=== PATIENT | female | born 1990 | race Caucasian/White ===

== ENCOUNTER 2023-09-29 13:25 | Outpatient (OUT) | payer OTHER, SELFPAY ==
--- NOTE | 2023-09-29 13:27 | US_ITS ---
[address] [address] Patient Name: ESTUARDO SLADE MRN: [id number] date: 1990 Sex: F Assigned Patient Location: US Current Patient Location: US Accession/Order Number: [id number] Exam Date: 09/29/2023 13:27 Report Date: 09/29/2023 17:44 At the request of: SABRINA ALY Procedure: US OB transvaginal EXAMINATION: US OB transvaginal HISTORY: MISSED MENSES COMPARISON: No relevant comparison available. FINDINGS: Almendarez intrauterine gestation Gestational sac: 3.6 cm, 8 weeks 6 days CRL: 2.14 cm, 8 weeks 5 days Yolk sac: 3.3 mm Heart rate: 167 bpm The uterus is normal, anteverted, anteflexed The right ovary is normal measuring 2.5 x 2.4 x 1.9 cm The left ovary measures 3.6 x 2.1 x 2.8 cm, corpus luteal cyst Cervix: 4.2 cm, closed Clinical age: 8 weeks 5 days Clinical ADELE: 05/05/2024 Ultrasound age: 8 weeks 5 days Ultrasound ADELE: 05/05/2024 US/US OB transvaginal IMPRESSION: Viable almendarez intrauterine gestation measuring 8 weeks 5 days Electronically authenticated by: JACOB AYALA Date: 09/29/2023 17:44
== END 2023-09-29 13:26 | disposition home or self-care (01) ==
PROVIDERS: Visit Provider Obstetrics & Gynecology
DX: Z34.91 Encounter for supervision of normal pregnancy, unspecified, first trimester (principal); Z3A.08 8 weeks gestation of pregnancy
CPT/HCPCS: 76817

== ENCOUNTER 2023-11-01 11:30 | Outpatient (OUT) | payer OTHER, SELFPAY ==
[2023-11-01 12:35] LABS: Basophils Percent Auto 0.2 % (0.2-2.0); Eosinophils Absolute Auto 0.1 10^3/uL (0.0-0.7); Eosinophils Percent Auto 0.8 % (0.9-7.0); Hematocrit 41.3 % (36.0-48.0); Hemoglobin 14.1 g/dL (12.0-16.0); Immature Granulocytes Abs Auto 0.06 10^3/uL (0.00-0.03); Immature Granulocytes Pct Auto 0.5 % (0.0-0.5); Lymphocytes Absolute Auto 2.1 10^3/uL (1.2-3.8); Lymphocytes Percent Auto 17.1 % (20.5-60.0); Mean Corpuscular HGB Conc 34.1 g/dL (29.9-35.2); Mean Corpuscular Hemoglobin 30.9 pg (26.7-34.0); Mean Corpuscular Volume 90.4 fL (81.0-99.0); Mean Platelet Volume 11.5 fL (9.5-13.5); Monocytes Absolute Auto 0.5 10^3/uL (0.3-0.8); Monocytes Percent Auto 4.1 % (1.7-12.0); Neutrophils Absolute Auto 9.3 10^3/uL (1.4-6.5); Neutrophils Percent Auto 77.3 % (43.0-75.0); Platelet Count 172 10^3/uL (150-450); Red Blood Count 4.57 10^6/uL (4.20-5.40); Red Cell Distribution Width 12.6 % (11.0-15.0); White Blood Count 12.1 10^3/uL (4.0-11.0)
[2023-11-01 12:43] LABS: BOX Test Sent Out Y
[2023-11-01 12:59] LABS: Thyroid Stimulating Hormone 1.332 uIU/mL (0.358-3.740)
[2023-11-01 13:28] LABS: Estimated Average Glucose 105 mg/dL; Glycohemoglobin A1C 5.3 % (4.5-6.2)
[2023-11-02 06:09] LABS: HBsAg Screen Negative (Negative); HCV Ab Non Reactive (Non Reactive); HIV Ab/p24 Ag Screen Non Reactive (Non Reactive)
[2023-11-02 07:08] LABS: Rubella Antibodies, IgG 2.16 index (Immune >0.99)
[2023-11-02 12:09] LABS: Rapid Plasma Reagin, Quant Non Reactive titer (NonRea<1:1)
== END 2023-11-01 11:31 | disposition home or self-care (01) ==
PROVIDERS: Visit Provider Obstetrics & Gynecology
DX: N92.6 Irregular menstruation, unspecified (principal); Z36.0 Encounter for antenatal screening for chromosomal anomalies
CPT/HCPCS: 36415; 83036; 84443; 85025; 86592; 86762; 86803; 86850; 86900; 86901; 87086; 87340; 87389

== ENCOUNTER 2023-11-29 20:17 | Outpatient (REF) | payer OTHER, SELFPAY ==
--- OUTSIDE RECORDS SUMMARY | 2023-11-29 20:21 | XMS_ITS | CCD ---
Author Name Unknown Address [address] [place] [address] Organization [facility] Care Team Providers Care Web Project Manager Name Role Phone FELISHA TATE Unavailable Unavailable FELISHA TATE Unavailable Unavailable JACOB AYALA V Unavailable Unavailable FELISHA TATE Unavailable Unavailable RANJAN TATEA Unavailable Unavailable LEA, FELISHA Unavailable Unavailable MISC, DOCTOR Unavailable Unavailable RANJAN TATEA Unavailable Unavailable RANJAN TATEA Unavailable Unavailable RANJAN TATEA Unavailable Unavailable RANJAN TATEA Unavailable Unavailable RANJAN TATEA Unavailable Unavailable RANJAN TATEA Unavailable Unavailable RANJAN TATEA Unavailable Unavailable LEA, FELISHA Unavailable Unavailable LEA, FELISHA Unavailable Unavailable RANJAN TATEA Unavailable Unavailable RANJAN TATEA Unavailable Unavailable FELISHA TATE Unavailable Unavailable JACOB AYALA V Unavailable Unavailable RANJAN TATEA Unavailable Unavailable RANJAN TATEA Unavailable Unavailable RANJAN TATEA Unavailable Unavailable RANJAN TATEA Unavailable Unavailable LEA, FELISHA Unavailable Unavailable LEA, FELISHA Unavailable Unavailable REQUEST, NONE LISTED Unavailable Unavailable RANJAN TATEA Unavailable Unavailable RANJAN TATEA Unavailable Unavailable RANJAN TATEA Unavailable Unavailable RANJAN TATEA Unavailable Unavailable RANJAN TATEA Unavailable Unavailable LEA, FELISHA Unavailable Unavailable RANJAN TATEA Unavailable Unavailable RANJAN TATEA Unavailable Unavailable LEA, FELISHA Unavailable Unavailable DONY BUTT Unavailable Unavailable DONY BUTT Unavailable Unavailable DONY BUTT Unavailable Unavailable FELISHA TATE Unavailable Unavailable FELISHA TATE Unavailable Unavailable SABRINA ALY Attending Unavailable Problems Active Problems Problem Classification Problem Date Documented Da te Episodic/Chronic Menstrual disorders (4 sources) Irregular menstruation, unspecified; Translations: [IRREGULAR MENSTRUATION UNSPECIFIED] Onset: 09-12-2017 Chronic Normal and/or delivery (13 sources) Encounter for supervision of normal , unspecified, third trimester; Translations: [Encounter for routine follow-up] Onset: 09-23-2017 Episodic OB-related trauma to perineum and vulva (1 source) First degree perineal laceration during delivery; Translations: [FIRST DEG PERINEAL LAC DUR DELIV] Onset: 04-11-2018 Episodic Other complications of ; puerperium affecting management of mother (1 source) Obesity complicating childbirth; Translations: [OBESITY COMPLICATING CHILDBIRTH] Onset: 04-11-2018 Chronic Other complications of (2 sources) Obesity complicating , third trimester; Translations: [OBESITY COMP THIRD TRI] Onset: 04-06-2018 Chronic Other complications of (9 sources) Other specified related conditions, unspecified trimester; Translations: [Decreased movements, third trimester, not applicable or unspecified] Onset: 02-03-2018 Episodic Other nutritional; endocrine; and metabolic disorders (1 source) Obesity, unspecified; Translations: [OBESITY UNSPECIFIED] Onset: 04-11-2018 Chronic Polyhydramnios and other problems of amniotic cavity (1 source) Full-term premature rupture of membranes, onset of labor within 24 hours of rupture; Translations: [FT PROM ONSET LABR W/I 24 HR RUPT] Onset: 04-11-2018 Episodic Screening or history of mental health and substance abuse (1 source) Personal history of nicotine dependence; Translations: [PERSONAL HISTORY OF NICOTINE DEPEND] Onset: 04-11-2018 Episodic Umbilical cord complication (1 source) Labor and delivery complicated by cord around neck, without compression, not applicable or unspecified; Translations: [L AND D COMP CORD NECK NO COMPRS NA/UNS] Onset: 04-11-2018 Episodic Unclassified (1 source) Body mass index (BMI) 36.0-36.9, adult; Translations: [BODY MASS INDEX BMI 36.0-36.9 ADULT] Onset: 04-11-2018 Chronic Unclassified (5 sources) 29 weeks gestation of ; Translations: [36 weeks gestation of ] Onset: 02-14-2018 Past or Other Problems Problem Classification Problem Date Documented Da te Episodic/Chronic Nonspecific chest pain (4 sources) Chest pain, unspecified; Translations: [CHEST PAIN UNSPECIFIED] Onset: 01-03-2018 Episodic Results Test Name Value Interpretation Reference Range Facility CHLAMYDIA/GONOCOCCUS ALEX W/C ONF. (SWAB/Uon 04-26-2018 Chlamydia Trach ALEX Negative Normal Negative [facility] Comment on above: Performed By: #### A [facility] ####[facility] [address] [place], [place] [address]. Gonorrhoeae ALEX Negative Normal Negative [facility] Comment on above: Performed By: #### A ABIDA ####[facility] Om[address]sm[address] [place] [id number] CBC AUTO DIFFon 04-08-2018 Basophils Auto #/vol (Bld) 0.1 103/ul Normal 0.0-0.1 [facility] Comment on above: Performed By: #### A ABIDA ####[facility] [address] [place] [address] [place] Basophils/100 WBC Auto (Bld) 0.3 % Normal 0.2-2.0 [facility] Comment on above: Performed By: #### A ABIDA ####[facility] [address] [place] [address] [place] Eosinophils 0.2 103/ul Normal 0.0-0.7 [facility] Comment on above: Performed By: #### A ABIDA ####[facility] [address] [place] [address] [place] Eosinophils/100 leukocytes 1.2 % Normal 0.9-7.0 [facility] Comment on above: Performed By: #### A ABIDA ####[facility] Qjvffxty[address] [place] [address] [place] Erythrocyte distribution width Auto Ratio (RBC) 14.3 % Normal 11.0-15.0 [facility] Comment on above: Performed By: #### A ABIDA ####[facility] In[address] [place] [address] [place] Erythrocytes (RBC) 3.91 106/ul Critically low 4.20-5.40 [facility] Comment on above: Performed By: #### A ABIDA ####[facility] R[address] [place] [address] [place] Hematocrit (HCT) 34.7 % Critically low 36.0-48.0 [facility] Comment on above: Performed By: #### A ABIDA ####[facility] Au[address] [place] [address] [place] Hemoglobin mass conc (Bld) 11.8 g/dL Critically low 12.0-16.0 [facility] Comment on above: Performed By: #### A ABIDA ####[facility] Ntvtybtipt0082 [address] [place] IG # 0.18 10e3/ul Critically high 0.00-0.03 [facility] Comment on above: Performed By: #### A ABIDA ####[facility] Btpgvjaihz9076 [address] [place] IG % 1.0 % Critically high 0.0-0.5 [facility] Comment on above: Performed By: #### A ABIDA ####[facility] [address] [place] [address] [place] Lymphocytes 2.1 103/ul Normal 1.2-3.8 [facility] Comment on above: Performed By: #### A ABIDA ####[facility] Yufdquier[address] [place] [address] [place] Lymphocytes/100 leukocytes 11.9 % Critically low 20.5-60.0 [facility] Comment on above: Performed By: #### A ABIDA ####[facility] [address] [place] [address] [place] MANUAL DIFF REQ NO Normal [facility] Comment on above: Performed By: #### A ABIDA ####[facility] [address] [place] [address] [place] MCH 30.2 pg Normal 26.7-34.0 [facility] Comment on above: Performed By: #### A ABIDA ####[facility] [address] [place] [address] [place] MCHC mass conc (RBC) 34.0 g/dL Normal 29.9-35.2 [facility] Comment on above: Performed By: #### A ABIDA ####[facility] [address] [place] [address] [place] MCV 88.7 fL Normal 81.0-99.0 [facility] Comment on above: Performed By: #### A ABIDA ####[facility] Rhtkb[address]u6[address] [place], [place] [address]Rhvaey [place] Monocytes 1.1 103/ul Critically high 0.3-0.8 [facility] Comment on above: Performed By: #### A ABIDA ####[facility] Rcxjmjelfp5204 [place], [place] [address]Dnwhaq [place] Monocytes/100 leukocytes 6.2 % Normal 1.7-12.0 [facility] Comment on above: Performed By: #### A ABIDA ####[facility] Ibdtmfhvth1514 [place], [place] [address]Evijkc [place] Neutrophils 14.1 103/ul Critically high 1.4-6.5 [facility] Comment on above: Performed By: #### A ABIDA ####[facility] Yvtjpjcqsr8457 [place], [place] [address]Afjkve [place] Neutrophils/100 WBC Auto (Bld) 79.4 % Critically high 43.0-75.0 [facility] Comment on above: Performed By: #### A ABIDA ####[facility] N[address]fduo7[address] [place], [place] [address]Qgsvlx [place] Platelet mean volume (PMV) 12.2 fL Normal 9.5-13.5 [facility] Comment on above: Performed By: #### A ABIDA ####[facility] Vikyxbakwl6433 [place], [place] [address]Mwxdvs [place] Platelets 118 103/ul Critically low 150-450 [facility] Comment on above: Performed By: #### A ABIDA ####[facility] Kfqchhewik3837 [place], [place] [address]Mtgtje [place] WBC (Leukocytes) 17.7 103/ul Critically high 4.0-11.0 [facility] Comment on above: Performed By: #### A ABIDA ####[facility] Smyktbjhhs7644 [place], [place] [address]Pvmvkc [place] SCREENon 04-08-2018 SCREEN Negative Normal [facility] Comment on above: Performed By: #### A ABIDA ####[facility] Rmcrihrxfa4407 [place], [place] [address]Ztltcw [place] RHOGAMon 04-08-2018 RHOGAM Status Information Issued Quantity 1 Product ID Rh Immune Globulin Lot Number [id number] Issue Date/Time [id number] Normal [facility] Comment on above: Performed By: #### A ABIDA ####[facility] Sy[address]kl[address] [place], [place] [id number] [place] CBC AUTO DIFFon 04-07-2018 Basophils Auto #/vol (Bld) 0.1 103/ul Normal 0.0-0.1 [facility] Comment on above: Performed By: #### A ABIDA ####[facility] [address] [place] [address] [place] Basophils/100 WBC Auto (Bld) 0.3 % Normal 0.2-2.0 [facility] Comment on above: Performed By: #### A ABIDA ####[facility] Z[address] [place] [address] [place] Eosinophils 0.2 103/ul Normal 0.0-0.7 [facility] Comment on above: Performed By: #### A ABIDA ####[facility] Imntrvdh[address] [place] [address] [place] Eosinophils/100 leukocytes 1.0 % Normal 0.9-7.0 [facility] Comment on above: Performed By: #### A ABIDA ####[facility] [address]we[address] [place] [address] [place] Erythrocyte distribution width Auto Ratio (RBC) 14.0 % Normal 11.0-15.0 [facility] Comment on above: Performed By: #### A ABIDA ####[facility] [address]yesju[address] [place] [address] [place] Erythrocytes (RBC) 4.39 106/ul Normal 4.20-5.40 [facility] Comment on above: Performed By: #### A ABIDA ####[facility] Wjc[address]fa[address] [place] [address] [place] Hematocrit (HCT) 38.7 % Normal 36.0-48.0 [facility] Comment on above: Performed By: #### A ABIDA ####[facility] Xyqxpwknar5045 [address] [place] Hemoglobin mass conc (Bld) 13.4 g/dL Normal 12.0-16.0 [facility] Comment on above: Performed By: #### A ABIDA ####[facility] Hajipxqnjf1637 [address] [place] IG # 0.30 10e3/ul Critically high 0.00-0.03 [facility] Comment on above: Performed By: #### A ABIDA ####[facility] [address] [place] [address] [place] IG % 1.4 % Critically high 0.0-0.5 [facility] Comment on above: Performed By: #### A ABIDA ####[facility] [address]zbj[address] [place] [address] [place] Lymphocytes 2.6 103/ul Normal 1.2-3.8 [facility] Comment on above: Performed By: #### A ABIDA ####[facility] [address] [place] [address] [place] Lymphocytes/100 leukocytes 12.6 % Critically low 20.5-60.0 [facility] Comment on above: Performed By: #### A ABIDA ####[facility] M[address] [place] [address] [place] MANUAL DIFF REQ NO Normal [facility] Comment on above: Performed By: #### A ABIDA ####[facility] Ia[address]ksyymr[address] [place] [address] [place] MCH 30.5 pg Normal 26.7-34.0 [facility] Comment on above: Performed By: #### A ABIDA ####[facility] [address]ymgthoir[address] [place] [address] [place] MCHC mass conc (RBC) 34.6 g/dL Normal 29.9-35.2 [facility] Comment on above: Performed By: #### A ABIDA ####[facility] S[address]owtbr7039 [place], [place] [address]Afsnox [place] MCV 88.2 fL Normal 81.0-99.0 [facility] Comment on above: Performed By: #### A ABIDA ####[facility] Dvxbhiigdt1811 [place], [place] [address]Pynibm [place] Monocytes 1.2 103/ul Critically high 0.3-0.8 [facility] Comment on above: Performed By: #### A ABIDA ####[facility] Acymtqtyjh6151 [place], [place] [address]Zzagvj [place] Monocytes/100 leukocytes 5.5 % Normal 1.7-12.0 [facility] Comment on above: Performed By: #### A ABIDA ####[facility] Senhaprxvb2461 [place], [place] [address]Qvflxw [place] Neutrophils 16.5 103/ul Critically high 1.4-6.5 [facility] Comment on above: Performed By: #### A ABIDA ####[facility] Uzvsxkpuot4137 [place], [place] [address]Vedtpf [place] Neutrophils/100 WBC Auto (Bld) 79.2 % Critically high 43.0-75.0 [facility] Comment on above: Performed By: #### A ABIDA ####[facility] Coquooaiuw2521 [place], [place] [address]Kucqoy [place] Platelet mean volume (PMV) 12.2 fL Normal 9.5-13.5 [facility] Comment on above: Performed By: #### A ABIDA ####[facility] Jcsdyjuvwu0455 [place], [place] [address]Pqgrea [place] Platelets 139 103/ul Critically low 150-450 [facility] Comment on above: Performed By: #### A ABIDA ####[facility] Sdrgkaqhsl0971 [place], [place] [address]Lzwtzc [place] WBC (Leukocytes) 20.8 103/ul Critically high 4.0-11.0 [facility] Comment on above: Performed By: #### A ABIDA ####[facility] Qujxqvzqhk[address]30 [address] DRUG SCREEN RAPID (URINE)on 04-07-2018 AMP Negative Normal NEGATIVE [facility] Comment on above: Performed By: #### A ABIDA ####[facility] Vxkrlwzuyr4500 [address] BAR Negative Normal NEGATIVE [facility] Comment on above: Performed By: #### A BAIDA ####[facility] Syzlxekdea4515 [address] BUP Negative Normal NEGATIVE [facility] Comment on above: Performed By: #### A ABIDA ####[facility] Ouoqwhbyod5497 [address] BZO Negative Normal NEGATIVE [facility] Comment on above: Performed By: #### A ABIDA ####[facility] [address] [place] [address] ELENA Negative Normal NEGATIVE [facility] Comment on above: Performed By: #### A ABIDA ####[facility] [address] [place] [address] CUT-OFFS SEE BELOW Normal [facility] Comment on above: Result Comment: AMP (Amphetamine): 500ng/mL, BAR (Barbituates): 200 ng/mL, BZO (Benzodiazepines): 150 ng/mL, BUP (Buprenorphine): 10 ng/mL, ELENA (Cocaine): 150 ng/mL, mAMP (Methamphetamine): 500 ng/mL, MTD (Methadone): 200 ng/mL, OPI (Opiates): 100 ng/mL or 2000 ng/mL, OXY (Oxycodone): 100 ng/mL, PCP (Phencyclidine): 25 ng/mL, PPX (Propoxyphene): 300 ng/mL, THC (Cannabinoids): 50 ng/mL, TCA (Trycyclic Antidepressants): 300 ng/mL Performed By: #### A ABIDA ####[facility] [address] [place] [address] DRUG CUT HEADER DRUG CLASS TEST SYST EM CUT-OFF CONCENTRATIONS ARE FOLLOWS: Normal [facility] Comment on above: Performed By: #### A ABIDA ####[facility] Axigspgldl3652 [address] [place] mAMP Negative Normal NEGATIVE [facility] Comment on above: Performed By: #### A ABIDA ####[facility] Egmhuvluxc5664 [address] [place] MTD Negative Normal NEGATIVE [facility] Comment on above: Performed By: #### A ABIDA ####[facility] Ymaewbirck[address] [place] OPI Negative Normal NEGATIVE [facility] Comment on above: Performed By: #### A ABIDA ####[facility] Iztnqzlnji7598 [address] [place] OXY Negative Normal NEGATIVE [facility] Comment on above: Performed By: #### A ABIDA ####[facility] [address]qax[address]fr[address] [place] [address] [place] PCP Negative Normal NEGATIVE [facility] Comment on above: Performed By: #### A ABIDA ####[facility] [address] [place] [address] [place] PPX Negative Normal NEGATIVE [facility] Comment on above: Performed By: #### A ABIDA ####[facility] X[address]csjfosw[address] [place] [address] [place] TCA Negative Normal NEGATIVE [facility] Comment on above: Performed By: #### A ABIDA ####[facility] [address] [place] [address] [place] THC Negative Normal NEGATIVE [facility] Comment on above: Performed By: #### A ABIDA ####[facility] [address]ch[address] [place] [address] [place] UA (CLEAN/CATCH) AWNING FINISHER/MICRO I F IND.on 04-07-2018 Bilirubin (total) Negative Normal NEGATIVE [facility] Comment on above: Performed By: #### A ABIDA ####[facility] [address]sfr[address]zo[address] [place] [address] [place] BLOOD Negative Normal NEGATIVE [facility] Comment on above: Performed By: #### A ABIDA ####[facility] Vzavtqamec2102 [place], [place] [address]Lyuttq [place] Glucose mass conc Negative Normal NEGATIVE [facility] Comment on above: Performed By: #### A ABIDA ####[facility] Ycpcdxmwbb6941 [place], [place] [address]Ufjirc [place] pH of blood 6.0 [pH] Normal 5-9 [facility] Comment on above: Performed By: #### A ABIDA ####[facility] Zlmhbjdaxn8225 [place] [id number] Protein Negative Normal [facility] Comment on above: Performed By: #### A ABIDA ####[facility] Pyugvwpsry[address] [place] [address] [place] SPEC GRAVITY 1.020 Normal 1.005-<=1.025 [facility] Comment on above: Performed By: #### A ABIDA ####[facility] R[address]vvfdyuw[address] [place] [address] [place] UR MICRO IND NOT INDICATED Normal [facility] Comment on above: Performed By: #### A ABIDA ####[facility] Csaecebjgd[address] [place], [place] [id number] [place] Urine, clarity CLEAR Normal [facility] Comment on above: Performed By: #### A ABIDA ####[facility] Lksebnbmdh[address] [place], [place] [id number] [place] Urine, color LT. YELLOW Normal YELLOW [facility] Comment on above: Performed By: #### A ABIDA ####[facility] Vfjwykladi0949 [place] [id number] Urine, ketones presence Negative Normal NEGATIVE [facility] Comment on above: Performed By: #### A ABIDA ####[facility] Avqsizdajw6974 [place], [place] [address]Siifux [place] Urine, nitrite presence Negative Normal NEGATIVE [facility] Comment on above: Performed By: #### A ABIDA ####[facility] Pdvtyhhrzq8952 [address] [place] Urine, urobilinogen 0.2 {Jer'U}/dL Normal [facility] Comment on above: Performed By: #### A ABIDA ####[facility] Zvjbqzibam[address] [place], [place] [id number] [place] WBC (Leukocytes) Negative Normal NEGATIVE [facility] Comment on above: Performed By: #### A ABIDA ####[facility] L[address]ksiummc[address] [place] [address] [place] GROUP B STREPTon 03-21-2018 GBS Performed by [facility] , final report to follow Normal NEG FOR GBS The [facility] Comment on above: Performed By: #### A ABIDA ####[facility] [address]if[address] [place] [address] [place] RHOGAMon 02-04-2018 RHOGAM Status Information Issued Quantity 1 Product ID Rh Immune Globulin Lot Number [id number] Issue Date/Time [id number] Normal [facility] Comment on above: Performed By: #### A ABIDA ####[facility] Wvrugrkkxj[address] [place], [place] [id number] [place] CBC AUTO DIFFon 02-03-2018 Basophils Auto #/vol (Bld) 0.0 103/ul Normal 0.0-0.1 [facility] Comment on above: Performed By: #### P REGQNT ####[facility] [address]zxkq[address] [place] [address] [place] Basophils/100 WBC Auto (Bld) 0.3 % Normal 0.2-2.0 [facility] Comment on above: Performed By: #### P REGQNT ####[facility] [address] [place], [place] [address]Gerken [place] Eosinophils 0.2 103/ul Normal 0.0-0.7 [facility] Comment on above: Performed By: #### P REGQNT ####[facility] [facility] [address] [place], [place] [address]Gerken [place] Eosinophils/100 leukocytes 1.1 % Normal 0.9-7.0 [facility] Comment on above: Performed By: #### P REGQNT ####[facility] Rtalggzeql3621 [address] [place] Erythrocyte distribution width Auto Ratio (RBC) 13.2 % Normal 11.0-15.0 [facility] Comment on above: Performed By: #### P REGQNT ####[facility] Mrjnciuqti4481 [address] [place] Erythrocytes (RBC) 3.91 106/ul Critically low 4.20-5.40 [facility] Comment on above: Performed By: #### P REGQNT ####[facility] Xqmznacp[address] [place] [address] [place] Hematocrit (HCT) 35.5 % Critically low 36.0-48.0 [facility] Comment on above: Performed By: #### P REGQNT ####[facility] Z[address]oajaird[address] [place] [address] [place] Hemoglobin mass conc (Bld) 12.0 g/dL Normal 12.0-16.0 [facility] Comment on above: Performed By: #### P REGQNT ####[facility] Nyizfebdyx[address] [place] [address] [place] IG # 0.27 10e3/ul Critically high 0.00-0.03 [facility] Comment on above: Performed By: #### P REGQNT ####[facility] Rtnipztru[address] [place] [address] [place] IG % 1.8 % Critically high 0.0-0.5 [facility] Comment on above: Performed By: #### P REGQNT ####[facility] Jvewsxmbao3930 [address] [place] Lymphocytes 1.8 103/ul Normal 1.2-3.8 [facility] Comment on above: Performed By: #### P REGQNT ####[facility] Ymyqzwdrhj[address] [place] [address] [place] Lymphocytes/100 leukocytes 11.9 % Critically low 20.5-60.0 [facility] Comment on above: Performed By: #### P REGQNT ####[facility] Lfovfpigtx8683 [place] [phone] MANUAL DIFF REQ NO Normal [facility] Comment on above: Performed By: #### P REGQNT ####[facility] Npawmypccs8204 [place] [phone] [place] MCH 30.7 pg Normal 26.7-34.0 [facility] Comment on above: Performed By: #### P REGQNT ####[facility] Khzpetjdwg1023 [place] [phone] [place] MCHC mass conc (RBC) 33.8 g/dL Normal 29.9-35.2 [facility] Comment on above: Performed By: #### P REGQNT ####[facility] Pdetgoagxr[address] [place], [place] [phone] [place] MCV 90.8 fL Normal 81.0-99.0 [facility] Comment on above: Performed By: #### P REGQNT ####[facility] Krlsmlgsou[address] [place], [place] [phone] [place] Monocytes 0.6 103/ul Normal 0.3-0.8 [facility] Comment on above: Performed By: #### P REGQNT ####[facility] Eoytskdrao[address] [place], [place] [phone] [place] Monocytes/100 leukocytes 3.9 % Normal 1.7-12.0 [facility] Comment on above: Performed By: #### P REGQNT ####[facility] Puakmubtbb[address] [place], [place] [phone] [place] Neutrophils 12.1 103/ul Critically high 1.4-6.5 [facility] Comment on above: Performed By: #### P REGQNT ####[facility] Auqkzxcunm[address] [place], [place] [phone] [place] Neutrophils/100 WBC Auto (Bld) 81.0 % Critically high 43.0-75.0 [facility] Comment on above: Performed By: #### P REGQNT ####[facility] Vcampqpgtv1828 [place], [place] [address]Pugile Karen Platelet mean volume (PMV) 11.6 fL Normal 9.5-13.5 [facility] Comment on above: Performed By: #### P REGQNT ####[facility] Zuebgxetam0360 [place], [place] [address]Vsokkx Karen Platelets 133 103/ul Critically low 150-450 [facility] Comment on above: Performed By: #### P REGQNT ####[facility] Ryqdmsvtqb3565 [place], [place] [address]Zkptqi Karen WBC (Leukocytes) 14.9 103/ul Critically high 4.0-11.0 [facility] Comment on above: Performed By: #### P REGQNT ####[facility] Jeyzyoytwv6013 [place], [place] [address]Kybsvp Karen GLUCOSE - 1HRon 02-03-2018 Glucose mass conc 120 mg/dL Critically high 74-106 Th [facility] Comment on above: Performed By: #### P REGQNT ####[facility] Hrpnjdzcxo3576 [place], [place] [address]Inqoak Karen TYPE AND SCREENon 02-03-2018 TYPE AND SCREEN Negative Normal [facility] Comment on above: Performed By: #### P REGQNT ####[facility] Yppbnotgzh7862 [place], [place] [address]Wjbsvs [place] US PREG ANATOMY SINGLEon US PREG ANATOMY SINGLE [address] [place] [address] Patient: ESTUARDO JEREZ Exam Date: 11/25/2017DOB: 1990 Gender:F : FELISHA TATE . Admission #: [id number] : Order #: [id number] HERE TO VIEW EXAM RADIOLOGY REPORT PROCEDURE: ULTRASOUND > 14 WEEKS COMPARISON: None. INDICATIONS: Encounter for care of first , antepartum, second trimester Z34.02, 20 weeks 1 day. TECHNIQUE: Transabdominal sonographic examination for obstetrical and evaluation. Transvaginal sonographic examination for obstetrical and evaluation.FINDINGS: FLUID / PLACENTA: Amniotic fluid volume: Subjectively normal for gestational age. Placental location: Anterior. No previa. Cervix Length: 4.3 cm, closed Heart Rate: 138 H.B./min Number: One ANATOMY: Normal structures: Cerebellum. Choroid plexus. Cisterna magna. Lateral cerebral ventricles. Orbits. Midline falx. Hard palate. 4-chamber heart. RVOT. LVOT. Stomach. Kidneys. Bladder. Umbilical cord insertion into abdomen. 3 vessel cord. Cervical spine. Thoracic spine. Lumbar spine. Sacral spine. Right upper extremity. Left upper extremity. Right lower extremity. Left lower extremity. Suboptimally seen: None. Abnormalities/Other: None. BIOMETRY: BPD: 4.58 cm 19 weeks, 6 days 37.40 % FL/AC: 20.53 HC: 17.33 cm 19 weeks, 6 days 29.70 % FL/BPD: 68.84 AC: 15.37 cm 20 weeks, 4 days 58.50 % HC/AC: 1.13 FL: 3.16 cm 19 weeks, 6 days 30.10 % EFW: 336.47 g 47% by AUA, GESTATIONAL AGE: Age by EDC: 20 weeks, 1 day ADELE by EDC: 2018-04-13 Age by Current US: 20 weeks, 0 days ADELE by Current US: 2018-04-14 *Reference: [employer] Practice Guideline for the performance of Obstetric Ultrasound Examinations, August 28, 2007. CONCLUSION: 1. Normal anatomy scan Dictated by: Jacob Ayala M.D. on 11/25/2017 at 20:17 Approved by: Jacob Ayala M.D. on 11/25/2017 at 20:18 Normal [facility] PAP ACOG PANEL 4: 21 to 29on 10-11-2017 LCPAP SEE SCANNED REPORT Normal [facility] Comment on above: Performed By: #### P REGQNT ####[facility] Uqwecqcrha7661 [address] [place] HEMOGLOBIN ELECTOPHORESISon 09-27-2017 HBSREV Reviewed by Adithya Morton MD ([id number]) Normal [facility] Comment on above: Result Comment: Test Performed By: [facility] [employer] [address] [place] [address] In School Suspension Aide: Dalila Roman MD, PhD Performed By: #### P REGQNT ####[facility] Hamdnykcee2812 [place] [address] Hemoglobin mass conc (Bld) None detected. Normal 0.0-1.8 [facility] Comment on above: Performed By: #### P REGQNT ####[facility] Dboagjbojz4113 [address] [place] Hemoglobin mass conc (Bld) No abnormal hemoglobin identified. Normal [facility] Comment on above: Performed By: #### P REGQNT ####[facility] Jqjlxsdufd3436 [address] [place] Hemoglobin mass conc (Bld) 97.4 % Normal [facility] Comment on above: Performed By: #### P REGQNT ####[facility] [address]fprhryy[address] [place] [address] [place] Hemoglobin mass conc (Bld) 2.6 % Normal 1.5-3.5 [facility] Comment on above: Performed By: #### P REGQNT ####[facility] Gnwoucllrp[address] [place] [address] [place] Interpertation Hemoglobins were analyzed by capillary electrophoresis. Normal [facility] Comment on above: Result Comment: Norm al pattern Performed By: #### P REGQNT ####[facility] Vpvlvauqrh[address] [place] [address] [place] VARICELLA IGGon 09-26-2017 Varicella Zoster IgG 1134.0 Index Value Normal [facility] Comment on above: Result Comment: Inde x Values are Interpreted as Follows:Negative specimens <135.0Equivocal specimens 135.0 to 164.9Positive specimens >164.9The magnitude of the measured result is not indicative of theamount of antibody present. Test Performed By: [facility] [employer] [address] [place] [address] In School Suspension Aide: Dalila Roman MD, PhD Performed By: #### P REGQNT ####[facility] [address] [place], [place] [address]en VZVGQL Positive Abnormal NEGAT [facility] Comment on above: Result Comment: Pres ence of detectable VZV IgG antibodies. A positive resultgenerally indicatesexposure to the pathogen or administration of specificimmunoglobulins, but is no indication of active infection or stage of disease. Performed By: #### P REGQNT ####[facility] Lnhttms[address] [place] [address]xgluhReymundo [place] RPR/SERUMon 09-24-2017 Reagin antibody presence Non Reactive Normal NR [facility] Comment on above: Result Comment: Test Performed By: [place] [address] In [employer] Suspension Aide: Dalila Roman MD, PhD Performed By: #### P REGQNT ####[facility] [address]wy[address] [place] [address]Mqxaqf Karen CBC AUTO DIFFon 09-23-2017 Basophils Auto #/vol (Bld) 0.0 103/ul Normal 0.0-0.1 [facility] Comment on above: Performed By: #### C BC ####[facility] Bktfynncwl[address] [place], [place] [phone] Basophils/100 WBC Auto (Bld) 0.3 % Normal 0.2-2.0 [facility] Comment on above: Performed By: #### C BC ####[facility] Jhdrqhcirs[address] [place], [place] [phone] [place] Eosinophils 0.2 103/ul Normal 0.0-0.7 [facility] Comment on above: Performed By: #### C BC ####[facility] Bwdglkldsv[address] [place], [place] [phone] Eosinophils/100 leukocytes 1.1 % Normal 0.9-7.0 [facility] Comment on above: Performed By: #### C BC ####[facility] Rpdchkqaiy[address] [place], [place] [address] Erythrocyte distribution width Auto Ratio (RBC) 12.5 % Normal 11.0-15.0 [facility] Comment on above: Performed By: #### C BC ####[facility] Kmvnsstuob1217 [address] [place] Erythrocytes (RBC) 4.61 106/ul Normal 4.20-5.40 [facility] Comment on above: Performed By: #### C BC ####[facility] [address]fz[address] [place], [place] [address] Hematocrit (HCT) 41.5 % Normal 36.0-48.0 The [facility] Comment on above: Performed By: #### C BC ####[facility] Mjwkktxpqr[address] [place], [place] [address] Hemoglobin mass conc (Bld) 14.5 g/dL Normal 12.0-16.0 [facility] Comment on above: Performed By: #### C BC ####[facility] Auidhmyrux[address] [place] [address] [place] IG # 0.07 10e3/ul Critically high 0.00-0.03 [facility] Comment on above: Performed By: #### C BC ####[facility] Aciqcxgnyb[address] [place] [address] [place] IG % 0.5 % Normal 0.0-0.5 [facility] Comment on above: Performed By: #### C BC ####[facility] Ude[address]jvffbr[address] [place] [address] [place] Lymphocytes 2.2 103/ul Normal 1.2-3.8 [facility] Comment on above: Performed By: #### C BC ####[facility] Lixysdmeza[address] [place] [address] [place] Lymphocytes/100 leukocytes 15.4 % Critically low 20.5-60.0 [facility] Comment on above: Performed By: #### C BC ####[facility] Gbxnksdvno[address] [place] [address] [place] MANUAL DIFF REQ NO Normal The [facility] Comment on above: Performed By: #### C BC ####[facility] M[address]ivaqeml[address] [place] [address] [place] MCH 31.5 pg Normal 26.7-34.0 [facility] Comment on above: Performed By: #### C BC ####[facility] Pimkwcrgis6682 [place], [place] [address]Dssqbm Karen MCHC mass conc (RBC) 34.9 g/dL Normal 29.9-35.2 [facility] Comment on above: Performed By: #### C BC ####[facility] Omkejzgbmn1697 [place], [place] [address]Xpsxdb [place] MCV 90.0 fL Normal 81.0-99.0 [facility] Comment on above: Performed By: #### C BC ####[facility] Xemjistzqb1461 [place], [place] [address]Uqrkys [place] Monocytes 0.5 103/ul Normal 0.3-0.8 [facility] Comment on above: Performed By: #### C BC ####[facility] Hbevxeqhnf3958 [place], [place] [address]Ndswmw [place] Monocytes/100 leukocytes 3.6 % Normal 1.7-12.0 [facility] Comment on above: Performed By: #### C BC ####[facility] Xphlraavej7949 [place], [place] [address]Khwjlc [place] Neutrophils 11.2 103/ul Critically high 1.4-6.5 The [facility] Comment on above: Performed By: #### C BC ####[facility] Xrjmkjarhy1139 [place], [place] [address]Tdhghp [place] Neutrophils/100 WBC Auto (Bld) 79.1 % Critically high 43.0-75.0 [facility] Comment on above: Performed By: #### C BC ####[facility] Rsthtjpcps1569 [place], [place] [address]Aegnlz [place] Platelet mean volume (PMV) 11.6 fL Normal 9.5-13.5 The [facility] Comment on above: Performed By: #### C BC ####[facility] Ptgtthjfyv8885 [place], [place] [address]Cfnfnq [place] Platelets 170 103/ul Normal 150-450 [facility] Comment on above: Performed By: #### C BC ####[facility] Peebeeybzj2757 [place], [place] [address]KelsksReymundo [place] WBC (Leukocytes) 14.2 103/ul Critically high 4.0-11.0 Th e [facility] Comment on above: Performed By: #### C BC ####[facility] Giemahjvua8369 [place], [place] [address]GvxjpvReymundo [place] HEP B SURFACE AGon 7 HEP B Surface Ag Negative Normal NEGATIVE The [facility] Comment on above: Performed By: #### P REGQNT ####[facility] Stlrjvzdge1343 [place], [place] [address]YkjxdvReymundo [place] HEP C ANTIBODYon 09-23-2017 Anti HCV Negative Normal NEGATIVE The [facility] Comment on above: Performed By: #### P REGQNT ####[facility] Albhsavhhq1928 [place], [place] [address]JoirckReymundo [place] HIV 1 AND 2 ABon 09-23-2017 HIV 1 AND 2 AB Negative Normal NEGATIVE The [facility] Comment on above: Performed By: #### H IV12 ####[facility] V[address]fdgrzdro[address] [place], [place] [address] PREG QUANT HCGon 09-23-2017 HCG Qn SEE BELOW Normal [facility] Comment on above: Result Comment: 5-50 0-1 WEEK 40-300 1-2 WEEKS 100-1,000 2-3 WEEKS 500-6,000 3-4 WEEKS 5,000-200,000 1-2 MONTHS 10,000-100,000 2-3 MONTHS 3,000-50,000 2ND TRIMESTER 1,000-50,000 3RD TRIMESTER Performed By: #### P REGQNT ####[facility] Cjnuntegfd0735 [place], [place] [address]Gadhhq [place] HCG QUANT 98593.00 mIU/mL Normal The [facility] Comment on above: Performed By: #### P REGQNT ####[facility] Xpmjbitdxr4456 [place], [place] [address]Spcvpy Karen RUBELLA AB IGGon 09-23-2017 RUB HEADER SEE BELOW Normal [facility] Comment on above: Result Comment: or=1 5.0 IU/mL POSITIVE WHO considers levels >or= 10.0 IU/mL to be positive immune status Performed By: #### R UBG ####[facility] Eatikbjuug7002 [address] [place] RUB IGG 33.1 IU/mL Normal [facility] Comment on above: Performed By: #### R UBG ####[facility] Asvrvhqlcb2533 [place] [phone] [place] TYPE AND SCREENon 09-23-2017 TYPE AND SCREEN Negative Normal The [facility] Comment on above: Performed By: #### T NS ####[facility] S[address] [place] [address] [place] CULTURE URINEon 09-13-2017 CULTURE URINE Culture Observations : Final; See scanned report to follow in HPF Normal [facility] Comment on above: Performed By: #### C XUR ####[facility] Qliuaebloc[address] [place] [address] [place] UA RANDOM W/MICROSCOPICon Bilirubin (total) Negative Normal NEGATIVE The [facility] Comment on above: Performed By: #### U AMIC ####[facility] Erwejcipvf[address] [place] [address] [place] BLOOD Negative Normal NEGATIVE The [facility] Comment on above: Performed By: #### U AMIC ####[facility] Rcabeuochr3041 [address] [place] CAST NONE SEEN Normal NONE SEEN The [facility] Comment on above: Performed By: #### U AMIC ####[facility] Acngtlzyyk9183 [address] [place] Erythrocytes (RBC) NONE SEEN Normal 0-2 [facility] Comment on above: Performed By: #### U AMIC ####[facility] Nmepdsebdw1093 [address] [place] Glucose mass conc Negative Normal NEGATIVE The [facility] Comment on above: Performed By: #### U AMIC ####[facility] Xsyiozayyl1820 [address] [place] MUCOUS NONE SEEN Normal NONE SEEN The [facility] Comment on above: Performed By: #### U AMIC ####[facility] Czaflzgtnq3399 [place], [place] [address]Dlawdv [place] pH of blood 6.5 [pH] Normal 5-9 The [facility] Comment on above: Performed By: #### U AMIC ####[facility] Bbmpekkgfy2129 [place], [place] [address]Oscdtb [place] Protein Negative Normal The [facility] Comment on above: Performed By: #### U AMIC ####[facility] Eojgsahujx2824 [place] [phone] [place] SPEC GRAVITY 1.015 Normal 1.005-<=1.025 The [facility] Comment on above: Performed By: #### U AMIC ####[facility] Sscxwxlmmt6833 [address] [place] Urine, bacteria in sediment TRACE Normal NONE SEEN The [facility] Comment on above: Performed By: #### U AMIC ####[facility] Eiefrxwxwf7659 [address] [place] Urine, clarity CLEAR Normal The [facility] Comment on above: Performed By: #### U AMIC ####[facility] Qzohboijoa9512 [place] [phone] [place] Urine, color LT. YELLOW Normal YELLOW The [facility] Comment on above: Performed By: #### U AMIC ####[facility] Odijyibous1532 [place] [address]Gerken [place] Urine, crystals in sediment NONE SEEN Normal NONE SEEN The [facility] Comment on above: Performed By: #### U AMIC ####[facility] Ocruizqbbj3243 [place], [place] [address]Ohswos [place] Urine, epithelial cells in sediment RARE Normal The [facility] Comment on above: Performed By: #### U AMIC ####[facility] Gwhgykpmrz6653 [place], [place] [address]Jwplpc [place] Urine, ketones presence Negative Normal NEGATIVE The [facility] Comment on above: Performed By: #### U AMIC ####[facility] Exfpcprpnr4332 [place] [address] Urine, nitrite presence Negative Normal NEGATIVE The [facility] Comment on above: Performed By: #### U AMIC ####[facility] Rmiseoskvi9172 [place] [address] Urine, urobilinogen 0.2 {Jer'U}/dL Normal The [facility] Comment on above: Performed By: #### U AMIC ####[facility] Ispuizhmbz0684 [address] [place] WBC (Leukocytes) NONE SEEN Normal NONE SEEN The [facility] Comment on above: Performed By: #### U AMIC ####[facility] Fpellimqev0548 [address] [place] WBC (Leukocytes) Negative Normal NEGATIVE The [facility] Comment on above: Performed By: #### U AMIC ####[facility] Tukfplzcqf8798 [address] [place] ABO AND RH TYPEon 09-12-2017 ABO AND RH TYPE Negative Normal The [facility] Comment on above: Performed By: #### A BORH ####[facility] Mlzczojhng8179 [place] [phone] [place] PREG QUANT HCGon 09-12-2017 HCG Qn SEE BELOW Normal The [facility] Comment on above: Result Comment: 5-50 0-1 WEEK 40-300 1-2 WEEKS 100-1,000 2-3 WEEKS 500-6,000 3-4 WEEKS 5,000-200,000 1-2 MONTHS 10,000-100,000 2-3 MONTHS 3,000-50,000 2ND TRIMESTER 1,000-50,000 3RD TRIMESTER Performed By: #### P REGQNT ####[facility] Fogciqkmxo7963 [address] [place] HCG QUANT 81136.00 mIU/mL Normal The [facility] Comment on above: Performed By: #### P REGQNT ####[facility] Apcldvrlcv9491 [place], [place] [address]Ldzjxy Karen US PREG <14 WKSon 08-29-2017 US PREG <14 WKS [address] [place] [address] Patient: ESTUARDO JEREZ Exam Date: 08/29/2017DOB: 1990 Gender:F : FELISHA Joel LEA . Admission #: [id number] : Order #: [id number] HERE TO VIEW EXAM RADIOLOGY REPORT PROCEDURE: ULTRASOUND < 14 WEEKS COMPARISON: US PREG <14 WKS, 12/19/2014. INDICATIONS: Missed menses N92.6; 7 weeks TECHNIQUE: Transvaginal sonographic examination for obstetrical and evaluation.FINDINGS: GESTATIONAL SAC: Present and normal appearing. POLE: Present and normal appearing.CARDIAC ACTIVITY: Present. UTERUS: Normal.OVARIES: Right: Corpus Lutein cyst. Left: Normal.CUL-DE-SAC: Normal. OTHER: None. AGE BY LMP: 7 weeks, 4 daysEDD BY LMP: April 13, 2018AGE BY US: 7 weeks, 2 daysEDD BY US: April 15, 2018 CONCLUSION: 1. Viable intrauterine gestation of 7 weeks, 2 days Dictated by: Jacob Ayala M.D. on 08/29/2017 at 16:02 Approved by: Jacob Ayala M.D. on 08/29/2017 at 16:03 Normal [facility] Encounters Encounter Date Encounter Type Care Provider Facility Start: 11-01-2023 End: 11-01-2023 ambulatory SABRINA ALY Not Available Start: 04-11-2018 End: 04-11-2018 Ambulatory FELISHA TATE Facility:[facility] Start: 04-06-2018 End: 04-09-2018 Evaluation and management of inpatient DONY DAVISHOMARRadha Facility:[facility] Start: 03-21-2018 End: 03-21-2018 Ambulatory FELISHA TATE Facility:[facility] Start: 03-07-2018 End: 03-07-2018 Ambulatory FELISHA TATE Facility:[facility] Start: 02-03-2018 End: 02-04-2018 Ambulatory FELISHA TATE Facility:[facility] Start: 01-03-2018 End: 01-04-2018 Ambulatory FELISHA TATE Facility:[facility] Start: 11-25-2017 End: 11-26-2017 Ambulatory FELISHA TATE Facility:[facility] Start: 10-11-2017 End: 10-11-2017 Ambulatory FELISHA TATE Facility:[facility] Start: 09-23-2017 End: 09-24-2017 Ambulatory FELISHA TATE Facility:[facility] Start: 09-13-2017 End: 09-13-2017 Ambulatory FELISHA TATE Facility:[facility] Start: 09-12-2017 End: 09-13-2017 Ambulatory FELISHA TATE Facility:[facility] Start: 08-29-2017 End: 08-30-2017 Ambulatory FELISHA TATE Facility:[facility] Procedures Date Procedure Procedure Detail Performing Clinician Start: 04-07-2018 Delivery of Products of Conception, External Approach FELISHA TATE Start: 04-07-2018 Repair Perineum Skin , External Approach FELISHA TATE Payers Date Payer Category Payer Unknown [id number] 1990 Unknown [id number] 1958 Unknown [id number] Summary Purpose Family History No Family History Records FoundNo Family History Records Found Advance Directives No Advanced Directives Records FoundNo Advanced Directives Records Found Additional Source Comments INFORMATION SOURCE (unrecogn ized section and content) DATE CREATED AUTHOR 05/17/2018 [facility] DATE CREATED AUTHOR AUTHOR'S ORGANIZ ATION 11/03/2023 [facility] EPIC FOR RECORDS PERTAINING TO PATIENTS WHO ARE OR HAVE BEEN ENROLLED IN A CHEMICAL DEPENDENCY/SUBSTANCEABUSE PROGRAM, SOME INFORMATION MAY BE OMITTED. This clinical summary was aggregated from multiple sources. Caution should be exercised in using it in the provision of clinical care. This summary normalizes information from multiple sources, and as a consequence, information in this document may materially change the coding, format and clinical context of patient data. In addition, data may be omitted in some cases. CLINICAL DECISIONS SHOULD BE BASED ON THE PRIMARY CLINICAL RECORDS. [employer] provides no warranty or guarantee of the accuracy or completeness of information in this document.
[2023-12-05 15:10] LABS: Age Gdln ACOG Testing Note (.); HPV Aptima Negative (Negative); IGP, Aptima HPV, rfx 16/18,45 Note (.)
== END 2023-11-29 20:18 | disposition home or self-care (01) ==
LOC: LAB 20:17
PROVIDERS: Visit Provider Physician Assistant
DX: Z01.419 Encounter for gynecological examination (general) (routine) without abnormal findings (principal); N89.8 Other specified noninflammatory disorders of vagina
CPT/HCPCS: 87624; G0145

== ENCOUNTER 2023-12-27 13:28 | Outpatient (OUT) | payer OTHER, SELFPAY ==
--- NOTE | 2023-12-27 13:30 | US_ITS ---
[address] [address] Patient Name: ESTUARDO SLADE MRN: [id number] date: 1990 Sex: F Assigned Patient Location: [facility] Current Patient Location: [facility] Accession/Order Number: [id number] Exam Date: 12/27/2023 13:30 Report Date: 12/27/2023 15:23 At the request of: SABRINA ALY Procedure: US OB cervical length EXAMINATION: US OB anatomy, US OB cervical length HISTORY: ANATOMY COMPARISON: No relevant comparison available. TECHNIQUE: Transabdominal sonographic examination was performed for obstetrical and evaluation. FINDINGS: Number: 1 Heart Rate: 139.0 bpm H.B. /min Amniotic Fluid Volume: Subjectively normal position: Variable Placental Location: POSTERIOR , grade 1. Placental edge 3.2 cm from the internal os Cervix Length: 4.7 cm , closed Normal anatomy: Lateral ventricles, cerebellum, posterior fossa, nose, lips, orbits, four-chamber heart, RVOT, LVOT, diaphragm, stomach, kidneys, abdominal cord insertion, bladder, umbilical arteries, three-vessel cord, spine, extremities BIOMETRY: BPD: 5.1 cm 21 weeks 4 days , 53% HC: 19.4 cm 21 weeks 4 days, 46% AC: 16.5 cm 21 weeks 4 days, 47% FL: 3.7 cm 21 weeks 5 days , 53% EFW:440.3 grams; 1 lb. 0 oz., 57% FL/AC: 22.4 FL/BPD: 72.1 HC/AC: 1.2 GESTATIONAL AGE: Age by EDC: 21 weeks 3 days Age by current US: 21 weeks 4 days ADEEL by current US: 05/04/2024 ADELE by EDC: 05/05/2024 US/US OB cervical length IMPRESSION: Normal anatomy scan Closed cervix measuring 4.7 cm in length *Reference: [employer] Practice Guideline for the performance of Obstetric Ultrasound Examinations, August 28, 2007. Electronically authenticated by: JACOB AYALA Date: 12/27/2023 15:23
--- NOTE | 2023-12-27 13:30 | US_ITS ---
[address] [address] Patient Name: ESTUARDO SLADE MRN: [id number] date: 1990 Sex: F Assigned Patient Location: [facility] Current Patient Location: [facility] Accession/Order Number: [id number] Exam Date: 12/27/2023 13:30 Report Date: 12/27/2023 15:23 At the request of: SABRINA ALY Procedure: US OB anatomy EXAMINATION: US OB anatomy, US OB cervical length HISTORY: ANATOMY COMPARISON: No relevant comparison available. TECHNIQUE: Transabdominal sonographic examination was performed for obstetrical and evaluation. FINDINGS: Number: 1 Heart Rate: 139.0 bpm H.B. /min Amniotic Fluid Volume: Subjectively normal position: Variable Placental Location: POSTERIOR , grade 1. Placental edge 3.2 cm from the internal os Cervix Length: 4.7 cm , closed Normal anatomy: Lateral ventricles, cerebellum, posterior fossa, nose, lips, orbits, four-chamber heart, RVOT, LVOT, diaphragm, stomach, kidneys, abdominal cord insertion, bladder, umbilical arteries, three-vessel cord, spine, extremities BIOMETRY: BPD: 5.1 cm 21 weeks 4 days , 53% HC: 19.4 cm 21 weeks 4 days, 46% AC: 16.5 cm 21 weeks 4 days, 47% FL: 3.7 cm 21 weeks 5 days , 53% EFW:440.3 grams; 1 lb. 0 oz., 57% FL/AC: 22.4 FL/BPD: 72.1 HC/AC: 1.2 GESTATIONAL AGE: Age by EDC: 21 weeks 3 days Age by current US: 21 weeks 4 days ADELE by current US: 05/04/2024 ADELE by EDC: 05/05/2024 US/US OB anatomy IMPRESSION: Normal anatomy scan Closed cervix measuring 4.7 cm in length *Reference: [employer] Practice Guideline for the performance of Obstetric Ultrasound Examinations, August 28, 2007. Electronically authenticated by: JACOB AYALA Date: 12/27/2023 15:23
--- OUTSIDE RECORDS SUMMARY | 2023-12-27 13:30 | XMS_ITS | CCD ---
Author Name Unknown Address [address] [place] [address] Organization [facility] Care Team Providers Care Digital Campaign Specialist Name Role Phone FELISHA TATE Unavailable Unavailable FELISHA TATE Unavailable Unavailable JACOB AYALA V Unavailable Unavailable FELISHA TATE Unavailable Unavailable RANJAN TATEA Unavailable Unavailable LEA, FELISHA Unavailable Unavailable MISC, DOCTOR Unavailable Unavailable RANJAN TATEA Unavailable Unavailable RANJAN TATEA Unavailable Unavailable RANJAN TATEA Unavailable Unavailable RANJAN TATEA Unavailable Unavailable RANJNA TATEA Unavailable Unavailable RANJAN TATEA Unavailable Unavailable [...] TATEA Unavailable Unavailable FELISHA TATE Unavailable Unavailable DONY BUTT Unavailable Unavailable DONY BUTT Unavailable Unavailable DONY BUTT Unavailable Unavailable FELISHA TATE Unavailable Unavailable FELISHA TATE Unavailable Unavailable FLEX GARDNER Attending Unavailable SABRINA ALY Attending Unavailable Problems Active [...] 04-26-2018 Chlamydia Trach ALEX Negative Normal Negative [facility] Comment on above: Performed By: #### A [facility] ####[facility] [address] [place], [place] [address]ken [place] N. Gonorrhoeae ALEX Negative Normal Negative [facility] Comment on above: Performed By: #### A ABIDA ####[facility] Zqdkotxwzs8232 [place] [id number] CBC AUTO DIFFon 04-08-2018 Basophils Auto #/vol (Bld) 0.1 103/ul Normal 0.0-0.1 [facility] Comment on above: Performed By: #### A ABIDA ####[facility] Omdaehfbss[address] [place], [place] [id number] [place] Basophils/100 WBC Auto (Bld) 0.3 % Normal 0.2-2.0 [facility] Comment on above: Performed By: #### A ABIDA ####[facility] [address] [place], [place] [address] Eosinophils 0.2 103/ul Normal 0.0-0.7 [facility] Comment on above: Performed By: #### A ABIDA ####[facility] Plcvuanf[address] [place], [place] [address] Eosinophils/100 leukocytes 1.2 % Normal 0.9-7.0 [facility] Comment on above: Performed By: #### A ABIDA ####[facility] Qjunrxxuat[address] [place], [place] [id number] Erythrocyte distribution width Auto Ratio (RBC) 14.3 % Normal 11.0-15.0 [facility] Comment on above: Performed By: #### A ABIDA ####[facility] Pzbrunxulm[address] [place], [place] [id number] Erythrocytes (RBC) 3.91 106/ul Critically low 4.20-5.40 [facility] Comment on above: Performed By: #### A ABIDA ####[facility] Mtwycmxrez[address] [place], [place] [id number] Hematocrit (HCT) 34.7 % Critically low 36.0-48.0 [facility] Comment on above: Performed By: #### A ABIDA ####[facility] [address] [place] [address]Wfophs [place] Hemoglobin mass conc (Bld) 11.8 g/dL Critically low 12.0-16.0 [facility] Comment on above: Performed By: #### A ABIDA ####[facility] Eyizvtgcig6809 [place] [id number] IG # 0.18 10e3/ul Critically high 0.00-0.03 [facility] Comment on above: Performed By: #### A ABIDA ####[facility] Qwmklyqjfs5946 [address] [place] IG % 1.0 % Critically high 0.0-0.5 [facility] Comment on above: Performed By: #### A ABIDA ####[facility] Sujuwjyadj[address] [place] [address] [place] Lymphocytes 2.1 103/ul Normal 1.2-3.8 [facility] Comment on above: Performed By: #### A ABIDA ####[facility] Pllajqcuuc[address] [place] [address] [place] Lymphocytes/100 leukocytes 11.9 % Critically low 20.5-60.0 [facility] Comment on above: Performed By: #### A ABIDA ####[facility] Rrvyetfynt[address] [place] [address] [place] MANUAL DIFF REQ NO Normal [facility] Comment on above: Performed By: #### A ABIDA ####[facility] Xmocqjsslo[address] [place] [address] [place] MCH 30.2 pg Normal 26.7-34.0 [facility] Comment on above: Performed By: #### A ABIDA ####[facility] Tuqomxcokx[address] [place], [place] [id number] MCHC mass conc (RBC) 34.0 g/dL Normal 29.9-35.2 [facility] Comment on above: Performed By: #### A ABIDA ####[facility] Rqyeduryek[address] [place] [address] [place] MCV 88.7 fL Normal 81.0-99.0 [facility] Comment on above: Performed By: #### A ABIDA ####[facility] Mgdfaqvpex9821 [place], [place] [address]Tltupe [place] Monocytes 1.1 103/ul Critically high 0.3-0.8 [facility] Comment on above: Performed By: #### A ABIDA ####[facility] Aqsvhthgzu7710 [place], [place] [address]Wwdzok [place] Monocytes/100 leukocytes 6.2 % Normal 1.7-12.0 [facility] Comment on above: Performed By: #### A ABIDA ####[facility] Zhlpznqopz3395 [place], [place] [address]Xacmoq [place] Neutrophils 14.1 103/ul Critically high 1.4-6.5 [facility] Comment on above: Performed By: #### A ABIDA ####[facility] Xbhzdvklsd0528 [place] [phone] Neutrophils/100 WBC Auto (Bld) 79.4 % Critically high 43.0-75.0 [facility] Comment on above: Performed By: #### A ABIDA ####[facility] Cvuvjfkddx9901 [place] [id number] [place] Platelet mean volume (PMV) 12.2 fL Normal 9.5-13.5 [facility] Comment on above: Performed By: #### A ABIDA ####[facility] Rdsqzvcwue9248 [place] [phone] Platelets 118 103/ul Critically low 150-450 [facility] Comment on above: Performed By: #### A ABIDA ####[facility] Jfqxoextql8849 [place], [place] [address]Mxaytg [place] WBC (Leukocytes) 17.7 103/ul Critically high 4.0-11.0 [facility] Comment on above: Performed By: #### A ABIDA ####[facility] Pcjdxrakjf5055 [place], [place] [address]Ybbjxo [place] SCREENon 04-08-2018 SCREEN Negative Normal [facility] Comment on above: Performed By: #### A ABIDA ####[facility] Qxxuxsdjfj[address] [place], [place] [id number] RHOGAMon 04-08-2018 RHOGAM Status Information Issued Quantity 1 Product ID Rh Immune Globulin Lot Number [id number] Issue Date/Time [id number] Normal [facility] Comment on above: Performed By: #### A ABIDA ####[facility] Aefeffvobc[address] [place], [place] [id number] CBC AUTO DIFFon 04-07-2018 Basophils Auto #/vol (Bld) 0.1 103/ul Normal 0.0-0.1 [facility] Comment on above: Performed By: #### A ABIDA ####[facility] Bpegalfcgd[address] [place] [address] [place] Basophils/100 WBC Auto (Bld) 0.3 % Normal 0.2-2.0 [facility] Comment on above: Performed By: #### A ABIDA ####[facility] Qzeryliyoa[address] [place] [address] [place] Eosinophils 0.2 103/ul Normal 0.0-0.7 [facility] Comment on above: Performed By: #### A ABIDA ####[facility] Hzzfzwoxyp[address] [place] [address] [place] Eosinophils/100 leukocytes 1.0 % Normal 0.9-7.0 [facility] Comment on above: Performed By: #### A ABIDA ####[facility] Srbqwmomxj[address] [place] [address] [place] Erythrocyte distribution width Auto Ratio (RBC) 14.0 % Normal 11.0-15.0 [facility] Comment on above: Performed By: #### A ABIDA ####[facility] Dhvmrxupdr[address] [place] [address] [place] Erythrocytes (RBC) 4.39 106/ul Normal 4.20-5.40 [facility] Comment on above: Performed By: #### A ABIDA ####[facility] Tztygqxjff[address] [place] [address] [place] Hematocrit (HCT) 38.7 % Normal 36.0-48.0 [facility] Comment on above: Performed By: #### A ABIDA ####[facility] Bgyaxknipp4531 [place] [address] Hemoglobin mass conc (Bld) 13.4 g/dL Normal 12.0-16.0 [facility] Comment on above: Performed By: #### A ABIDA ####[facility] Ekmkamyzyg5182 [address] [place] IG # 0.30 10e3/ul Critically high 0.00-0.03 [facility] Comment on above: Performed By: #### A ABIDA ####[facility] Hcswbldpaf[address] [place] [address] [place] IG % 1.4 % Critically high 0.0-0.5 [facility] Comment on above: Performed By: #### A ABIDA ####[facility] Htiwibeuez[address] [place] [address] [place] Lymphocytes 2.6 103/ul Normal 1.2-3.8 [facility] Comment on above: Performed By: #### A ABIDA ####[facility] Getfhxdbqx[address] [place] [address] [place] Lymphocytes/100 leukocytes 12.6 % Critically low 20.5-60.0 [facility] Comment on above: Performed By: #### A ABIDA ####[facility] Jrpthsudjp38[address] [place] [address] [place] MANUAL DIFF REQ NO Normal [facility] Comment on above: Performed By: #### A ABIDA ####[facility] Hplgbvqkrx8136 [address] [place] MCH 30.5 pg Normal 26.7-34.0 [facility] Comment on above: Performed By: #### A ABIDA ####[facility] Krqjrqpwzz2582 [address] [place] MCHC mass conc (RBC) 34.6 g/dL Normal 29.9-35.2 [facility] Comment on above: Performed By: #### A ABIDA ####[facility] Shljdeagnr1003 [place], [place] [address]Frgbvb [place] MCV 88.2 fL Normal 81.0-99.0 [facility] Comment on above: Performed By: #### A ABIDA ####[facility] Kgrxzdgxzi5928 [place], [place] [address]Ynjzcz [place] Monocytes 1.2 103/ul Critically high 0.3-0.8 [facility] Comment on above: Performed By: #### A ABIDA ####[facility] Jwzyproprn9810 [place], [place] [address]Klntah [place] Monocytes/100 leukocytes 5.5 % Normal 1.7-12.0 [facility] Comment on above: Performed By: #### A ABIDA ####[facility] Cpjcucexys3721 [place], [place] [address]Vavsee [place] Neutrophils 16.5 103/ul Critically high 1.4-6.5 [facility] Comment on above: Performed By: #### A ABIDA ####[facility] Kewjaltwlc9349 [place], [place] [address]Uimeuf [place] Neutrophils/100 WBC Auto (Bld) 79.2 % Critically high 43.0-75.0 [facility] Comment on above: Performed By: #### A ABIDA ####[facility] Qihayarhhs8959 [place], [place] [address]Tydjrv [place] Platelet mean volume (PMV) 12.2 fL Normal 9.5-13.5 [facility] Comment on above: Performed By: #### A ABIDA ####[facility] Gdbhenpijd0610 [place], [place] [address]Cebjkq [place] Platelets 139 103/ul Critically low 150-450 [facility] Comment on above: Performed By: #### A ABIDA ####[facility] Jdcfylaela9619 [place], [place] [address]Guonhb [place] WBC (Leukocytes) 20.8 103/ul Critically high 4.0-11.0 [facility] Comment on above: Performed By: #### A ABIDA ####[facility] Ffcrjbsmch0[address] DRUG SCREEN RAPID (URINE)on 04-07-2018 AMP Negative Normal NEGATIVE [facility] Comment on above: Performed By: #### A ABIDA ####[facility] Jzferiuncq3256 [address] BAR Negative Normal NEGATIVE [facility] Comment on above: Performed By: #### A ABIDA ####[facility] [address] [place] [address] BUP Negative Normal NEGATIVE [facility] Comment on above: Performed By: #### A ABIDA ####[facility] Tbauiqaqao[address] [place] [address] BZO Negative Normal NEGATIVE [facility] Comment on above: Performed By: #### A ABIDA ####[facility] Xtbmidcpvr[address] [place] [address] ELENA Negative Normal NEGATIVE [facility] Comment on above: Performed By: #### A ABIDA ####[facility] Itvkocrnin[address] [place] [address] CUT-OFFS SEE BELOW Normal [facility] Comment on above: Result Comment: [...] 300 ng/mL Performed By: #### A ABIDA ####[facility] Gemexjqtzr[address] [place] [address] DRUG CUT HEADER DRUG CLASS TEST SYST EM CUT-OFF CONCENTRATIONS ARE FOLLOWS: Normal [facility] Comment on above: Performed By: #### A ABIDA ####[facility] Vgvrhnhvvp9483 [address] [place] mAMP Negative Normal NEGATIVE [facility] Comment on above: Performed By: #### A ABIDA ####[facility] Tcxvvtfova5183 [address] [place] MTD Negative Normal NEGATIVE [facility] Comment on above: Performed By: #### A ABIDA ####[facility] Iwjnvbvkpu8868 [address] [place] OPI Negative Normal NEGATIVE [facility] Comment on above: Performed By: #### A ABIDA ####[facility] Qurgkhlglj[address] [place] [address] [place] OXY Negative Normal NEGATIVE [facility] Comment on above: Performed By: #### A ABIDA ####[facility] Zyywgnxzld[address] [place] [address] [place] PCP Negative Normal NEGATIVE [facility] Comment on above: Performed By: #### A ABIDA ####[facility] Jwqynfwwkg[address] [place] [address] [place] PPX Negative Normal NEGATIVE [facility] Comment on above: Performed By: #### A ABIDA ####[facility] Kuhrcvibys9700 [address] [place] TCA Negative Normal NEGATIVE [facility] Comment on above: Performed By: #### A ABIDA ####[facility] Fwzpxqetrl[address] [place] [address] [place] THC Negative Normal NEGATIVE [facility] Comment on above: Performed By: #### A ABIDA ####[facility] Yviswqllvh[address] [place] [address] [place] UA (CLEAN/CATCH) PROFESSOR OF ENVIRONMENTAL ENGINEERING/MICRO I F IND.on 04-07-2018 Bilirubin (total) Negative Normal NEGATIVE [facility] Comment on above: Performed By: #### A ABIDA ####[facility] Alsqaobhlb[address] [place] [address] [place] BLOOD Negative Normal NEGATIVE [facility] Comment on above: Performed By: #### A ABIDA ####[facility] Xjhywqzchd5750 [address] [place] Glucose mass conc Negative Normal NEGATIVE [facility] Comment on above: Performed By: #### A ABIDA ####[facility] Wmhccpkkjv0038 [place] [id number] pH of blood 6.0 [pH] Normal 5-9 [facility] Comment on above: Performed By: #### A ABIDA ####[facility] Mqeewleheq5096 [address] [place] Protein Negative Normal [facility] Comment on above: Performed By: #### A ABIDA ####[facility] Jdlfpkorgs[address] [place] [address] [place] SPEC GRAVITY 1.020 Normal 1.005-<=1.025 [facility] Comment on above: Performed By: #### A ABIDA ####[facility] Yiryirpzri[address] [place] [address] [place] UR MICRO IND NOT INDICATED Normal [facility] Comment on above: Performed By: #### A ABIDA ####[facility] Wpootqxrji20[address] [place] [address] [place] Urine, clarity CLEAR Normal [facility] Comment on above: Performed By: #### A ABIDA ####[facility] Irrdpfdmiw[address] [place] [address] [place] Urine, color LT. YELLOW Normal YELLOW [facility] Comment on above: Performed By: #### A ABIDA ####[facility] Juapbngiyi7422 [address] [place] Urine, ketones presence Negative Normal NEGATIVE [facility] Comment on above: Performed By: #### A ABIDA ####[facility] Ghitmptejm8531 [address] [place] Urine, nitrite presence Negative Normal NEGATIVE [facility] Comment on above: Performed By: #### A ABIDA ####[facility] Ssutkmcawm2041 [place] [phone] Urine, urobilinogen 0.2 {Jer'U}/dL Normal [facility] Comment on above: Performed By: #### A ABIDA ####[facility] Uamyfsmnjg7634 [place] [id number] WBC (Leukocytes) Negative Normal NEGATIVE [facility] Comment on above: Performed By: #### A ABIDA ####[facility] Cpglxlfsmh[address] [place] [address] [place] GROUP B STREPTon 03-21-2018 GBS Performed by [facility] , final report to follow Normal NEG FOR GBS [facility] Comment on above: Performed By: #### A ABIDA ####[facility] Czdlvjkwyd[address] [place] [address] [place] RHOGAMon 02-04-2018 RHOGAM Status Information Issued Quantity 1 Product ID Rh Immune Globulin Lot Number [id number] Issue Date/Time [id number] Normal [facility] Comment on above: Performed By: #### A ABIDA ####[facility] Qasmecwyic[address] [place], [place] [id number] CBC AUTO DIFFon 02-03-2018 Basophils Auto #/vol (Bld) 0.0 103/ul Normal 0.0-0.1 [facility] Comment on above: Performed By: #### P REGQNT ####[facility] Eihkwnvewv[address] [place] [address] [place] Basophils/100 WBC Auto (Bld) 0.3 % Normal 0.2-2.0 [facility] Comment on above: Performed By: #### P REGQNT ####[facility] Ankzzveyrr[address] [place] [address] [place] Eosinophils 0.2 103/ul Normal 0.0-0.7 [facility] Comment on above: Performed By: #### P REGQNT ####[facility] Pawgcdbhmj[address] [place], [place] [address]Ger[place] Eosinophils/100 leukocytes 1.1 % Normal 0.9-7.0 [facility] Comment on above: Performed By: #### P REGQNT ####[facility] Vrsfewxnfs1757 [address] [place] Erythrocyte distribution width Auto Ratio (RBC) 13.2 % Normal 11.0-15.0 [facility] Comment on above: Performed By: #### P REGQNT ####[facility] Hentrgeiax[address] [place] [address] [place] Erythrocytes (RBC) 3.91 106/ul Critically low 4.20-5.40 [facility] Comment on above: Performed By: #### P REGQNT ####[facility] Rwasvaogfl[address] [place] [address] [place] Hematocrit (HCT) 35.5 % Critically low 36.0-48.0 [facility] Comment on above: Performed By: #### P REGQNT ####[facility] Yjswupwfan13[address] [place] [address] [place] Hemoglobin mass conc (Bld) 12.0 g/dL Normal 12.0-16.0 [facility] Comment on above: Performed By: #### P REGQNT ####[facility] Yyckyakctn[address] [place] [address] [place] IG # 0.27 10e3/ul Critically high 0.00-0.03 [facility] Comment on above: Performed By: #### P REGQNT ####[facility] Kwdrrkduqz[address] [place] [address] [place] IG % 1.8 % Critically high 0.0-0.5 [facility] Comment on above: Performed By: #### P REGQNT ####[facility] V[address]vfxzyw[address] [place] [address] [place] Lymphocytes 1.8 103/ul Normal 1.2-3.8 [facility] Comment on above: Performed By: #### P REGQNT ####[facility] Xdjrzcargz43[address] [place] [address] [place] Lymphocytes/100 leukocytes 11.9 % Critically low 20.5-60.0 [facility] Comment on above: Performed By: #### P REGQNT ####[facility] Jqhujxstfo4274 [place] [id number] MANUAL DIFF REQ NO Normal [facility] Comment on above: Performed By: #### P REGQNT ####[facility] Akicrzretl2528 [place] [phone] MCH 30.7 pg Normal 26.7-34.0 [facility] Comment on above: Performed By: #### P REGQNT ####[facility] Ainoicczdl4358 [place] [phone] MCHC mass conc (RBC) 33.8 g/dL Normal 29.9-35.2 [facility] Comment on above: Performed By: #### P REGQNT ####[facility] Zniyxiygby[address] [place] [address] [place] MCV 90.8 fL Normal 81.0-99.0 [facility] Comment on above: Performed By: #### P REGQNT ####[facility] Mvhtqjwspz0010 [place] [id number] Monocytes 0.6 103/ul Normal 0.3-0.8 [facility] Comment on above: Performed By: #### P REGQNT ####[facility] Hjkoipmlda4668 [place] [phone] Monocytes/100 leukocytes 3.9 % Normal 1.7-12.0 [facility] Comment on above: Performed By: #### P REGQNT ####[facility] Inuhmgwhhx0331 [place] [phone] Neutrophils 12.1 103/ul Critically high 1.4-6.5 [facility] Comment on above: Performed By: #### P REGQNT ####[facility] Ubesmxfeig5581 [place] [phone] Neutrophils/100 WBC Auto (Bld) 81.0 % Critically high 43.0-75.0 [facility] Comment on above: Performed By: #### P REGQNT ####[facility] Ixxgthvyak9624 [place], [place] [address]CyuebeReymundo [place] Platelet mean volume (PMV) 11.6 fL Normal 9.5-13.5 [facility] Comment on above: Performed By: #### P REGQNT ####[facility] Lutiopinmx8011 [place], [place] [address]Ocmnqb Karen Platelets 133 103/ul Critically low 150-450 [facility] Comment on above: Performed By: #### P REGQNT ####[facility] Mxawaijihm1795 [place], [place] [address]Pdhqgn Karen WBC (Leukocytes) 14.9 103/ul Critically high 4.0-11.0 [facility] Comment on above: Performed By: #### P REGQNT ####[facility] Ajqzroqytn7340 [place] [phone] GLUCOSE - 1HRon 02-03-2018 Glucose mass conc 120 mg/dL Critically high 74-106 [facility] Comment on above: Performed By: #### P REGQNT ####[facility] Siipzitwmp0386 [place], [place] [address]Uphlfg Karen TYPE AND SCREENon 02-03-2018 TYPE AND SCREEN Negative Normal [facility] Comment on above: Performed By: #### P REGQNT ####[facility] Eymgyscuri8826 [place], [place] [address]Pzdhqo Karen US PREG ANATOMY SINGLEon US PREG ANATOMY SINGLE [address] [place] [address] Patient: ESTUARDO JEREZ Exam Date: 11/25/2017DOB: 1990 Gender:F : FELISHA TATE . Admission #: [id number] : Order #: [id number] HERE TO VIEW EXAM RADIOLOGY REPORT PROCEDURE: [...] Ayala M.D. on 11/25/2017 at 20:18 Normal [facility] PAP ACOG PANEL 4: 21 to 29on 10-11-2017 LCPAP SEE SCANNED REPORT Normal [facility] Comment on above: Performed By: #### P REGQNT ####[facility] Cvevqdumgj1776 [address] [place] [facility] 09-27-2017 HBSREV Reviewed by Adithya Morton MD ([id number]) Normal [facility] Comment on above: Result Comment: Test Performed By: [facility] [employer] [address] [place] [address] [employer] Advisor: Dalila Roman MD, PhD Performed By: #### P REGQNT ####[facility] Qwecpgcxkx5550 [address] [place] Hemoglobin mass conc (Bld) None detected. Normal 0.0-1.8 [facility] Comment on above: Performed By: #### P REGQNT ####[facility] Eufejmsyun8057 [address] [place] Hemoglobin mass conc (Bld) No abnormal hemoglobin identified. Normal [facility] Comment on above: Performed By: #### P REGQNT ####[facility] [address] [place] [address] [place] Hemoglobin mass conc (Bld) 97.4 % Normal [facility] Comment on above: Performed By: #### P REGQNT ####[facility] Ek[address]fqw[address] [place] [address] [place] Hemoglobin mass conc (Bld) 2.6 % Normal 1.5-3.5 [facility] Comment on above: Performed By: #### P REGQNT ####[facility] [address] [place] [address] Interpertation Hemoglobins were analyzed by capillary electrophoresis. Normal [facility] Comment on above: Result Comment: Norm al pattern Performed By: #### P REGQNT ####[facility] [address] [place] [address] [place] VARICELLA IGGon 09-26-2017 Varicella Zoster IgG 1134.0 Index Value Normal [facility] Comment on above: Result Comment: Inde x Values are Interpreted as Follows:Negative specimens <135.0Equivocal specimens 135.0 to 164.9Positive specimens >164.9The magnitude of the measured result is not indicative of theamount of antibody present. Test Performed By: [facility] [address] [address] [employer] Advisor: Dalila Roman MD, PhD Performed By: #### P REGQNT ####[facility] [address] [place], [place] [address]en VZVGQL Positive Abnormal NEGAT [facility] Comment on above: Result Comment: Pres ence of detectable VZV IgG antibodies. A positive resultgenerally indicatesexposure to the pathogen or administration of specificimmunoglobulins, but is no indication of active infection or stage of disease. Performed By: #### P REGQNT ####[facility] [address] [id number] RPR/SERUMon 09-24-2017 Reagin antibody presence Non Reactive Normal NR [facility] Comment on above: Result Comment: Test Performed By: [address] [address] [employer] Advisor: Dalila Roman MD, PhD Performed By: #### P REGQNT ####[facility] [address] [place], [place] [id number] [place] CBC AUTO DIFFon 09-23-2017 Basophils Auto #/vol (Bld) 0.0 103/ul Normal 0.0-0.1 [facility] Comment on above: Performed By: #### C BC ####[facility] Aibm[address]pms[address] [place], [place] [address]Gerken [place] Basophils/100 WBC Auto (Bld) 0.3 % Normal 0.2-2.0 [facility] Comment on above: Performed By: #### C BC ####[facility] [address] [place], [place] [id number] [place] Eosinophils 0.2 103/ul Normal 0.0-0.7 [facility] Comment on above: Performed By: #### C BC ####[facility] [address] [id number] Eosinophils/100 leukocytes 1.1 % Normal 0.9-7.0 [facility] Comment on above: Performed By: #### C BC ####[facility] Ulrigie[address] [place], [place] [address]Gerken [place] Erythrocyte distribution width Auto Ratio (RBC) 12.5 % Normal 11.0-15.0 [facility] Comment on above: Performed By: #### C BC ####[facility] [address] [id number] Erythrocytes (RBC) 4.61 106/ul Normal 4.20-5.40 [facility] Comment on above: Performed By: #### C BC ####[facility] [address]wr[address] [id number] Hematocrit (HCT) 41.5 % Normal 36.0-48.0 [facility] Comment on above: Performed By: #### C BC ####[facility] Btciz[address]kvp3464 [address] [place] Hemoglobin mass conc (Bld) 14.5 g/dL Normal 12.0-16.0 [facility] Comment on above: Performed By: #### C BC ####[facility] [address] [place] [address] [place] IG # 0.07 10e3/ul Critically high 0.00-0.03 [facility] Comment on above: Performed By: #### C BC ####[facility] [address] [place] [address] [place] IG % 0.5 % Normal 0.0-0.5 [facility] Comment on above: Performed By: #### C BC ####[facility] [address] [place], [place] [address]Ger[address] [place] Lymphocytes 2.2 103/ul Normal 1.2-3.8 [facility] Comment on above: Performed By: #### C BC ####[facility] [address] [place], [place] [address] [place] Lymphocytes/100 leukocytes 15.4 % Critically low 20.5-60.0 [facility] Comment on above: Performed By: #### C BC ####[facility] C[address] [place] MANUAL DIFF REQ NO Normal [facility] Comment on above: Performed By: #### C BC ####[facility] [address] [id number] MCH 31.5 pg Normal 26.7-34.0 [facility] Comment on above: Performed By: #### C BC ####[facility] [address] [place], [place] [address]Wuxwbg Karen MCHC mass conc (RBC) 34.9 g/dL Normal 29.9-35.2 [facility] Comment on above: Performed By: #### C BC ####[facility] [address]foxt67[address] [place], [place] [address]Okalzd [place] MCV 90.0 fL Normal 81.0-99.0 [facility] Comment on above: Performed By: #### C BC ####[facility] Dxfnphkxwg95[address] [place], [place] [address]Jnrwgv [place] Monocytes 0.5 103/ul Normal 0.3-0.8 [facility] Comment on above: Performed By: #### C BC ####[facility] [address] [id number] Monocytes/100 leukocytes 3.6 % Normal 1.7-12.0 [facility] Comment on above: Performed By: #### C BC ####[facility] Frm[address]klwruk35[address] [place], [place] [address]Jpugoy [place] Neutrophils 11.2 103/ul Critically high 1.4-6.5 [facility] Comment on above: Performed By: #### C BC ####[facility] Inllsvkrgp1473 [place], [place] [address]Ukfevz [place] Neutrophils/100 WBC Auto (Bld) 79.1 % Critically high 43.0-75.0 [facility] Comment on above: Performed By: #### C BC ####[facility] Qkrblzlilq4172 [place], [place] [address]Blvvhl [place] Platelet mean volume (PMV) 11.6 fL Normal 9.5-13.5 [facility] Comment on above: Performed By: #### C BC ####[facility] B[address]ys[address]fc1223 [place], [place] [address]Epujic [place] Platelets 170 103/ul Normal 150-450 [facility] Comment on above: Performed By: #### C BC ####[facility] Oxt[address]ut6515 [place], [place] [address]RloetnReym[place] WBC (Leukocytes) 14.2 103/ul Critically high 4.0-11.0 [facility] Comment on above: Performed By: #### C BC ####[facility] Ophokokqml6360 [place], [place] [address]WcpgnzReymundo [place] HEP B SURFACE AGon 7 HEP B Surface Ag Negative Normal NEGATIVE [facility] Comment on above: Performed By: #### P REGQNT ####[facility] Dxpphlysaa3609 [place], [place] [address]SiiaouReym[place] HEP C ANTIBODYon 09-23-2017 Anti HCV Negative Normal NEGATIVE [facility] Comment on above: Performed By: #### P REGQNT ####[facility] Vclmullscn3524 [place], [place] [address]DsmopeReymundo [place] HIV 1 AND 2 ABon 09-23-2017 HIV 1 AND 2 AB Negative Normal NEGATIVE [facility] Comment on above: Performed By: #### H IV12 ####[facility] Oqydjluxii6994 [place], [place] [address]Lmheev Karen PREG QUANT HCGon 09-23-2017 HCG Qn SEE BELOW Normal [facility] Comment on above: Result Comment: 5-50 0-1 WEEK 40-300 1-2 WEEKS 100-1,000 2-3 WEEKS 500-6,000 3-4 WEEKS 5,000-200,000 1-2 MONTHS 10,000-100,000 2-3 MONTHS 3,000-50,000 2ND TRIMESTER 1,000-50,000 3RD TRIMESTER Performed By: #### P REGQNT ####[facility] Cdr[address]zdjbu3143 [place], [place] [address]Rrceqt [place] HCG QUANT 33114.00 mIU/mL Normal [facility] Comment on above: Performed By: #### P REGQNT ####[facility] Zgiaecfunl1695 [place], [place] [address]Zetrqu Karen RUBELLA AB IGGon 09-23-2017 RUB HEADER SEE BELOW Normal [facility] Comment on above: Result Comment: or=1 5.0 IU/mL POSITIVE WHO considers levels >or= 10.0 IU/mL to be positive immune status Performed By: #### R UBG ####[facility] Nixigtzcdm[address] [place] RUB IGG 33.1 IU/mL Normal [facility] Comment on above: Performed By: #### R UBG ####[facility] [address] [id number] TYPE AND SCREENon 09-23-2017 TYPE AND SCREEN Negative Normal [facility] Comment on above: Performed By: #### T NS ####[facility] [address] [place] [address] [place] CULTURE URINEon 09-13-2017 CULTURE URINE Culture Observations : Final; See scanned report to follow in HPF Normal [facility] Comment on above: Performed By: #### C XUR ####[facility] [address] [place] [address] [place] UA RANDOM W/MICROSCOPICon Bilirubin (total) Negative Normal NEGATIVE [facility] Comment on above: Performed By: #### U AMIC ####[facility] [address] [place] [address] [place] BLOOD Negative Normal NEGATIVE [facility] Comment on above: Performed By: #### U AMIC ####[facility] Tgymqzzzqn[address] [place] CAST NONE SEEN Normal NONE SEEN [facility] Comment on above: Performed By: #### U AMIC ####[facility] Moeeftdzuk[address] [place] Erythrocytes (RBC) NONE SEEN Normal 0-2 [facility] Comment on above: Performed By: #### U AMIC ####[facility] Yinpzsimxx2824 [address] [place] Glucose mass conc Negative Normal NEGATIVE [facility] Comment on above: Performed By: #### U AMIC ####[facility] Tnzdvmzbfy30[address] [place] MUCOUS NONE SEEN Normal NONE SEEN [facility] Comment on above: Performed By: #### U AMIC ####[facility] [address] [id number] pH of blood 6.5 [pH] Normal 5-9 [facility] Comment on above: Performed By: #### U AMIC ####[facility] [address] [id number] Protein Negative Normal [facility] Comment on above: Performed By: #### U AMIC ####[facility] Jtsqignmbo[address] [id number] SPEC GRAVITY 1.015 Normal 1.005-<=1.025 [facility] Comment on above: Performed By: #### U AMIC ####[facility] Xilrwdtoli[address]51 [address] [place] Urine, bacteria in sediment TRACE Normal NONE SEEN [facility] Comment on above: Performed By: #### U AMIC ####[facility] Pszvfxsuir[address]90 [address] [place] Urine, clarity CLEAR Normal [facility] Comment on above: Performed By: #### U AMIC ####[facility] [address] [id number] Urine, color LT. YELLOW Normal YELLOW [facility] Comment on above: Performed By: #### U AMIC ####[facility] L[address]vh[address]rs[address] [id number] Urine, crystals in sediment NONE SEEN Normal NONE SEEN [facility] Comment on above: Performed By: #### U AMIC ####[facility] Ldwyvsquuy6602 [place], [place] [address]Jeseam [place] Urine, epithelial cells in sediment RARE Normal [facility] Comment on above: Performed By: #### U AMIC ####[facility] Pxqqfgufrw5254 [place], [place] [address]Uusmfi [place] Urine, ketones presence Negative Normal NEGATIVE [facility] Comment on above: Performed By: #### U AMIC ####[facility] Gihrwdyajx8671 [place], [place] [address]Lsjeht Karen Urine, nitrite presence Negative Normal NEGATIVE [facility] Comment on above: Performed By: #### U AMIC ####[facility] Nqahnnyiez0526 [place], [place] [address]Odsron Karen Urine, urobilinogen 0.2 {Jer'U}/dL Normal [facility] Comment on above: Performed By: #### U AMIC ####[facility] Qnuucfiawd0861 [place], [place] [address]Ehdfmo [place] WBC (Leukocytes) NONE SEEN Normal NONE SEEN [facility] Comment on above: Performed By: #### U AMIC ####[facility] Zlridaesgb0818 [place], [place] [address]Mzsfcv [place] WBC (Leukocytes) Negative Normal NEGATIVE [facility] Comment on above: Performed By: #### U AMIC ####[facility] [address] [id number] ABO AND RH TYPEon 09-12-2017 ABO AND RH TYPE Negative Normal [facility] Comment on above: Performed By: #### A BORH ####[facility] [address] [place], [place] [address] PREG QUANT HCGon 09-12-2017 HCG Qn SEE BELOW Normal [facility] Comment on above: Result Comment: 5-50 0-1 WEEK 40-300 1-2 WEEKS 100-1,000 2-3 WEEKS 500-6,000 3-4 WEEKS 5,000-200,000 1-2 MONTHS 10,000-100,000 2-3 MONTHS 3,000-50,000 2ND TRIMESTER 1,000-50,000 3RD TRIMESTER Performed By: #### P REGQNT ####[facility] Rzgtuhcigs[address] [place] HCG QUANT 91685.00 mIU/mL Normal [facility] Comment on above: Performed By: #### P REGQNT ####[facility] [address]qnjdpw3354 [place], [place] [address]FbblxbReymundo [place] US PREG <14 WKSon 08-29-2017 US PREG <14 WKS [address] [place] [address] Patient: ESTUARDO JEREZ Exam Date: 08/29/2017DOB: 1990 Gender:F : FELISHA TATE . Admission #: [id number] : Order #: [id number] HERE TO VIEW EXAM RADIOLOGY REPORT PROCEDURE: [...] Ayala M.D. on 08/29/2017 at 16:03 Normal [facility] Encounters Encounter Date Encounter Type Care Provider Facility Start: 11-29-2023 End: 11-29-2023 ambulatory FLEX GARDNER Not Available Start: 11-01-2023 End: 11-01-2023 ambulatory SABRINA ALY Not Available Start: 04-11-2018 End: 04-11-2018 Ambulatory FELISHA TATE Facility:[facility] Start: 04-06-2018 End: 04-09-2018 Evaluation and management of inpatient DONY FILOMENA Facility:[facility] Start: 03-21-2018 End: 03-21-2018 Ambulatory FELISHA [...] TATE Payers Date Payer Category Payer Unknown [id number] 1990 Unknown [id number] 1990 Unknown [id number] 1958 Unknown [id number] Summary Purpose Family History No Family History Records FoundNo Family History Records Found Advance Directives No Advanced Directives Records FoundNo Advanced Directives Records Found Additional Source Comments INFORMATION SOURCE (unrecogn ized section and content) DATE CREATED AUTHOR 05/17/2018 [facility] DATE CREATED AUTHOR AUTHOR'S JUAN PABLO VAZQUEZ 11/30/2023 [facility] FOR RECORDS PERTAINING TO PATIENTS WHO ARE [...] BE BASED ON THE PRIMARY CLINICAL RECORDS. [employer] provides no warranty or guarantee of the accuracy or completeness of information in this document.
== END 2023-12-27 13:29 | disposition home or self-care (01) ==
LOC: NOMS 13:28
PROVIDERS: Visit Provider Obstetrics & Gynecology
DX: Z36.89 Encounter for other specified antenatal screening (principal); Z3A.21 21 weeks gestation of pregnancy
CPT/HCPCS: 76805; 76817

== ENCOUNTER 2024-01-31 11:57 | Outpatient (OUT) | payer OTHER, SELFPAY ==
--- OUTSIDE RECORDS SUMMARY | 2024-01-31 12:08 | XMS_ITS | CCD ---
Author Name Unknown Address [address] [place] [address] Organization [facility] Care Team Providers Care Stumper Feller Name Role Phone FELISHA TATE Unavailable Unavailable FELISHA TATE Unavailable Unavailable JACOB AYALA V Unavailable Unavailable FELISHA TATE Unavailable Unavailable FELISHA TATE Unavailable Unavailable FELISHA TATE Unavailable Unavailable MISC, DOCTOR Unavailable Unavailable FELISHA TATE Unavailable Unavailable FELISHA TATE Unavailable Unavailable FELISHA TATE Unavailable Unavailable FELISHA TATE Unavailable Unavailable FELISHA TATE Unavailable Unavailable FELISHA TATE Unavailable Unavailable RANJAN TATEA Unavailable Unavailable FELISHA TATE Unavailable Unavailable FELISHA TATE Unavailable Unavailable FELISHA TATE Unavailable Unavailable FELISHA TATE Unavailable Unavailable FELISHA TATE Unavailable Unavailable JACOB AYALA V Unavailable Unavailable FELISHA TATE Unavailable Unavailable FELISHA TAET Unavailable Unavailable FELISHA TATE Unavailable Unavailable FELISHA TATE Unavailable Unavailable FELISHA TATE Unavailable Unavailable FELISHA TATE Unavailable Unavailable REQUEST, NONE LISTED Unavailable Unavailable FELISHA TATE Unavailable Unavailable FELISHA TATE Unavailable Unavailable FELISHA TATE Unavailable Unavailable FELISHA TATE Unavailable Unavailable FELISHA TATE Unavailable Unavailable FELISHA TATE Unavailable Unavailable FELISHA TATE Unavailable Unavailable FELISHA TATE Unavailable Unavailable FELISHA ATTE Unavailable Unavailable DONY BUTT Unavailable Unavailable DONY BUTT Unavailable Unavailable DONY BUTT Unavailable Unavailable FELISHA TATE Unavailable Unavailable FELISHA TATE Unavailable Unavailable ASPEN GARDNER Attending Unavailable SABRINA SOLIS Attending Unavailable SABRINA SOLIS Attending Unavailable Unavailable Primary Care Provider Unavailabl e Medications Current Medications Medication Drug Class(es) Dates Sig (Normalized) Sig (Original) azithromycin 250 mg oral tablet (2 sources) Macrolide Antimicrobial Start: 12-27-2023 azithromycin (Zithromax Z-Paulo) 250 MG tablet Indications: Upper respiratory tract infection, unspecified type As directed 6 tablet 0 12/27/2023 Active ondansetron 4 mg disintegrating oral tablet (2 sources) Serotonin-3 Receptor Antagonist Start: 12-27-2023 End: 01-26-2024 take 1 tablet by mouth every six hours for nausea ondansetron ODT (Zofran-ODT) 4 MG disintegrating tablet Indications: Nausea and vomiting, unspecified vomiting type Take 1 tablet (4 mg) by mouth every 6 (six) hours if needed for nausea or vomiting 30 tablet 2 12/27/2023 01/26/2024 Active Vit-Fe Fumarate-FA ( 1+1 PO) (2 sources) take 1 dose by mouth in the morning Vit-Fe Fumarate-FA ( 1+1 PO) Take 1 each by mouth in the morning. 0 Active Completed/Discontinued Medications Medication Drug Class(es) Dates Sig (Normalized) Sig (Original) omeprazole 20 mg delayed release oral capsule (2 sources) Proton Pump Inhibitor Start: 11-01-2023 End: 12-27-2023 take 1 capsule by mouth once before mealtime omeprazole (PriLOSEC) [address] capsule Indications: Heartburn during in second trimester Take 1 capsule (20 mg) by mouth in the morning. Take before meals. Do not crush or chew. . 30 capsule 11 11/01/2023 12/27/2023 Discontinued Problems Active Problems Problem Classification Problem Date Documented Da te Episodic/Chronic Menstrual disorders (4 sources) Irregular menstruation, unspecified; Translations: [IRREGULAR MENSTRUATION UNSPECIFIED] Onset: 09-12-2017 Chronic Nausea and vomiting (2 sources) Nausea and vomiting; Translations: [Nausea with vomiting, unspecified] 12-27-2023 Episodic Normal and/or delivery (15 sources) Encounter for supervision of normal , unspecified, third trimester; Translations: [Encounter for routine follow-up] Onset: 09-23-2017 12-23-2023 Episodic OB-related trauma to perineum and vulva [...] unspecified; Translations: [OBESITY UNSPECIFIED] Onset: 04-11-2018 Chronic Other screening for suspected conditions (not mental disorders or infectious disease) (2 sources) Patient encounter status; Translations: [Encounter for screening for diabetes mellitus] 12-27-2023 Episodic Other upper respiratory infections (2 sources) Upper respiratory infection; Translations: [Acute upper respiratory infection, unspecified] 12-27-2023 Episodic Polyhydramnios and other problems of amniotic cavity [...] Test Name Value Interpretation Reference Range Facility Urinalysis macro (dipstick) panel (U)on 12-27-2023 Bilirubin, UA Negative Negative - 4(70) +++ mg/dL [facility] Blood, UA Negative Negative - 50 Jesse/mcL [facility] Clarity, UA Clear [facility] Color, UA Yellow [facility] Glucose, UA Negative Negative - 1999(110) ++++ mg/dL [facility] Interpretation and review of laboratory results Normal [facility] Ketones, UA Negative Negative - 160(16) ++++ mg/dL [facility] Leukocytes, UA Negative Negative - 500+++ Gabrielle/mcL [facility] Nitrite, UA Negative Negative - Positive [facility] pH, UA 7.0 5 - 9 [facility] Protein, UA Negative Negative - 1999(20) ++++ mg/dL [facility] Spec Grav, UA 1.020 1 - 1.03 [facility] Urobilinogen, UA 0.2 0.2 - 12 mg/dL [facility] Cytology Cervical or vaginal smear or scraping studyon 11-29-2023 [facility] CHLAMYDIA/GONOCOCCUS ALEX W/C ONF. (SWAB/Uon 04-26-2018 Chlamydia Trach ALEX Negative Normal Negative [facility] Comment on above: Performed By: #### A ABIDA ####[facility] Jkv[address] [place], [place] [id number] N. Gonorrhoeae ALEX Negative Normal Negative [facility] Comment on above: Performed By: #### A ABIDA ####[facility] [address] [place] [address]Embtsr [place] CBC AUTO DIFFon 04-08-2018 Basophils Auto #/vol (Bld) 0.1 103/ul Normal 0.0-0.1 [facility] Comment on above: Performed By: #### A ABIDA ####[facility] Fnun[address] [place], [place] [id number] Basophils/100 WBC Auto (Bld) 0.3 % Normal 0.2-2.0 [facility] Comment on above: Performed By: #### A ABIDA ####[facility] Els[address] [place], [place] [id number] Eosinophils 0.2 103/ul Normal 0.0-0.7 [facility] Comment on above: Performed By: #### A ABIDA ####[facility] Wz[address] [place], [place] [phone] Eosinophils/100 leukocytes 1.2 % Normal 0.9-7.0 [facility] Comment on above: Performed By: #### A ABIDA ####[facility] Eqlqfrncug1413 [address] [place] Erythrocyte distribution width Auto Ratio (RBC) 14.3 % Normal 11.0-15.0 [facility] Comment on above: Performed By: #### A ABIDA ####[facility] Xapeicnnjf2775 [address] [place] Erythrocytes (RBC) 3.91 106/ul Critically low 4.20-5.40 [facility] Comment on above: Performed By: #### A ABIDA ####[facility] Qfwjvtspti1294 [address] aBylee Hematocrit (HCT) 34.7 % Critically low 36.0-48.0 [facility] Comment on above: Performed By: #### A ABIDA ####[facility] Ssqwcrmye[address] [place] [address] [place] Hemoglobin mass conc (Bld) 11.8 g/dL Critically low 12.0-16.0 [facility] Comment on above: Performed By: #### A ABIDA ####[facility] [address] [place] [address] [place] IG # 0.18 10e3/ul Critically high 0.00-0.03 [facility] Comment on above: Performed By: #### A ABIDA ####[facility] Ctv[address]fs[address] [place] [address] [place] IG % 1.0 % Critically high 0.0-0.5 [facility] Comment on above: Performed By: #### A ABIDA ####[facility] Vstsrhjnqv3659 [address] [place] Lymphocytes 2.1 103/ul Normal 1.2-3.8 [facility] Comment on above: Performed By: #### A ABIDA ####[facility] Evbhrnwztt4204 [address] [place] Lymphocytes/100 leukocytes 11.9 % Critically low 20.5-60.[address] [facility] Comment on above: Performed By: #### A ABIDA ####[facility] Tjjwctowtv69[address] [place] [id number] MANUAL DIFF REQ NO Normal [facility] Comment on above: Performed By: #### A ABIDA ####[facility] Ukbtysvxzp4038 [place] [id number] MCH 30.2 pg Normal 26.7-34.[address] [facility] Comment on above: Performed By: #### A ABIDA ####[facility] Ritxnfwqlj8425 [place] [phone] MCHC mass conc (RBC) 34.0 g/dL Normal 29.9-35.[address] [facility] Comment on above: Performed By: #### A ABIDA ####[facility] Mntmulofbj[address] [place], [place] [id number] MCV 88.7 fL Normal 81.0-99.[address] [facility] Comment on above: Performed By: #### A ABIDA ####[facility] Vuuhfbwixp[address] [place], [place] [phone] Monocytes 1.1 103/ul Critically high 0.3-0.8 [facility] Comment on above: Performed By: #### A ABIDA ####[facility] Wglxnyatqs[address] [place], [place] [phone] Monocytes/100 leukocytes 6.2 % Normal 1.7-12.[address] [facility] Comment on above: Performed By: #### A ABIDA ####[facility] Rlofdtxeol[address] [place], [place] [address] Neutrophils 14.1 103/ul Critically high 1.4-6.5 [facility] Comment on above: Performed By: #### A ABIDA ####[facility] Xdustiklln[address] [place], [place] [address] Neutrophils/100 WBC Auto (Bld) 79.4 % Critically high 43.0-75.[address] [facility] Comment on above: Performed By: #### A ABIDA ####[facility] Jmjhsrjuut3074 [place] [id number] Platelet mean volume (PMV) 12.2 fL Normal 9.5-13.5 [facility] Comment on above: Performed By: #### A ABIDA ####[facility] Kqzbrtfamq4783 [place] [id number] Platelets 118 103/ul Critically low 150-450 [facility] Comment on above: Performed By: #### A ABIDA ####[facility] Rbfgifmgas5682 [place] [address] WBC (Leukocytes) 17.7 103/ul Critically high 4.0-11.[address] [facility] Comment on above: Performed By: #### A ABIDA ####[facility] Unklaeqsoi[address] [place], [place] [address] SCREENon 04-08-2018 SCREEN Negative Normal [facility] Comment on above: Performed By: #### A ABIDA ####[facility] Ywdwhulzet[address] [place], [place] [address] RHOGAMon 04-08-2018 RHOGAM Status Information Issued Quantity 1 Product ID Rh Immune Globulin Lot Number [id number] Issue Date/Time [id number] Normal [facility] Comment on above: Performed By: #### A ABIDA ####[facility] Hognnbesao[address] [place], [place] [address] CBC AUTO DIFFon 04-07-2018 Basophils Auto #/vol (Bld) 0.1 103/ul Normal 0.0-0.1 [facility] Comment on above: Performed By: #### A ABIDA ####[facility] Wywgbsmfwr6503 [address] [place] Basophils/100 WBC Auto (Bld) 0.3 % Normal 0.2-2.[address] [facility] Comment on above: Performed By: #### A ABIDA ####[facility] [address]uk[address] [place], [place] [address] Eosinophils 0.2 103/ul Normal 0.0-0.[address] [facility] Comment on above: Performed By: #### A ABIDA ####[facility] Avewskgjmc5079 [place] [id number] Eosinophils/100 leukocytes 1.0 % Normal 0.9-7.0 [facility] Comment on above: Performed By: #### A ABIDA ####[facility] Fhviibilvj[address] [place] [phone] Erythrocyte distribution width Auto Ratio (RBC) 14.0 % Normal 11.0-15.[address] [facility] Comment on above: Performed By: #### A ABIDA ####[facility] Ainavljqes5689 [address] [place] Erythrocytes (RBC) 4.39 106/ul Normal 4.20-5.40 [facility] Comment on above: Performed By: #### A ABIDA ####[facility] Mpimtfpgig[address] [place], [place] [phone] Hematocrit (HCT) 38.7 % Normal 36.0-48.0 [facility] Comment on above: Performed By: #### A ABIDA ####[facility] Fqjqyofsyl4966 [place] [id number] Hemoglobin mass conc (Bld) 13.4 g/dL Normal 12.0-16.[address] [facility] Comment on above: Performed By: #### A ABIDA ####[facility] Xsttqwtevv0733 [place] [id number] IG # 0.30 10e3/ul Critically high 0.00-0.03 [facility] Comment on above: Performed By: #### A ABIDA ####[facility] Etxsmqeqxy4888 [place] [id number] IG % 1.4 % Critically high 0.0-0.5 [facility] Comment on above: Performed By: #### A ABIDA ####[facility] Ogpukyrinn0211 [address] [place] Lymphocytes 2.6 103/ul Normal 1.2-3.[address] [facility] Comment on above: Performed By: #### A ABIDA ####[facility] Fkzraqdziu[address] [place] [phone] Lymphocytes/100 leukocytes 12.6 % Critically low 20.5-60.0 [facility] Comment on above: Performed By: #### A ABIDA ####[facility] Qvystomkms2454 [place] [phone] MANUAL DIFF REQ NO Normal [facility] Comment on above: Performed By: #### A ABIDA ####[facility] Rxrxpmzpsj4390 [place] [phone] MCH 30.5 pg Normal 26.7-34.[address] [facility] Comment on above: Performed By: #### A ABIDA ####[facility] Xdmzecgqxz4058 [address] [place] MCHC mass conc (RBC) 34.6 g/dL Normal 29.9-35.[address] [facility] Comment on above: Performed By: #### A ABIDA ####[facility] Wuezrrpkar[address] [place], [place] [address] MCV 88.2 fL Normal 81.0-99.[address] [facility] Comment on above: Performed By: #### A ABIDA ####[facility] [address] [place] [address] [place] Monocytes 1.2 103/ul Critically high 0.3-0.8 [facility] Comment on above: Performed By: #### A ABIDA ####[facility] Fipcyyblbn[address] [place] [address] [place] Monocytes/100 leukocytes 5.5 % Normal 1.7-12.[address] [facility] Comment on above: Performed By: #### A ABIDA ####[facility] Ctlotihjwr1180 [place] [id number] Neutrophils 16.5 103/ul Critically high 1.4-6.5 [facility] Comment on above: Performed By: #### A ABIDA ####[facility] Mfppvggnty[address] [place], [place] [phone] Neutrophils/100 WBC Auto (Bld) 79.2 % Critically high 43.0-75.0 [facility] Comment on above: Performed By: #### A ABIDA ####[facility] Byzklbxmdt3284 [address] [place] Platelet mean volume (PMV) 12.2 fL Normal 9.5-13.5 [facility] Comment on above: Performed By: #### A ABIDA ####[facility] Hxeohcixwb9239 [address] [place] Platelets 139 103/ul Critically low 150-450 [facility] Comment on above: Performed By: #### A ABIDA ####[facility] [address]zsjcqtr[address] [place] [address] [place] WBC (Leukocytes) 20.8 103/ul Critically high 4.0-11.0 Th [facility] Comment on above: Performed By: #### A ABIDA ####[facility] Hrvrgtbdia[address] [place] [address] [place] DRUG SCREEN RAPID (URINE)on 04-07-2018 AMP Negative Normal NEGATIVE [facility] Comment on above: Performed By: #### A ABIDA ####[facility] [address]dxzostp[address] [place] [address] [place] BAR Negative Normal NEGATIVE [facility] Comment on above: Performed By: #### A ABIDA ####[facility] Repmbayeim9163 [address] [place] BUP Negative Normal NEGATIVE [facility] Comment on above: Performed By: #### A ABIDA ####[facility] Pvtjjkxsct0779 [address] [place] BZO Negative Normal NEGATIVE [facility] Comment on above: Performed By: #### A ABIDA ####[facility] Pzhkygzogb3130 [address] [place] ELENA Negative Normal NEGATIVE [facility] Comment on above: Performed By: #### A ABIDA ####[facility] Osriuqydyv[address] [place] [address] [place] CUT-OFFS SEE BELOW Normal [facility] Comment on above: Result Comment: [...] 300 ng/mL Performed By: #### A ABIDA ####[facility] Q[address] [place] [address] DRUG CUT HEADER DRUG CLASS TEST SYSTEM CUT-OFF CONCENTRATIONS ARE FOLLOWS: Normal [facility] Comment on above: Performed By: #### A ABIDA ####[facility] [address] [place] [address] mAMP Negative Normal NEGATIVE [facility] Comment on above: Performed By: #### A ABIDA ####[facility] Jqxaaufeja[address] [place] [address] MTD Negative Normal NEGATIVE [facility] Comment on above: Performed By: #### A ABIDA ####[facility] Afkssbyov[address] [place] [address] OPI Negative Normal NEGATIVE [facility] Comment on above: Performed By: #### A ABIDA ####[facility] Ndzralswwh5256 [address] OXY Negative Normal NEGATIVE [facility] Comment on above: Performed By: #### A ABIDA ####[facility] Zivbecrnki[address] [place] [address] PCP Negative Normal NEGATIVE [facility] Comment on above: Performed By: #### A ABIDA ####[facility] Gemldtlnhs3317 [address] [place] PPX Negative Normal NEGATIVE [facility] Comment on above: Performed By: #### A ABIDA ####[facility] [address] [place] [address] [place] TCA Negative Normal NEGATIVE [facility] Comment on above: Performed By: #### A ABIDA ####[facility] N[address]lzvnven[address] [place] [address] [place] THC Negative Normal NEGATIVE [facility] Comment on above: Performed By: #### A ABIDA ####[facility] Ambxazikho[address] [place] [address] [place] UA (CLEAN/CATCH) GOLF BALL MOLDER/MICRO I F IND.on 04-07-2018 Bilirubin (total) Negative Normal NEGATIVE [facility] Comment on above: Performed By: #### A ABIDA ####[facility] Vx[address]ocvzw[address] [place] [address] [place] BLOOD Negative Normal NEGATIVE [facility] Comment on above: Performed By: #### A ABIDA ####[facility] Pslybjtdrr[address] [place] [address] [place] Glucose mass conc Negative Normal NEGATIVE [facility] Comment on above: Performed By: #### A ABIDA ####[facility] Awrivcsbxi[address] [place] [address] [place] pH of blood 6.0 [pH] Normal 5-9 [facility] Comment on above: Performed By: #### A ABIDA ####[facility] Wsjqvajogx[address] [place] [address] [place] Protein Negative Normal [facility] Comment on above: Performed By: #### A ABIDA ####[facility] Siarblyxbd[address] [place] [address] [place] SPEC GRAVITY 1.020 Normal 1.005-<=1.025 [facility] Comment on above: Performed By: #### A ABIDA ####[facility] [address]mfbii[address] [place] [address] [place] UR MICRO IND NOT INDICATED Normal [facility] Comment on above: Performed By: #### A ABIDA ####[facility] Pofpgopedw7647 [address] [place] Urine, clarity CLEAR Normal [facility] Comment on above: Performed By: #### A ABIDA ####[facility] Odtntyxtsc4845 [address] [place] Urine, color LT. YELLOW Normal YELLOW [facility] Comment on above: Performed By: #### A ABIDA ####[facility] Rovstjlhmi7947 [address] [place] Urine, ketones presence Negative Normal NEGATIVE [facility] Comment on above: Performed By: #### A ABIDA ####[facility] Zvirvpujzk2449 [address] [place] Urine, nitrite presence Negative Normal NEGATIVE [facility] Comment on above: Performed By: #### A ABIDA ####[facility] [address]wjbwvcfv[address] [place] [address] [place] Urine, urobilinogen 0.2 {Jer'U}/dL Normal [facility] Comment on above: Performed By: #### A ABIDA ####[facility] [address]igr[address]cyr[address] [place] [address] WBC (Leukocytes) Negative Normal NEGATIVE [facility] Comment on above: Performed By: #### A ABIDA ####[facility] Fq[address]jxyfcx[address] [place] [address] [place] GROUP B STREPTon 03-21-2018 GBS Performed by [facility] , final report to follow Normal NEG FOR GBS [facility] Comment on above: Performed By: #### A ABIDA ####[facility] [address] [place] [address] [place] RHOGAMon 02-04-2018 RHOGAM Status Information Issued Quantity 1 Product ID Rh Immune Globulin Lot Number [id number] Issue Date/Time [id number] Normal [facility] Comment on above: Performed By: #### A ABIDA ####[facility] [address]zfrmchqi[address] [place] [address] [place] CBC AUTO DIFFon 02-03-2018 Basophils Auto #/vol (Bld) 0.0 103/ul Normal 0.0-0.1 [facility] Comment on above: Performed By: #### P REGQNT ####[facility] Afggivykmm8320 [address] [place] Basophils/100 WBC Auto (Bld) 0.3 % Normal 0.2-2.0 [facility] Comment on above: Performed By: #### P REGQNT ####[facility] Bdncjzxadi[address] [place] [address] [place] Eosinophils 0.2 103/ul Normal 0.0-0.7 [facility] Comment on above: Performed By: #### P REGQNT ####[facility] [address]ofwkqthr[address] [place] [address] [place] Eosinophils/100 leukocytes 1.1 % Normal 0.9-7.[address] [facility] Comment on above: Performed By: #### P REGQNT ####[facility] L[address]ljtrf[address] [place] [address] [place] Erythrocyte distribution width Auto Ratio (RBC) 13.2 % Normal 11.0-15.0 [facility] Comment on above: Performed By: #### P REGQNT ####[facility] Antrpesanx[address] [place] [address] [place] Erythrocytes (RBC) 3.91 106/ul Critically low 4.20-5.40 [facility] Comment on above: Performed By: #### P REGQNT ####[facility] M[address]dpfmgks[address] [place], [place] [address] Hematocrit (HCT) 35.5 % Critically low 36.0-48.0 [facility] Comment on above: Performed By: #### P REGQNT ####[facility] Arvpmyickx[address] [place], [place] [address] Hemoglobin mass conc (Bld) 12.0 g/dL Normal 12.0-16.[address] [facility] Comment on above: Performed By: #### P REGQNT ####[facility] [address]vjfig[address] [place] [id number] IG # 0.27 10e3/ul Critically high 0.00-0.03 [facility] Comment on above: Performed By: #### P REGQNT ####[facility] Aeyqjbepif6534 [place] [id number] IG % 1.8 % Critically high 0.0-0.5 [facility] Comment on above: Performed By: #### P REGQNT ####[facility] Gfwtqiijtw9188 [address] [place] Lymphocytes 1.8 103/ul Normal 1.2-3.[address] [facility] Comment on above: Performed By: #### P REGQNT ####[facility] [facility] [address] [place] [address] [place] Lymphocytes/100 leukocytes 11.9 % Critically low 20.5-60.0 [facility] Comment on above: Performed By: #### P REGQNT ####[facility] [address] [place] [address] [place] MANUAL DIFF REQ NO Normal [facility] Comment on above: Performed By: #### P REGQNT ####[facility] X[address] [place] [address] [place] MCH 30.7 pg Normal 26.7-34.0 [facility] Comment on above: Performed By: #### P REGQNT ####[facility] Uj[address] [place] [address] [place] MCHC mass conc (RBC) 33.8 g/dL Normal 29.9-35.[address] [facility] Comment on above: Performed By: #### P REGQNT ####[facility] [address] [place] [address] [place] MCV 90.8 fL Normal 81.0-99.0 [facility] Comment on above: Performed By: #### P REGQNT ####[facility] T[address] [place], [place] [address]Gerken [place] Monocytes 0.6 103/ul Normal 0.3-0.8 [facility] Comment on above: Performed By: #### P REGQNT ####[facility] V[address]vftnfq66[address] [place] [address]ken [place] Monocytes/100 leukocytes 3.9 % Normal 1.7-12.0 [facility] Comment on above: Performed By: #### P REGQNT ####[facility] Gmirpxyati6016 [place] [id number] [place] Neutrophils 12.1 103/ul Critically high 1.4-6.5 [facility] Comment on above: Performed By: #### P REGQNT ####[facility] Qgjlkptxer0964 [address] [place] Neutrophils/100 WBC Auto (Bld) 81.0 % Critically high 43.0-75.0 [facility] Comment on above: Performed By: #### P REGQNT ####[facility] Auwrzfmrcs2379 [address] [place] Platelet mean volume (PMV) 11.6 fL Normal 9.5-13.5 [facility] Comment on above: Performed By: #### P REGQNT ####[facility] Y[address] [place] [address] [place] Platelets 133 103/ul Critically low 150-450 [facility] Comment on above: Performed By: #### P REGQNT ####[facility] Hmzyvgcimc1822 [place] [id number] [place] WBC (Leukocytes) 14.9 103/ul Critically high 4.0-11.0 Th [facility] Comment on above: Performed By: #### P REGQNT ####[facility] Ffjlpxuywn9201 [address] [place] GLUCOSE - 1HRon 02-03-2018 Glucose mass conc 120 mg/dL Critically high 74-106 Th [facility] Comment on above: Performed By: #### P REGQNT ####[facility] Acoqmgbdsg0920 [place] [id number] [place] TYPE AND SCREENon 02-03-2018 TYPE AND SCREEN Negative Normal [facility] Comment on above: Performed By: #### P REGQNT ####[facility] Hfobupckuk8886 [place], [place] [address]Nyrlck [place] US PREG ANATOMY SINGLEon US PREG ANATOMY SINGLE [address] [place] [address] Patient: ESTUARDO JEREZ Exam Date: 11/25/2017DOB: 1990 Gender:F : FELISHA Joel TATE . Admission #: [id number] : Order #: [id number] HERE TO VIEW EXAM RADIOLOGY REPORT PROCEDURE: [...] Ayala M.D. on 11/25/2017 at 20:18 Normal [facility] PAP ACOG PANEL 4: 21 to 29on 10-11-2017 LCPAP SEE SCANNED REPORT Normal [facility] Comment on above: Performed By: #### P REGQNT ####[facility] Yljtdrpccm7196 [address] [place] HEMOGLOBIN ELECTOPHORESISon 09-27-2017 HBSREV Reviewed by Adithya Morton MD ([id number]) [facility] Comment on above: Result Comment: Test Performed By: [facility] [address] [place] [address] Overlock Elastic Attacher: Dalila Roman MD, PhD Performed By: #### P REGQNT ####[facility] [address]zvb[address] [place], [place] [address]Ger[address] [place] Hemoglobin mass conc (Bld) None detected. Normal 0.0-1.8 [facility] Comment on above: Performed By: #### P REGQNT ####[facility] Ksyfwufx[address] [place], [place] [address]Ger[address] [place] Hemoglobin mass conc (Bld) No abnormal hemoglobin identified. Normal [facility] Comment on above: Performed By: #### P REGQNT ####[facility] [address]yiznwrcwr8573 [place] [id number] [place] Hemoglobin mass conc (Bld) 97.4 % Normal [facility] Comment on above: Performed By: #### P REGQNT ####[facility] [address]fzovnsxb[address] [place], [place] [address]Ger[place] Hemoglobin mass conc (Bld) 2.6 % Normal 1.5-3.5 [facility] Comment on above: Performed By: #### P REGQNT ####[facility] Egfaolcgaw2540 [place] [id number] Interpertation Hemoglobins were analyzed by capillary electrophoresis. Normal [facility] Comment on above: Result Comment: Norm al pattern Performed By: #### P REGQNT ####[facility] [address] [place], [place] [address] VARICELLA IGGon 09-26-2017 Varicella Zoster IgG 1134.0 Index Value Normal [facility] Comment on above: Result Comment: Inde x Values are Interpreted as Follows:Negative specimens <135.0Equivocal specimens 135.0 to 164.9Positive specimens >164.9The magnitude of the measured result is not indicative of theamount of antibody present. Test Performed By: [facility] Prevoty [address] [place] [address] Overlock El[employer] Attacher: Dalila Roman MD, PhD Performed By: #### P REGQNT ####[facility] [address] [place], [place] [address]en VZVGQL Positive Abnormal NEGAT [facility] Comment on above: Result Comment: Pres ence of detectable VZV IgG antibodies. A positive resultgenerally indicatesexposure to the pathogen or administration of specificimmunoglobulins, but is no indication of active infection or stage of disease. Performed By: #### P REGQNT ####[facility] N[address] [place] [address] [place] RPR/SERUMon 09-24-2017 Reagin antibody presence Non Reactive Normal NR [facility] Comment on above: Result Comment: Test Performed By: [facility] Prevoty [address] [place] [address] [employer]lock [employer] Attacher: Dalila Roman MD, PhD Performed By: #### P REGQNT ####[facility] Sdnrouiyvv[address] [place], [place] [address] CBC AUTO DIFFon 09-23-2017 Basophils Auto #/vol (Bld) 0.0 103/ul Normal 0.0-0.[address] [facility] Comment on above: Performed By: #### C BC ####[facility] Dulrzvzyul[address] [place], [place] [address]Ysuphj [place] Basophils/100 WBC Auto (Bld) 0.3 % Normal 0.2-2.0 [facility] Comment on above: Performed By: #### C BC ####[facility] Wpkfzapxsp3447 [place] [id number] Eosinophils 0.2 103/ul Normal 0.0-0.7 [facility] Comment on above: Performed By: #### C BC ####[facility] Shxtwmwwdz9680 [place] [id number] [place] Eosinophils/100 leukocytes 1.1 % Normal 0.9-7.0 [facility] Comment on above: Performed By: #### C BC ####[facility] O[address]zqmjmzk[address] [place], [place] [address]Ger[address] [place] Erythrocyte distribution width Auto Ratio (RBC) 12.5 % Normal 11.0-15.0 [facility] Comment on above: Performed By: #### C BC ####[facility] Dr[address]wzq[address] [place], [place] [address]Ger[place] Erythrocytes (RBC) 4.61 106/ul Normal 4.20-5.40 [facility] Comment on above: Performed By: #### C BC ####[facility] Okfsgnxzya[address] [place], [place] [address] Hematocrit (HCT) 41.5 % Normal 36.0-48.0 [facility] Comment on above: Performed By: #### C BC ####[facility] Fylwwoerne[address] [place], [place] [address] Hemoglobin mass conc (Bld) 14.5 g/dL Normal 12.0-16.[address] [facility] Comment on above: Performed By: #### C BC ####[facility] Kinutvgyie[address] [place], [place] [address]Gerken [place] IG # 0.07 10e3/ul Critically high 0.00-0.03 [facility] Comment on above: Performed By: #### C BC ####[facility] Dosdelujyc4738 [place] [id number] IG % 0.5 % Normal 0.0-0.5 [facility] Comment on above: Performed By: #### C BC ####[facility] Pxnsqksufj2342 [address] [place] Lymphocytes 2.2 103/ul Normal 1.2-3.[address] [facility] Comment on above: Performed By: #### C BC ####[facility] Tencfejkqc6925 [address] [place] Lymphocytes/100 leukocytes 15.4 % Critically low 20.5-60.0 [facility] Comment on above: Performed By: #### C BC ####[facility] Wrdysdjbim1922 [address] [place] MANUAL DIFF REQ NO Normal [facility] Comment on above: Performed By: #### C BC ####[facility] Sh[address]woylc[address] [place] [address] [place] MCH 31.5 pg Normal 26.7-34.[address] [facility] Comment on above: Performed By: #### C BC ####[facility] [address] [place] [address] [place] MCHC mass conc (RBC) 34.9 g/dL Normal 29.9-35.[address] [facility] Comment on above: Performed By: #### C BC ####[facility] [address]wz[address] [place] [address] [place] MCV 90.0 fL Normal 81.0-99.[address] [facility] Comment on above: Performed By: #### C BC ####[facility] Oppnmoodig[address] [place] [address] [place] Monocytes 0.5 103/ul Normal 0.3-0.[address] [facility] Comment on above: Performed By: #### C BC ####[facility] [address]eb[address]ysrau[address] [place] [address] [place] Monocytes/100 leukocytes 3.6 % Normal 1.7-12.[address] [facility] Comment on above: Performed By: #### C BC ####[facility] M[address] [place], [place] [address] [place] Neutrophils 11.2 103/ul Critically high 1.4-6.5 [facility] Comment on above: Performed By: #### C BC ####[facility] [address]vx[address] [place] [address] [place] Neutrophils/100 WBC Auto (Bld) 79.1 % Critically high 43.0-75.0 [facility] Comment on above: Performed By: #### C BC ####[facility] Soezmtntau4310 [address] [place] Platelet mean volume (PMV) 11.6 fL Normal 9.5-13.5 [facility] Comment on above: Performed By: #### C BC ####[facility] X[address] [place] [address] [place] Platelets 170 103/ul Normal 150-450 [facility] Comment on above: Performed By: #### C BC ####[facility] Uzkokydipr[address] [place] [address] [place] WBC (Leukocytes) 14.2 103/ul Critically high 4.0-11.0 [facility] Comment on above: Performed By: #### C BC ####[facility] [address]qy[address] [place] [address] [place] HEP B SURFACE AGon 7 HEP B Surface Ag Negative Normal NEGATIVE [facility] Comment on above: Performed By: #### P REGQNT ####[facility] [address]qxs[address] [place] [address] [place] HEP C ANTIBODYon 09-23-2017 Anti HCV Negative Normal NEGATIVE [facility] Comment on above: Performed By: #### P REGQNT ####[facility] [address] [place] [address] [place] HIV 1 AND 2 ABon 09-23-2017 HIV 1 AND 2 AB Negative Normal NEGATIVE [facility] Comment on above: Performed By: #### H IV12 ####[facility] [address]smqeg[address] [place] [address] [place] PREG QUANT HCGon 09-23-2017 HCG Qn SEE BELOW Normal [facility] Comment on above: Result Comment: 5-50 0-1 WEEK 40-300 1-2 WEEKS 100-1,000 2-3 WEEKS 500-6,000 3-4 WEEKS 5,000-200,000 1-2 MONTHS 10,000-100,000 2-3 MONTHS 3,000-50,000 2ND TRIMESTER 1,000-50,000 3RD TRIMESTER Performed By: #### P REGQNT ####[facility] [address] [place] [address] [place] HCG QUANT 90581.00 mIU/mL Normal [facility] Comment on above: Performed By: #### P REGQNT ####[facility] Otgufefvvm[address] [place] [address] [place] RUBELLA AB IGGon 09-23-2017 RUB HEADER SEE BELOW Normal [facility] Comment on above: Result Comment: or=1 5.0 IU/mL POSITIVE WHO considers levels >or= 10.0 IU/mL to be positive immune status Performed By: #### R UBG ####[facility] [address]ij[address] [place] [address] [place] RUB IGG 33.1 IU/mL Normal [facility] Comment on above: Performed By: #### R UBG ####[facility] [address]wczr[address] [place] [address] [place] TYPE AND SCREENon 09-23-2017 TYPE AND SCREEN Negative Normal [facility] Comment on above: Performed By: #### T NS ####[facility] [address] [place] [address] [place] CULTURE URINEon 09-13-2017 CULTURE URINE Culture Observations : Final; See scanned report to follow in HPF Normal [facility] Comment on above: Performed By: #### C XUR ####[facility] [address] [place] [address] [place] UA RANDOM W/MICROSCOPICon Bilirubin (total) Negative Normal NEGATIVE [facility] Comment on above: Performed By: #### U AMIC ####[facility] Jzrnmielrm5952 [place], [place] [address]Wyynry [place] BLOOD Negative Normal NEGATIVE [facility] Comment on above: Performed By: #### U AMIC ####[facility] Vxewunobyi4550 [place], [place] [address]Bdhonw [place] CAST NONE SEEN Normal NONE SEEN [facility] Comment on above: Performed By: #### U AMIC ####[facility] Xcetegyurv1261 [place], [place] [address]Jovgzg [place] Erythrocytes (RBC) NONE SEEN Normal 0-[address] [facility] Comment on above: Performed By: #### U AMIC ####[facility] Oilajawkbf3834 [place], [place] [address]Uywhyh [place] Glucose mass conc Negative Normal NEGATIVE [facility] Comment on above: Performed By: #### U AMIC ####[facility] Eoegmudasf4361 [place], [place] [address]Vpzgnh [place] MUCOUS NONE SEEN Normal NONE SEEN [facility] Comment on above: Performed By: #### U AMIC ####[facility] Hftdxwfduh1305 [place], [place] [address]Qwdhzi [place] pH of blood 6.5 [pH] Normal 5-[address] [facility] Comment on above: Performed By: #### U AMIC ####[facility] [address]zuymqlpec50[address] [place] [address] Protein Negative Normal [facility] Comment on above: Performed By: #### U AMIC ####[facility] Ecavsayqkr8064 [place] [address] SPEC GRAVITY 1.015 Normal 1.005-<=1.025 [facility] Comment on above: Performed By: #### U AMIC ####[facility] Se[address]arl7782 [place] [address] Urine, bacteria in sediment TRACE Normal NONE SEEN [facility] Comment on above: Performed By: #### U AMIC ####[facility] Mkyrottsrj08[address] [place] [address] Urine, clarity CLEAR Normal [facility] Comment on above: Performed By: #### U AMIC ####[facility] Ttaqckvukt9428 [place], [place] [address]Svzowp [place] Urine, color LT. YELLOW Normal YELLOW [facility] Comment on above: Performed By: #### U AMIC ####[facility] Ppdhjrkqgs9195 [place], [place] [address]Rnrbln [place] Urine, crystals in sediment NONE SEEN Normal NONE SEEN [facility] Comment on above: Performed By: #### U AMIC ####[facility] Ngeptdgphm0205 [place], [place] [address]Elfpoh [place] Urine, epithelial cells in sediment RARE Normal [facility] Comment on above: Performed By: #### U AMIC ####[facility] Dgwmgdnyxg5320 [place], [place] [address]Zzegbs [place] Urine, ketones presence Negative Normal NEGATIVE [facility] Comment on above: Performed By: #### U AMIC ####[facility] Nbpykvjbxb4711 [place], [place] [address]Jpnpoz [place] Urine, nitrite presence Negative Normal NEGATIVE [facility] Comment on above: Performed By: #### U AMIC ####[facility] Znmnhjtpek6352 [place], [place] [address]Hyzvny [place] Urine, urobilinogen 0.2 {Jer'U}/dL Normal [facility] Comment on above: Performed By: #### U AMIC ####[facility] Zzbjgwrulk7312 [place] [address] WBC (Leukocytes) NONE SEEN Normal NONE SEEN [facility] Comment on above: Performed By: #### U AMIC ####[facility] Akpxfwroff5078 [place] [address] WBC (Leukocytes) Negative Normal NEGATIVE [facility] Comment on above: Performed By: #### U AMIC ####[facility] Wdzknetbbf8698 [place] [address]Gerken [place] ABO AND RH TYPEon 09-12-2017 ABO AND RH TYPE Negative Normal [facility] Comment on above: Performed By: #### Donya TAI ####[facility] Xgvvkflgep0876 [place], [place] [address]Imihlq [place] PREG QUANT HCGon 09-12-2017 HCG Qn SEE BELOW Normal [facility] Comment on above: Result Comment: 5-50 0-1 WEEK 40-300 1-2 WEEKS 100-1,000 2-3 WEEKS 500-6,000 3-4 WEEKS 5,000-200,000 1-2 MONTHS 10,000-100,000 2-3 MONTHS 3,000-50,000 2ND TRIMESTER 1,000-50,000 3RD TRIMESTER Performed By: #### P REGQNT ####[facility] Xphxutylmf1577 [place], [place] [address]Hovpar [place] HCG QUANT 43036.00 mIU/mL Normal [facility] Comment on above: Performed By: #### P REGQNT ####[facility] Stxijogvsg2270 [place], [place] [address]Sfekdy [place] US PREG <14 WKSon 08-29-2017 US PREG <14 WKS [address] [place] [address] Patient: ESTUARDO JEREZ Exam Date: 08/29/2017DOB: 1990 Gender:F : FELISHA OwenReggie TATE . Admission #: [id number] : Order #: [id number] HERE TO VIEW EXAM RADIOLOGY REPORT PROCEDURE: [...] Jacob Ayala M.D. on 08/29/2017 at 16:03 [facility] Vital Signs Date Time Vital Sign Value Performing Clinician Ozzy spring 12-27-2023 15:05-0500 Body weight 108.86 kg Sabrina Irma DO Work Phone: [facility] 12-27-2023 15:05-0500 Diastolic blood pressure 74 mm[Hg] Sabrina Irma DO Work Phone: [facility] 12-27-2023 15:05-0500 Systolic blood pressure 128 mm[Hg] Sabrina Irma DO Work Phone: [facility] Encounters Encounter Date Encounter Type Care Provider Facility Start: 12-27-2023 End: 12-27-2023 ambulatory SABRINA IRMA Not Available Start: 12-27-2023 End: 12-27-2023 flow sheet Sabrina Irma DO Work Phone: [facility] Comment on above: Second trimester pre gnancy; Diabetes mellitus screening; Nausea and vomiting, unspecified vomiting type; Upper respiratory tract infection, unspecified type Start: 11-29-2023 End: 11-29-2023 ambulatory ASPEN GARDNER Not Available Start: 11-01-2023 End: 11-01-2023 ambulatory SABRINA BERNALO Not Available Start: 04-11-2018 End: 04-11-2018 Ambulatory FELISHA TATE Facility:[facility]1 Start: 04-06-2018 End: 04-09-2018 Evaluation and management of inpatient DONY BUTT Facility:[facility] Start: 03-21-2018 End: 03-21-2018 Ambulatory FELISHA TATE Facility:[facility] Start: 03-07-2018 End: 03-07-2018 Ambulatory FELISHA TATE Facility:[facility] Start: 02-03-2018 End: 02-04-2018 Ambulatory FELISHA TATE Facility:[facility] Start: 01-03-2018 End: 01-04-2018 Ambulatory FELISHA TATE Facility:[facility] Start: 11-25-2017 End: 11-26-2017 Ambulatory FELISHA TATE Facility:[facility] Start: 10-11-2017 End: 10-11-2017 Ambulatory FELISHA TATE Facility:[facility] Start: 09-23-2017 End: 09-24-2017 Ambulatory FELISHA TATE Facility:[facility] Start: 09-13-2017 End: 09-13-2017 Ambulatory FELISHA ATTE Facility:[facility] Start: 09-12-2017 End: 09-13-2017 Ambulatory FELISHA TATE Facility:[facility] Start: 08-29-2017 End: 08-30-2017 Ambulatory FELISHA TATE Facility:[facility] Procedures Date Procedure Procedure Detail Performing Clinician Start: 12-27-2023 Urnls dip stick/tabl et rgnt non-auto w/o micrscp Sabrina Irma DO Work Phone: Start: 11-29-2023 Cytp cerv/vag auto t hin layer prep mnl screen Sabrina Irma DO Work Phone: Start: 04-07-2018 Delivery of Products of Conception, External Approach FELISHA TATE Start: 04-07-2018 Repair Perineum Skin , External Approach FELISHA TATE Plan of Treatment Date Care Activity Detail Author Start: 01-24-2024 End: 01-24-2024 Patient encounter procedure 01/24/2024 2:20 PM EST Routine [facility] [address] [place] [address] Aspen Gardner PA [address] [place] [address] [facility] Start: 12-27-2023 End: 12-27-2024 CBC panel - Blood by Automated count CBC Lab Routine Diabetes mellitus screening Expected: 12/27/2023 (Approximate), Expires: 12/27/2024 [facility] Work Phone: Comment on above: Expected: 12/27/2023 (Approximate), Expires: 12/27/2024 Start: 12-27-2023 End: 12-27-2024 Measurement of glucose 1 hour after glucose challenge for glucose tolerance test Glucose tolerance, 1 hour Lab Routine Diabetes mellitus screening Expected: 12/27/2023 (Approximate), Expires: 12/27/2024 [facility] Comment on above: Expected: 12/27/2023 (Approximate), Expires: 12/27/2024 Payers Date Payer Category Payer Unknown [id number] 2022 Unknown [employer] [id number] 2022-Present [phone] [address] [address] [place] [address] [id number] 1990 Unknown [id number] 1990 Unknown [id number] 1990 Unknown [id number] 1958 Unknown [id number] Social History Date Type Detail Facility Tobacco smoking stat [facility] Tobacco smoking consumption unknown [facility] Start: 08-13-2023 [facility] Start: 1990 Sex Assigned At Not on file [facility] Gender identity Not on file [facility] History of Present illness Narrative 12-27-2023 [place] HillANGELINE - 12/27/2023 2:40 PM EST Note Date & Type Note Facility 12-27-2023 History of Presen t illness Narrative Reason for Appointment: Patient ID: Estuardo Slade is a 33 y.o. female who presents for No chief complaint on file. Patient presents today for Return OB appointment. Current Medications: has a current medication list which includes the following prescription(s): vit-fe fumarate-fa. Medical History: Active Ambulatory Problems Diagnosis Date Noted No Active Ambulatory Problems Resolved Ambulatory Problems Diagnosis Date Noted No Resolved Ambulatory Problems No Additional Past Medical History Family History Problem Relation Name Age of Onset Colon cancer Maternal Grandfather Social History Tobacco Use Smoking status: Not on file Smokeless tobacco: Not on file Substance Use Topics Alcohol use: Not on file Drug use: Not on file History reviewed. No pertinent surgical history. No Known Allergies Review of Systems: Review of Systems Constitutional: Negative. HENT: Negative. Eyes: Negative. Respiratory: Negative. Cardiovascular: Negative. Gastrointestinal: Positive for nausea and vomiting. Genitourinary: Negative. Musculoskeletal: Negative. Skin: Negative. Neurological: Negative. All other systems reviewed and are negative. Hematological: Negative. Endocrine: Negative. Allergic/Immunologic: Negative. Objective Physical Exam Constitutional: Appearance: Normal appearance. She is well-developed. Cardiovascular: Rate and Rhythm: Normal rate and regular rhythm. Pulmonary: Effort: Pulmonary effort is normal. Breath sounds: Normal breath sounds. Abdominal: General: Bowel sounds are normal. There is no distension. Palpations: Abdomen is soft. Tenderness: There is no abdominal tenderness. There is no guarding or rebound. Musculoskeletal: General: No swelling. Normal range of motion. Right lower leg: No edema. Left lower leg: No edema. Neurological: Mental Status: She is alert and oriented to person, place, and time. Skin: General: Skin is warm and dry. Psychiatric: Mood and Affect: Mood normal. Behavior: Behavior normal. Vitals and nursing note reviewed. Exam conducted with a train gateman present. Vitals: There is no height or weight on file to calculate BMI. BP: 128/74 Patient's last menstrual period was 07/30/2023. Assessment/Plan Encounter Diagnoses Name Primary? Second trimester Diabetes mellitus screening Pt doing well with complaints of nausea and URI- Rx for zpack and zofran faxed to pharmacy. Pt to return in 4 weeks for scheduled OB appt. Documented by Baylee Hill LPN on behalf of: Sabrina Solis DO documented in this encounter [facility] Evaluation note Note Date & Type Note Facility Evaluation note Diagnosis Second trimester state, incidental Diabetes mellitus screening Screening for diabetes mellitus Nausea and vomiting, unspecified vomiting type Upper respiratory tract infection, unspecified type documented in this encounter [facility] Summary Purpose Family History No Family History Records FoundNo Family History Records Found Advance Directives No Advanced Directives Records FoundNo Advanced Directives Records Found Additional Source Comments INFORMATION SOURCE (unrecogn ized section and content) DATE CREATED AUTHOR 05/17/2018 [facility] DATE CREATED AUTHOR 'S JUAN PABLO VAZQUEZ 12/28/2023 [facility] EPIC FOR RECORDS [...] BE BASED ON THE PRIMARY CLINICAL RECORDS. [facility] [employer] [facility]. provides no warranty or guarantee of the accuracy or completeness of information in this document.
[2024-01-31 13:34] LABS: Basophils Percent Auto 0.3 % (0.2-2.0); Eosinophils Absolute Auto 0.2 10^3/uL (0.0-0.7); Eosinophils Percent Auto 1.1 % (0.9-7.0); Hematocrit 36.6 % (36.0-48.0); Mean Corpuscular HGB Conc 32.8 g/dL (29.9-35.2); Mean Corpuscular Volume 91.5 fL (81.0-99.0); Mean Platelet Volume 11.9 fL (9.5-13.5); Monocytes Absolute Auto 0.7 10^3/uL (0.3-0.8); Monocytes Percent Auto 4.5 % (1.7-12.0); Neutrophils Percent Auto 79.1 % (43.0-75.0); Platelet Count 163 10^3/uL (150-450); Red Cell Distribution Width 13.6 % (11.0-15.0); White Blood Count 15.1 10^3/uL (4.0-11.0)
[2024-01-31 14:28] LABS: Glucose 1 Hour 159 mg/dL (<130)
== END 2024-01-31 11:58 | disposition home or self-care (01) ==
LOC: LAB 11:58
PROVIDERS: Visit Provider Obstetrics & Gynecology
DX: Z13.1 Encounter for screening for diabetes mellitus (principal)
CPT/HCPCS: 36415; 82950; 85025

== ENCOUNTER 2024-02-14 07:10 | Outpatient (OUT) | payer OTHER, SELFPAY ==
--- OUTSIDE RECORDS SUMMARY | 2024-02-14 07:12 | XMS_ITS | CCD ---
Author Organization [facility] Care Team Providers Care Etl Developer Name Role Phone FELISHA TATE Unavailable Unavailable [...] TATEA Unavailable Unavailable FELISHA TATE Unavailable Unavailable RANJAN TATEA Unavailable Unavailable RANJAN TATEA Unavailable Unavailable FELISHA TATE Unavailable Unavailable FELISHA TATE Unavailable Unavailable JACOB AYALA V Unavailable Unavailable FELISHA TATE Unavailable Unavailable FELISHA TATE Unavailable Unavailable FELISHA TATE Unavailable Unavailable FELISHA TATE Unavailable Unavailable FELISHA TATE Unavailable Unavailable FELISHA TATE Unavailable Unavailable REQUEST, NONE LISTED Unavailable Unavailable FELISHA TATE Unavailable Unavailable RANJAN TATEA Unavailable Unavailable FELISHA TATE Unavailable Unavailable FELISHA TATE Unavailable Unavailable FELISHA TATE Unavailable Unavailable FELISHA TATE Unavailable Unavailable FELISHA TATE Unavailable Unavailable FELISHA TATE Unavailable Unavailable FELISHA TATE Unavailable Unavailable DONY [...] UA Negative Negative - 4(70) +++ mg/dL [facility] Blood, UA Negative Negative - 50 Jesse/mcL [facility] Clarity, UA Clear [facility] Color, UA Yellow [facility] Glucose, UA Negative Negative - 2000(110) ++++ mg/dL [facility] Interpretation and review of laboratory results Normal [facility] Ketones, UA Negative Negative - 160(16) ++++ mg/dL [facility] Leukocytes, UA Negative Negative - 500+++ Gabrielle/mcL [facility] Nitrite, UA Negative Negative - Positive [facility] pH, UA 7.0 5 - 9 [facility] Protein, UA Negative Negative - 2000(20) ++++ mg/dL [facility] Spec Grav, UA 1.020 1 - 1.03 [facility] Urobilinogen, UA 0.2 0.2 - 12 mg/dL [facility] Cyt[facility] Cervical or vaginal smear or scraping studyon 11-29-2023 [facility] CHLAMYDIA/GONOCOCCUS ALEX W/C ONF. (SWAB/Uon 04-26-2018 Chlamydia Trach ALEX Negative Normal Negative [facility] Comment on above: Performed By: #### A ABIDA ####[facility] [address] [place] [address] [id number] [place] N. Gonorrhoeae ALEX Negative Normal Negative [facility] Comment on above: Performed By: #### A ABIDA ####[facility] V[address]uf[address] [place] [address] 81997Lssxtt [place] CBC AUTO DIFFon 04-08-2018 Basophils Auto #/vol (Bld) 0.1 103/ul Normal 0.0-0.1 [facility] Comment on above: Performed By: #### A ABIDA ####[facility] [address] [place] [address] 14774Yymvlh [place] Basophils/100 WBC Auto (Bld) 0.3 % Normal 0.2-2.0 [facility] Comment on above: Performed By: #### A ABIDA ####[facility] [address] [place] [address] 45643Epktfb [place] Eosinophils 0.2 103/ul Normal 0.0-0.7 [facility] Comment on above: Performed By: #### A ABIDA ####[facility] Sm[address] [place], [place] [address] Eosinophils/100 leukocytes 1.2 % Normal 0.9-7.0 [facility] Comment on above: Performed By: #### A ABIDA ####[facility] Bftkeawsdr0746 [place] [phone] Erythrocyte distribution width Auto Ratio (RBC) 14.3 % Normal 11.0-15.0 [facility] Comment on above: Performed By: #### A ABIDA ####[facility] Ntbmisczwp8254 [place] [phone] Erythrocytes (RBC) 3.91 106/ul Critically low 4.20-5.40 [facility] Comment on above: Performed By: #### A ABIDA ####[facility] Agngvrbrzc8643 [place] [phone] Hematocrit (HCT) 34.7 % Critically low 36.0-48.0 [facility] Comment on above: Performed By: #### A ABIDA ####[facility] Emmomebetw4773 [place] [phone] Hemoglobin mass conc (Bld) 11.8 g/dL Critically low 12.0-16.0 [facility] Comment on above: Performed By: #### A ABIDA ####[facility] Uumfjyawle0177 [place] [phone] IG # 0.18 10e3/ul Critically high 0.00-0.03 [facility] Comment on above: Performed By: #### A ABIDA ####[facility] Romzwqmydb2907 [place] [phone] IG % 1.0 % Critically high 0.0-0.5 [facility] Comment on above: Performed By: #### A ABIDA ####[facility] Lfetcozbqw2095 [place] [phone] Lymphocytes 2.1 103/ul Normal 1.2-3.8 [facility] Comment on above: Performed By: #### A ABIDA ####[facility] Gjikwgdmge9097 [address] [place] Lymphocytes/100 leukocytes 11.9 % Critically low 20.5-60.0 [facility] Comment on above: Performed By: #### A ABIDA ####[facility] Gqkaunmbfp1316 [address] [place] MANUAL DIFF REQ NO Normal [facility] Comment on above: Performed By: #### A ABIDA ####[facility] Mnuukistrg9700 [place] [phone] MCH 30.2 pg Normal 26.7-34.0 [facility] Comment on above: Performed By: #### A ABIDA ####[facility] Bhnsddryii0358 [place] [phone] MCHC mass conc (RBC) 34.0 g/dL Normal 29.9-35.2 [facility] Comment on above: Performed By: #### A ABIDA ####[facility] Mjum[address]uklu[address] [place] [address] [place] MCV 88.7 fL Normal 81.0-99.0 [facility] Comment on above: Performed By: #### A ABIDA ####[facility] Ebwvenptei[address] [place] [address] [place] Monocytes 1.1 103/ul Critically high 0.3-0.8 [facility] Comment on above: Performed By: #### A ABIDA ####[facility] Zrivhsngjb[address] [place] [address] [place] Monocytes/100 leukocytes 6.2 % Normal 1.7-12.0 [facility] Comment on above: Performed By: #### A ABIDA ####[facility] Bcbmzxcxjt[address] [place] [address] [place] Neutrophils 14.1 103/ul Critically high 1.4-6.5 [facility] Comment on above: Performed By: #### A ABIDA ####[facility] Mnhecdbmck[address] [place] [address] [place] Neutrophils/100 WBC Auto (Bld) 79.4 % Critically high 43.0-75.0 [facility] Comment on above: Performed By: #### A ABIDA ####[facility] Kyjdittbes[address] [place] [address] [place] Platelet mean volume (PMV) 12.2 fL Normal 9.5-13.5 [facility] Comment on above: Performed By: #### A ABIDA ####[facility] [address]jqvklziy[address] [place] [address] [place] Platelets 118 103/ul Critically low 150-450 [facility] Comment on above: Performed By: #### A ABIDA ####[facility] Mggtvllodj[address] [place] [address] [place] WBC (Leukocytes) 17.7 103/ul Critically high 4.0-11.0 [facility] Comment on above: Performed By: #### A ABIDA ####[facility] Ybfjfolcqd[address] [place] [address] [place] SCREENon 04-08-2018 SCREEN Negative Normal [facility] Comment on above: Performed By: #### A ABIDA ####[facility] Wcognslsen[address] [place] [address] [place] RHOGAMon 04-08-2018 RHOGAM Status Information Issued Quantity 1 Product ID Rh Immune Globulin Lot Number [id number] Issue Date/Time [id number] Normal [facility] Comment on above: Performed By: #### A ABIDA ####[facility] Zjlxseynnf[address] [place] [address] [place] CBC AUTO DIFFon 04-07-2018 Basophils Auto #/vol (Bld) 0.1 103/ul Normal 0.0-0.1 [facility] Comment on above: Performed By: #### A ABIDA ####[facility] Wawczumcmc[address] [place] [address] [place] Basophils/100 WBC Auto (Bld) 0.3 % Normal 0.2-2.0 [facility] Comment on above: Performed By: #### A ABIDA ####[facility] Cmzkobmhzl[address] [place] [address] [place] Eosinophils 0.2 103/ul Normal 0.0-0.7 [facility] Comment on above: Performed By: #### A ABIDA ####[facility] Zoifwqzqco8252 [address] [place] Eosinophils/100 leukocytes 1.0 % Normal 0.9-7.0 [facility] Comment on above: Performed By: #### A ABIDA ####[facility] Zwmdhlgnud4941 [place] [phone] Erythrocyte distribution width Auto Ratio (RBC) 14.0 % Normal 11.0-15.0 [facility] Comment on above: Performed By: #### A ABIDA ####[facility] Fyfofzvcdm6865 [address] [place] Erythrocytes (RBC) 4.39 106/ul Normal 4.20-5.40 [facility] Comment on above: Performed By: #### A ABIDA ####[facility] Uxamkvmvxz[address] [place], [place] [address] Hematocrit (HCT) 38.7 % Normal 36.0-48.0 [facility] Comment on above: Performed By: #### A ABIDA ####[facility] Djpztyvadw[address] [place], [place] [address] Hemoglobin mass conc (Bld) 13.4 g/dL Normal 12.0-16.0 [facility] Comment on above: Performed By: #### A ABIDA ####[facility] Tpkckvcakf[address] [place], [place] [address] IG # 0.30 10e3/ul Critically high 0.00-0.03 [facility] Comment on above: Performed By: #### A ABIDA ####[facility] Wjrjxbipdc7269 [place] [phone] IG % 1.4 % Critically high 0.0-0.5 [facility] Comment on above: Performed By: #### A ABIDA ####[facility] Shszwrcgnh3843 [place] [address] Lymphocytes 2.6 103/ul Normal 1.2-3.8 [facility] Comment on above: Performed By: #### A ABIDA ####[facility] Kgxsiiakag[address] [place], [place] [address] Lymphocytes/100 leukocytes 12.6 % Critically low 20.5-60.0 [facility] Comment on above: Performed By: #### A ABIDA ####[facility] Notahuxhhe2327 [place] [phone] MANUAL DIFF REQ NO Normal [facility] Comment on above: Performed By: #### A ABIDA ####[facility] Mensvciiym0055 [place] [phone] MCH 30.5 pg Normal 26.7-34.0 [facility] Comment on above: Performed By: #### A ABIDA ####[facility] Tqxqawtzcr2886 [address] [place] MCHC mass conc (RBC) 34.6 g/dL Normal 29.9-35.2 [facility] Comment on above: Performed By: #### A ABIDA ####[facility] Mltuadmqrc8339 [address] [place] MCV 88.2 fL Normal 81.0-99.0 [facility] Comment on above: Performed By: #### A ABIDA ####[facility] Vsknntlopc0243 [place] [address] Monocytes 1.2 103/ul Critically high 0.3-0.8 [facility] Comment on above: Performed By: #### A ABIDA ####[facility] Qvnrypeypo4843 [address] [place] Monocytes/100 leukocytes 5.5 % Normal 1.7-12.0 [facility] Comment on above: Performed By: #### A ABIDA ####[facility] Ulkcxlaiby9676 [place] [phone] Neutrophils 16.5 103/ul Critically high 1.4-6.5 [facility] Comment on above: Performed By: #### A ABIDA ####[facility] Glqlrlhpmu8374 [address] [place] Neutrophils/100 WBC Auto (Bld) 79.2 % Critically high 43.0-75.0 [facility] Comment on above: Performed By: #### A ABIDA ####[facility] Djislwhmfo8041 [address] [place] Platelet mean volume (PMV) 12.2 fL Normal 9.5-13.5 [facility] Comment on above: Performed By: #### A ABIDA ####[facility] Jjpevvgyee7023 [address] [place] Platelets 139 103/ul Critically low 150-450 [facility] Comment on above: Performed By: #### A ABIDA ####[facility] Mnaqrhbcib1974 [address] [place] WBC (Leukocytes) 20.8 103/ul Critically high 4.0-11.0 [facility] Comment on above: Performed By: #### A ABIDA ####[facility] Wxgizccaux[address] [place] [address] [place] DRUG SCREEN RAPID (URINE)on 04-07-2018 AMP Negative Normal NEGATIVE [facility] Comment on above: Performed By: #### A ABIDA ####[facility] Ypjemsusrg0075 [address] [place] BAR Negative Normal NEGATIVE [facility] Comment on above: Performed By: #### A ABIDA ####[facility] Ymxfjywgwt6853 [address] [place] BUP Negative Normal NEGATIVE [facility] Comment on above: Performed By: #### A ABIDA ####[facility] Nrxtpiojvx9753 [address] [place] BZO Negative Normal NEGATIVE [facility] Comment on above: Performed By: #### A ABIDA ####[facility] Vhdghiyjya3306 [address] [place] ELENA Negative Normal NEGATIVE [facility] Comment on above: Performed By: #### A ABIDA ####[facility] Rrcrkcfnza3632 [address] [place] CUT-OFFS SEE BELOW Normal [facility] Comment on above: Result Comment: AMP [...] 300 ng/mL Performed By: #### A ABIDA ####[facility] Ylglcdjcim[address] [place] [address] DRUG CUT HEADER DRUG CLASS TEST SYSTEM CUT-OFF CONCENTRATIONS ARE FOLLOWS: Normal [facility] Comment on above: Performed By: #### A ABIDA ####[facility] [address]zdfi[address] [place] [address] mAMP Negative Normal NEGATIVE [facility] Comment on above: Performed By: #### A ABIDA ####[facility] Isxycaxrkd[address] [place] [address] MTD Negative Normal NEGATIVE [facility] Comment on above: Performed By: #### A ABIDA ####[facility] Azmsjwswtd[address] [place] [address] OPI Negative Normal NEGATIVE [facility] Comment on above: Performed By: #### A ABIDA ####[facility] Xukiqhpbap[address] [place] [address] OXY Negative Normal NEGATIVE [facility] Comment on above: Performed By: #### A ABIDA ####[facility] Wozxcwfhfm[address] [place] [address] PCP Negative Normal NEGATIVE [facility] Comment on above: Performed By: #### A ABDIA ####[facility] Fxvaailmry[address] [place] [address] PPX Negative Normal NEGATIVE [facility] Comment on above: Performed By: #### A ABIDA ####[facility] Soqcalsael8225 [address] [place] TCA Negative Normal NEGATIVE [facility] Comment on above: Performed By: #### A ABIDA ####[facility] Ptneouldfi4818 [address] [place] THC Negative Normal NEGATIVE [facility] Comment on above: Performed By: #### A ABIDA ####[facility] Qatdjfejhj6543 [address] [place] UA (CLEAN/CATCH) REPAIRER HAIRSPRING/MICRO I F IND.on 04-07-2018 Bilirubin (total) Negative Normal NEGATIVE [facility] Comment on above: Performed By: #### A ABIDA ####[facility] Tvzgbflowy[address] [place] [address] [place] BLOOD Negative Normal NEGATIVE [facility] Comment on above: Performed By: #### A ABIDA ####[facility] Zxaovtzmjb[address] [place] [address] [place] Glucose mass conc Negative Normal NEGATIVE [facility] Comment on above: Performed By: #### A ABIDA ####[facility] Cxblhlllja[address] [place] [address] [place] pH of blood 6.0 [pH] Normal 5-9 [facility] Comment on above: Performed By: #### A ABIDA ####[facility] Aktlihdlmj9033[address] [place] [address] [place] Protein Negative Normal [facility] Comment on above: Performed By: #### A ABIDA ####[facility] Qmlaeglnmd9311 [address] [place] SPEC GRAVITY 1.020 Normal 1.005-<=1.025 [facility] Comment on above: Performed By: #### A ABIDA ####[facility] Isqhdfghjb[address] [place] [address] [place] UR MICRO IND NOT INDICATED Normal [facility] Comment on above: Performed By: #### A ABIDA ####[facility] Olrgdnqmic0942 [address] [place] Urine, clarity CLEAR Normal [facility] Comment on above: Performed By: #### A ABIDA ####[facility] Rzuwqkwkga0759 [address] [place] Urine, color LT. YELLOW Normal YELLOW [facility] Comment on above: Performed By: #### A ABIDA ####[facility] Uyqwkenhtj8758 [address] [place] Urine, ketones presence Negative Normal NEGATIVE [facility] Comment on above: Performed By: #### A ABIDA ####[facility] Qvjaxxfoqb3949 [address] [place] Urine, nitrite presence Negative Normal NEGATIVE [facility] Comment on above: Performed By: #### A ABIDA ####[facility] Inuaiaqodw[address] [place] [address] [place] Urine, urobilinogen 0.2 {Jre'U}/dL Normal [facility] Comment on above: Performed By: #### A ABIDA ####[facility] Fissajrjjw[address] [place] [address] WBC (Leukocytes) Negative Normal NEGATIVE [facility] Comment on above: Performed By: #### A ABIDA ####[facility] Gaaoqnsywn[address] [place] [address] [place] GROUP B STREPTon 03-21-2018 GBS Performed by [facility] , final report to follow Normal NEG FOR GBS [facility] Comment on above: Performed By: #### A ABIDA ####[facility] [address]cx[address] [place] [address] [place] RHOGAMon 02-04-2018 RHOGAM Status Information Issued Quantity 1 Product ID Rh Immune Globulin Lot Number [id number] Issue Date/Time [id number] Normal [facility] Comment on above: Performed By: #### A ABIDA ####[facility] Wadazmygkh6593 [address] CBC AUTO DIFFon 02-03-2018 Basophils Auto #/vol (Bld) 0.0 103/ul Normal 0.0-0.1 [facility] Comment on above: Performed By: #### P REGQNT ####[facility] Acqcquikpu[address] [place] [address] [place] Basophils/100 WBC Auto (Bld) 0.3 % Normal 0.2-2.0 [facility] Comment on above: Performed By: #### P REGQNT ####[facility] Vllxyoipoj[address] [place] [address] [place] Eosinophils 0.2 103/ul Normal 0.0-0.7 [facility] Comment on above: Performed By: #### P REGQNT ####[facility] Ohfwfyzpyi[address] [place] [address] [place] Eosinophils/100 leukocytes 1.1 % Normal 0.9-7.0 [facility] Comment on above: Performed By: #### P REGQNT ####[facility] Ixzwtubuvm[address] [place] [address] [place] Erythrocyte distribution width Auto Ratio (RBC) 13.2 % Normal 11.0-15.0 [facility] Comment on above: Performed By: #### P REGQNT ####[facility] Jsghstqdxp[address] [place] [address] [place] Erythrocytes (RBC) 3.91 106/ul Critically low 4.20-5.40 [facility] Comment on above: Performed By: #### P REGQNT ####[facility] Oufpzxymbr0[address] [place] [address] [place] Hematocrit (HCT) 35.5 % Critically low 36.0-48.0 [facility] Comment on above: Performed By: #### P REGQNT ####[facility] Wbywhtgcfq[address] [place] [address] [place] Hemoglobin mass conc (Bld) 12.0 g/dL Normal 12.0-16.0 [facility] Comment on above: Performed By: #### P REGQNT ####[facility] Jjrithcygj[address] [place] [address] [place] IG # 0.27 10e3/ul Critically high 0.00-0.03 [facility] Comment on above: Performed By: #### P REGQNT ####[facility] Zkzijodygb0002 [address] [place] IG % 1.8 % Critically high 0.0-0.5 [facility] Comment on above: Performed By: #### P REGQNT ####[facility] Vkbbgcfxhe9861 [address] [place] Lymphocytes 1.8 103/ul Normal 1.2-3.8 [facility] Comment on above: Performed By: #### P REGQNT ####[facility] Jdognjkxlo2[address] [place] [address] [place] Lymphocytes/100 leukocytes 11.9 % Critically low 20.5-60.0 [facility] Comment on above: Performed By: #### P REGQNT ####[facility] Nnzpvgffsx19[address] [place] [address] [place] MANUAL DIFF REQ NO Normal [facility] Comment on above: Performed By: #### P REGQNT ####[facility] Klxibxakyo[address] [place] [address] [place] MCH 30.7 pg Normal 26.7-34.0 [facility] Comment on above: Performed By: #### P REGQNT ####[facility] Lwkgjqecma[address] [place] [address] [place] MCHC mass conc (RBC) 33.8 g/dL Normal 29.9-35.2 [facility] Comment on above: Performed By: #### P REGQNT ####[facility] [address]whcbclxy[address] [place] [address] [place] MCV 90.8 fL Normal 81.0-99.0 [facility] Comment on above: Performed By: #### P REGQNT ####[facility] Cdvcdlwzwk[address] [place] [address] [place] Monocytes 0.6 103/ul Normal 0.3-0.8 [facility] Comment on above: Performed By: #### P REGQNT ####[facility] Vchvvybwhn4453 [place], [place] [address]Wzsohe [place] Monocytes/100 leukocytes 3.9 % Normal 1.7-12.0 [facility] Comment on above: Performed By: #### P REGQNT ####[facility] Mgfuaalaun2593 [place], [place] [address]Xavyeb [place] Neutrophils 12.1 103/ul Critically high 1.4-6.5 [facility] Comment on above: Performed By: #### P REGQNT ####[facility] Otosognjhq4322 [place], [place] [address]Wowvyd [place] Neutrophils/100 WBC Auto (Bld) 81.0 % Critically high 43.0-75.0 [facility] Comment on above: Performed By: #### P REGQNT ####[facility] Mxajqjuygg6374 [place] [address] Platelet mean volume (PMV) 11.6 fL Normal 9.5-13.5 [facility] Comment on above: Performed By: #### P REGQNT ####[facility] Ceayhbhcqd9088 [place] [phone] Platelets 133 103/ul Critically low 150-450 [facility] Comment on above: Performed By: #### P REGQNT ####[facility] Bmlfhvdxap2684 [place] [phone] [place] WBC (Leukocytes) 14.9 103/ul Critically high 4.0-11.0 [facility] Comment on above: Performed By: #### P REGQNT ####[facility] Yqasxmxffi2033 [place] [phone] GLUCOSE - 1HRon 02-03-2018 Glucose mass conc 120 mg/dL Critically high 74-106 [facility] Comment on above: Performed By: #### P REGQNT ####[facility] Amyszesseh3115 [place], [place] [address]Hcafdm [place] TYPE AND SCREENon 02-03-2018 TYPE AND SCREEN Negative Normal [facility] Comment on above: Performed By: #### P REGQNT ####[facility] Zatznjdkkd9478 [place], [place] [address]Ocriyb [place] US PREG ANATOMY SINGLEon US PREG ANATOMY SINGLE [address] [place] [address] Patient: ESTUARDO JEREZ Exam Date: 11/25/2017DOB: 1990 Gender:F : FELISHA OwenReggie TATE . Admission #: [id number] : Order #: [id number] HERE TO VIEW EXAM RADIOLOGY REPORT PROCEDURE: [...] Ayala M.D. on 11/25/2017 at 20:18 Normal [facility] PAP ACOG PANEL 4: 21 to 29on 10-11-2017 LCPAP SEE SCANNED REPORT Normal [facility] Comment on above: Performed By: #### P REGQNT ####[facility] [address]bponioir[address] [place] [address] [place] HEMOGLOBIN ELECTOPHORESISon 09-27-2017 HBSREV Reviewed by Adithya Morton MD ([id number]) [facility] Comment on above: Result Comment: Test Performed By: [facility] [employer] [address] [place] [address] Police Inspector: Dalila Roman MD, PhD Performed By: #### P REGQNT ####[facility] Vqtl[address]qvyop[address] [place] [address] [place] Hemoglobin mass conc (Bld) None detected. Normal 0.0-1.8 [facility] Comment on above: Performed By: #### P REGQNT ####[facility] [facility] [address] [place] [address] [place] Hemoglobin mass conc (Bld) No abnormal hemoglobin identified. Normal [facility] Comment on above: Performed By: #### P REGQNT ####[facility] S[address] [place], [place] [address]Ger[place] Hemoglobin mass conc (Bld) 97.4 % Normal [facility] Comment on above: Performed By: #### P REGQNT ####[facility] Khww[address]ub[address] [place], [place] [address]Ger[address] [place] Hemoglobin mass conc (Bld) 2.6 % Normal 1.5-3.5 [facility] Comment on above: Performed By: #### P REGQNT ####[facility] Em[address]ou[address]cliz[address] [place] [address] [place] Interpertation Hemoglobins were analyzed by capillary electrophoresis. Normal [facility] Comment on above: Result Comment: Norm al pattern Performed By: #### P REGQNT ####[facility] F[address] [place], [place] [address]cj [place] VARICELLA IGGon 09-26-2017 Varicella Zoster IgG 1134.0 Index Value Normal [facility] Comment on above: Result Comment: Inde x Values are Interpreted as Follows:Negative specimens <135.0Equivocal specimens 135.0 to 164.9Positive specimens >164.9The magnitude of the measured result is not indicative of theamount of antibody present. Test Performed By: [place] [address] Police Inspector: Dalila Roman MD, PhD Performed By: #### P REGQNT ####[facility] [address] [place] [address] [place] VZVGQL Positive Abnormal NEGAT [facility] Comment on above: Result Comment: Pres ence of detectable VZV IgG antibodies. A positive resultgenerally indicatesexposure to the pathogen or administration of specificimmunoglobulins, but is no indication of active infection or stage of disease. Performed By: #### P REGQNT ####[facility] Qzwor[address] [place], [place] [address]cj [place] RPR/SERUMon 09-24-2017 Reagin antibody presence Non Reactive Normal NR [facility] Comment on above: Result Comment: Test Performed By: [facility] Wowcracy [address] [place] [address] Police Inspector: Dalila Roman MD, PhD Performed By: #### P REGQNT ####[facility] Oamtv[address] [place], [place] [address]cj [place] CBC AUTO DIFFon 09-23-2017 Basophils Auto #/vol (Bld) 0.0 103/ul Normal 0.0-0.1 [facility] Comment on above: Performed By: #### C BC ####[facility] [address]we[address]wr[address] [place] [address] [place] Basophils/100 WBC Auto (Bld) 0.3 % Normal 0.2-2.0 [facility] Comment on above: Performed By: #### C BC ####[facility] Vgtabciyjh9626 [address] [place] Eosinophils 0.2 103/ul Normal 0.0-0.7 [facility] Comment on above: Performed By: #### C BC ####[facility] Piwsisuhok6507 [address] [place] Eosinophils/100 leukocytes 1.1 % Normal 0.9-7.0 [facility] Comment on above: Performed By: #### C BC ####[facility] Vylwmqataz8702 [address] [place] Erythrocyte distribution width Auto Ratio (RBC) 12.5 % Normal 11.0-15.0 [facility] Comment on above: Performed By: #### C BC ####[facility] [address] [place] [address] [place] Erythrocytes (RBC) 4.61 106/ul Normal 4.20-5.40 [facility] Comment on above: Performed By: #### C BC ####[facility] [address] [place], [place] [address]Ger[place] Hematocrit (HCT) 41.5 % Normal 36.0-48.0 The [facility] Comment on above: Performed By: #### C BC ####[facility] [address]bn[address] [place], [place] [address]Ger[place] Hemoglobin mass conc (Bld) 14.5 g/dL Normal 12.0-16.0 [facility] Comment on above: Performed By: #### C BC ####[facility] Xwicfbndvy6822 [place] [id number] IG # 0.07 10e3/ul Critically high 0.00-0.03 [facility] Comment on above: Performed By: #### C BC ####[facility] Phwlokbovz[address]13 [address] [place] IG % 0.5 % Normal 0.0-0.5 [facility] Comment on above: Performed By: #### C BC ####[facility] Rbzmwblgii4068 [place] [phone] Lymphocytes 2.2 103/ul Normal 1.2-3.8 [facility] Comment on above: Performed By: #### C BC ####[facility] Farlkyfret5676 [place] [id number] Lymphocytes/100 leukocytes 15.4 % Critically low 20.5-60.0 [facility] Comment on above: Performed By: #### C BC ####[facility] Fwux[address]kjiy[address] [place] MANUAL DIFF REQ NO Normal [facility] Comment on above: Performed By: #### C BC ####[facility] Mbexcvrcnn2759 [place] [phone] MCH 31.5 pg Normal 26.7-34.0 [facility] Comment on above: Performed By: #### C BC ####[facility] Gwnqgyrnfr4108 [place] [phone] MCHC mass conc (RBC) 34.9 g/dL Normal 29.9-35.2 [facility] Comment on above: Performed By: #### C BC ####[facility] [address] [place], [place] [address] MCV 90.0 fL Normal 81.0-99.0 [facility] Comment on above: Performed By: #### C BC ####[facility] [address] [place] [address] [place] Monocytes 0.5 103/ul Normal 0.3-0.8 [facility] Comment on above: Performed By: #### C BC ####[facility] Vfyemeeeqt8763 [place] [phone] Monocytes/100 leukocytes 3.6 % Normal 1.7-12.0 [facility] Comment on above: Performed By: #### C BC ####[facility] Upulgbwtwb9165 [place] [phone] Neutrophils 11.2 103/ul Critically high 1.4-6.5 The [facility] Comment on above: Performed By: #### C BC ####[facility] Htgexwvczx4243 [place] [address] Neutrophils/100 WBC Auto (Bld) 79.1 % Critically high 43.0-75.0 [facility] Comment on above: Performed By: #### C BC ####[facility] Brgqzoeixi6430 [place] [address] Platelet mean volume (PMV) 11.6 fL Normal 9.5-13.5 [facility] Comment on above: Performed By: #### C BC ####[facility] Ppedybchkm[address]8 [address] [place] Platelets 170 103/ul Normal 150-450 [facility] Comment on above: Performed By: #### C BC ####[facility] Fjbppgbpwd6828 [place] [address] WBC (Leukocytes) 14.2 103/ul Critically high 4.0-11.0 [facility] Comment on above: Performed By: #### C BC ####[facility] Dxkjflhnex9500 [place] [phone] HEP B SURFACE AGon 7 HEP B Surface Ag Negative Normal NEGATIVE [facility] Comment on above: Performed By: #### P REGQNT ####[facility] Wyrkujdjkz7977 [place] [phone] HEP C ANTIBODYon 09-23-2017 Anti HCV Negative Normal NEGATIVE [facility] Comment on above: Performed By: #### P REGQNT ####[facility] Kwipuroxow2795 [place], [place] [address]Uqtwdx Karen HIV 1 AND 2 ABon 09-23-2017 HIV 1 AND 2 AB Negative Normal NEGATIVE [facility] Comment on above: Performed By: #### H IV12 ####[facility] Jrayhjajnl8171 [place], [place] [address]CaumgkReymundo [place] PREG QUANT HCGon 09-23-2017 HCG Qn SEE BELOW Normal [facility] Comment on above: Result Comment: 5-50 0-1 WEEK 40-300 1-2 WEEKS 100-1,000 2-3 WEEKS 500-6,000 3-4 WEEKS 5,000-200,000 1-2 MONTHS 10,000-100,000 2-3 MONTHS 3,000-50,000 2ND TRIMESTER 1,000-50,000 3RD TRIMESTER Performed By: #### P REGQNT ####[facility] Hdmikeftmd[address] [place] HCG QUANT 16412.00 mIU/mL Normal [facility] Comment on above: Performed By: #### P REGQNT ####[facility] Kbyxr[address] [place] RUBELLA AB IGGon 09-23-2017 RUB HEADER SEE BELOW Normal [facility] Comment on above: Result Comment: or=1 5.0 IU/mL POSITIVE WHO considers levels >or= 10.0 IU/mL to be positive immune status Performed By: #### R UBG ####[facility] [address] [place] [address] [place] RUB IGG 33.1 IU/mL Normal [facility] Comment on above: Performed By: #### R UBG ####[facility] [address] [place] [address] [place] TYPE AND SCREENon 09-23-2017 TYPE AND SCREEN Negative Normal [facility] Comment on above: Performed By: #### T NS ####[facility] [address] [place] [address] [place] CULTURE URINEon 09-13-2017 CULTURE URINE Culture Observations : Final; See scanned report to follow in HPF Normal [facility] Comment on above: Performed By: #### C XUR ####[facility] [address] [place] [address] [place] UA RANDOM W/MICROSCOPICon Bilirubin (total) Negative Normal NEGATIVE [facility] Comment on above: Performed By: #### U AMIC ####[facility] Ph[address]xx[address]ce[address] [place] [address] [place] BLOOD Negative Normal NEGATIVE [facility] Comment on above: Performed By: #### U AMIC ####[facility] Kralhwxepi2749 [place], [place] [address]Idgttv [place] CAST NONE SEEN Normal NONE SEEN [facility] Comment on above: Performed By: #### U AMIC ####[facility] Gplauzijst8723 [place], [place] [address]Oescch [place] Erythrocytes (RBC) NONE SEEN Normal 0-2 The [facility] Comment on above: Performed By: #### U AMIC ####[facility] Nxsvfdnysr3254 [place], [place] [address]Gyforb [place] Glucose mass conc Negative Normal NEGATIVE [facility] Comment on above: Performed By: #### U AMIC ####[facility] Ykbruttywo2172 [place], [place] [address]Zyftou [place] MUCOUS NONE SEEN Normal NONE SEEN [facility] Comment on above: Performed By: #### U AMIC ####[facility] Fzrhqnuonx0785 [place] [phone] pH of blood 6.5 [pH] Normal 5-9 [facility] Comment on above: Performed By: #### U AMIC ####[facility] Gedlxapbnm[address]22 [address] [place] Protein Negative Normal [facility] Comment on above: Performed By: #### U AMIC ####[facility] Dexzumghkb6940 [place] [phone] SPEC GRAVITY 1.015 Normal 1.005-<=1.025 [facility] Comment on above: Performed By: #### U AMIC ####[facility] Cyxdgifefe2028 [place], [place] [address]Lgxyyu [place] Urine, bacteria in sediment TRACE Normal NONE SEEN [facility] Comment on above: Performed By: #### U AMIC ####[facility] Sfkcjmsfgb8754 [place], [place] [address]Guaryr [place] Urine, clarity CLEAR Normal [facility] Comment on above: Performed By: #### U AMIC ####[facility] Aoubknkddk5661 [place], [place] [address]Puwzti [place] Urine, color LT. YELLOW Normal YELLOW [facility] Comment on above: Performed By: #### U AMIC ####[facility] Hsrsjpocwq5073 [place], [place] [address]Xrnrvn [place] Urine, crystals in sediment NONE SEEN Normal NONE SEEN [facility] Comment on above: Performed By: #### U AMIC ####[facility] Spsasfagpx4335 [place], [place] [address]Yrefys [place] Urine, epithelial cells in sediment RARE Normal [facility] Comment on above: Performed By: #### U AMIC ####[facility] Aormiivjun5233 [place] [phone] Urine, ketones presence Negative Normal NEGATIVE [facility] Comment on above: Performed By: #### U AMIC ####[facility] Kxudfsnguq6626 [place], [place] [address]Pcyfwr [place] Urine, nitrite presence Negative Normal NEGATIVE [facility] Comment on above: Performed By: #### U AMIC ####[facility] Lvqjcsbjxr2523 [place], [place] [address]Shitdj [place] Urine, urobilinogen 0.2 {Jer'U}/dL Normal [facility] Comment on above: Performed By: #### U AMIC ####[facility] Tjjihgbfzl6168 [place], [place] [address]Pmomjh [place] WBC (Leukocytes) NONE SEEN Normal NONE SEEN [facility] Comment on above: Performed By: #### U AMIC ####[facility] Prifumwdjt2919 [place], [place] [address]Qwmafp [place] WBC (Leukocytes) Negative Normal NEGATIVE [facility] Comment on above: Performed By: #### U AMIC ####[facility] [address] [place], [place] [address]Ger[place] ABO AND RH TYPEon 09-12-2017 ABO AND RH TYPE Negative Normal [facility] Comment on above: Performed By: #### A ABIDA ####[facility] [address]jxtupmn[address] [place], [place] [address] PREG QUANT HCGon 09-12-2017 HCG Qn SEE BELOW Normal [facility] Comment on above: Result Comment: 5-50 0-1 WEEK 40-300 1-2 WEEKS 100-1,000 2-3 WEEKS 500-6,000 3-4 WEEKS 5,000-200,000 1-2 MONTHS 10,000-100,000 2-3 MONTHS 3,000-50,000 2ND TRIMESTER 1,000-50,000 3RD TRIMESTER Performed By: #### P REGQNT ####[facility] Lmbhglorti1763 [place], [place] [address]RhsjrlReymundo [place] HCG QUANT 39209.00 mIU/mL Normal [facility] Comment on above: Performed By: #### P REGQNT ####[facility] Zxjyahriwn2261 [place], [place] [address]AoaitvReymundo [place] US PREG <14 WKSon 08-29-2017 US PREG <14 WKS [address] [place] [address] Patient: ESTUARDO JEREZ Exam Date: 08/29/2017DOB: 1990 Gender:F : FELISHA TATE . Admission #: [id number] : Order #: [id number] HERE TO VIEW EXAM RADIOLOGY REPORT PROCEDURE: [...] Ayala M.D. on 08/29/2017 at 16:03 Normal [facility] Vital Signs Date Time Vital Sign Value Performing Clinician Ozzy spring 12-27-2023 15:05-0500 Body weight 108.86 kg Sabrina Irma DO Work Phone: [facility] 12-27-2023 15:05-0500 Diastolic blood pressure 74 mm[Hg] Sabrina Irma DO Work Phone: [facility] 12-27-2023 15:05-0500 Systolic blood pressure 128 mm[Hg] Sabrina Irma DO Work Phone: [facility] Encounters Encounter Date Encounter Type Care Provider Facility Start: 12-27-2023 End: 12-27-2023 ambulatory SABRINA IRMA Not Available Start: 12-27-2023 End: 12-27-2023 flow sheet Sabrina Irma DO Work Phone: [facility] Comment on above: Second trimester [...] encounter procedure 01/24/2024 2:20 PM EST Routine [facility] [address] [place] [address] Aspen Gardner PA [address] [place] [address] [facility] Start: 12-27-2023 End: 12-27-2024 CBC panel - Blood by Automated count CBC Lab Routine Diabetes mellitus screening Expected: 12/27/2023 (Approximate), Expires: 12/27/2024 [facility] Work Phone: Comment on above: Expected: 12/27/2023 (Approximate), Expires: 12/27/2024 Start: 12-27-2023 End: 12-27-2024 Measurement of glucose 1 hour after glucose challenge for glucose tolerance test Glucose tolerance, 1 hour Lab Routine Diabetes mellitus screening Expected: 12/27/2023 (Approximate), Expires: 12/27/2024 [facility] Comment on above: Expected: 12/27/2023 (Approximate), Expires: 12/27/2024 Payers Date Payer Category Payer Unknown [id number] 2022 Unknown [employer] [id number] 2022-Present [phone] [address] [address] [place] [address] [id number] 1990 Unknown [id number] 1990 Unknown [id number] 1990 Unknown [id number] 1958 Unknown [id number] Social History Date Type Detail Facility Tobacco smoking stat [facility] Tobacco smoking consumption unknown [facility] Start: 08-13-2023 [facility] Start: 1990 Sex Assigned At Not on file [facility] Gender identity Not on file [facility] History of Present illness Narrative 12-27-2023 [place] LPN - 12/27/2023 2:40 PM EST Note Date [...] nursing note reviewed. Exam conducted with a pen and pencil repairer present. Vitals: There is no height or [...] 05/17/2018 [facility] DATE CREATED AUTHOR AUTHOR'S ORGANIZ ATION 12/28/2023 [facility] FOR RECORDS PERTAINING TO PATIENTS WHO ARE [...] ON THE PRIMARY CLINICAL RECORDS. [facility]. provides no warranty or guarantee of the accuracy or completeness of information in this document.
[2024-02-14 07:32] LABS: Glucose Fasting 93 mg/dL (<95)
[2024-02-14 08:38] LABS: Glucose 1 Hour 153 mg/dL (<180)
[2024-02-14 10:17] LABS: Glucose 2 Hour 103 mg/dL (<155)
[2024-02-14 10:51] LABS: Glucose 3 Hour 60 mg/dL (<140)
== END 2024-02-14 07:11 | disposition home or self-care (01) ==
LOC: LAB 07:10
PROVIDERS: Visit Provider Obstetrics & Gynecology
DX: R73.09 Other abnormal glucose (principal)
CPT/HCPCS: 36415; 82951; 82952

== ENCOUNTER 2024-02-22 07:33 | Outpatient (RCR) | payer OTHER, SELFPAY ==
[2024-02-22 10:53] VITALS: BP 131/79; PULSE 84; RESP 18; TEMP 35.5; O2SAT 98
[2024-02-22] MEDS: RHO(D) IMMUNE GLOBULIN 1,500 UNIT SYRINGE 1500 UNIT IM (11:03)
--- NOTE | 2024-02-22 11:08 | PC.NURSE ---
1055 Arrival ambulatory for Rhogam injection. Labs reviewed, vital signs obtained. 1103 Rhogam IM left dorsal gluteal, tolerated well. bandaid applied, patient given ID card 1105 released ambulatory
== END 2024-02-26 23:59 | disposition home or self-care (01) ==
LOC: INF 07:33
PROVIDERS: Visit Provider Obstetrics & Gynecology
DX: O26.893 Other specified pregnancy related conditions, third trimester (principal); Z67.91 Unspecified blood type, Rh negative
CPT/HCPCS: 36415; 86850; 86900; 86901; 96372; J2790

== ENCOUNTER 2024-02-28 09:30 | Outpatient (OUT) | payer OTHER, SELFPAY ==
--- NOTE | 2024-02-28 | US_ITS ---
[address] [address] Patient Name: ESTUARDO SLADE MRN: [id number] date: 1990 Sex: F Assigned Patient Location: [facility] Current Patient Location: [facility] Accession/Order Number: [id number] Exam Date: 02/28/2024 09:33 Report Date: 02/28/2024 10:33 At the request of: SABRINA ALY Procedure: US OB growth EXAMINATION: US OB growth HISTORY: SIZE INCONSISTENT WITH DATES COMPARISON: Ultrasound OB anatomy 12/27/2023 FINDINGS: Heart Rate: 145.0 bpm Number: 1.0 Position: CEPHALIC Amniotic Fluid Volume: 15.7 cm Maximum Vertical Pocket: 5.8 cm BIOMETRY: BPD: 7.9 cm cm; 31 weeks 4 days; 75% HC: 30.3 cmcm; 33 weeks 5 days ; 93% AC: 28.9 cm cm; 33 weeks 0 days; 97% FL: 5.8 cm cm; 30 weeks 3 days; 35% EFW: 1913.9 grams; 91% FL/AC: 20.1 FL/BPD: 73.9 HC/AC: 1.1 GESTATIONAL AGE: Age by EDC: 30 weeks 3 days ADELE by EDC: 05/05/2024 Age by US: 32 weeks 1 day ADELE by US: 04/23/2024 US/US OB growth IMPRESSION: 1. Single live intrauterine with growth detailed above. Electronically authenticated by: BERTHA OBREGON Date: 02/28/2024 10:33
--- OUTSIDE RECORDS SUMMARY | 2024-02-28 09:51 | XMS_ITS | CCD ---
Author Organization [facility] Team Providers Care Art Supervisor Name Role Phone FELISHA TATE Unavailable Unavailable [...] TATE Unavailable Unavailable FELISHA TATE Unavailable Unavailable Unavailable Primary Care Provider Unavailabl e ASPEN GARDNER Attending Unavailable SABRINA SOLIS Attending Unavailable SABRINA SOLIS Attending Unavailable ASPEN GARDNER Attending Unavailable SABRINA SOLIS Attending Unavailable Medications Current Medications Medication Drug Class(es) Dates [...] UA Negative Negative - 4(70) +++ mg/dL [facility] Blood, UA Negative Negative - 50 Jesse/mcL [facility] Clarity, UA Clear [facility] Color, UA Yellow [facility] Glucose, UA Negative Negative - 2000(110) ++++ mg/dL [facility] Interpretation and review of laboratory results Normal [facility] Ketones, UA Negative Negative - 160(16) ++++ mg/dL [facility] Leukocytes, UA Negative Negative - 500+++ Gabrielle/mcL [facility] Nitrite, UA Negative Negative - Positive [facility] pH, UA 7.0 5 - 9 [facility] Protein, UA Negative Negative - 2000(20) ++++ mg/dL [facility] Spec Grav, UA 1.020 1 - 1.03 [facility] Urobilinogen, UA 0.2 0.2 - 12 mg/dL [facility] Cytology Cervical or vaginal smear or scraping studyon 11-29-2023 [facility] CHLAMYDIA/GONOCOCCUS ALEX W/C ONF. (SWAB/Uon 04-26-2018 Chlamydia Trach ALEX Negative Normal Negative [facility] Comment on above: Performed By: #### A ABIDA ####[facility] [address] [place] [address] 54917Yfgdob [place] N. Gonorrhoeae ALEX Negative Normal Negative [facility] Comment on above: Performed By: #### A ABIDA ####[facility] Rsqhusaorb[address] [place] [address] 21621Anbhqu [place] CBC AUTO DIFFon 04-08-2018 Basophils Auto #/vol (Bld) 0.1 103/ul Normal 0.0-0.1 [facility] Comment on above: Performed By: #### A ABIDA ####[facility] F[address]wphrh[address] [place] [address] 49981Xcdtgg [place] Basophils/100 WBC Auto (Bld) 0.3 % Normal 0.2-2.0 [facility] Comment on above: Performed By: #### A ABIDA ####[facility] Rqbiexphly[address] [place] [address] 38470Cceyww [place] Eosinophils 0.2 103/ul Normal 0.0-0.7 [facility] Comment on above: Performed By: #### A ABIDA ####[facility] Mhqshmfn[address] [place] [address] 78253Pshsva [place] Eosinophils/100 leukocytes 1.2 % Normal 0.9-7.0 [facility] Comment on above: Performed By: #### A ABIDA ####[facility] Cmgsbawxzn3964 [address] [place] Erythrocyte distribution width Auto Ratio (RBC) 14.3 % Normal 11.0-15.0 [facility] Comment on above: Performed By: #### A ABIDA ####[facility] Rwvrvbbfot5161 [address] [place] Erythrocytes (RBC) 3.91 106/ul Critically low 4.20-5.40 [facility] Comment on above: Performed By: #### A ABIDA ####[facility] Kijxculihv[address] [place] [address] [place] Hematocrit (HCT) 34.7 % Critically low 36.0-48.0 [facility] Comment on above: Performed By: #### A ABIDA ####[facility] Prfmyjjiwx[address] [place] [address] [place] Hemoglobin mass conc (Bld) 11.8 g/dL Critically low 12.0-16.0 [facility] Comment on above: Performed By: #### A ABIDA ####[facility] Cbzcthkvvy5[address] [place], [place] [address]ken [place] IG # 0.18 10e3/ul Critically high 0.00-0.03 [facility] Comment on above: Performed By: #### A ABIDA ####[facility] Qecwaqrrof[address] [place] [address] [place] IG % 1.0 % Critically high 0.0-0.5 [facility] Comment on above: Performed By: #### A ABIDA ####[facility] Nlzwfclthm[address] [place] [address] [place] Lymphocytes 2.1 103/ul Normal 1.2-3.8 [facility] Comment on above: Performed By: #### A ABIDA ####[facility] Lbvpemzfeb[address] [place] [address] [place] Lymphocytes/100 leukocytes 11.9 % Critically low 20.5-60.0 [facility] Comment on above: Performed By: #### A ABIDA ####[facility] Lfxtylaquw7345 [place] [id number] MANUAL DIFF REQ NO Normal [facility] Comment on above: Performed By: #### A ABIDA ####[facility] [address], [place] [address]Mauwjx [place] MCH 30.2 pg Normal 26.7-34.0 [facility] Comment on above: Performed By: #### A ABIDA ####[facility] Eegcrkjspw7592 [place] [id number] MCHC mass conc (RBC) 34.0 g/dL Normal 29.9-35.2 [facility] Comment on above: Performed By: #### A ABIDA ####[facility] Ovudnpolkq2862 [place] [id number] MCV 88.7 fL Normal 81.0-99.0 [facility] Comment on above: Performed By: #### A ABIDA ####[facility] Oluwwbopjb40[address] [place], [place] [address] Monocytes 1.1 103/ul Critically high 0.3-0.8 [facility] Comment on above: Performed By: #### A ABIDA ####[facility] Jmipxvazrq[address] [place], [place] [address] Monocytes/100 leukocytes 6.2 % Normal 1.7-12.0 [facility] Comment on above: Performed By: #### A ABIDA ####[facility] Lvxbmfaitl6283 [place] [id number] Neutrophils 14.1 103/ul Critically high 1.4-6.5 [facility] Comment on above: Performed By: #### A ABIDA ####[facility] Aokmcslsaj0568 [place] [id number] Neutrophils/100 WBC Auto (Bld) 79.4 % Critically high 43.0-75.0 [facility] Comment on above: Performed By: #### A ABIDA ####[facility] Gnyyrkkrrf8976 [address] [place] Platelet mean volume (PMV) 12.2 fL Normal 9.5-13.5 [facility] Comment on above: Performed By: #### A ABIDA ####[facility] Ldstajhhci2260 [address] [place] Platelets 118 103/ul Critically low 150-[address] [facility] Comment on above: Performed By: #### A ABIDA ####[facility] Ypqshgx[address] [place] [address] [place] WBC (Leukocytes) 17.7 103/ul Critically high 4.0-11.0 Th e [facility] Comment on above: Performed By: #### A ABIDA ####[facility] Uilcsamjzo14[address] [place] [address] [place] SCREENon 04-08-2018 SCREEN Negative Normal [facility] Comment on above: Performed By: #### A ABIDA ####[facility] Dbfzxkiktk[address] [place] [address] [place] RHOGAMon 04-08-2018 RHOGAM Status Information Issued Quantity 1 Product ID Rh Immune Globulin Lot Number [id number] Issue Date/Time [id number] Normal [facility] Comment on above: Performed By: #### A ABIDA ####[facility] Ihnyzsatzr6[address] [place] [address] [place] CBC AUTO DIFFon 04-07-2018 Basophils Auto #/vol (Bld) 0.1 103/ul Normal 0.0-0.1 [facility] Comment on above: Performed By: #### A ABIDA ####[facility] Ohetmqomrz[address] [place] [address] [place] Basophils/100 WBC Auto (Bld) 0.3 % Normal 0.2-2.0 [facility] Comment on above: Performed By: #### A ABIDA ####[facility] Pgzmtjhpbh[address] [place] [address] [place] Eosinophils 0.2 103/ul Normal 0.0-0.7 [facility] Comment on above: Performed By: #### A ABIDA ####[facility] Tiqibqyfep3154 [address] [place] Eosinophils/100 leukocytes 1.0 % Normal 0.9-7.0 [facility] Comment on above: Performed By: #### A ABIDA ####[facility] Axovaqbfyd8933 [place] [id number] Erythrocyte distribution width Auto Ratio (RBC) 14.0 % Normal 11.0-15.0 [facility] Comment on above: Performed By: #### A ABIDA ####[facility] Xvralzwdpm4[address] [place] [address] [place] Erythrocytes (RBC) 4.39 106/ul Normal 4.20-5.40 [facility] Comment on above: Performed By: #### A ABIDA ####[facility] Ozlkydjvmj[address]190 [place] [address] [place] Hematocrit (HCT) 38.7 % Normal 36.0-48.0 [facility] Comment on above: Performed By: #### A ABIDA ####[facility] Mlzslglhao[address] [place] [address] [place] Hemoglobin mass conc (Bld) 13.4 g/dL Normal 12.0-16.0 [facility] Comment on above: Performed By: #### A ABIDA ####[facility] Uavdcikhmz[address] [place] [address] [place] IG # 0.30 10e3/ul Critically high 0.00-0.03 [facility] Comment on above: Performed By: #### A ABIDA ####[facility] Nszwipjpdy33[address] [place] [address] [place] IG % 1.4 % Critically high 0.0-0.5 [facility] Comment on above: Performed By: #### A ABIDA ####[facility] Tncleinqqi[address] [place], [place] [address] Lymphocytes 2.6 103/ul Normal 1.2-3.8 [facility] Comment on above: Performed By: #### A ABIDA ####[facility] Ukajgplejp2876 [place] [id number] Lymphocytes/100 leukocytes 12.6 % Critically low 20.5-60.0 [facility] Comment on above: Performed By: #### A ABIDA ####[facility] Empjqqxuid4888 [place] [id number] MANUAL DIFF REQ NO Normal [facility] Comment on above: Performed By: #### A ABIDA ####[facility] Jvmyularfm4030 [place] [id number] MCH 30.5 pg Normal 26.7-34.0 [facility] Comment on above: Performed By: #### A ABIDA ####[facility] Dzdfsxaiqe0755 [place] [id number] MCHC mass conc (RBC) 34.6 g/dL Normal 29.9-35.2 [facility] Comment on above: Performed By: #### A ABIDA ####[facility] Lthoalyera59[address] [place], [place] [address] MCV 88.2 fL Normal 81.0-99.0 [facility] Comment on above: Performed By: #### A ABIDA ####[facility] Qjylbkoaxv[address] [place] [address] [place] Monocytes 1.2 103/ul Critically high 0.3-0.8 [facility] Comment on above: Performed By: #### A ABIDA ####[facility] Ndaueeiift6[address] [place], [place] [address] Monocytes/100 leukocytes 5.5 % Normal 1.7-12.0 [facility] Comment on above: Performed By: #### A ABIDA ####[facility] Mmezdhitnn78[address] [place], [place] [address] Neutrophils 16.5 103/ul Critically high 1.4-6.5 [facility] Comment on above: Performed By: #### A ABIDA ####[facility] Ogzpjyhprx[address] [place], [place] [address] Neutrophils/100 WBC Auto (Bld) 79.2 % Critically high 43.0-75.0 [facility] Comment on above: Performed By: #### A ABIDA ####[facility] Xoveknbolz2203 [address] [place] Platelet mean volume (PMV) 12.2 fL Normal 9.5-13.5 [facility] Comment on above: Performed By: #### A ABIDA ####[facility] Qxqokhbybk2525 [address] [place] Platelets 139 103/ul Critically low 150-450 [facility] Comment on above: Performed By: #### A ABIDA ####[facility] Uuvmgrbndh[address] [place] [address] [place] WBC (Leukocytes) 20.8 103/ul Critically high 4.0-11.0 [facility] Comment on above: Performed By: #### A ABIDA ####[facility] Jetsopcxcx98[address] [place] [address] [place] DRUG SCREEN RAPID (URINE)on 04-07-2018 AMP Negative Normal NEGATIVE [facility] Comment on above: Performed By: #### A ABIDA ####[facility] Dqzietoucm[address]84[address] [place] [address] [place] BAR Negative Normal NEGATIVE [facility] Comment on above: Performed By: #### A ABIDA ####[facility] Bbcklirifa[address] [place] [address] [place] BUP Negative Normal NEGATIVE [facility] Comment on above: Performed By: #### A ABIDA ####[facility] Yyxivljfya[address] [place] [address] [place] BZO Negative Normal NEGATIVE [facility] Comment on above: Performed By: #### A ABIDA ####[facility] Ypkolptibu[address] [place] [address] [place] ELENA Negative Normal NEGATIVE [facility] Comment on above: Performed By: #### A ABIDA ####[facility] Ulkffhtuvq[address] [place] [address] [place] CUT-OFFS SEE BELOW Normal [facility] Comment on above: Result Comment: AMP [...] 300 ng/mL Performed By: #### A ABIDA ####[facility] [address] [place] [address] DRUG CUT HEADER DRUG CLASS TEST SYSTEM CUT-OFF CONCENTRATIONS ARE FOLLOWS: Normal [facility] Comment on above: Performed By: #### A ABIDA ####[facility] Cvgmmtwmkv[address] [place] [address] mAMP Negative Normal NEGATIVE [facility] Comment on above: Performed By: #### A ABIDA ####[facility] Ikafonstni13[address] [place] [address] MTD Negative Normal NEGATIVE [facility] Comment on above: Performed By: #### A ABIDA ####[facility] Rxynodrfqt[address] [place] [address] OPI Negative Normal NEGATIVE [facility] Comment on above: Performed By: #### A ABIDA ####[facility] Dsdgqnogli[address] [place] [address] OXY Negative Normal NEGATIVE [facility] Comment on above: Performed By: #### A ABIDA ####[facility] Ndikgfzcuy[address] [place] [address] PCP Negative Normal NEGATIVE [facility] Comment on above: Performed By: #### A ABIDA ####[facility] Emroooatht[address] [place] [address] PPX Negative Normal NEGATIVE [facility] Comment on above: Performed By: #### A ABIDA ####[facility] Fjvbnaddjb8330 [address] [place] TCA Negative Normal NEGATIVE [facility] Comment on above: Performed By: #### A ABIDA ####[facility] Iphaeczpgh0750 [address] [place] THC Negative Normal NEGATIVE [facility] Comment on above: Performed By: #### A ABIDA ####[facility] Leqnimtfmm[address] [place] [address] [place] UA (CLEAN/CATCH) HUB LEAD/MICRO I F IND.on 04-07-2018 Bilirubin (total) Negative Normal NEGATIVE [facility] Comment on above: Performed By: #### A ABIDA ####[facility] Gfptalwswz[address] [place] [address] [place] BLOOD Negative Normal NEGATIVE [facility] Comment on above: Performed By: #### A ABIDA ####[facility] Aokahkrgvy1590[address] [place] [address] [place] Glucose mass conc Negative Normal NEGATIVE [facility] Comment on above: Performed By: #### A ABIDA ####[facility] Rjbbbplycc[address] [place] [address] [place] pH of blood 6.0 [pH] Normal 5-9 [facility] Comment on above: Performed By: #### A ABIDA ####[facility] Oqlwlkoatg[address] [place] [address] [place] Protein Negative Normal [facility] Comment on above: Performed By: #### A ABIDA ####[facility] Ioozhqvgkc[address] [place] [address] [place] SPEC GRAVITY 1.020 Normal 1.005-<=1.025 [facility] Comment on above: Performed By: #### A ABIDA ####[facility] Gmfgsgzypb[address] [place] [address] [place] UR MICRO IND NOT INDICATED Normal [facility] Comment on above: Performed By: #### A ABIDA ####[facility] Eaealnpsbt9411 [address] [place] Urine, clarity CLEAR Normal [facility] Comment on above: Performed By: #### A ABIDA ####[facility] Rpjrqqbgfi3633 [address] [place] Urine, color LT. YELLOW Normal YELLOW [facility] Comment on above: Performed By: #### A ABIDA ####[facility] Icbbmmvrxj1856 [address] [place] Urine, ketones presence Negative Normal NEGATIVE [facility] Comment on above: Performed By: #### A ABIDA ####[facility] Cowitfglrq1172 [address] [place] Urine, nitrite presence Negative Normal NEGATIVE [facility] Comment on above: Performed By: #### A ABIDA ####[facility] Kcwltlibwv[address] [place] [address] [place] Urine, urobilinogen 0.2 {Jer'U}/dL Normal [facility] Comment on above: Performed By: #### A ABIDA ####[facility] Exksitisyb[address] [place], [place] [address]en WBC (Leukocytes) Negative Normal NEGATIVE [facility] Comment on above: Performed By: #### A ABIDA ####[facility] Zhhthdgnfk[address] [place] [address] [place] GROUP B STREPTon 03-21-2018 GBS Performed by [facility] , final report to follow Normal NEG FOR GBS [facility] Comment on above: Performed By: #### A ABIDA ####[facility] Mlfmlkmlae[address] [place] [address] [place] RHOGAMon 02-04-2018 RHOGAM Status Information Issued Quantity 1 Product ID Rh Immune Globulin Lot Number [id number] Issue Date/Time [id number] Normal [facility] Comment on above: Performed By: #### A ABIDA ####[facility] Yhcliouioy[address] [place] [address] CBC AUTO DIFFon 02-03-2018 Basophils Auto #/vol (Bld) 0.0 103/ul Normal 0.0-0.1 [facility] Comment on above: Performed By: #### P REGQNT ####[facility] Pmkdfmoksc2847 [address] [place] Basophils/100 WBC Auto (Bld) 0.3 % Normal 0.2-2.0 [facility] Comment on above: Performed By: #### P REGQNT ####[facility] Oxdxqjtplv[address] [place] [address] [place] Eosinophils 0.2 103/ul Normal 0.0-0.7 [facility] Comment on above: Performed By: #### P REGQNT ####[facility] Oopbprimat[address] [place] [address] [place] Eosinophils/100 leukocytes 1.1 % Normal 0.9-7.0 [facility] Comment on above: Performed By: #### P REGQNT ####[facility] O[address]gxgviyl[address] [place] [address] [place] Erythrocyte distribution width Auto Ratio (RBC) 13.2 % Normal 11.0-15.0 [facility] Comment on above: Performed By: #### P REGQNT ####[facility] Qtxowdtsoq[address] [place] [address] [place] Erythrocytes (RBC) 3.91 106/ul Critically low 4.20-5.40 [facility] Comment on above: Performed By: #### P REGQNT ####[facility] Fapjqoqsng13[address] [place] [address] [place] Hematocrit (HCT) 35.5 % Critically low 36.0-48.0 [facility] Comment on above: Performed By: #### P REGQNT ####[facility] Sdykuxnpby[address] [place] [address] [place] Hemoglobin mass conc (Bld) 12.0 g/dL Normal 12.0-16.0 [facility] Comment on above: Performed By: #### P REGQNT ####[facility] Mjqxfbytsq2783 [place] [address] IG # 0.27 10e3/ul Critically high 0.00-0.03 [facility] Comment on above: Performed By: #### P REGQNT ####[facility] Nzyspunicf6812 [place] [address] IG % 1.8 % Critically high 0.0-0.5 [facility] Comment on above: Performed By: #### P REGQNT ####[facility] Lqluzfmezw9071 [address] [place] Lymphocytes 1.8 103/ul Normal 1.2-3.8 [facility] Comment on above: Performed By: #### P REGQNT ####[facility] Ezsdlowyfi[address] [place] [address] [place] Lymphocytes/100 leukocytes 11.9 % Critically low 20.5-60.0 [facility] Comment on above: Performed By: #### P REGQNT ####[facility] [address]yrfvlkirb[address] [place] [address] [place] MANUAL DIFF REQ NO Normal [facility] Comment on above: Performed By: #### P REGQNT ####[facility] Krvacipngv[address] [place] [address] [place] MCH 30.7 pg Normal 26.7-34.0 [facility] Comment on above: Performed By: #### P REGQNT ####[facility] Ymclrdwlcv9157 [place] [address] MCHC mass conc (RBC) 33.8 g/dL Normal 29.9-35.2 [facility] Comment on above: Performed By: #### P REGQNT ####[facility] Cdpkahjisq0940[address] [place] [address] [place] MCV 90.8 fL Normal 81.0-99.0 [facility] Comment on above: Performed By: #### P REGQNT ####[facility] Mghuujkisy67[address] [place] [address] [place] Monocytes 0.6 103/ul Normal 0.3-0.8 [facility] Comment on above: Performed By: #### P REGQNT ####[facility] Tu[address]ngofpj2505 [place] [address] Monocytes/100 leukocytes 3.9 % Normal 1.7-12.0 [facility] Comment on above: Performed By: #### P REGQNT ####[facility] Cdvremfcym6773 [place] [address] Neutrophils 12.1 103/ul Critically high 1.4-6.5 [facility] Comment on above: Performed By: #### P REGQNT ####[facility] Kklugjasew1135 [place] [address] Neutrophils/100 WBC Auto (Bld) 81.0 % Critically high 43.0-75.0 [facility] Comment on above: Performed By: #### P REGQNT ####[facility] Pckkouxhnz[address] [place], [place] [address] Platelet mean volume (PMV) 11.6 fL Normal 9.5-13.5 [facility] Comment on above: Performed By: #### P REGQNT ####[facility] Loxfksouwz[address] [place] [address] [place] Platelets 133 103/ul Critically low 150-450 [facility] Comment on above: Performed By: #### P REGQNT ####[facility] Ereyaalkcf0304 [place] [address] WBC (Leukocytes) 14.9 103/ul Critically high 4.0-11.0 [facility] Comment on above: Performed By: #### P REGQNT ####[facility] Quwccuryzj8756 [place] [address] GLUCOSE - 1HRon 02-03-2018 Glucose mass conc 120 mg/dL Critically high 74-106 [facility] Comment on above: Performed By: #### P REGQNT ####[facility] Sgxioavnpj[address] [place], [place] [address] [place] TYPE AND SCREENon 03-09-2018 TYPE AND SCREEN Negative Normal [facility] Comment on above: Performed By: #### P REGQNT ####[facility] [address], [place] [address]Jliewk Karen US PREG ANATOMY SINGLEon US PREG ANATOMY SINGLE [address] [place] [address] Patient: ESTUARDO JEREZ Exam Date: 11/25/2017DOB: 1990 Gender:F : FELISHA Joel LEA . Admission #: [id number] : Order #: [id number] HERE TO VIEW EXAM RADIOLOGY REPORT PROCEDURE: [...] Ayala M.D. on 11/25/2017 at 20:18 Normal [facility] PAP ACOG PANEL 4: 21 to 29on 10-11-2017 LCPAP SEE SCANNED REPORT Normal [facility] Comment on above: Performed By: #### P REGQNT ####[facility] Hztjdzysmo4030 [address] [place] HEMOGLOBIN ELECTOPHORESISon 09-27-2017 HBSREV Reviewed by Adithya Morton MD ([id number]) [facility] Comment on above: Result Comment: Test Performed By: [place] [address] [employer] Protection Superintendent: Dalila Roman MD, PhD Performed By: #### P REGQNT ####[facility] Wyzqdffhcx[address] [place] [address] [place] Hemoglobin mass conc (Bld) None detected. Normal 0.0-1.8 [facility] Comment on above: Performed By: #### P REGQNT ####[facility] Xsaalmgcez4[address] [place] [address] [place] Hemoglobin mass conc (Bld) No abnormal hemoglobin identified. Normal [facility] Comment on above: Performed By: #### P REGQNT ####[facility] Ofyyghdgdd[address] [place], [place] [address] Hemoglobin mass conc (Bld) 97.4 % Normal [facility] Comment on above: Performed By: #### P REGQNT ####[facility] Ohwcabfzmj[address] [place], [place] [address] Hemoglobin mass conc (Bld) 2.6 % Normal 1.5-3.5 [facility] Comment on above: Performed By: #### P REGQNT ####[facility] Renxxnszpa[address] [place], [place] [address] [place] Interpertation Hemoglobins were analyzed by capillary electrophoresis. Normal [facility] Comment on above: Result Comment: Norm al pattern Performed By: #### P REGQNT ####[facility] Jcmnaqnsib[address] [place], [place] [address] VARICELLA IGGon 09-26-2017 Varicella Zoster IgG 1134.0 Index Value Normal [facility] Comment on above: Result Comment: Inde x Values are Interpreted as Follows:Negative specimens <135.0Equivocal specimens 135.0 to 164.9Positive specimens >164.9The magnitude of the measured result is not indicative of theamount of antibody present. Test Performed By: [facility] [employer] [address] [place] [address] Plant Protection Superintendent: Dalila Roman MD, PhD Performed By: #### P REGQNT ####[facility] [address] [place] [address] [place] VZVGQL Positive Abnormal NEGAT [facility] Comment on above: Result Comment: Pres ence of detectable VZV IgG antibodies. A positive resultgenerally indicatesexposure to the pathogen or administration of specificimmunoglobulins, but is no indication of active infection or stage of disease. Performed By: #### P REGQNT ####[facility] [address] [place] [address] [place] RPR/SERUMon 09-24-2017 Reagin antibody presence Non Reactive Normal NR [facility] Comment on above: Result Comment: Test Performed By: [facility] [employer] [address] [place] [address] Plant Protection Superintendent: Dalila Roman MD, PhD Performed By: #### P REGQNT ####[facility] [address] [place], [place] [address] CBC AUTO DIFFon 09-23-2017 Basophils Auto #/vol (Bld) 0.0 103/ul Normal 0.0-0.1 [facility] Comment on above: Performed By: #### C BC ####[facility] [address] [place] [address] [place] Basophils/100 WBC Auto (Bld) 0.3 % Normal 0.2-2.0 [facility] Comment on above: Performed By: #### C BC ####[facility] J[address] [place] Eosinophils 0.2 103/ul Normal 0.0-0.7 [facility] Comment on above: Performed By: #### C BC ####[facility] Eaudzcqiek6483 [address] [place] Eosinophils/100 leukocytes 1.1 % Normal 0.9-7.0 [facility] Comment on above: Performed By: #### C BC ####[facility] Ictqwiyrxr6856 [address] [place] Erythrocyte distribution width Auto Ratio (RBC) 12.5 % Normal 11.0-15.0 [facility] Comment on above: Performed By: #### C BC ####[facility] [address] [place] [address] [place] Erythrocytes (RBC) 4.61 106/ul Normal 4.20-5.40 [facility] Comment on above: Performed By: #### C BC ####[facility] Tr[address] [place] [address] [place] Hematocrit (HCT) 41.5 % Normal 36.0-48.0 [facility] Comment on above: Performed By: #### C BC ####[facility] B[address]mp[address] [place] Hemoglobin mass conc (Bld) 14.5 g/dL Normal 12.0-16.0 [facility] Comment on above: Performed By: #### C BC ####[facility] L[address]us[address]ubg[address] [place] IG # 0.07 10e3/ul Critically high 0.00-0.03 [facility] Comment on above: Performed By: #### C BC ####[facility] [address] [place] [address] [place] IG % 0.5 % Normal 0.0-0.5 [facility] Comment on above: Performed By: #### C BC ####[facility] [address] [place] [id number] Lymphocytes 2.2 103/ul Normal 1.2-3.8 [facility] Comment on above: Performed By: #### C BC ####[facility] [address], [place] [address]Uknjmq [place] Lymphocytes/100 leukocytes 15.4 % Critically low 20.5-60.0 [facility] Comment on above: Performed By: #### C BC ####[facility] [address] [place] [id number] MANUAL DIFF REQ NO Normal [facility] Comment on above: Performed By: #### C BC ####[facility] [address] [place], [place] [address] MCH 31.5 pg Normal 26.7-34.0 [facility] Comment on above: Performed By: #### C BC ####[facility] [address] [place], [place] [address] MCHC mass conc (RBC) 34.9 g/dL Normal 29.9-35.2 [facility] Comment on above: Performed By: #### C BC ####[facility] Is[address] [place], [place] [address] MCV 90.0 fL Normal 81.0-99.0 [facility] Comment on above: Performed By: #### C BC ####[facility] [address] [place], [place] [address] Monocytes 0.5 103/ul Normal 0.3-0.8 [facility] Comment on above: Performed By: #### C BC ####[facility] [address]as[address] [place], [place] [address] Monocytes/100 leukocytes 3.6 % Normal 1.7-12.0 [facility] Comment on above: Performed By: #### C BC ####[facility] [address] [place], [place] [address] Neutrophils 11.2 103/ul Critically high 1.4-6.5 [facility] Comment on above: Performed By: #### C BC ####[facility] [address] [place] [address] Neutrophils/100 WBC Auto (Bld) 79.1 % Critically high 43.0-75.0 [facility] Comment on above: Performed By: #### C BC ####[facility] [address]fef[address] [place] [address] Platelet mean volume (PMV) 11.6 fL Normal 9.5-13.5 [facility] Comment on above: Performed By: #### C BC ####[facility] [address] [place] [address] [place] Platelets 170 103/ul Normal 150-450 [facility] Comment on above: Performed By: #### C BC ####[facility] [address] [place], [place] [address] WBC (Leukocytes) 14.2 103/ul Critically high 4.0-11.0 [facility] Comment on above: Performed By: #### C BC ####[facility] [address] [place], [place] [address] HEP B SURFACE AGon 7 HEP B Surface Ag Negative Normal NEGATIVE [facility] Comment on above: Performed By: #### P REGQNT ####[facility] [address] [place], [place] [address] HEP C ANTIBODYon 09-23-2017 Anti HCV Negative Normal NEGATIVE [facility] Comment on above: Performed By: #### P REGQNT ####[facility] Vnpmevzhgy[address] [place] HIV 1 AND 2 ABon 09-23-2017 HIV 1 AND 2 AB Negative Normal NEGATIVE The [facility] Comment on above: Performed By: #### H IV12 ####[facility] [address] [place] [address] PREG QUANT HCGon 09-23-2017 HCG Qn SEE BELOW Normal [facility] Comment on above: Result Comment: 5-50 0-1 WEEK 40-300 1-2 WEEKS 100-1,000 2-3 WEEKS 500-6,000 3-4 WEEKS 5,000-200,000 1-2 MONTHS 10,000-100,000 2-3 MONTHS 3,000-50,000 2ND TRIMESTER 1,000-50,000 3RD TRIMESTER Performed By: #### P REGQNT ####[facility] Gsf[address]outez[address] [place] HCG QUANT 91202.00 mIU/mL Normal [facility] Comment on above: Performed By: #### P REGQNT ####[facility] [address] [place] [address] [place] RUBELLA AB IGGon 09-23-2017 RUB HEADER SEE BELOW Normal [facility] Comment on above: Result Comment: or=1 5.0 IU/mL POSITIVE WHO considers levels >or= 10.0 IU/mL to be positive immune status Performed By: #### R UBG ####[facility] [address] [place] [address] [place] RUB IGG 33.1 IU/mL Normal [facility] Comment on above: Performed By: #### R UBG ####[facility] [address] [place] [address] [place] TYPE AND SCREENon 09-23-2017 TYPE AND SCREEN Negative Normal [facility] Comment on above: Performed By: #### T NS ####[facility] [address] [place] [address] [place] CULTURE URINEon 09-13-2017 CULTURE URINE Culture Observations : Final; See scanned report to follow in HPF Normal [facility] Comment on above: Performed By: #### C XUR ####[facility] [address] [place] [address] [place] UA RANDOM W/MICROSCOPICon Bilirubin (total) Negative Normal NEGATIVE [facility] Comment on above: Performed By: #### U AMIC ####[facility] [address] [place], [place] [address] BLOOD Negative Normal NEGATIVE [facility] Comment on above: Performed By: #### U AMIC ####[facility] [address], [place] [address]Mwmtjq [place] CAST NONE SEEN Normal NONE SEEN [facility] Comment on above: Performed By: #### U AMIC ####[facility] [address], [place] [address]Fpwugp [place] Erythrocytes (RBC) NONE SEEN Normal 0-2 [facility] Comment on above: Performed By: #### U AMIC ####[facility] [address] [place] [address] Glucose mass conc Negative Normal NEGATIVE [facility] Comment on above: Performed By: #### U AMIC ####[facility] [address], [place] [address]Rjfzco [place] MUCOUS NONE SEEN Normal NONE SEEN [facility] Comment on above: Performed By: #### U AMIC ####[facility] [address] [place] [address] pH of blood 6.5 [pH] Normal 5-9 [facility] Comment on above: Performed By: #### U AMIC ####[facility] [address] [place] [address] Protein Negative Normal [facility] Comment on above: Performed By: #### U AMIC ####[facility] Hzfpceecqy16[address] [place] [address] SPEC GRAVITY 1.015 Normal 1.005-<=1.025 [facility] Comment on above: Performed By: #### U AMIC ####[facility] [address] [place] [address] Urine, bacteria in sediment TRACE Normal NONE SEEN [facility] Comment on above: Performed By: #### U AMIC ####[facility] [address], [place] [address]Tlanoq [place] Urine, clarity CLEAR Normal [facility] Comment on above: Performed By: #### U AMIC ####[facility] [address], [place] [address]Mdjvmc [place] Urine, color LT. YELLOW Normal YELLOW [facility] Comment on above: Performed By: #### U AMIC ####[facility] [address], [place] [address]Gcizgx [place] Urine, crystals in sediment NONE SEEN Normal NONE SEEN [facility] Comment on above: Performed By: #### U AMIC ####[facility] [address], [place] [address]Nblmcq [place] Urine, epithelial cells in sediment RARE Normal [facility] Comment on above: Performed By: #### U AMIC ####[facility] [address], [place] [address]Nwylpk [place] Urine, ketones presence Negative Normal NEGATIVE [facility] Comment on above: Performed By: #### U AMIC ####[facility] [address] [place] [address] Urine, nitrite presence Negative Normal NEGATIVE [facility] Comment on above: Performed By: #### U AMIC ####[facility] [address], [place] [address]Mdwkww [place] Urine, urobilinogen 0.2 {Jer'U}/dL Normal [facility] Comment on above: Performed By: #### U AMIC ####[facility] [address] [place] [address] WBC (Leukocytes) NONE SEEN Normal NONE SEEN [facility] Comment on above: Performed By: #### U AMIC ####[facility] [address], [place] [address]Tprmnk [place] WBC (Leukocytes) Negative Normal NEGATIVE [facility] Comment on above: Performed By: #### U AMIC ####[facility] [address] [place] [address] ABO AND RH TYPEon 09-12-2017 ABO AND RH TYPE Negative Normal [facility] Comment on above: Performed By: #### Donya TAI ####[facility] [address], [place] [address]Wrspor [place] PREG QUANT HCGon 09-12-2017 HCG Qn SEE BELOW Normal [facility] Comment on above: Result Comment: 5-50 0-1 WEEK 40-300 1-2 WEEKS 100-1,000 2-3 WEEKS 500-6,000 3-4 WEEKS 5,000-200,000 1-2 MONTHS 10,000-100,000 2-3 MONTHS 3,000-50,000 2ND TRIMESTER 1,000-50,000 3RD TRIMESTER Performed By: #### P REGQNT ####[facility] [address], [place] [address]Fvjjky [place] HCG QUANT 60152.00 mIU/mL Normal [facility] Comment on above: Performed By: #### P REGQNT ####[facility] [address], [place] [address]Rqawkl Karen US PREG <14 WKSon 08-29-2017 US PREG <14 WKS [address] [place] [address] Patient: ESTUARDO JEREZ Exam Date: 08/29/2017DOB: 1990 Gender:F : FELISHA TATE . Admission #: [id number] : Order #: [id number] HERE TO VIEW EXAM RADIOLOGY REPORT PROCEDURE: [...] Ayala M.D. on 08/29/2017 at 16:03 Normal [facility] Vital Signs Date Time Vital Sign Value Performing Clinician Ozzy spring 12-27-2023 15:05-0500 Body weight 108.86 kg Sabrina Irma DO Work Phone: [facility] 12-27-2023 15:05-0500 Diastolic blood pressure 74 mm[Hg] Sabrina Irma DO Work Phone: [facility] 12-27-2023 15:05-0500 Systolic blood pressure 128 mm[Hg] Sabirna Irma DO Work Phone: [facility] Encounters Encounter Date Encounter Type Care Provider Facility Start: 02-14-2024 End: 02-14-2024 ambulatory SABRINA IRMA Not Available Start: 01-24-2024 End: 01-24-2024 ambulatory ASPEN ORNELASEY Not Available Start: 12-27-2023 End: 12-27-2023 ambulatory SABRINA IRMA Not Available Start: 12-27-2023 End: 12-27-2023 flow sheet Sabrina Irma DO Work Phone: [facility] Comment on above: Second trimester pre gnancy; Diabetes mellitus screening; Nausea and vomiting, unspecified vomiting type; Upper respiratory tract infection, unspecified type Start: 11-29-2023 End: 11-29-2023 ambulatory ASPEN JJ Not Available Start: 11-01-2023 End: 11-01-2023 ambulatory SABRINA IRMA Not Available Start: 04-11-2018 End: 04-11-2018 Ambulatory [...] t hin layer prep mnl screen Sabrina [employer] DO Work Phone: Start: 04-07-2018 Delivery of Products of Conception, External Approach FELISHA TATE Start: 04-07-2018 Repair Perineum Skin , External Approach FELISHA TATE Plan of Treatment Date Care Activity Detail Author Start: 01-24-2024 End: 01-24-2024 Patient encounter procedure 01/24/2024 2:20 PM EST Routine [facility] [address] [place] [address] Aspen Gardner PA [address] [place] [address] [facility] Start: 12-27-2023 End: 12-27-2024 [...] mellitus screening Expected: 12/27/2023 (Approximate), Expires: 12/27/2024 [facility] Comment on above: Expected: 12/27/2023 (Approximate), Expires: 12/27/2024 Payers Date Payer Category Payer Unknown [employer] [id number] 2022-Present [phone] [address] [address] [place] [address] [id number] 2022 Unknown [id number] 1990 Unknown [id number] 1990 Unknown [id number] 1990 Unknown [id number] 1990 Unknown [id number] 59 1990 Unknown [id number] 59 1958 Unknown [id number] Social History Date Type Detail Facility Tobacco smoking stat [facility] Tobacco smoking consumption unknown [facility] [...] nursing note reviewed. Exam conducted with a line fixer present. Vitals: There is no height or [...] and content) DATE CREATED AUTHOR 05/17/2018 [facility] DATE CREATED AUTHOR AUTHOR'S JUAN PABLO VAZQUEZ 02/15/2024 [facility] FOR RECORDS PERTAINING TO PATIENTS WHO ARE [...] BE BASED ON THE PRIMARY CLINICAL RECORDS. [facility] [email or web address] provides no warranty or guarantee of the accuracy or completeness of information in this document.
== END 2024-02-28 09:31 | disposition home or self-care (01) ==
LOC: NOMS 09:30
PROVIDERS: Visit Provider Obstetrics & Gynecology
DX: O26.849 Uterine size-date discrepancy, unspecified trimester (principal); Z3A.32 32 weeks gestation of pregnancy
CPT/HCPCS: 76816

== ENCOUNTER 2024-03-27 11:00 | Outpatient (OUT) | payer OTHER, SELFPAY ==
--- NOTE | 2024-03-27 11:03 | US_ITS ---
[address] [address] Patient Name: ESTUARDO SLADE MRN: [id number] date: 1990 Sex: F Assigned Patient Location: [facility] Current Patient Location: [facility] Accession/Order Number: [id number] Exam Date: 03/27/2024 11:04 Report Date: 03/27/2024 11:46 At the request of: SABRINA SOLIS Procedure: US OB growth EXAMINATION: US OB growth HISTORY: LGA COMPARISON: No relevant comparison available. FINDINGS: Heart Rate: 140.0 bpm Amniotic Fluid Volume: 13.4 cm Number: 1.0 Position: Cephalic presentation, longitudinal lie Maximum Vertical Pocket: 4.1 cm cm 3.1 cm cm 3.0 cm cm 3.2 cm cm BIOMETRY: BPD: 8.7 cm cm; 35 weeks 1 days; 68% HC: 33.0 cmcm; 37 weeks 4 days, 88% AC: 34.5 cm cm; 38 weeks 3 days, greater than 97% FL: 6.9 cm cm; 35 weeks 3 days; 66.7 % % EFW: 3142.6 grams, 6 lbs. 15 oz., greater than 97% FL/AC: 20.0 FL/BPD: 79.3 HC/AC: 1.0 GESTATIONAL AGE: Age by EDC: 34 weeks 3 days ADELE by EDC: 05/05/2024 Age by US: 36 weeks 5 days ADELE by US: 04/19/2024 Findings relayed by the technologist to Dr. Solis at the time of the exam US/US OB growth IMPRESSION: Large for gestational age, estimated weight greater than the 97th percentile Electronically authenticated by: JACOB AYALA Date: 03/27/2024 11:46
--- OUTSIDE RECORDS SUMMARY | 2024-03-27 11:06 | XMS_ITS | CCD ---
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 [employer] Name Role Phone FELISHA TATE Unavailable Unavailable FELISHA TATE Unavailable Unavailable JACOB AYALA V Unavailable Unavailable FELISHA TATE Unavailable Unavailable FELISHA TATE Unavailable Unavailable FELISHA TATE Unavailable Unavailable MISC, DOCTOR Unavailable Unavailable FELISHA TATE Unavailable Unavailable FELISHA TATE Unavailable Unavailable FELISHA TATE Unavailable Unavailable FELISHA TATE Unavailable Unavailable FELISHA ATTE Unavailable Unavailable FELISHA TATE Unavailable Unavailable RANJAN TATEA Unavailable Unavailable FELISHA TATE Unavailable Unavailable RANJAN TATEA Unavailable Unavailable RANJAN TATEA Unavailable Unavailable FELISHA TATE Unavailable Unavailable FELISHA TATE Unavailable Unavailable JACOB AYALA V Unavailable Unavailable FELISHA ATTE Unavailable Unavailable FELISHA TATE Unavailable Unavailable RANJAN [...] GARDNER Attending Unavailable SABRINA SOLIS Attending Unavailable ASPEN GARDNER Attending Unavailable SABRINA SOLIS Attending Unavailable ASPEN GARDNER Attending Unavailable SABRINA SOLIS Attending Unavailable SABRINA SOLIS Attending Unavailable Medications Current Medications Medication Drug Class(es) Dates Sig (Normalized) Sig (Original) azithromycin 250 mg oral tablet (2 sources) Macrolide Antimicrobial Start: 12-27-2023 azithromycin (Zithromax Z-Pualo) 250 MG tablet Indications: Upper respiratory tract [...] UA Negative Negative - 1999(110) ++++ mg/dL [facility] Interpretation and review of laboratory results Normal [facility] Ketones, UA Negative Negative - 160(16) ++++ mg/dL [facility] Leukocytes, UA Negative Negative - 500+++ Gabrielle/mcL [facility] Nitrite, UA Negative Negative - Positive [facility] pH, UA 7.0 5 - 9 [facility] Protein, UA Negative Negative - 1999(20) ++++ mg/dL [facility] Spec Grav, UA 1.020 1 - 1.03 [facility] Urobilinogen, UA 0.2 0.2 - 12 mg/dL [facility] Cytology Cervical or vaginal smear or scraping studyon 11-29-2023 [facility] CHLAMYDIA/GONOCOCCUS ALEX W/C ONF. (SWAB/Uon 04-26-2018 Chlamydia Trach ALEX Negative Normal Negative [facility] Comment on above: Performed By: #### A ABIDA ####[facility] Ejavkylzz[address] [place], [place] [id number] N. Gonorrhoeae ALEX Negative Normal Negative [facility] Comment on above: Performed By: #### A ABIDA ####[facility] [address] [place] [address] 23786Vwerxd [place] CBC AUTO DIFFon 04-08-2018 Basophils Auto #/vol (Bld) 0.1 103/ul Normal 0.0-0.1 [facility] Comment on above: Performed By: #### A ABIDA ####[facility] Bszlgpxexp[address] [place], [place] [address] Basophils/100 WBC Auto (Bld) 0.3 % Normal 0.2-2.0 [facility] Comment on above: Performed By: #### A ABIDA ####[facility] Ias[address]roy[address] [place], [place] [address] Eosinophils 0.2 103/ul Normal 0.0-0.7 [facility] Comment on above: Performed By: #### A BAIDA ####[facility] Rmfahagrcl[address] [place], [place] [address] Eosinophils/100 leukocytes 1.2 % Normal 0.9-7.0 [facility] Comment on above: Performed By: #### A ABIDA ####[facility] Nakfpwthzu4441 [address] [place] Erythrocyte distribution width Auto Ratio (RBC) 14.3 % Normal 11.0-15.0 [facility] Comment on above: Performed By: #### A ABIDA ####[facility] Wfrqsafosy4159 [address] [place] Erythrocytes (RBC) 3.91 106/ul Critically low 4.20-5.[address] [facility] Comment on above: Performed By: #### A ABIDA ####[facility] B[address]sc[address]em[address] [place] [address] [place] Hematocrit (HCT) 34.7 % Critically low 36.0-48.0 [facility] Comment on above: Performed By: #### A ABIDA ####[facility] Rvewtnqnpf[address] [place] [address] [place] Hemoglobin mass conc (Bld) 11.8 g/dL Critically low 12.0-16.0 [facility] Comment on above: Performed By: #### A ABIDA ####[facility] Eiryowqpan[address] [place] [address] [place] IG # 0.18 10e3/ul Critically high 0.00-0.03 [facility] Comment on above: Performed By: #### A ABIDA ####[facility] Wcghymxbui[address] [place] [address] [place] IG % 1.0 % Critically high 0.0-0.5 [facility] Comment on above: Performed By: #### A ABIDA ####[facility] Jkbktbfzzm[address] [place] [address] [place] Lymphocytes 2.1 103/ul Normal 1.2-3.8 [facility] Comment on above: Performed By: #### A ABIDA ####[facility] Oviurpkhdz[address] [place] [address] [place] Lymphocytes/100 leukocytes 11.9 % Critically low 20.5-60.0 [facility] Comment on above: Performed By: #### A ABIDA ####[facility] Vymuaotqkr7238 [place] [phone] MANUAL DIFF REQ NO Normal [facility] Comment on above: Performed By: #### A ABIDA ####[facility] Mpperzyvuk2367 [place] [phone] MCH 30.2 pg Normal 26.7-34.0 [facility] Comment on above: Performed By: #### A ABIDA ####[facility] Tfakvbtupp1779 [place] [phone] MCHC mass conc (RBC) 34.0 g/dL Normal 29.9-35.2 [facility] Comment on above: Performed By: #### A ABIDA ####[facility] Ofbhcqysho012[address] [place], [place] [address] MCV 88.7 fL Normal 81.0-99.0 [facility] Comment on above: Performed By: #### A ABIDA ####[facility] Fgxeplhyhj1648 [place] [phone] Monocytes 1.1 103/ul Critically high 0.3-0.8 [facility] Comment on above: Performed By: #### A ABIDA ####[facility] Qaocmhdcbc[address] [place], [place] [address] Monocytes/100 leukocytes 6.2 % Normal 1.7-12.0 [facility] Comment on above: Performed By: #### A ABIDA ####[facility] Igfnuhkflo[address] [place], [place] [address] Neutrophils 14.1 103/ul Critically high 1.4-6.5 The [facility] Comment on above: Performed By: #### A ABIDA ####[facility] Cgvfwolwjv5356 [place] [phone] Neutrophils/100 WBC Auto (Bld) 79.4 % Critically high 43.0-75.0 [facility] Comment on above: Performed By: #### A ABIDA ####[facility] Zbskarmduv4359 [place] [phone] Platelet mean volume (PMV) 12.2 fL Normal 9.5-13.5 [facility] Comment on above: Performed By: #### A ABIDA ####[facility] Rtnismvyeq2544 [place] [phone] Platelets 118 103/ul Critically low 150-450 [facility] Comment on above: Performed By: #### A ABIDA ####[facility] Rpjwgohfwv5163 [place] [address] WBC (Leukocytes) 17.7 103/ul Critically high 4.0-11.0 Th e [facility] Comment on above: Performed By: #### A ABIDA ####[facility] Hkboxijtck[address] [place], [place] [address] SCREENon 04-08-[address] [facility] Comment on above: Performed By: #### A ABIDA ####[facility] Kpbcaceqrn[address] [place], [place] [address] RHOGAMon 04-08-2018 RHOGAM Status Information Issued Quantity 1 Product ID Rh Immune Globulin Lot Number [id number] Issue Date/Time [id number] Normal [facility] Comment on above: Performed By: #### A ABIDA ####[facility] Lvtgvfmwgm[address] [place], [place] [address] CBC AUTO DIFFon 04-07-2018 Basophils Auto #/vol (Bld) 0.1 103/ul Normal 0.0-0.1 [facility] Comment on above: Performed By: #### A ABIDA ####[facility] Ttimvmhyfw[address] [place] [address] [place] Basophils/100 WBC Auto (Bld) 0.3 % Normal 0.2-2.0 [facility] Comment on above: Performed By: #### A ABIDA ####[facility] Sqroitnqmc[address] [place], [place] [address] Eosinophils 0.2 103/ul Normal 0.0-0.7 [facility] Comment on above: Performed By: #### A ABIDA ####[facility] Gvhhepudlj4796 [address] [place] Eosinophils/100 leukocytes 1.0 % Normal 0.9-7.0 [facility] Comment on above: Performed By: #### A ABIDA ####[facility] Itkslqnulc1556 [place] [phone] Erythrocyte distribution width Auto Ratio (RBC) 14.0 % Normal 11.0-15.0 [facility] Comment on above: Performed By: #### A ABIDA ####[facility] Byunwrtnzv[address] [place] [address] [place] Erythrocytes (RBC) 4.39 106/ul Normal 4.20-5.40 [facility] Comment on above: Performed By: #### A ABIDA ####[facility] Ikgjyoqozw[address] [place] [address] [place] Hematocrit (HCT) 38.7 % Normal 36.0-48.0 [facility] Comment on above: Performed By: #### A ABIDA ####[facility] Ajsmdfqclp[address] [place] [address] [place] Hemoglobin mass conc (Bld) 13.4 g/dL Normal 12.0-16.0 [facility] Comment on above: Performed By: #### A ABIDA ####[facility] Acuozydfdo5002 [place] [phone] IG # 0.30 10e3/ul Critically high 0.00-0.03 [facility] Comment on above: Performed By: #### A ABIDA ####[facility] Teoflcclyx3131 [address] [place] IG % 1.4 % Critically high 0.0-0.5 [facility] Comment on above: Performed By: #### A ABIDA ####[facility] Tpetjcjqjc9275 [address] [place] Lymphocytes 2.6 103/ul Normal 1.2-3.8 [facility] Comment on above: Performed By: #### A ABIDA ####[facility] Stnijtniag4563 [place] [phone] Lymphocytes/100 leukocytes 12.6 % Critically low 20.5-60.0 [facility] Comment on above: Performed By: #### A ABIDA ####[facility] Mdwynxteoe2535 [place] [phone] MANUAL DIFF REQ NO Normal [facility] Comment on above: Performed By: #### A ABIDA ####[facility] Avscikmgou0531 [address] [place] MCH 30.5 pg Normal 26.7-34.0 [facility] Comment on above: Performed By: #### A ABIDA ####[facility] Qcymuxhetf[address] [place] [address] [place] MCHC mass conc (RBC) 34.6 g/dL Normal 29.9-35.2 [facility] Comment on above: Performed By: #### A ABIDA ####[facility] C[address]qbd[address]xzhw[address] [place] [address] [place] MCV 88.2 fL Normal 81.0-99.0 [facility] Comment on above: Performed By: #### A ABIDA ####[facility] Dqakxkdjyk[address] [place] [address] [place] Monocytes 1.2 103/ul Critically high 0.3-0.8 [facility] Comment on above: Performed By: #### A ABIDA ####[facility] Hkggxxhmpo[address] [place] [address] [place] Monocytes/100 leukocytes 5.5 % Normal 1.7-12.0 [facility] Comment on above: Performed By: #### A ABIDA ####[facility] Lkghlyymjs5701 [place] [address] Neutrophils 16.5 103/ul Critically high 1.4-6.5 The [facility] Comment on above: Performed By: #### A ABIDA ####[facility] Gncjfsgvmw3770 [address] [place] Neutrophils/100 WBC Auto (Bld) 79.2 % Critically high 43.0-75.0 [facility] Comment on above: Performed By: #### A ABIDA ####[facility] Enpvlmbnvo3647 [address] [place] Platelet mean volume (PMV) 12.2 fL Normal 9.5-13.5 [facility] Comment on above: Performed By: #### A ABIDA ####[facility] Mifxcawqvr2497 [address] [place] Platelets 139 103/ul Critically low 150-450 [facility] Comment on above: Performed By: #### A ABIDA ####[facility] Ugnucsbhkz9711 [address] [place] WBC (Leukocytes) 20.8 103/ul Critically high 4.0-11.0 Th [facility] Comment on above: Performed By: #### A ABIDA ####[facility] Yfebabtzfn4721 [address] [place] DRUG SCREEN RAPID (URINE)on 04-07-2018 AMP Negative Normal NEGATIVE [facility] Comment on above: Performed By: #### A ABIDA ####[facility] Mmvnumxakk[address] [place] [address] [place] BAR Negative Normal NEGATIVE [facility] Comment on above: Performed By: #### A ABIDA ####[facility] Mmghzvycbq0917 [address] [place] BUP Negative Normal NEGATIVE [facility] Comment on above: Performed By: #### A ABIDA ####[facility] Rszcgkjqhc4398 [address] [place] BZO Negative Normal NEGATIVE [facility] Comment on above: Performed By: #### A ABIDA ####[facility] Drleqjfrxn8739 [address] [place] ELENA Negative Normal NEGATIVE [facility] Comment on above: Performed By: #### A ABIDA ####[facility] Wfhdhwgwol6253 [address] CUT-OFFS SEE BELOW Normal [facility] Comment on above: Result Comment: AMP [...] 300 ng/mL Performed By: #### A ABIDA ####[facility] At[address] [place] [address] DRUG CUT HEADER DRUG CLASS TEST SYSTEM CUT-OFF CONCENTRATIONS ARE FOLLOWS: Normal [facility] Comment on above: Performed By: #### A ABIDA ####[facility] T[address] [place] [address] mAMP Negative Normal NEGATIVE [facility] Comment on above: Performed By: #### A ABIDA ####[facility] Nlemvxvuej[address] [place] [address] MTD Negative Normal NEGATIVE [facility] Comment on above: Performed By: #### A ABIDA ####[facility] [address] [place] [address] OPI Negative Normal NEGATIVE [facility] Comment on above: Performed By: #### A ABIDA ####[facility] [address] [place] [address] OXY Negative Normal NEGATIVE [facility] Comment on above: Performed By: #### A ABIDA ####[facility] L[address] [place] [address] PCP Negative Normal NEGATIVE [facility] Comment on above: Performed By: #### A ABIDA ####[facility] Klfzscymhm5415 [address] [place] PPX Negative Normal NEGATIVE [facility] Comment on above: Performed By: #### A ABIDA ####[facility] Jaausgphvj[address] [place] [address] [place] TCA Negative Normal NEGATIVE [facility] Comment on above: Performed By: #### A ABIDA ####[facility] Wqpcteqlov7727 [address] [place] THC Negative Normal NEGATIVE [facility] Comment on above: Performed By: #### A ABIDA ####[facility] Pcyicubbeb[address] [place] [address] [place] UA (CLEAN/CATCH) LEVEL VIAL INSPECTOR AND TESTER/MICRO I F IND.on 04-07-2018 Bilirubin (total) Negative Normal NEGATIVE The [facility] Comment on above: Performed By: #### A ABIDA ####[facility] Yybiotxjqy[address] [place] [address] [place] BLOOD Negative Normal NEGATIVE [facility] Comment on above: Performed By: #### A ABIDA ####[facility] Jaxbgkemds[address] [place] [address] [place] Glucose mass conc Negative Normal NEGATIVE The [facility] Comment on above: Performed By: #### A ABIDA ####[facility] Ggxfalzlla[address] [place] [address] [place] pH of blood 6.0 [pH] Normal 5-9 [facility] Comment on above: Performed By: #### A ABIDA ####[facility] Rrcmemvbyq[address] [place] [address] [place] Protein Negative Normal [facility] Comment on above: Performed By: #### A ABIDA ####[facility] Lamsqcmksw[address] [place] [address] [place] SPEC GRAVITY 1.020 Normal 1.005-<=1.025 [facility] Comment on above: Performed By: #### A ABIDA ####[facility] Fheddszrzl[address] [place] [address] [place] UR MICRO IND NOT INDICATED Normal [facility] Comment on above: Performed By: #### A ABIDA ####[facility] Caapzibjul6124 [address] [place] Urine, clarity CLEAR Normal [facility] Comment on above: Performed By: #### A ABIDA ####[facility] Iivqzwpkjn6200 [address] [place] Urine, color LT. YELLOW Normal YELLOW [facility] Comment on above: Performed By: #### A ABIDA ####[facility] Tllxtsevwz9807 [address] [place] Urine, ketones presence Negative Normal NEGATIVE [facility] Comment on above: Performed By: #### A ABIDA ####[facility] Jyupkqziod[address] [place] [address] [place] Urine, nitrite presence Negative Normal NEGATIVE [facility] Comment on above: Performed By: #### A ABIDA ####[facility] Jdtygsruvd[address] [place] [address] [place] Urine, urobilinogen 0.2 {Jer'U}/dL Normal [facility] Comment on above: Performed By: #### A ABIDA ####[facility] Zmpyhyhecn[address] [place] [address] [place] WBC (Leukocytes) Negative Normal NEGATIVE The [facility] Comment on above: Performed By: #### A ABIDA ####[facility] [address]ekfbgcuoo[address] [place] [address] [place] GROUP B STREPTon 03-21-2018 GBS Performed by [facility] , final report to follow Normal NEG FOR GBS [facility] Comment on above: Performed By: #### A ABIDA ####[facility] Ogdqzafuxk[address] [place] [address] [place] RHOGAMon 02-04-2018 RHOGAM Status Information Issued Quantity 1 Product ID Rh Immune Globulin Lot Number [id number] Issue Date/Time [id number] Normal [facility] Comment on above: Performed By: #### A ABIDA ####[facility] [address] [place] [address] 357[address]Xlemzv [place] CBC AUTO DIFFon 02-03-2018 Basophils Auto #/vol (Bld) 0.0 103/ul Normal 0.0-0.1 [facility] Comment on above: Performed By: #### P REGQNT ####[facility] Uqrlztmuhu[address] [place] [address] [place] Basophils/100 WBC Auto (Bld) 0.3 % Normal 0.2-2.0 [facility] Comment on above: Performed By: #### P REGQNT ####[facility] Kvhtinwqpp[address] [place] [address] [place] Eosinophils 0.2 103/ul Normal 0.0-0.7 [facility] Comment on above: Performed By: #### P REGQNT ####[facility] Wdigwfawey[address] [place] [address] [place] Eosinophils/100 leukocytes 1.1 % Normal 0.9-7.0 [facility] Comment on above: Performed By: #### P REGQNT ####[facility] Ixvlaayhrh[address] [place] [address] [place] Erythrocyte distribution width Auto Ratio (RBC) 13.2 % Normal 11.0-15.0 [facility] Comment on above: Performed By: #### P REGQNT ####[facility] Zlbwywjizw83[address] [place] [address] [place] Erythrocytes (RBC) 3.91 106/ul Critically low 4.20-5.[address] [facility] Comment on above: Performed By: #### P REGQNT ####[facility] Atpikhdzcd[address] [place], [place] [address] Hematocrit (HCT) 35.5 % Critically low 36.0-48.0 [facility] Comment on above: Performed By: #### P REGQNT ####[facility] [address]vsqwfqnk[address] [place] [address] [place] Hemoglobin mass conc (Bld) 12.0 g/dL Normal 12.0-16.0 [facility] Comment on above: Performed By: #### P REGQNT ####[facility] Xmiysplooq5517 [place] [address] IG # 0.27 10e3/ul Critically high 0.00-0.03 [facility] Comment on above: Performed By: #### P REGQNT ####[facility] Jubjlvftup0156 [place] [address] IG % 1.8 % Critically high 0.0-0.5 [facility] Comment on above: Performed By: #### P REGQNT ####[facility] Jftvoiqncb6449 [address] [place] Lymphocytes 1.8 103/ul Normal 1.2-3.8 [facility] Comment on above: Performed By: #### P REGQNT ####[facility] Jqsrmwkoex[address] [place] [address] [place] Lymphocytes/100 leukocytes 11.9 % Critically low 20.5-60.0 [facility] Comment on above: Performed By: #### P REGQNT ####[facility] Qwqvlidkva4030 [address] [place] MANUAL DIFF REQ NO Normal [facility] Comment on above: Performed By: #### P REGQNT ####[facility] Tcwvhitkni[address] [place] [address] [place] MCH 30.7 pg Normal 26.7-34.0 [facility] Comment on above: Performed By: #### P REGQNT ####[facility] Bbgrqeqjue[address] [place], [place] [address] MCHC mass conc (RBC) 33.8 g/dL Normal 29.9-35.2 [facility] Comment on above: Performed By: #### P REGQNT ####[facility] Pkrgephptu[address] [place] [address] [place] MCV 90.8 fL Normal 81.0-99.0 [facility] Comment on above: Performed By: #### P REGQNT ####[facility] Jdcwkotpuc2819 [place] [address] Monocytes 0.6 103/ul Normal 0.3-0.8 [facility] Comment on above: Performed By: #### P REGQNT ####[facility] Wkcrimidvo6798 [place] [address] Monocytes/100 leukocytes 3.9 % Normal 1.7-12.0 [facility] Comment on above: Performed By: #### P REGQNT ####[facility] Qxdjbadwly5619 [place] [address] Neutrophils 12.1 103/ul Critically high 1.4-6.5 [facility] Comment on above: Performed By: #### P REGQNT ####[facility] Mtwmelkemm[address] [place], [place] [address] Neutrophils/100 WBC Auto (Bld) 81.0 % Critically high 43.0-75.0 [facility] Comment on above: Performed By: #### P REGQNT ####[facility] Exjvklwnip[address] [place], [place] [address] Platelet mean volume (PMV) 11.6 fL Normal 9.5-13.5 [facility] Comment on above: Performed By: #### P REGQNT ####[facility] Hbozhvjyra[address] [place], [place] [address] Platelets 133 103/ul Critically low 150-450 [facility] Comment on above: Performed By: #### P REGQNT ####[facility] Yugtgkthmp7253 [place] [phone] WBC (Leukocytes) 14.9 103/ul Critically high 4.0-11.0 Th [facility] Comment on above: Performed By: #### P REGQNT ####[facility] [address] [place] [address]Tawvou [place] GLUCOSE - 1HRon 02-03-2018 Glucose mass conc 120 mg/dL Critically high 74-106 Th [facility] Comment on above: Performed By: #### P REGQNT ####[facility] [address] [place], [place] [address]Egrawo [place] TYPE AND SCREENon 02-03-2018 TYPE AND SCREEN Negative Normal [facility] Comment on above: Performed By: #### P REGQNT ####[facility] Eatftxzugb9469 [place], [place] [address]Yrzeii Karen US PREG ANATOMY SINGLEon US PREG ANATOMY SINGLE [address] [place] [address] Patient: ESTUARDO JEREZ Exam Date: 11/25/2017DOB: 1990 Gender:F : FELISHA TATE . Admission #: [id number] : Order #: [id number] HERE TO VIEW EXAM RADIOLOGY REPORT PROCEDURE: [...] Ayala M.D. on 11/25/2017 at 20:[address] [facility] PAP ACOG PANEL 4: 21 to 29on 10-11-2017 LCPAP SEE SCANNED REPORT Normal [facility] Comment on above: Performed By: #### P REGQNT ####[facility] [address] [place] [address] [place] HEMOGLOBIN ELECTOPHORESISon 09-27-2017 HBSREV Reviewed by Adithya Morton MD ([id number]) [facility] Comment on above: Result Comment: Test Performed By: [facility] [address] [place] [address] Nutrition Partner: Dalila Roman MD, PhD Performed By: #### P REGQNT ####[facility] Cdptarjy[address] [place], [place] [address]Gerken [place] Hemoglobin mass conc (Bld) None detected. Normal 0.0-1.8 [facility] Comment on above: Performed By: #### P REGQNT ####[facility] Bjueelvolt[address] [place], [place] [address]Gerken [place] Hemoglobin mass conc (Bld) No abnormal hemoglobin identified. Normal [facility] Comment on above: Performed By: #### P REGQNT ####[facility] Oce[address] [place], [place] [address]Gerken [place] Hemoglobin mass conc (Bld) 97.4 % Normal [facility] Comment on above: Performed By: #### P REGQNT ####[facility] L[address] [place], [place] [address]Gerken [place] Hemoglobin mass conc (Bld) 2.6 % Normal 1.5-3.5 [facility] Comment on above: Performed By: #### P REGQNT ####[facility] Zxzkd[address]ucw14[address] [place] Interpertation Hemoglobins were analyzed by capillary electrophoresis. Normal [facility] Comment on above: Result Comment: Norm al pattern Performed By: #### P REGQNT ####[facility] [address] [place] [address] [place] VARICELLA IGGon 09-26-2017 Varicella Zoster IgG 1134.0 Index Value Normal [facility] Comment on above: Result Comment: Inde x Values are Interpreted as Follows:Negative specimens <135.0Equivocal specimens 135.0 to 164.9Positive specimens >164.9The magnitude of the measured result is not indicative of theamount of antibody present. Test Performed By: [facility] [employer] [address] [place] [address] Nutrition Partner: Dalila Roman MD, PhD Performed By: #### P REGQNT ####[facility] [address] [place] [address] [place] VZVGQL Positive Abnormal NEGAT [facility] Comment on above: Result Comment: Pres ence of detectable VZV IgG antibodies. A positive resultgenerally indicatesexposure to the pathogen or administration of specificimmunoglobulins, but is no indication of active infection or stage of disease. Performed By: #### P REGQNT ####[facility] [address] [place] [address] [place] RPR/SERUMon 09-24-2017 Reagin antibody presence Non Reactive Normal NR [facility] Comment on above: Result Comment: Test Performed By: [facility] [employer] [address] [place] [address] Nutrition Partner: Dalila Roman MD, PhD Performed By: #### P REGQNT ####[facility] As[address] [place], [place] [address]cj [place] CBC AUTO DIFFon 09-23-2017 Basophils Auto #/vol (Bld) 0.0 103/ul Normal 0.0-0.1 [facility] Comment on above: Performed By: #### C BC ####[facility] Y[address] [place] [address] [place] Basophils/100 WBC Auto (Bld) 0.3 % Normal 0.2-2.0 [facility] Comment on above: Performed By: #### C BC ####[facility] Kdxrxjohqy6459 [address] [place] Eosinophils 0.2 103/ul Normal 0.0-0.7 [facility] Comment on above: Performed By: #### C BC ####[facility] [address]weq[address] [place] [address] [place] Eosinophils/100 leukocytes 1.1 % Normal 0.9-7.0 [facility] Comment on above: Performed By: #### C BC ####[facility] [address] [place] [address] [place] Erythrocyte distribution width Auto Ratio (RBC) 12.5 % Normal 11.0-15.0 [facility] Comment on above: Performed By: #### C BC ####[facility] Fduqayorii[address] [place] [address] [place] Erythrocytes (RBC) 4.61 106/ul Normal 4.20-5.40 [facility] Comment on above: Performed By: #### C BC ####[facility] E[address]wcovq[address] [place] [address] [place] Hematocrit (HCT) 41.5 % Normal 36.0-48.0 [facility] Comment on above: Performed By: #### C BC ####[facility] G[address]ms[address] [place] [address] [place] Hemoglobin mass conc (Bld) 14.5 g/dL Normal 12.0-16.0 [facility] Comment on above: Performed By: #### C BC ####[facility] Eixnoxrcrt[address] [place] [address] [place] IG # 0.07 10e3/ul Critically high 0.00-0.03 [facility] Comment on above: Performed By: #### C BC ####[facility] [address] [place] [address] [place] IG % 0.5 % Normal 0.0-0.5 [facility] Comment on above: Performed By: #### C BC ####[facility] Bxtasrerfz6568 [address] [place] Lymphocytes 2.2 103/ul Normal 1.2-3.8 [facility] Comment on above: Performed By: #### C BC ####[facility] Uycfprccon2377 [address] [place] Lymphocytes/100 leukocytes 15.4 % Critically low 20.5-60.0 [facility] Comment on above: Performed By: #### C BC ####[facility] [address] [place] [address] [place] MANUAL DIFF REQ NO Normal [facility] Comment on above: Performed By: #### C BC ####[facility] [address] [place] [address] [place] MCH 31.5 pg Normal 26.7-34.0 [facility] Comment on above: Performed By: #### C BC ####[facility] Qsh[address] [place] [address] [place] MCHC mass conc (RBC) 34.9 g/dL Normal 29.9-35.2 [facility] Comment on above: Performed By: #### C BC ####[facility] Y[address] [place] [address] [place] MCV 90.0 fL Normal 81.0-99.0 [facility] Comment on above: Performed By: #### C BC ####[facility] I[address]ox[address]te[address] [place] [address] [place] Monocytes 0.5 103/ul Normal 0.3-0.8 [facility] Comment on above: Performed By: #### C BC ####[facility] Lquih[address]lwi[address] [place] [address] [place] Monocytes/100 leukocytes 3.6 % Normal 1.7-12.0 [facility] Comment on above: Performed By: #### C BC ####[facility] Pr[address] [place] [address]Reymundo [place] Neutrophils 11.2 103/ul Critically high 1.4-6.5 [facility] Comment on above: Performed By: #### C BC ####[facility] Fkeq[address] [place], [place] [address]Gercj [place] Neutrophils/100 WBC Auto (Bld) 79.1 % Critically high 43.0-75.0 [facility] Comment on above: Performed By: #### C BC ####[facility] Jobeh[address]ih[address] [place], [place] [address]Gercj [place] Platelet mean volume (PMV) 11.6 fL Normal 9.5-13.5 [facility] Comment on above: Performed By: #### C BC ####[facility] Edsjtqqvec[address] [place] [address] [place] Platelets 170 103/ul Normal 150-450 [facility] Comment on above: Performed By: #### C BC ####[facility] Ot[address] [place], [place] [address]cj [place] WBC (Leukocytes) 14.2 103/ul Critically high 4.0-11.0 [facility] Comment on above: Performed By: #### C BC ####[facility] Cj[address]ruzss[address] [place] [address] [place] HEP B SURFACE AGon 7 HEP B Surface Ag Negative Normal NEGATIVE [facility] Comment on above: Performed By: #### P REGQNT ####[facility] [address]hqbey[address] [place], [place] [address]Gerken [place] HEP C ANTIBODYon 09-23-2017 Anti HCV Negative Normal NEGATIVE [facility] Comment on above: Performed By: #### P REGQNT ####[facility] [address] [place], [place] [address]Gercj eBach HIV 1 AND 2 ABon 09-23-2017 HIV 1 AND 2 AB Negative Normal NEGATIVE [facility] Comment on above: Performed By: #### H IV12 ####[facility] U[address]mfr[address] [place], [place] [address]cj [place] PREG QUANT HCGon 09-23-2017 HCG Qn SEE BELOW Normal [facility] Comment on above: Result Comment: 5-50 0-1 WEEK 40-300 1-2 WEEKS 100-1,000 2-3 WEEKS 500-6,000 3-4 WEEKS 5,000-200,000 1-2 MONTHS 10,000-100,000 2-3 MONTHS 3,000-50,000 2ND TRIMESTER 1,000-50,000 3RD TRIMESTER Performed By: #### P REGQNT ####[facility] Fqntwnghbk[address]28 [address] [place] HCG QUANT 14288.00 mIU/mL Normal [facility] Comment on above: Performed By: #### P REGQNT ####[facility] [address]jit[address] [place] [address] [place] RUBELLA AB IGGon 09-23-2017 RUB HEADER SEE BELOW Normal [facility] Comment on above: Result Comment: or=1 5.0 IU/mL POSITIVE WHO considers levels >or= 10.0 IU/mL to be positive immune status Performed By: #### R UBG ####[facility] [address] [place] [address] [place] RUB IGG 33.1 IU/mL Normal [facility] Comment on above: Performed By: #### R UBG ####[facility] G[address] [place] [address] [place] TYPE AND SCREENon 09-23-2017 TYPE AND SCREEN Negative Normal [facility] Comment on above: Performed By: #### T NS ####[facility] Rbeaeounqb0754 [address] [place] CULTURE URINEon 09-13-2017 CULTURE URINE Culture Observations : Final; See scanned report to follow in HPF [facility] Comment on above: Performed By: #### C XUR ####[facility] Zvcibypfrm[address]24 [address] [place] UA RANDOM W/MICROSCOPICon Bilirubin (total) Negative Normal NEGATIVE [facility] Comment on above: Performed By: #### U AMIC ####[facility] M[address] [place], [place] [address]Sdahva [place] BLOOD Negative Normal NEGATIVE [facility] Comment on above: Performed By: #### U AMIC ####[facility] Dnuhsiznkg4560 [place], [place] [address]Nfsvmd [place] CAST NONE SEEN Normal NONE SEEN [facility] Comment on above: Performed By: #### U AMIC ####[facility] Lmbrngryyw1880 [place], [place] [address]Wjzyrz [place] Erythrocytes (RBC) NONE SEEN Normal 0-2 [facility] Comment on above: Performed By: #### U AMIC ####[facility] [address]xuzxi[address] [place] [address]Gerken [place] Glucose mass conc Negative Normal NEGATIVE [facility] Comment on above: Performed By: #### U AMIC ####[facility] [address] [place], [place] [address]Acfmkt [place] MUCOUS NONE SEEN Normal NONE SEEN [facility] Comment on above: Performed By: #### U AMIC ####[facility] Ofxeiopcns5320 [place], [place] [address]Poffvf [place] pH of blood 6.5 [pH] Normal 5-9 [facility] Comment on above: Performed By: #### U AMIC ####[facility] Xklhaddeig1674 [place], [place] [address]Vghgtu [place] Protein Negative Normal [facility] Comment on above: Performed By: #### U AMIC ####[facility] [address] [place] [address]Gerken [place] SPEC GRAVITY 1.015 Normal 1.005-<=1.025 [facility] Comment on above: Performed By: #### U AMIC ####[facility] W[address]fx[address]xjbxs01[address] [place] [address]Gerken [place] Urine, bacteria in sediment TRACE Normal NONE SEEN [facility] Comment on above: Performed By: #### U AMIC ####[facility] Ibzynoltyr84[address] [place] [address]Ger[place] Urine, clarity CLEAR Normal [facility] Comment on above: Performed By: #### U AMIC ####[facility] [address]fem[address]vwb80[address] [place], [place] [address]Zpxfyg [place] Urine, color LT. YELLOW Normal YELLOW [facility] Comment on above: Performed By: #### U AMIC ####[facility] Emoorjmfyy8[address] [place], [place] [address]Xvldka [place] Urine, crystals in sediment NONE SEEN Normal NONE SEEN [facility] Comment on above: Performed By: #### U AMIC ####[facility] Qpokjjrduh3394 [place], [place] [address]Rcyrir [place] Urine, epithelial cells in sediment RARE Normal [facility] Comment on above: Performed By: #### U AMIC ####[facility] Hrwoqslrns44[address] [place], [place] [address]Lijbmg [place] Urine, ketones presence Negative Normal NEGATIVE [facility] Comment on above: Performed By: #### U AMIC ####[facility] Agyqlutqiy93[address] [place], [place] [address]Qhzqgm [place] Urine, nitrite presence Negative Normal NEGATIVE [facility] Comment on above: Performed By: #### U AMIC ####[facility] Ccsknbmzmu3046 [place], [place] [address]Wksvxr [place] Urine, urobilinogen 0.2 {Jer'U}/dL Normal [facility] Comment on above: Performed By: #### U AMIC ####[facility] [address]fs[address] [place] [address]Gerken [place] WBC (Leukocytes) NONE SEEN Normal NONE SEEN [facility] Comment on above: Performed By: #### U AMIC ####[facility] Tlh[address]tgswb2227 [place], [place] [address]Ijwikb [place] WBC (Leukocytes) Negative Normal NEGATIVE [facility] Comment on above: Performed By: #### U AMIC ####[facility] [address]tsh[address]figu[address] [place], [place] [address]Murckb [place] ABO AND RH TYPEon 09-12-2017 ABO AND RH TYPE Negative Normal [facility] Comment on above: Performed By: #### Donya TAI ####[facility] Fz[address] [place], [place] [address]Helfsv [place] PREG QUANT HCGon 09-12-2017 HCG Qn SEE BELOW Normal [facility] Comment on above: Result Comment: 5-50 0-1 WEEK 40-300 1-2 WEEKS 100-1,000 2-3 WEEKS 500-6,000 3-4 WEEKS 5,000-200,000 1-2 MONTHS 10,000-100,000 2-3 MONTHS 3,000-50,000 2ND TRIMESTER 1,000-50,000 3RD TRIMESTER Performed By: #### P REGQNT ####[facility] Mmco[address]acum66[address] [place], [place] [address]Izkxia [place] HCG QUANT 85553.00 mIU/mL Normal [facility] Comment on above: Performed By: #### P REGQNT ####[facility] Zvvebtkymw8528 [place], [place] [address]Rtivzg Karen US PREG <14 WKSon 08-29-2017 US PREG <14 WKS [address] [place] [address] Patient: ESTUARDO JEREZ Exam Date: 08/29/2017DOB: 1990 Gender:F : FELISHA TATE . Admission #: [id number] : Order #: [id number] HERE TO VIEW EXAM RADIOLOGY REPORT PROCEDURE: [...] Ayala M.D. on 08/29/2017 at 16:[address] [facility] Vital Signs Date Time Vital Sign Value Performing Clinician [facility] 12-27-2023 15:05-0500 Body weight 108.86 kg Sabrina Irma DO Work Phone: [facility] 12-27-2023 15:05-0500 Diastolic blood pressure 74 mm[Hg] Sabrina Irma DO Work Phone: [facility] 12-27-2023 15:05-0500 Systolic blood pressure 128 mm[Hg] Sabrina Irma DO Work Phone: [facility] Encounters Encounter Date Encounter Type Care Provider Facility Start: 03-13-2024 End: 03-13-2024 ambulatory SABRINA IRMA Not Available Start: 02-28-2024 End: 02-28-2024 ambulatory ASPEN JJ Not Available Start: 02-14-2024 End: 02-14-2024 ambulatory SABRINA IRMA Not Available Start: 01-24-2024 End: 01-24-2024 ambulatory ASPEN JJ Not Available Start: 12-27-2023 End: 12-27-2023 ambulatory SABRINA IRMA Not Available Start: 12-27-2023 End: 12-27-2023 flow sheet Sabrina Irma DO Work Phone: [facility] Comment on above: Second [...] stick/tabl et rgnt non-auto w/o micrscp Sabrina TinderBox DO Work Phone: Start: 11-29-2023 Cytp cerv/vag auto t hin layer prep mnl screen Sabrina TinderBox DO Work Phone: Start: 04-07-2018 Delivery of Products of Conception, External Approach FELISHA TATE Start: 04-07-2018 Repair Perineum Skin , External Approach FELISHA TATE Plan of Treatment Date Care Activity Detail Author Start: 01-24-2024 End: 01-24-2024 Patient encounter procedure 01/24/2024 2:20 PM EST Routine [facility] [address] [place] [id number] Aspen Gardner PA [address] [place] [address] [facility] Start: 12-27-2023 End: 12-27-2024 CBC panel - Blood by Automated count CBC Lab Routine Diabetes mellitus screening Expected: 12/27/2023 (Approximate), Expires: 12/27/2024 [facility] Work Phone: Comment on above: Expected: 12/27/2023 (Approximate), Expires: 12/27/2024 Start: 12-27-2023 End: 12-27-2024 Measurement of glucose 1 hour after glucose challenge for glucose tolerance test Glucose tolerance, 1 hour Lab Routine Diabetes mellitus screening Expected: 12/27/2023 (Approximate), Expires: 12/27/2024 [facility] Comment on above: Expected: 12/27/2023 (Approximate), Expires: 12/27/2024 Payers Date Payer Category Payer Unknown [employer] [id number] 2022-Present [phone] [address] [address] [place] [address] [id number] 2022 Unknown [id number] 1990 Unknown [id number] 59 1990 Unknown [id number] 59 1990 Unknown [id number] 59 1990 Unknown [id number] 59 1990 Unknown [id number] 59 1990 Unknown [id number] 59 1990 Unknown [id number] 59 1958 Unknown [id number] Social History Date Type Detail Facility Tobacco smoking stat RUSTIS Tobacco smoking consumption unknown [facility] Start: [...] nursing note reviewed. Exam conducted with a polyethylene bag machine operator present. Vitals: There is no height or [...] [facility] DATE CREATED AUTHOR AUTHOR'S ORGANIZ ATION 03/14/2024 [facility] EPIC FOR RECORDS PERTAINING TO PATIENTS [...] BE BASED ON THE PRIMARY CLINICAL RECORDS. [facility] [employer] provides no warranty or guarantee of the accuracy or completeness of information in this document.
== END 2024-03-27 11:01 | disposition home or self-care (01) ==
LOC: NOMS 11:01
PROVIDERS: Visit Provider Obstetrics & Gynecology
DX: O36.60X0 Maternal care for excessive fetal growth, unspecified trimester, not applicable or unspecified (principal); Z3A.36 36 weeks gestation of pregnancy
CPT/HCPCS: 76816

== ENCOUNTER 2024-04-06 07:16 | Outpatient (OUT) | payer OTHER, SELFPAY ==
--- OUTSIDE RECORDS SUMMARY | 2024-04-06 07:19 | XMS_ITS | CCD ---
Author Organization [facility] Care Team Providers Care Oracle Developer Name Role Phone FELISHA TATE Unavailable [...] SOLIS Attending Unavailable ASPEN GARDNER Attending Unavailable IRMA, SABRINA Attending Unavailable ASPEN GARDNER Attending Unavailable IRMA, SABRINA Attending Unavailable IRMA, SABRINA Attending Unavailable IRMA, SABRINA Attending Unavailable Medications Current Medications Medication Drug [...] UA Negative Negative - 1999(110) ++++ mg/dL [facility] Interpretation and review of laboratory results Normal [facility] Ketones, UA Negative Negative - 160(16) ++++ mg/dL [facility] Leukocytes, UA Negative Negative - 500+++ Gabrielle/mcL [facility] Nitrite, UA Negative Negative - Positive [facility] pH, UA 7.0 5 - 9 [facility] Protein, UA Negative Negative - 1999(20) ++++ mg/dL [facility] Spec Grav, UA 1.020 1 - 1.03 [facility] Urobilinogen, UA 0.2 0.2 - 12 mg/dL [facility] Cytology Cervical or vaginal smear or scraping studyon 11-29-2023 [facility] CHLAMYDIA/GONOCOCCUS ALEX W/C ONF. (SWAB/Uon 04-26-2018 Chlamydia Trach ALEX Negative Normal Negative [facility] Comment on above: Performed By: #### A ABIDA ####[facility] Wyygkxdjsp[address] [place], [place] [id number] N. Gonorrhoeae ALEX Negative Normal Negative [facility] Comment on above: Performed By: #### A ABIDA ####[facility] Wubwzfmceh[address] [place], [place] [address] CBC AUTO DIFFon 04-08-2018 Basophils Auto #/vol (Bld) 0.1 103/ul Normal 0.0-0.1 [facility] Comment on above: Performed By: #### A ABIDA ####[facility] Kkioyzll[address] [place], [place] [address] Basophils/100 WBC Auto (Bld) 0.3 % Normal 0.2-2.0 [facility] Comment on above: Performed By: #### A ABIDA ####[facility] Qpsmjlfekd[address] [place], [place] [address] Eosinophils 0.2 103/ul Normal 0.0-0.7 [facility] Comment on above: Performed By: #### A ABIDA ####[facility] Geczabgyoq[address] [place], [place] [address] Eosinophils/100 leukocytes 1.2 % Normal 0.9-7.0 [facility] Comment on above: Performed By: #### A ABIDA ####[facility] Kdhsdpflid7426 [address] [place] Erythrocyte distribution width Auto Ratio (RBC) 14.3 % Normal 11.0-15.0 [facility] Comment on above: Performed By: #### A ABIDA ####[facility] Uamtnkhrbi[address] [place] [address] [place] Erythrocytes (RBC) 3.91 106/ul Critically low 4.20-5.40 [facility] Comment on above: Performed By: #### A ABIDA ####[facility] Sxy[address]zpthkt[address] [place] [address] [place] Hematocrit (HCT) 34.7 % Critically low 36.0-48.0 [facility] Comment on above: Performed By: #### A ABIDA ####[facility] [address]psaor[address] [place] [address] [place] Hemoglobin mass conc (Bld) 11.8 g/dL Critically low 12.0-16.0 [facility] Comment on above: Performed By: #### A ABIDA ####[facility] Hxdbypnzvh[address] [place] [address] [place] IG # 0.18 10e3/ul Critically high 0.00-0.03 [facility] Comment on above: Performed By: #### A ABIDA ####[facility] Aqgbtvsaiw[address] [place] [address] [place] IG % 1.0 % Critically high 0.0-0.5 [facility] Comment on above: Performed By: #### A ABIDA ####[facility] Endokasudk[address] [place] [address] [place] Lymphocytes 2.1 103/ul Normal 1.2-3.8 [facility] Comment on above: Performed By: #### A ABIDA ####[facility] Wwmmliuslj[address] [place] [address] [place] Lymphocytes/100 leukocytes 11.9 % Critically low 20.5-60.0 [facility] Comment on above: Performed By: #### A ABIDA ####[facility] Anxuxdwfrt8169 [place] [id number] MANUAL DIFF REQ NO Normal [facility] Comment on above: Performed By: #### A ABIDA ####[facility] Gfpxzmidpa1659 [place] [id number] MCH 30.2 pg Normal 26.7-34.0 [facility] Comment on above: Performed By: #### A ABIDA ####[facility] Gqncxtuulw8286 [place] [id number] MCHC mass conc (RBC) 34.0 g/dL Normal 29.9-35.2 [facility] Comment on above: Performed By: #### A ABIDA ####[facility] Ncxuafpjzp[address] [place], [place] [address] MCV 88.7 fL Normal 81.0-99.0 [facility] Comment on above: Performed By: #### A ABIDA ####[facility] Bhtbixaiei6704 [place] [id number] Monocytes 1.1 103/ul Critically high 0.3-0.8 [facility] Comment on above: Performed By: #### A ABIDA ####[facility] Fspqggrrwg7362 [place] [id number] Monocytes/100 leukocytes 6.2 % Normal 1.7-12.0 [facility] Comment on above: Performed By: #### A ABIDA ####[facility] Mwzaghybuz7154 [place] [id number] Neutrophils 14.1 103/ul Critically high 1.4-6.5 [facility] Comment on above: Performed By: #### A ABIDA ####[facility] Wsddhemkjd3099 [place] [id number] Neutrophils/100 WBC Auto (Bld) 79.4 % Critically high 43.0-75.0 [facility] Comment on above: Performed By: #### A ABIDA ####[facility] Phpkbiqbcw7954 [place] [address] Platelet mean volume (PMV) 12.2 fL Normal 9.5-13.5 [facility] Comment on above: Performed By: #### A ABIDA ####[facility] Gmxdedaneh3742 [place] [id number] Platelets 118 103/ul Critically low 150-450 [facility] Comment on above: Performed By: #### A ABIDA ####[facility] Bysdhbjsxt[address] [place] WBC (Leukocytes) 17.7 103/ul Critically high 4.0-11.0 [facility] Comment on above: Performed By: #### A ABIDA ####[facility] Plardkryyo[address] [place] [address] [place] SCREENon 04-08-2018 SCREEN Negative Normal [facility] Comment on above: Performed By: #### A ABIDA ####[facility] Eacemysngz[address] [place] [address] [place] RHOGAMon 04-08-2018 RHOGAM Status Information Issued Quantity 1 Product ID Rh Immune Globulin Lot Number [id number] Issue Date/Time [id number] Normal [facility] Comment on above: Performed By: #### A ABIDA ####[facility] Ecqrkmktpv2[address] [place] [address] [place] CBC AUTO DIFFon 04-07-2018 Basophils Auto #/vol (Bld) 0.1 103/ul Normal 0.0-0.1 [facility] Comment on above: Performed By: #### A ABIDA ####[facility] Zgbewjducv[address] [place] [address] [place] Basophils/100 WBC Auto (Bld) 0.3 % Normal 0.2-2.0 [facility] Comment on above: Performed By: #### A ABIDA ####[facility] Shvovigcan[address] [place] [address] [place] Eosinophils 0.2 103/ul Normal 0.0-0.7 [facility] Comment on above: Performed By: #### A ABIDA ####[facility] Vnftrgfvos3297 [address] [place] Eosinophils/100 leukocytes 1.0 % Normal 0.9-7.0 [facility] Comment on above: Performed By: #### A ABIDA ####[facility] Fyjkshikrg4391 [address] [place] Erythrocyte distribution width Auto Ratio (RBC) 14.0 % Normal 11.0-15.0 [facility] Comment on above: Performed By: #### A ABIDA ####[facility] Niclfdifmn[address] [place] [address] [place] Erythrocytes (RBC) 4.39 106/ul Normal 4.20-5.40 [facility] Comment on above: Performed By: #### A ABIDA ####[facility] Kieuymoxvl[address] [place] [address] [place] Hematocrit (HCT) 38.7 % Normal 36.0-48.0 [facility] Comment on above: Performed By: #### A ABIDA ####[facility] Zpcvykodcw[address] [place] [address] [place] Hemoglobin mass conc (Bld) 13.4 g/dL Normal 12.0-16.0 [facility] Comment on above: Performed By: #### A ABIDA ####[facility] Foreoyzswn[address] [place] [address] [place] IG # 0.30 10e3/ul Critically high 0.00-0.03 [facility] Comment on above: Performed By: #### A ABIDA ####[facility] Tgeiswikru6260 [address] [place] IG % 1.4 % Critically high 0.0-0.5 [facility] Comment on above: Performed By: #### A ABIDA ####[facility] Xdxefuvseh8101 [address] [place] Lymphocytes 2.6 103/ul Normal 1.2-3.8 [facility] Comment on above: Performed By: #### A ABIDA ####[facility] Ygaasmvgsd0939 [place] [id number] Lymphocytes/100 leukocytes 12.6 % Critically low 20.5-60.0 [facility] Comment on above: Performed By: #### A ABIDA ####[facility] Mbtfbwqrru2168 [place] [id number] MANUAL DIFF REQ NO Normal [facility] Comment on above: Performed By: #### A ABIDA ####[facility] Eftbwrptxh[address] [place] [address] [place] MCH 30.5 pg Normal 26.7-34.0 [facility] Comment on above: Performed By: #### A ABIDA ####[facility] Nywcxopemc[address] [place] [address] [place] MCHC mass conc (RBC) 34.6 g/dL Normal 29.9-35.2 [facility] Comment on above: Performed By: #### A ABIDA ####[facility] Ffslmqiour5[address] [place] [address] [place] MCV 88.2 fL Normal 81.0-99.0 [facility] Comment on above: Performed By: #### A ABIDA ####[facility] Ujlbbodjce[address] [place] [address] [place] Monocytes 1.2 103/ul Critically high 0.3-0.8 [facility] Comment on above: Performed By: #### A ABIDA ####[facility] Pabmlbojdr[address] [place], [place] [address] Monocytes/100 leukocytes 5.5 % Normal 1.7-12.0 [facility] Comment on above: Performed By: #### A ABIDA ####[facility] Aqqmsgrufr[address] [place], [place] [address] Neutrophils 16.5 103/ul Critically high 1.4-6.5 [facility] Comment on above: Performed By: #### A ABIDA ####[facility] Ukvhfmqdli8691 [address] [place] Neutrophils/100 WBC Auto (Bld) 79.2 % Critically high 43.0-75.0 [facility] Comment on above: Performed By: #### A ABIDA ####[facility] Bsyjytfhjj4600 [address] [place] Platelet mean volume (PMV) 12.2 fL Normal 9.5-13.5 [facility] Comment on above: Performed By: #### A ABIDA ####[facility] Efpyovvoqb3302 [address] [place] Platelets 139 103/ul Critically low 150-450 [facility] Comment on above: Performed By: #### A ABIDA ####[facility] Lulexqijuu2257 [address] [place] WBC (Leukocytes) 20.8 103/ul Critically high 4.0-11.0 [facility] [place] Comment on above: Performed By: #### A ABIDA ####[facility] Otxnnxuelu[address] [place] [address] [place] DRUG SCREEN RAPID (URINE)on 04-07-2018 AMP Negative Normal NEGATIVE [facility] Comment on above: Performed By: #### A ABIDA ####[facility] Zobrgvmjeb[address] [place] [address] [place] BAR Negative Normal NEGATIVE [facility] Comment on above: Performed By: #### A ABIDA ####[facility] Mcjanknplz[address] [place] [address] [place] BUP Negative Normal NEGATIVE [facility] Comment on above: Performed By: #### A ABIDA ####[facility] Z[address]zyhphnb[address] [place] [address] [place] BZO Negative Normal NEGATIVE [facility] Comment on above: Performed By: #### A ABIDA ####[facility] Xizuhvcaat[address] [place] [address] [place] ELENA Negative Normal NEGATIVE [facility] Comment on above: Performed By: #### A ABIDA ####[facility] [address]xtyve[address] [place] [address] CUT-OFFS SEE BELOW Normal [facility] Comment on above: Result Comment: AMP [...] 300 ng/mL Performed By: #### A ABIDA ####[facility] [address]vrgjnww[address] [place] [address] DRUG CUT HEADER DRUG CLASS TEST SYSTEM CUT-OFF CONCENTRATIONS ARE FOLLOWS: Normal [facility] Comment on above: Performed By: #### A ABIDA ####[facility] Xlcmhpjjit[address] [place] [address] mAMP Negative Normal NEGATIVE [facility] Comment on above: Performed By: #### A ABIDA ####[facility] Aaqpdbropd[address] [place] [address] MTD Negative Normal NEGATIVE [facility] Comment on above: Performed By: #### A ABIDA ####[facility] Jqbgcihmmg[address] [place] [address] OPI Negative Normal NEGATIVE [facility] Comment on above: Performed By: #### A ABIDA ####[facility] Jvsxlzpglu[address] [place] [address] OXY Negative Normal NEGATIVE [facility] Comment on above: Performed By: #### A ABIDA ####[facility] Sxbenskbhv[address] [place] [address] PCP Negative Normal NEGATIVE [facility] Comment on above: Performed By: #### A ABIDA ####[facility] Iytlpbwjpk4306 [address] [place] PPX Negative Normal NEGATIVE [facility] Comment on above: Performed By: #### A ABIDA ####[facility] Vggfvceiss7875 [address] [place] TCA Negative Normal NEGATIVE [facility] Comment on above: Performed By: #### A ABIDA ####[facility] [address]hmgcvjkk[address] [place] [address] [place] THC Negative Normal NEGATIVE [facility] Comment on above: Performed By: #### A ABIDA ####[facility] Bleulslfwe[address] [place] [address] [place] UA (CLEAN/CATCH) SERVICE CENTER ASSISTANT/MICRO I F IND.on 04-07-2018 Bilirubin (total) Negative Normal NEGATIVE [facility] Comment on above: Performed By: #### A ABIDA ####[facility] [address]jbqpbigda[address] [place] [address] [place] BLOOD Negative Normal NEGATIVE [facility] Comment on above: Performed By: #### A ABIDA ####[facility] Ftrfpxhmln54[address] [place] [address] [place] Glucose mass conc Negative Normal NEGATIVE [facility] Comment on above: Performed By: #### A ABIDA ####[facility] Huuwhvgycx[address] [place] [address] [place] pH of blood 6.0 [pH] Normal 5-9 [facility] Comment on above: Performed By: #### A ABIDA ####[facility] Gouakuacgu[address] [place] [address] [place] Protein Negative Normal [facility] Comment on above: Performed By: #### A ABIDA ####[facility] Ojoakyuiki8[address] [place] [address] [place] SPEC GRAVITY 1.020 Normal 1.005-<=1.025 [facility] Comment on above: Performed By: #### A ABIDA ####[facility] [address]zizhggmmo[address] [place] [address] [place] UR MICRO IND NOT INDICATED Normal [facility] Comment on above: Performed By: #### A ABIDA ####[facility] Taqxgyzkfv1111 [address] [place] Urine, clarity CLEAR Normal [facility] Comment on above: Performed By: #### A ABIDA ####[facility] Elvdjozwiy9807 [address] [place] Urine, color LT. YELLOW Normal YELLOW [facility] Comment on above: Performed By: #### A ABIDA ####[facility] Qsylrzihlu0307 [address] [place] Urine, ketones presence Negative Normal NEGATIVE [facility] Comment on above: Performed By: #### A ABIDA ####[facility] Jdrqhufgxu1229 [address] [place] Urine, nitrite presence Negative Normal NEGATIVE [facility] Comment on above: Performed By: #### A ABIDA ####[facility] Mdxxmgfwga2[address] [place] [address] [place] Urine, urobilinogen 0.2 {Jer'U}/dL Normal [facility] Comment on above: Performed By: #### A ABIDA ####[facility] Soiyoyeggj4[address] [place] [address] [place] WBC (Leukocytes) Negative Normal NEGATIVE [facility] Comment on above: Performed By: #### A ABIDA ####[facility] Nccttsqphh2883 [address] [place] GROUP B STREPTon 03-21-2018 GBS Performed by [facility] , final report to follow Normal NEG FOR GBS [facility] Comment on above: Performed By: #### A ABIDA ####[facility] Avqunfbzui7786 [address] [place] RHOGAMon 02-04-2018 RHOGAM Status Information Issued Quantity 1 Product ID Rh Immune Globulin Lot Number [id number] Issue Date/Time [id number] Normal [facility] Comment on above: Performed By: #### A ABIDA ####[facility] Amdctuljtd8902 [place], [place] [address]Ujkjax Karen CBC AUTO DIFFon 02-03-2018 Basophils Auto #/vol (Bld) 0.0 103/ul Normal 0.0-0.1 [facility] Comment on above: Performed By: #### P REGQNT ####[facility] Buwrqawehj8[address] [place], [place] [address] Basophils/100 WBC Auto (Bld) 0.3 % Normal 0.2-2.0 [facility] Comment on above: Performed By: #### P REGQNT ####[facility] Ztlnbpjlti[address] [place], [place] [address] Eosinophils 0.2 103/ul Normal 0.0-0.7 [facility] Comment on above: Performed By: #### P REGQNT ####[facility] Esucffmgbe10[address] [place] [address] [place] Eosinophils/100 leukocytes 1.1 % Normal 0.9-7.0 [facility] Comment on above: Performed By: #### P REGQNT ####[facility] [address]pstevkmxe[address] [place] [address] [place] Erythrocyte distribution width Auto Ratio (RBC) 13.2 % Normal 11.0-15.0 [facility] Comment on above: Performed By: #### P REGQNT ####[facility] Iquxskmtvk[address] [place], [place] [address] Erythrocytes (RBC) 3.91 106/ul Critically low 4.20-5.40 [facility] Comment on above: Performed By: #### P REGQNT ####[facility] Jabeogvrid[address] [place], [place] [address] Hematocrit (HCT) 35.5 % Critically low 36.0-48.0 [facility] Comment on above: Performed By: #### P REGQNT ####[facility] Bophajscca[address] [place], [place] [address] Hemoglobin mass conc (Bld) 12.0 g/dL Normal 12.0-16.0 [facility] Comment on above: Performed By: #### P REGQNT ####[facility] Xckblznaeq7646 [place] [id number] IG # 0.27 10e3/ul Critically high 0.00-0.03 [facility] Comment on above: Performed By: #### P REGQNT ####[facility] Yfobsvjukj2269 [place] [id number] IG % 1.8 % Critically high 0.0-0.5 [facility] Comment on above: Performed By: #### P REGQNT ####[facility] Vxojaqqkoj8911 [address] [place] Lymphocytes 1.8 103/ul Normal 1.2-3.8 [facility] Comment on above: Performed By: #### P REGQNT ####[facility] Psfsfrwgnq6932 [address] [place] Lymphocytes/100 leukocytes 11.9 % Critically low 20.5-60.0 [facility] Comment on above: Performed By: #### P REGQNT ####[facility] Kqwpdtidax5097 [address] [place] MANUAL DIFF REQ NO Normal [facility] Comment on above: Performed By: #### P REGQNT ####[facility] Phatpwbawm28[address] [place] MCH 30.7 pg Normal 26.7-34.0 [facility] Comment on above: Performed By: #### P REGQNT ####[facility] Nzlcscuagq1377 [place] [id number] MCHC mass conc (RBC) 33.8 g/dL Normal 29.9-35.2 [facility] Comment on above: Performed By: #### P REGQNT ####[facility] Bvidqxplhz5864 [address] [place] MCV 90.8 fL Normal 81.0-99.0 [facility] Comment on above: Performed By: #### P REGQNT ####[facility] Ecqeviisxh4773 [place], [place] [address]Tjfdkc [place] Monocytes 0.6 103/ul Normal 0.3-0.8 [facility] Comment on above: Performed By: #### P REGQNT ####[facility] Gczmhvvvbc0906 [place], [place] [address]Vxzjjf [place] Monocytes/100 leukocytes 3.9 % Normal 1.7-12.0 [facility] Comment on above: Performed By: #### P REGQNT ####[facility] Qjnmhadwyl2430 [place], [place] [address]Yheexp [place] Neutrophils 12.1 103/ul Critically high 1.4-6.5 [facility] Comment on above: Performed By: #### P REGQNT ####[facility] Wstzpmhbgh7669 [place], [place] [address]Obxkhb [place] Neutrophils/100 WBC Auto (Bld) 81.0 % Critically high 43.0-75.0 [facility] Comment on above: Performed By: #### P REGQNT ####[facility] Gexxauhslt5080 [place], [place] [address]Pdmjaf Karen Platelet mean volume (PMV) 11.6 fL Normal 9.5-13.5 [facility] Comment on above: Performed By: #### P REGQNT ####[facility] Pxfaohzqcq2503 [place], [place] [address]Zwbomz [place] Platelets 133 103/ul Critically low 150-450 [facility] Comment on above: Performed By: #### P REGQNT ####[facility] Xgolybpmoc6257 [place], [place] [address]Fpbaxz [place] WBC (Leukocytes) 14.9 103/ul Critically high 4.0-11.0 Th [facility] [place] Comment on above: Performed By: #### P REGQNT ####[facility] Kbhuelhxyo5684 [place], [place] [address]Zcajml Karen GLUCOSE - 1HRon 02-03-2018 Glucose mass conc 120 mg/dL Critically high 74-106 [facility] [place] Comment on above: Performed By: #### P REGQNT ####[facility] Rmodvdocbi6618 [place], [place] [address]Gctmfv [place] TYPE AND SCREENon 02-03-2018 TYPE AND SCREEN Negative Normal [facility] Comment on above: Performed By: #### P REGQNT ####[facility] Mynypwjulv4823 [place], [place] [address]Rpvpqk [place] US PREG ANATOMY SINGLEon US PREG ANATOMY SINGLE [address] [place] [address] Patient: ESTUARDO JEREZ Exam Date: 11/25/2017DOB: 1990 Gender:F : FELISHA TATE . Admission #: [id number] : Order #: [id number] HERE TO VIEW EXAM RADIOLOGY REPORT PROCEDURE: [...] Ayala M.D. on 11/25/2017 at 20:18 Normal [facility] PAP ACOG PANEL 4: 21 to 29on 10-11-2017 LCPAP SEE SCANNED REPORT Normal The [facility] Comment on above: Performed By: #### P REGQNT ####[facility] Nwptebgrug8936 [address] [place] HEMOGLOBIN ELECTOPHORESISon 09-27-2017 HBSREV Reviewed by Adithya Morton MD ([id number]) [facility] Comment on above: Result Comment: Test Performed By: [facility] [address] [place] [address] Early Years Teacher: Dalila Roman MD, PhD Performed By: #### P REGQNT ####[facility] Matphvfsrs[address] [place], [place] [address]Gerken [place] Hemoglobin mass conc (Bld) None detected. Normal 0.0-1.8 [facility] Comment on above: Performed By: #### P REGQNT ####[facility] I[address] [place], [place] [address] Hemoglobin mass conc (Bld) No abnormal hemoglobin identified. Normal [facility] Comment on above: Performed By: #### P REGQNT ####[facility] Zbcenvafbr8713 [place] [id number] Hemoglobin mass conc (Bld) 97.4 % Normal [facility] Comment on above: Performed By: #### P REGQNT ####[facility] N[address]qu[address] [place], [place] [address]Gerken [place] Hemoglobin mass conc (Bld) 2.6 % Normal 1.5-3.5 [facility] Comment on above: Performed By: #### P REGQNT ####[facility] Vhixfemkjc3259 [address] [place] Interpertation Hemoglobins were analyzed by capillary electrophoresis. Normal [facility] Comment on above: Result Comment: Norm al pattern Performed By: #### P REGQNT ####[facility] [address] [place] [address] [place] VARICELLA IGGon 09-26-2017 Varicella Zoster IgG 1134.0 Index Value Normal [facility] Comment on above: Result Comment: Inde x Values are Interpreted as Follows:Negative specimens <135.0Equivocal specimens 135.0 to 164.9Positive specimens >164.9The magnitude of the measured result is not indicative of theamount of antibody present. Test Performed By: [facility] [employer] [address] [place] [address] Early Years Teacher: Dalila Roman MD, PhD Performed By: #### P REGQNT ####[facility] N[address] [place], [place] [address]en VZVGQL Positive Abnormal NEGAT [facility] Comment on above: Result Comment: Pres ence of detectable VZV IgG antibodies. A positive resultgenerally indicatesexposure to the pathogen or administration of specificimmunoglobulins, but is no indication of active infection or stage of disease. Performed By: #### P REGQNT ####[facility] [address] [place] [address] [place] RPR/SERUMon 09-24-2017 Reagin antibody presence Non Reactive Normal NR [facility] Comment on above: Result Comment: Test Performed By: [facility] [employer] [address] [place] [address] Early Years Teacher: Dalila Roman MD, PhD Performed By: #### P REGQNT ####[facility] [address]ty[address]fq[address] [place] [address] [place] CBC AUTO DIFFon 09-23-2017 Basophils Auto #/vol (Bld) 0.0 103/ul Normal 0.0-0.1 [facility] Comment on above: Performed By: #### C BC ####[facility] Kzrnhiwjqp9075 [address] [place] Basophils/100 WBC Auto (Bld) 0.3 % Normal 0.2-2.0 [facility] Comment on above: Performed By: #### C BC ####[facility] [address] [place], [place] [address]ken [place] Eosinophils 0.2 103/ul Normal 0.0-0.7 [facility] Comment on above: Performed By: #### C BC ####[facility] N[address]wiux[address] [place], [place] [address]ken [place] Eosinophils/100 leukocytes 1.1 % Normal 0.9-7.0 [facility] Comment on above: Performed By: #### C BC ####[facility] Vbjoddygzk[address] [place] [address] [place] Erythrocyte distribution width Auto Ratio (RBC) 12.5 % Normal 11.0-15.0 [facility] Comment on above: Performed By: #### C BC ####[facility] Mqerksubji[address] [place] [address] [place] Erythrocytes (RBC) 4.61 106/ul Normal 4.20-5.40 [facility] Comment on above: Performed By: #### C BC ####[facility] Gkmudw[address]uc[address] [place], [place] [address]ken [place] Hematocrit (HCT) 41.5 % Normal 36.0-48.0 [facility] Comment on above: Performed By: #### C BC ####[facility] Kakkitxgnk[address] [place], [place] [address]ken [place] Hemoglobin mass conc (Bld) 14.5 g/dL Normal 12.0-16.0 [facility] Comment on above: Performed By: #### C BC ####[facility] K[address]wfr[address] [place], [place] [address]ken [place] IG # 0.07 10e3/ul Critically high 0.00-0.03 [facility] Comment on above: Performed By: #### C BC ####[facility] Namdlkkvhv[address] [place], [place] [address]ken [place] IG % 0.5 % Normal 0.0-0.5 [facility] Comment on above: Performed By: #### C BC ####[facility] Wtmdbxbuvw3520 [address] [place] Lymphocytes 2.2 103/ul Normal 1.2-3.8 [facility] Comment on above: Performed By: #### C BC ####[facility] Cpxgyiczlu9922 [address] [place] Lymphocytes/100 leukocytes 15.4 % Critically low 20.5-60.0 [facility] Comment on above: Performed By: #### C BC ####[facility] Orpxvrzatc4270 [address] [place] MANUAL DIFF REQ NO Normal [facility] Comment on above: Performed By: #### C BC ####[facility] [address] [place] [address] [place] MCH 31.5 pg Normal 26.7-34.0 [facility] Comment on above: Performed By: #### C BC ####[facility] Qgxgxbgcgz1116 [address] [place] MCHC mass conc (RBC) 34.9 g/dL Normal 29.9-35.2 [facility] Comment on above: Performed By: #### C BC ####[facility] Bmnlmpptpc[address] [place] MCV 90.0 fL Normal 81.0-99.0 [facility] Comment on above: Performed By: #### C BC ####[facility] Wzmkthulsi4366 [address] [place] Monocytes 0.5 103/ul Normal 0.3-0.8 [facility] Comment on above: Performed By: #### C BC ####[facility] Xqmxalvwvh54[address] [place] Monocytes/100 leukocytes 3.6 % Normal 1.7-12.0 [facility] Comment on above: Performed By: #### C BC ####[facility] Xgigcntmxd9180 [place], [place] [address]Ougafs [place] Neutrophils 11.2 103/ul Critically high 1.4-6.5 [facility] Comment on above: Performed By: #### C BC ####[facility] Zijsmouwrq5738 [place] [id number] Neutrophils/100 WBC Auto (Bld) 79.1 % Critically high 43.0-75.0 [facility] Comment on above: Performed By: #### C BC ####[facility] Yqikafbdhf7032 [place] [id number] Platelet mean volume (PMV) 11.6 fL Normal 9.5-13.5 [facility] Comment on above: Performed By: #### C BC ####[facility] [address] [place] [address] [place] Platelets 170 103/ul Normal 150-450 [facility] Comment on above: Performed By: #### C BC ####[facility] Srdebzzsfc[address] [place], [place] [address]ken [place] WBC (Leukocytes) 14.2 103/ul Critically high 4.0-11.0 [facility] Comment on above: Performed By: #### C BC ####[facility] [address] [place] [address] [place] HEP B SURFACE AGon 7 HEP B Surface Ag Negative Normal NEGATIVE [facility] Comment on above: Performed By: #### P REGQNT ####[facility] Zggofunmqi2396 [place] [id number] HEP C ANTIBODYon 09-23-2017 Anti HCV Negative Normal NEGATIVE [facility] Comment on above: Performed By: #### P REGQNT ####[facility] [address] [place] [address]Egneze [place] HIV 1 AND 2 ABon 09-23-2017 HIV 1 AND 2 AB Negative Normal NEGATIVE [facility] Comment on above: Performed By: #### H IV12 ####[facility] R[address]xt[address] [place], [place] [address] PREG QUANT HCGon 09-23-2017 HCG Qn SEE BELOW Normal [facility] Comment on above: Result Comment: 5-50 0-1 WEEK 40-300 1-2 WEEKS 100-1,000 2-3 WEEKS 500-6,000 3-4 WEEKS 5,000-200,000 1-2 MONTHS 10,000-100,000 2-3 MONTHS 3,000-50,000 2ND TRIMESTER 1,000-50,000 3RD TRIMESTER Performed By: #### P REGQNT ####[facility] Fjvnfwrsob[address] [place] HCG QUANT 53246.00 mIU/mL Normal [facility] Comment on above: Performed By: #### P REGQNT ####[facility] Fengz[address]mer[address] [place] [address] [place] RUBELLA AB IGGon 09-23-2017 RUB HEADER SEE BELOW Normal [facility] Comment on above: Result Comment: or=1 5.0 IU/mL POSITIVE WHO considers levels >or= 10.0 IU/mL to be positive immune status Performed By: #### R UBG ####[facility] [address] [place] [address] [place] RUB IGG 33.1 IU/mL Normal [facility] Comment on above: Performed By: #### R UBG ####[facility] [address] [place] [address] [place] TYPE AND SCREENon 09-23-2017 TYPE AND SCREEN Negative Normal [facility] Comment on above: Performed By: #### T NS ####[facility] [address] [place] [address] [place] CULTURE URINEon 09-13-2017 CULTURE URINE Culture Observations : Final; See scanned report to follow in HPF Normal [facility] Comment on above: Performed By: #### C XUR ####[facility] [address] [place] [address] [place] UA RANDOM W/MICROSCOPICon Bilirubin (total) Negative Normal NEGATIVE [facility] Comment on above: Performed By: #### U AMIC ####[facility] Fyjiintvpq5912 [place], [place] [address]Dxnwxy [place] BLOOD Negative Normal NEGATIVE [facility] Comment on above: Performed By: #### U AMIC ####[facility] Oastigvoet1175 [place], [place] [address]Gngmqd [place] CAST NONE SEEN Normal NONE SEEN [facility] Comment on above: Performed By: #### U AMIC ####[facility] Uvwsuqrvdh7901 [place], [place] [address]Hwcoyy [place] Erythrocytes (RBC) NONE SEEN Normal 0-2 [facility] Comment on above: Performed By: #### U AMIC ####[facility] Xwgqfcoxxs2220 [place] [address] Glucose mass conc Negative Normal NEGATIVE [facility] Comment on above: Performed By: #### U AMIC ####[facility] Uukjriblkg8791 [place] [address] MUCOUS NONE SEEN Normal NONE SEEN [facility] Comment on above: Performed By: #### U AMIC ####[facility] Fbecjhlilz1118 [place] [address] pH of blood 6.5 [pH] Normal 5-9 [facility] Comment on above: Performed By: #### U AMIC ####[facility] Hegivkpitb5810 [place] [address] Protein Negative Normal [facility] Comment on above: Performed By: #### U AMIC ####[facility] Hgudtqovft2623 [place] [address] SPEC GRAVITY 1.015 Normal 1.005-<=1.025 [facility] Comment on above: Performed By: #### U AMIC ####[facility] Wywobxccmr5486 [place] [address] Urine, bacteria in sediment TRACE Normal NONE SEEN [facility] Comment on above: Performed By: #### U AMIC ####[facility] Rlwxbioewm4593 [place] [address] Urine, clarity CLEAR Normal [facility] Comment on above: Performed By: #### U AMIC ####[facility] [address]vcu1942 [place], [place] [address]Isbexk [place] Urine, color LT. YELLOW Normal YELLOW [facility] Comment on above: Performed By: #### U AMIC ####[facility] Ueitzjdlry9030 [place], [place] [address]Ipqypk [place] Urine, crystals in sediment NONE SEEN Normal NONE SEEN [facility] Comment on above: Performed By: #### U AMIC ####[facility] Tbqtftthsd2936 [place], [place] [address]Qydpob [place] Urine, epithelial cells in sediment RARE Normal [facility] Comment on above: Performed By: #### U AMIC ####[facility] Timwhryuny1612 [place], [place] [address]Kvgyyj [place] Urine, ketones presence Negative Normal NEGATIVE [facility] Comment on above: Performed By: #### U AMIC ####[facility] Ibdatjewgu4218 [place], [place] [address]Fwposd [place] Urine, nitrite presence Negative Normal NEGATIVE [facility] Comment on above: Performed By: #### U AMIC ####[facility] Bakchbombr8456 [place], [place] [address]Dfxife [place] Urine, urobilinogen 0.2 {Jer'U}/dL Normal [facility] Comment on above: Performed By: #### U AMIC ####[facility] Fbiikyuvqp0558 [place], [place] [address]Hyowlj [place] WBC (Leukocytes) NONE SEEN Normal NONE SEEN [facility] Comment on above: Performed By: #### U AMIC ####[facility] Eumrdlfmaf4965 [place], [place] [address]Fllqup [place] WBC (Leukocytes) Negative Normal NEGATIVE [facility] Comment on above: Performed By: #### U AMIC ####[facility] Nmxgnttjnf1223 [place], [place] [address]Wbtsar [place] ABO AND RH TYPEon 09-12-2017 ABO AND RH TYPE Negative Normal [facility] Comment on above: Performed By: #### A TRINYH ####[facility] Epsmrobgib8263 [place], [place] [address]Lhqcbu [place] PREG QUANT HCGon 09-12-2017 HCG Qn SEE BELOW Normal [facility] Comment on above: Result Comment: 5-50 0-1 WEEK 40-300 1-2 WEEKS 100-1,000 2-3 WEEKS 500-6,000 3-4 WEEKS 5,000-200,000 1-2 MONTHS 10,000-100,000 2-3 MONTHS 3,000-50,000 2ND TRIMESTER 1,000-50,000 3RD TRIMESTER Performed By: #### P REGQNT ####[facility] Ilxeqnbvox[address] [place] HCG QUANT 87010.00 mIU/mL Normal [facility] Comment on above: Performed By: #### P REGQNT ####[facility] Duutrmyyeq6[address] [place] PREG <14 WKSon 08-29-2017 US PREG <14 WKS [address] [place] [address] Patient: ESTUARDO JREEZ Exam Date: 08/29/2017DOB: 1990 Gender:F : FELISHA TATE . Admission #: [id number] : Order #: [id number] HERE TO VIEW EXAM RADIOLOGY REPORT PROCEDURE: [...] Ayala M.D. on 08/29/2017 at 16:03 Normal [facility] Vital Signs Date Time Vital Sign Value Performing Clinician Ozzy spring 12-27-2023 15:05-0500 Body weight 108.86 kg Sabrina Irma DO Work Phone: [facility] 12-27-2023 15:05-0500 Diastolic blood pressure 74 mm[Hg] Sabrina Irma DO Work Phone: [facility] 12-27-2023 15:05-0500 Systolic blood pressure 128 mm[Hg] Sabrina Irma DO Work Phone: [facility] Encounters Encounter Date Encounter Type Care Provider Facility Start: 03-27-2024 End: 03-27-2024 ambulatory SABRINA IRMA Not Available Start: 03-13-2024 End: 03-13-2024 ambulatory SABRINA IRMA Not Available Start: 02-28-2024 End: 02-28-2024 ambulatory ASPEN JJ Not Available Start: 02-14-2024 End: 02-14-2024 ambulatory SABRINA IRMA Not Available Start: 01-24-2024 End: 01-24-2024 ambulatory ASPEN JJ Not Available Start: 12-27-2023 End: 12-27-2023 ambulatory SABRINA IRMA Not Available Start: 12-27-2023 End: 12-27-2023 flow sheet Sabrina Irma DO Work Phone: [facility] Comment on above: Second [...] stick/tabl et rgnt non-auto w/o micrscp Sabrina Flared3D DO Work Phone: Start: 11-29-2023 Cytp cerv/vag auto t hin layer prep mnl screen Sabrina Flared3D DO Work Phone: Start: 04-07-2018 Delivery of Products of Conception, External Approach FELISHA TATE Start: 04-07-2018 Repair Perineum Skin , External Approach FELISHA TATE Plan of Treatment Date Care Activity Detail Author Start: 01-24-2024 End: 01-24-2024 Patient encounter procedure 01/24/2024 2:20 PM EST Routine [facility] [address] [place] [id number] Aspen Gardner PA [address] [place] [address] [facility] Start: 12-27-2023 End: 12-27-2024 [...] Category Payer Unknown [employer] [id number] 2022-Present [phone] [address] [address] [place] [address] [id number] 2022 Unknown [id number] 1990 Unknown [id number] 59 1990 Unknown [id number] [id number] 59 1990 Unknown [id number] [id number] 59 1990 Unknown [id number] [id number] 59 1990 Unknown [id number] [id number] 59 1990 Unknown [id number] [id number] 59 1990 Unknown [id number] [id number] 59 1990 Unknown [id number] [id number] 59 1958 Unknown [id number] Social History Date Type Detail Facility Tobacco smoking stat [facility] Tobacco smoking consumption unknown [facility] Start: 08-13-2023 [facility] Start: 1990 Sex Assigned At Not on file [facility] Gender identity Not on file [facility] are History of Present illness Narrative 12-27-2023 [...] nursing note reviewed. Exam conducted with a layer off present. Vitals: There is no height or [...] pital DATE CREATED AUTHOR AUTHOR'S ORGANIZ ATION 03/28/2024 [facility] EPIC FOR RECORDS PERTAINING TO PATIENTS [...] BE BASED ON THE PRIMARY CLINICAL RECORDS. [facility] [employer] provides no warranty or guarantee of the accuracy or completeness of information in this document.
--- NOTE | 2024-04-06 10:35 | US_ITS ---
[address] [address] Patient Name: ESTUARDO SLADE MRN: [facility]:[id number] date: 1990 Sex: F Assigned Patient Location: [facility] Current Patient Location: [facility] Accession/Order Number: [id number] Exam Date: 04/06/2024 10:40 Report Date: 04/06/2024 11:28 At the request of: SABRINA ALY Procedure: US OB BPP w non-stress EXAMINATION: US OB BPP w non-stress HISTORY: EXCESSIVE GROWTH AFFECTING O36.60X0 COMPARISON: No relevant comparison available. TECHNIQUE: Ultrasound biophysical profile was performed in the radiology department. BREATHING MOVEMENTS: 2.0 GROSS BODY MOVEMENTS: 2.0 TONE: 2.0 QUALITATIVE AMNIOTIC FLUID VOLUME: 2.0 PRESENTATION: CEPHALIC HEART RATE: 147.5 bpm bpm. AMNIOTIC FLUID VOLUME: 11.8 cm GESTATIONAL AGE: 35 weeks 6 days CONCLUSION: Total biophysical profile score 8.0. Electronically authenticated by: BERTHA OBREGON Date: 04/06/2024 11:28
[2024-04-06 11:10] VITALS: BP 113/67; PULSE 92
== END 2024-04-06 11:42 | disposition home or self-care (01) ==
LOC: US 07:16 → FBC 10:35
PROVIDERS: Visit Provider Obstetrics & Gynecology
DX: O36.60X0 Maternal care for excessive fetal growth, unspecified trimester, not applicable or unspecified (principal); Z3A.35 35 weeks gestation of pregnancy
CPT/HCPCS: 76818

== ENCOUNTER 2024-04-10 06:59 | Outpatient (OUT) | payer OTHER, SELFPAY ==
--- OUTSIDE RECORDS SUMMARY | 2024-04-10 07:01 | XMS_ITS | CCD ---
Author Organization [facility] Care Team Providers Care Professional Services Specialist Name Role Phone FELISHA TATE Unavailable [...] UA Negative Negative - 1999(110) ++++ mg/dL [facility] Interpretation and review of laboratory results Normal [facility] Ketones, UA Negative Negative - 160(16) ++++ mg/dL [facility] Leukocytes, UA Negative Negative - 500+++ Gabrielle/mcL [facility] Nitrite, UA Negative Negative - Positive [facility] pH, UA 7.0 5 - 9 [facility] Protein, UA Negative Negative - 1999(20) ++++ mg/dL [facility] Spec Grav, UA 1.020 1 - 1.03 [facility] Urobilinogen, UA 0.2 0.2 - 12 mg/dL [facility] Cervical or vaginal smear or scraping studyon 11-29-2023 [facility] CHLAMYDIA/GONOCOCCUS ALEX W/C ONF. (SWAB/Uon 04-26-2018 Chlamydia Trach ALEX Negative Normal Negative [facility] Comment on above: Performed By: #### A ABIDA ####[facility] Hbxpt[address] [place], [place] [id number] N. Gonorrhoeae ALEX Negative Normal Negative [facility] Comment on above: Performed By: #### A ABIDA ####[facility] Keeaxbjvge7[address] [place], [place] [phone] CBC AUTO DIFFon 04-08-2018 Basophils Auto #/vol (Bld) 0.1 103/ul Normal 0.0-0.1 [facility] Comment on above: Performed By: #### A ABIDA ####[facility] Yzdgkxiqjv[address] [place], [place] [phone] Basophils/100 WBC Auto (Bld) 0.3 % Normal 0.2-2.0 The [facility] Comment on above: Performed By: #### A ABIDA ####[facility] Iwztkbzlvu[address] [place], [place] [id number] Eosinophils 0.2 103/ul Normal 0.0-0.7 [facility] Comment on above: Performed By: #### A ABIDA ####[facility] Xvyknfosog7294[address] [place], [place] [address] Eosinophils/100 leukocytes 1.2 % Normal 0.9-7.0 [facility] Comment on above: Performed By: #### A ABIDA ####[facility] Guxtccqvsg2496 [address] [place] Erythrocyte distribution width Auto Ratio (RBC) 14.3 % Normal 11.0-15.0 [facility] Comment on above: Performed By: #### A ABIDA ####[facility] Rsxuvrycsm[address] [place] [address] [place] Erythrocytes (RBC) 3.91 106/ul Critically low 4.20-5.40 [facility] Comment on above: Performed By: #### A ABIDA ####[facility] Nlfpuyisdx[address] [place] [address] [place] Hematocrit (HCT) 34.7 % Critically low 36.0-48.0 [facility] Comment on above: Performed By: #### A ABIDA ####[facility] B[address]ychvwuso[address] [place] [address] [place] Hemoglobin mass conc (Bld) 11.8 g/dL Critically low 12.0-16.0 [facility] Comment on above: Performed By: #### A ABIDA ####[facility] [address] [place] [address] [place] IG # 0.18 10e3/ul Critically high 0.00-0.03 [facility] Comment on above: Performed By: #### A ABIDA ####[facility] Awnxiqcf[address] [place] [address] [place] IG % 1.0 % Critically high 0.0-0.[address] [facility] Comment on above: Performed By: #### A ABIDA ####[facility] Ozzxgnojob[address] [place] [address] [place] Lymphocytes 2.1 103/ul Normal 1.2-3.8 [facility] Comment on above: Performed By: #### A ABIDA ####[facility] Wiknxctgwv3860[address] [place] [address] [place] Lymphocytes/100 leukocytes 11.9 % Critically low 20.5-60.0 [facility] Comment on above: Performed By: #### A ABIDA ####[facility] [address]rm[address]bk76[address] [place] [phone] MANUAL DIFF REQ NO Normal [facility] Comment on above: Performed By: #### A ABIDA ####[facility] Vbkophbpip8986 [place] [phone] MCH 30.2 pg Normal 26.7-34.0 [facility] Comment on above: Performed By: #### A ABIDA ####[facility] Ayokchqiql6878 [place] [phone] MCHC mass conc (RBC) 34.0 g/dL Normal 29.9-35.2 The [facility] Comment on above: Performed By: #### A ABIDA ####[facility] Fovoqydovt[address] [place], [place] [address] MCV 88.7 fL Normal 81.0-99.0 [facility] Comment on above: Performed By: #### A ABIDA ####[facility] Scokcwzbtw3543 [place] [phone] Monocytes 1.1 103/ul Critically high 0.3-0.8 The [facility] Comment on above: Performed By: #### A ABIDA ####[facility] Bibnngfqet7213 [place] [phone] Monocytes/100 leukocytes 6.2 % Normal 1.7-12.0 The [facility] Comment on above: Performed By: #### A ABIDA ####[facility] Dexhkrxell7562 [place] [phone] Neutrophils 14.1 103/ul Critically high 1.4-6.[address] [facility] Comment on above: Performed By: #### A ABIDA ####[facility] Rwzuubvxno2589 [place] [phone] Neutrophils/100 WBC Auto (Bld) 79.4 % Critically high 43.0-75.0 The [facility] Comment on above: Performed By: #### A ABIDA ####[facility] Lynncununj5072 [place] [address] Platelet mean volume (PMV) 12.2 fL Normal 9.5-13.5 [facility] Comment on above: Performed By: #### A ABIDA ####[facility] Cbcayxlpcf2583 [place] [phone] Platelets 118 103/ul Critically low 150-450 [facility] Comment on above: Performed By: #### A ABIDA ####[facility] Adlzmuiknk3326 [address] [place] WBC (Leukocytes) 17.7 103/ul Critically high 4.0-11.0 Th e [facility] Comment on above: Performed By: #### A ABIDA ####[facility] Nglwkjdajw[address] [place] [address] [place] SCREENon 04-08-2018 SCREEN Negative Normal [facility] Comment on above: Performed By: #### A ABIDA ####[facility] Zprlutdhre[address] [place] [address] [place] RHOGAMon 04-08-2018 RHOGAM Status Information Issued Quantity 1 Product ID Rh Immune Globulin Lot Number [id number] Issue Date/Time [id number] Normal [facility] Comment on above: Performed By: #### A ABIDA ####[facility] Lssoxdxztu[address] [place] [address] [place] CBC AUTO DIFFon 04-07-2018 Basophils Auto #/vol (Bld) 0.1 103/ul Normal 0.0-0.1 [facility] Comment on above: Performed By: #### A ABIDA ####[facility] Wpfrxmwwwr[address] [place] [address] [place] Basophils/100 WBC Auto (Bld) 0.3 % Normal 0.2-2.0 [facility] Comment on above: Performed By: #### A ABIDA ####[facility] Tdsnjbkfna[address] [place] [address] [place] Eosinophils 0.2 103/ul Normal 0.0-0.7 [facility] Comment on above: Performed By: #### A ABIDA ####[facility] Qtsrtprwrp2529 [address] [place] Eosinophils/100 leukocytes 1.0 % Normal 0.9-7.0 [facility] Comment on above: Performed By: #### A ABIDA ####[facility] Vwzaclogbp4307 [address] [place] Erythrocyte distribution width Auto Ratio (RBC) 14.0 % Normal 11.0-15.0 [facility] Comment on above: Performed By: #### A ABIDA ####[facility] [address]wvugcmrz[address] [place] [address] [place] Erythrocytes (RBC) 4.39 106/ul Normal 4.20-5.40 [facility] Comment on above: Performed By: #### A ABIDA ####[facility] Hgqbppx[address] [place] [address] [place] Hematocrit (HCT) 38.7 % Normal 36.0-48.0 [facility] Comment on above: Performed By: #### A ABIDA ####[facility] Bvudeyywji[address] [place] [address] [place] Hemoglobin mass conc (Bld) 13.4 g/dL Normal 12.0-16.0 The [facility] Comment on above: Performed By: #### A ABIDA ####[facility] Xjxjkhahzi[address] [place] [address] [place] IG # 0.30 10e3/ul Critically high 0.00-0.03 [facility] Comment on above: Performed By: #### A ABIDA ####[facility] Fhyzvedtou4110 [address] [place] IG % 1.4 % Critically high 0.0-0.5 The [facility] Comment on above: Performed By: #### A ABIDA ####[facility] Ulthnjjtbf5139 [address] [place] Lymphocytes 2.6 103/ul Normal 1.2-3.8 The [facility] Comment on above: Performed By: #### A ABIDA ####[facility] Doykqqojqf1781 [place] [phone] Lymphocytes/100 leukocytes 12.6 % Critically low 20.5-60.0 The [facility] Comment on above: Performed By: #### A ABIDA ####[facility] Bfkgqjnvdb3836 [place] [phone] MANUAL DIFF REQ NO Normal The [facility] Comment on above: Performed By: #### A ABIDA ####[facility] Cmvwhrhlrz[address] [place] [address] [place] MCH 30.5 pg Normal 26.7-34.0 The [facility] Comment on above: Performed By: #### A ABIDA ####[facility] Spnspuruvr9[address] [place] [address] [place] MCHC mass conc (RBC) 34.6 g/dL Normal 29.9-35.2 The [facility] Comment on above: Performed By: #### A ABIDA ####[facility] Z[address]fogdymn[address] [place] [address] [place] MCV 88.2 fL Normal 81.0-99.0 The [facility] Comment on above: Performed By: #### A ABIDA ####[facility] Ewnpnpsiwr99[address] [place] [address] [place] Monocytes 1.2 103/ul Critically high 0.3-0.8 The [facility] Comment on above: Performed By: #### A ABIDA ####[facility] Esemdvkuzj9[address] [place], [place] [address] Monocytes/100 leukocytes 5.5 % Normal 1.7-12.0 The [facility] Comment on above: Performed By: #### A ABDIA ####[facility] Eafwqnnlkq[address] [place], [place] [address] Neutrophils 16.5 103/ul Critically high 1.4-6.[address] [facility] Comment on above: Performed By: #### A ABIDA ####[facility] Soxkqvjnsm9408 [address] [place] Neutrophils/100 WBC Auto (Bld) 79.2 % Critically high 43.0-75.0 [facility] Comment on above: Performed By: #### A ABIDA ####[facility] Hmovaqqgqg1504 [address] [place] Platelet mean volume (PMV) 12.2 fL Normal 9.5-13.5 [facility] Comment on above: Performed By: #### A ABIDA ####[facility] Jstqwgydad1701 [address] [place] Platelets 139 103/ul Critically low 150-450 [facility] Comment on above: Performed By: #### A ABIDA ####[facility] Tgtwjzsifu7616 [address] [place] WBC (Leukocytes) 20.8 103/ul Critically high 4.0-11.0 [facility] Comment on above: Performed By: #### A ABIDA ####[facility] Luepunskvl[address] [place] [address] [place] DRUG SCREEN RAPID (URINE)on 04-07-2018 AMP Negative Normal NEGATIVE [facility] Comment on above: Performed By: #### A ABIDA ####[facility] Tegmilqp[address] [place] [address] [place] BAR Negative Normal NEGATIVE The [facility] Comment on above: Performed By: #### A ABIDA ####[facility] Jjhdldgn[address] [place] [address] [place] BUP Negative Normal NEGATIVE The [facility] Comment on above: Performed By: #### A ABIDA ####[facility] Kiucsqeemp[address] [place] [address] [place] BZO Negative Normal NEGATIVE The [facility] Comment on above: Performed By: #### A ABIDA ####[facility] Ttnfqorezu[address] [place] [address] [place] ELENA Negative Normal NEGATIVE The [facility] Comment on above: Performed By: #### A ABIDA ####[facility] [address] [place] [address] CUT-OFFS SEE BELOW Normal [facility] Comment on above: Result Comment: AMP [...] 300 ng/mL Performed By: #### A ABIDA ####[facility] Ehluzvpywl[address] [place] [address] DRUG CUT HEADER DRUG CLASS TEST SYSTEM CUT-OFF CONCENTRATIONS ARE FOLLOWS: Normal [facility] Comment on above: Performed By: #### A ABIDA ####[facility] Tcpxywtiqe[address] [place] [address] mAMP Negative Normal NEGATIVE The [facility] Comment on above: Performed By: #### A ABIDA ####[facility] Rcvbleoorm[address] [place] [address] MTD Negative Normal NEGATIVE The [facility] Comment on above: Performed By: #### A ABIDA ####[facility] Leqqiahfuq[address] [place] [address] OPI Negative Normal NEGATIVE The [facility] Comment on above: Performed By: #### A ABIDA ####[facility] Pwmkapvj[address] [place] [address] OXY Negative Normal NEGATIVE The [facility] Comment on above: Performed By: #### A ABIDA ####[facility] Suvbenqilg[address] [place] [address] PCP Negative Normal NEGATIVE The [facility] Comment on above: Performed By: #### A ABIDA ####[facility] Fyndepgyhl8880 [address] [place] PPX Negative Normal NEGATIVE The [facility] Comment on above: Performed By: #### A ABIDA ####[facility] Olszgfdcli7462 [address] [place] TCA Negative Normal NEGATIVE [facility] Comment on above: Performed By: #### A ABIDA ####[facility] Ilabffhfqi[address] [place] [address] [place] THC Negative Normal NEGATIVE The [facility] Comment on above: Performed By: #### A ABIDA ####[facility] Uups[address]ngr[address] [place] [address] [place] UA (CLEAN/CATCH) LEAD TECHNICAL ARCHITECT/MICRO I F IND.on 04-07-2018 Bilirubin (total) Negative Normal NEGATIVE The [facility] Comment on above: Performed By: #### A ABIDA ####[facility] Cgtkxuhope75[address] [place] [address] [place] BLOOD Negative Normal NEGATIVE The [facility] Comment on above: Performed By: #### A ABIDA ####[facility] Kqmbcyuugl[address] [place] [address] [place] Glucose mass conc Negative Normal NEGATIVE The [facility] Comment on above: Performed By: #### A ABIDA ####[facility] Cuoajrfyso52[address] [place] [address] [place] pH of blood 6.0 [pH] Normal 5-9 The [facility] Comment on above: Performed By: #### A ABIDA ####[facility] Togklffkaw[address] [place] [address] [place] Protein Negative Normal The [facility] Comment on above: Performed By: #### A ABIDA ####[facility] Wmiggjgkuv[address] [place] [address] [place] SPEC GRAVITY 1.020 Normal 1.005-<=1.025 The [facility] Comment on above: Performed By: #### A ABIDA ####[facility] Xynwgqvcze[address] [place] [address] [place] UR MICRO IND NOT INDICATED Normal The [facility] Comment on above: Performed By: #### A ABIDA ####[facility] Cmctifxqbz7583 [address] [place] Urine, clarity CLEAR Normal [facility] Comment on above: Performed By: #### A ABIDA ####[facility] Rltgkiqjdu3986 [address] [place] Urine, color LT. YELLOW Normal YELLOW The [facility] Comment on above: Performed By: #### A ABIDA ####[facility] Jqznlvutyo6317 [address] [place] Urine, ketones presence Negative Normal NEGATIVE The [facility] Comment on above: Performed By: #### A ABIDA ####[facility] Nonnyogtjg2418 [address] [place] Urine, nitrite presence Negative Normal NEGATIVE The [facility] Comment on above: Performed By: #### A ABIDA ####[facility] C[address]wzcmjuu4[address] [place] [address] [place] Urine, urobilinogen 0.2 {Jer'U}/dL Normal The [facility] Comment on above: Performed By: #### A ABIDA ####[facility] Vgpyfurncp[address] [place] [address] [place] WBC (Leukocytes) Negative Normal NEGATIVE The [facility] Comment on above: Performed By: #### A ABIDA ####[facility] Zvhzjakqlr7450 [address] [place] GROUP B STREPTon 03-21-2018 GBS Performed by [facility] , final report to follow Normal NEG FOR GBS The [facility] Comment on above: Performed By: #### A ABIDA ####[facility] Ttuimgtsec5333 [address] [place] RHOGAMon 02-04-2018 RHOGAM Status Information Issued Quantity 1 Product ID Rh Immune Globulin Lot Number [id number] Issue Date/Time [id number] Normal The [facility] Comment on above: Performed By: #### A ABIDA ####[facility] Fmdqufkqnh1899 [place], [place] [address]Ccgwix Karen CBC AUTO DIFFon 02-03-2018 Basophils Auto #/vol (Bld) 0.0 103/ul Normal 0.0-0.1 [facility] Comment on above: Performed By: #### P REGQNT ####[facility] W[address]avjovcms[address] [place], [place] [address] Basophils/100 WBC Auto (Bld) 0.3 % Normal 0.2-2.0 [facility] Comment on above: Performed By: #### P REGQNT ####[facility] Gdeuokunwp[address] [place], [place] [address] Eosinophils 0.2 103/ul Normal 0.0-0.7 [facility] Comment on above: Performed By: #### P REGQNT ####[facility] [address]wqpkinnf[address] [place] [address] [place] Eosinophils/100 leukocytes 1.1 % Normal 0.9-7.0 [facility] Comment on above: Performed By: #### P REGQNT ####[facility] Opmxkoixur[address]364[address] [place] [address] [place] Erythrocyte distribution width Auto Ratio (RBC) 13.2 % Normal 11.0-15.0 [facility] Comment on above: Performed By: #### P REGQNT ####[facility] Nvganbwlwx[address] [place], [place] [address] Erythrocytes (RBC) 3.91 106/ul Critically low 4.20-5.40 [facility] Comment on above: Performed By: #### P REGQNT ####[facility] Pgpirkuswu[address] [place], [place] [address] Hematocrit (HCT) 35.5 % Critically low 36.0-48.0 [facility] Comment on above: Performed By: #### P REGQNT ####[facility] Zewybsgams[address] [place], [place] [address] Hemoglobin mass conc (Bld) 12.0 g/dL Normal 12.0-16.0 The [facility] Comment on above: Performed By: #### P REGQNT ####[facility] Opphdpsapz0321 [place] [address] IG # 0.27 10e3/ul Critically high 0.00-0.03 [facility] Comment on above: Performed By: #### P REGQNT ####[facility] Xkleeftdtr6547 [place] [address] IG % 1.8 % Critically high 0.0-0.5 The [facility] Comment on above: Performed By: #### P REGQNT ####[facility] Soewfdrpsg8623 [address] [place] Lymphocytes 1.8 103/ul Normal 1.2-3.8 [facility] Comment on above: Performed By: #### P REGQNT ####[facility] Oetdqpekqf0001 [address] [place] Lymphocytes/100 leukocytes 11.9 % Critically low 20.5-60.0 [facility] Comment on above: Performed By: #### P REGQNT ####[facility] Uwkcqgnwwc3673 [address] [place] MANUAL DIFF REQ NO Normal [facility] Comment on above: Performed By: #### P REGQNT ####[facility] Qbxjdqgqru3918 [address] [place] MCH 30.7 pg Normal 26.7-34.0 [facility] Comment on above: Performed By: #### P REGQNT ####[facility] Ygcnwpczuv1404 [place] [id number] MCHC mass conc (RBC) 33.8 g/dL Normal 29.9-35.2 The [facility] Comment on above: Performed By: #### P REGQNT ####[facility] Tkfqfiuazp0843 [address] [place] MCV 90.8 fL Normal 81.0-99.0 [facility] Comment on above: Performed By: #### P REGQNT ####[facility] Ay[address]avtn[address] [place], [place] [address]Kfsdqb [place] Monocytes 0.6 103/ul Normal 0.3-0.8 [facility] Comment on above: Performed By: #### P REGQNT ####[facility] Xdxolufble0857 [place], [place] [address]Lsdikg [place] Monocytes/100 leukocytes 3.9 % Normal 1.7-12.0 [facility] Comment on above: Performed By: #### P REGQNT ####[facility] Knkktyvjut5478 [place], [place] [address]Kkedan [place] Neutrophils 12.1 103/ul Critically high 1.4-6.5 [facility] Comment on above: Performed By: #### P REGQNT ####[facility] Puphumnuqg4312 [place], [place] [address]Ggexdk [place] Neutrophils/100 WBC Auto (Bld) 81.0 % Critically high 43.0-75.0 [facility] Comment on above: Performed By: #### P REGQNT ####[facility] Tgfafgtpqf1291 [place], [place] [address]Ytprnq Karen Platelet mean volume (PMV) 11.6 fL Normal 9.5-13.5 [facility] Comment on above: Performed By: #### P REGQNT ####[facility] Rmvmnzscfd8149 [place], [place] [address]Pdzvkz [place] Platelets 133 103/ul Critically low 150-450 [facility] Comment on above: Performed By: #### P REGQNT ####[facility] Wvpjfrgyqo5189 [place], [place] [address]Lqhuaq [place] WBC (Leukocytes) 14.9 103/ul Critically high 4.0-11.0 Th [facility] Comment on above: Performed By: #### P REGQNT ####[facility] Exjmuzopnq1384 [place], [place] [address]Nsaxjz Karen GLUCOSE - 1HRon 02-03-2018 Glucose mass conc 120 mg/dL Critically high 74-106 Th [facility] Comment on above: Performed By: #### P REGQNT ####[facility] Hqyuqcahcv8294 [place], [place] [address]Jesyiv [place] TYPE AND SCREENon 02-03-2018 TYPE AND SCREEN Negative Normal [facility] Comment on above: Performed By: #### P REGQNT ####[facility] Atxwtthmtx5112 [place], [place] [address]Hglbxc [place] US PREG ANATOMY SINGLEon US PREG ANATOMY SINGLE [address] [place] [address] Patient: ESTUARDO JEREZ Exam Date: 11/25/2017DOB: 1990 Gender:F : FELISHA TATE . Admission #: [id number] : Order #: [id number] HERE TO VIEW EXAM RADIOLOGY REPORT PROCEDURE: [...] Ayala M.D. on 11/25/2017 at 20:18 Normal [facility] PAP ACOG PANEL 4: 21 to 29on 10-11-2017 LCPAP SEE SCANNED REPORT Normal [facility] Comment on above: Performed By: #### P REGQNT ####[facility] Hyjpeybwhz25[address] [place] HEMOGLOBIN ELECTOPHORESISon 09-27-2017 HBSREV Reviewed by Adithya Morton MD ([id number]) [facility] Comment on above: Result Comment: Test Performed By: [facility] [address] [place] [address] Appeals Analyst: Dalila Roman MD, PhD Performed By: #### P REGQNT ####[facility] W[address] [place], [place] [address]Gerken [place] Hemoglobin mass conc (Bld) None detected. Normal 0.0-1.8 [facility] Comment on above: Performed By: #### P REGQNT ####[facility] Ts[address]alrg[address] [place], [place] [address]Gerken [place] Hemoglobin mass conc (Bld) No abnormal hemoglobin identified. Normal [facility] Comment on above: Performed By: #### P REGQNT ####[facility] Trxcmvmfea4395 [place] [id number] [place] Hemoglobin mass conc (Bld) 97.4 % Normal [facility] Comment on above: Performed By: #### P REGQNT ####[facility] Mysgikqapj[address] [place], [place] [address]Gerken [place] Hemoglobin mass conc (Bld) 2.6 % Normal 1.5-3.5 [facility] Comment on above: Performed By: #### P REGQNT ####[facility] Bcfjqzjybl4257 [address] [place] Interpertation Hemoglobins were analyzed by capillary electrophoresis. Normal The [facility] Comment on above: Result Comment: Norm al pattern Performed By: #### P REGQNT ####[facility] [address] [place] [address] [place] VARICELLA IGGon 09-26-2017 Varicella Zoster IgG 1134.0 Index Value Normal The [facility] Comment on above: Result Comment: Inde x Values are Interpreted as Follows:Negative specimens <135.0Equivocal specimens 135.0 to 164.9Positive specimens >164.9The magnitude of the measured result is not indicative of theamount of antibody present. Test Performed By: [facility] [address] [place] [address] Appeals Analyst: Dalila Roman MD, PhD Performed By: #### P REGQNT ####[facility] [address] [place], [place] [address]en VZVGQL Positive Abnormal NEGAT The [facility] Comment on above: Result Comment: Pres ence of detectable VZV IgG antibodies. A positive resultgenerally indicatesexposure to the pathogen or administration of specificimmunoglobulins, but is no indication of active infection or stage of disease. Performed By: #### P REGQNT ####[facility] [address] [place] [address] [place] RPR/SERUMon 09-24-2017 Reagin antibody presence Non Reactive Normal NR The [facility] Comment on above: Result Comment: Test Performed By: [facility] [address] [place] [address] Appeals Analyst: Dalila Roman MD, PhD Performed By: #### P REGQNT ####[facility] M[address] [place] [address] [place] CBC AUTO DIFFon 09-23-2017 Basophils Auto #/vol (Bld) 0.0 103/ul Normal 0.0-0.1 [facility] Comment on above: Performed By: #### C BC ####[facility] Xxellukzqq3642 [address] [place] Basophils/100 WBC Auto (Bld) 0.3 % Normal 0.2-2.0 The [facility] Comment on above: Performed By: #### C BC ####[facility] [address] [place], [place] [address]ken [place] Eosinophils 0.2 103/ul Normal 0.0-0.7 [facility] Comment on above: Performed By: #### C BC ####[facility] Nrwyptxluz[address] [place], [place] [address]ken [place] Eosinophils/100 leukocytes 1.1 % Normal 0.9-7.0 The [facility] Comment on above: Performed By: #### C BC ####[facility] N[address] [place] [address] [place] Erythrocyte distribution width Auto Ratio (RBC) 12.5 % Normal 11.0-15.0 [facility] Comment on above: Performed By: #### C BC ####[facility] Nveerlrg[address] [place] [address] [place] Erythrocytes (RBC) 4.61 106/ul Normal 4.20-5.40 [facility] Comment on above: Performed By: #### C BC ####[facility] Nl[address] [place], [place] [address]Gerken [place] Hematocrit (HCT) 41.5 % Normal 36.0-48.0 The [facility] Comment on above: Performed By: #### C BC ####[facility] R[address]ve[address]hsv[address] [place], [place] [address]Gerken [place] Hemoglobin mass conc (Bld) 14.5 g/dL Normal 12.0-16.0 The [facility] Comment on above: Performed By: #### C BC ####[facility] Kr[address]fcvwbzv[address] [place], [place] [address]Gerken [place] IG # 0.07 10e3/ul Critically high 0.00-0.03 [facility] Comment on above: Performed By: #### C BC ####[facility] Ybsypyiegg[address] [place], [place] [address]Gerken [place] IG % 0.5 % Normal 0.0-0.5 [facility] Comment on above: Performed By: #### C BC ####[facility] Bfdwbasdro4160 [address] [place] Lymphocytes 2.2 103/ul Normal 1.2-3.8 The [facility] Comment on above: Performed By: #### C BC ####[facility] Uijlhqwxhi4525 [address] [place] Lymphocytes/100 leukocytes 15.4 % Critically low 20.5-60.0 [facility] Comment on above: Performed By: #### C BC ####[facility] Lmucfobpmq8563 [address] [place] MANUAL DIFF REQ NO Normal [facility] Comment on above: Performed By: #### C BC ####[facility] [address] [place] [address] [place] MCH 31.5 pg Normal 26.7-34.0 [facility] Comment on above: Performed By: #### C BC ####[facility] Zbelgkldxm1650 [address] [place] MCHC mass conc (RBC) 34.9 g/dL Normal 29.9-35.2 The [facility] Comment on above: Performed By: #### C BC ####[facility] Qoievniqxp3615 [address] [place] MCV 90.0 fL Normal 81.0-99.0 The [facility] Comment on above: Performed By: #### C BC ####[facility] Fqzkqlolnn1911 [address] [place] Monocytes 0.5 103/ul Normal 0.3-0.8 The [facility] Comment on above: Performed By: #### C BC ####[facility] Mxqpnbrqti0835 [address] [place] Monocytes/100 leukocytes 3.6 % Normal 1.7-12.0 The [facility] Comment on above: Performed By: #### C BC ####[facility] Rrwcrhamfh8632 [place], [place] [address]Ziuntm [place] Neutrophils 11.2 103/ul Critically high 1.4-6.5 [facility] Comment on above: Performed By: #### C BC ####[facility] Cqikuwsjen4886 [place] [address] Neutrophils/100 WBC Auto (Bld) 79.1 % Critically high 43.0-75.0 [facility] Comment on above: Performed By: #### C BC ####[facility] Enoexhpolo6875 [place] [address]Gerken [place] Platelet mean volume (PMV) 11.6 fL Normal 9.5-13.5 [facility] Comment on above: Performed By: #### C BC ####[facility] [address] [place] [address] [place] Platelets 170 103/ul Normal 150-450 [facility] Comment on above: Performed By: #### C BC ####[facility] [address]quhz[address] [place], [place] [address]Gerken [place] WBC (Leukocytes) 14.2 103/ul Critically high 4.0-11.0 [facility] Comment on above: Performed By: #### C BC ####[facility] [address] [place] [address] [place] HEP B SURFACE AGon 7 HEP B Surface Ag Negative Normal NEGATIVE [facility] Comment on above: Performed By: #### P REGQNT ####[facility] Aqjiqbroia1808 [place] [address]Gerken [place] HEP C ANTIBODYon 09-23-2017 Anti HCV Negative Normal NEGATIVE The [facility] Comment on above: Performed By: #### P REGQNT ####[facility] [address] [place] [address]Dwzjtr [place] HIV 1 AND 2 ABon 09-23-2017 HIV 1 AND 2 AB Negative Normal NEGATIVE [facility] Comment on above: Performed By: #### H IV12 ####[facility] V[address] [place], [place] [address] PREG QUANT HCGon 09-23-2017 HCG Qn SEE BELOW Normal [facility] Comment on above: Result Comment: 5-50 0-1 WEEK 40-300 1-2 WEEKS 100-1,000 2-3 WEEKS 500-6,000 3-4 WEEKS 5,000-200,000 1-2 MONTHS 10,000-100,000 2-3 MONTHS 3,000-50,000 2ND TRIMESTER 1,000-50,000 3RD TRIMESTER Performed By: #### P REGQNT ####[facility] Arotklwvri8128 [address] [place] HCG QUANT 39703.00 mIU/mL Normal [facility] Comment on above: Performed By: #### P REGQNT ####[facility] [address] [place] [address] [place] RUBELLA AB IGGon 09-23-2017 RUB HEADER SEE BELOW Normal [facility] Comment on above: Result Comment: or=1 5.0 IU/mL POSITIVE WHO considers levels >or= 10.0 IU/mL to be positive immune status Performed By: #### R UBG ####[facility] [address] [place] [address] [place] RUB IGG 33.1 IU/mL Normal [facility] Comment on above: Performed By: #### R UBG ####[facility] [address] [place] [address] [place] TYPE AND SCREENon 09-23-2017 TYPE AND SCREEN Negative Normal [facility] Comment on above: Performed By: #### T NS ####[facility] [address] [place] [address] [place] CULTURE URINEon 09-13-2017 CULTURE URINE Culture Observations : Final; See scanned report to follow in HPF Normal [facility] Comment on above: Performed By: #### C XUR ####[facility] [address] [place] [address] [place] UA RANDOM W/MICROSCOPICon Bilirubin (total) Negative Normal NEGATIVE [facility] Comment on above: Performed By: #### U AMIC ####[facility] Fwucpobwak9337 [place], [place] [address]Fakqzy [place] BLOOD Negative Normal NEGATIVE The [facility] Comment on above: Performed By: #### U AMIC ####[facility] Lfslllyhmk1476 [place], [place] [address]Gmkcvz [place] CAST NONE SEEN Normal NONE SEEN The [facility] Comment on above: Performed By: #### U AMIC ####[facility] Eqggokuczy7111 [place], [place] [address]Bsdjxk [place] Erythrocytes (RBC) NONE SEEN Normal 0-2 [facility] Comment on above: Performed By: #### U AMIC ####[facility] Foocdspbqe0598 [place] [address]Gerken [place] Glucose mass conc Negative Normal NEGATIVE The [facility] Comment on above: Performed By: #### U AMIC ####[facility] Wnkvnxzjrs8271 [place] [address]Gerken [place] MUCOUS NONE SEEN Normal NONE SEEN [facility] Comment on above: Performed By: #### U AMIC ####[facility] Alocndmhhl6684 [place] [address]Gerken [place] pH of blood 6.5 [pH] Normal 5-9 The [facility] Comment on above: Performed By: #### U AMIC ####[facility] Ysxjabayzn1042 [place] [address]Gerken [place] Protein Negative Normal The [facility] Comment on above: Performed By: #### U AMIC ####[facility] Ojqrhkskmz1716 [place] [address]Gerken [place] SPEC GRAVITY 1.015 Normal 1.005-<=1.025 [facility] Comment on above: Performed By: #### U AMIC ####[facility] Ldivjkyhzl2199 [place] [address]Gerken [place] Urine, bacteria in sediment TRACE Normal NONE SEEN [facility] Comment on above: Performed By: #### U AMIC ####[facility] Flqsgdauma1874 [place] [address]Gerken [place] Urine, clarity CLEAR Normal [facility] Comment on above: Performed By: #### U AMIC ####[facility] Htpwuevsvz6149 [place], [place] [address]Jfqbnn [place] Urine, color LT. YELLOW Normal YELLOW The [facility] Comment on above: Performed By: #### U AMIC ####[facility] Ydajyvafet7227 [place], [place] [address]Qakjks [place] Urine, crystals in sediment NONE SEEN Normal NONE SEEN The [facility] Comment on above: Performed By: #### U AMIC ####[facility] Scwgummnzp0733 [place], [place] [address]Xijleh [place] Urine, epithelial cells in sediment RARE Normal The [facility] Comment on above: Performed By: #### U AMIC ####[facility] Qbhhdqxuya8956 [place], [place] [address]Dwipjp [place] Urine, ketones presence Negative Normal NEGATIVE The [facility] Comment on above: Performed By: #### U AMIC ####[facility] Reqdxmmeef5070 [place], [place] [address]Pqmrqx [place] Urine, nitrite presence Negative Normal NEGATIVE The [facility] Comment on above: Performed By: #### U AMIC ####[facility] Kpoyhtozza9461 [place], [place] [address]Gkxvvs [place] Urine, urobilinogen 0.2 {Jer'U}/dL Normal The [facility] Comment on above: Performed By: #### U AMIC ####[facility] Czpbhxczbr0739 [place], [place] [address]Lgpieh [place] WBC (Leukocytes) NONE SEEN Normal NONE SEEN [facility] Comment on above: Performed By: #### U AMIC ####[facility] Pfzgdxrilu8903 [place], [place] [address]Hruzzh [place] WBC (Leukocytes) Negative Normal NEGATIVE [facility] Comment on above: Performed By: #### U AMIC ####[facility] Oibrhvivyv7740 [place], [place] [address]Quwdjx [place] ABO AND RH TYPEon 09-12-2017 ABO AND RH TYPE Negative Normal [facility] Comment on above: Performed By: #### A TRINYH ####[facility] Tiqfijnvtf5525 [place], [place] [address]Iabyzq [place] PREG QUANT HCGon 09-12-2017 HCG Qn SEE BELOW Normal [facility] Comment on above: Result Comment: 5-50 0-1 WEEK 40-300 1-2 WEEKS 100-1,000 2-3 WEEKS 500-6,000 3-4 WEEKS 5,000-200,000 1-2 MONTHS 10,000-100,000 2-3 MONTHS 3,000-50,000 2ND TRIMESTER 1,000-50,000 3RD TRIMESTER Performed By: #### P REGQNT ####[facility] Rmjmdecach0015 [address] [place] HCG QUANT 54561.00 mIU/mL Normal [facility] Comment on above: Performed By: #### P REGQNT ####[facility] Blhrnsiezc7630 [address] [place] PREG <14 WKSon 08-29-2017 US PREG <14 WKS [address] [place] [address] Patient: ESTUARDO JEREZ Exam Date: 08/29/2017DOB: 1990 Gender:F : FELISHA TATE . Admission #: [id number] : Order #: [id number] HERE TO VIEW EXAM RADIOLOGY REPORT PROCEDURE: [...] Ayala M.D. on 08/29/2017 at 16:03 Normal [facility] Vital Signs Date Time Vital Sign Value Performing Clinician Ozzy spring 12-27-2023 15:05-0500 Body weight 108.86 kg Sabrina Irma DO Work Phone: [facility] 12-27-2023 15:05-0500 Diastolic blood pressure 74 mm[Hg] Sabrina Irma DO Work Phone: [facility] 12-27-2023 15:05-0500 Systolic blood pressure 128 mm[Hg] Sabrina Irma DO Work Phone: [facility] Encounters Encounter Date Encounter Type [...] flow sheet Sabrina Irma DO Work Phone: [facility] Comment on above: Second [...] stick/tabl et rgnt non-auto w/o micrscp Sabrina [employer] DO Work Phone: Start: 11-29-2023 Cytp cerv/vag auto t hin layer prep mnl screen Sabrina [employer] DO Work Phone: Start: 04-07-2018 Delivery of Products of Conception, External Approach FELISHA TATE Start: 04-07-2018 Repair Perineum Skin , External Approach FELISHA TATE Plan of Treatment Date Care Activity Detail Author Start: 01-24-2024 End: 01-24-2024 Patient encounter procedure 01/24/2024 2:20 PM EST Routine [facility] [address] [id number] Aspen Gardner PA [address] [place] [address] [facility] Start: 12-27-2023 End: 12-27-2024 [...] Category Payer Unknown [employer] [id number] 2022-Present [phone] [address] [address] [place] [address] [id number] 2022 Unknown [id number] 1990 Unknown [id number] 59 1990 Unknown [id number] 59 1990 Unknown [id number] 59 1990 Unknown [id number] [id number] 59 1990 Unknown [id number] [id number] 59 1990 Unknown [id number] [id number] 59 1990 Unknown [id number] [id number] 59 1990 Unknown [id number] [id number] 59 1958 Unknown [id number] Social History Date Type Detail Facility Tobacco smoking stat [facility] Tobacco smoking consumption unknown [facility] Start: 08-13-2023 [facility] hcare Start: 1990 Sex Assigned At Not on file [facility] Gender identity Not on file [facility] [...] nursing note reviewed. Exam conducted with a hvac operations technician present. Vitals: There is no height or [...] DATE CREATED AUTHOR AUTHOR'S ORGANIZ ATION 03/28/2024 [facility] EPIC FOR RECORDS PERTAINING TO PATIENTS [...] BE BASED ON THE PRIMARY CLINICAL RECORDS. [facility] [employer] provides no warranty or guarantee of the accuracy or completeness of information in this document.
[2024-04-10 10:04] VITALS: BP 133/90; PULSE 100
[2024-04-10 10:28] VITALS: BP 139/79; PULSE 87
== END 2024-04-10 10:30 | disposition home or self-care (01) ==
LOC: FBCO 06:59 → FBC 09:54
PROVIDERS: Visit Provider Obstetrics & Gynecology
DX: Z34.93 Encounter for supervision of normal pregnancy, unspecified, third trimester (principal); O36.63X0 Maternal care for excessive fetal growth, third trimester, not applicable or unspecified
CPT/HCPCS: 59025; 87081

== ENCOUNTER 2024-04-10 20:59 | Outpatient (REF) | payer OTHER, SELFPAY ==
--- OUTSIDE RECORDS SUMMARY | 2024-04-10 21:03 | XMS_ITS | CCD ---
Author Organization [facility] Team Providers Care Interface Engineer Name Role Phone FELISHA TATE Unavailable Unavailable [...] Unavailable Primary Care Provider Unavailabl e ASPEN GRADNER Attending Unavailable SABRINA SOLIS Attending Unavailable ASPEN [...] UA Negative Negative - 1999(110) ++++ mg/dL [facility] Interpretation and review of laboratory results Normal [facility] Ketones, UA Negative Negative - 160(16) ++++ mg/dL [facility] Leukocytes, UA Negative Negative - 500+++ Gabrielle/mcL [facility] Nitrite, UA Negative Negative - Positive [facility] pH, UA 7.0 5 - 9 [facility] Protein, UA Negative Negative - 1999(20) ++++ mg/dL [facility] Spec Grav, UA 1.020 1 - 1.03 [facility] Urobilinogen, UA 0.2 0.2 - 12 mg/dL [facility] Cervical or vaginal smear or scraping studyon 11-29-2023 [facility] CHLAMYDIA/GONOCOCCUS ALEX W/C ONF. (SWAB/Uon 04-26-2018 Chlamydia Trach ALEX Negative Normal Negative [facility] Comment on above: Performed By: #### A ABIDA ####[facility] [address] [place], [place] [id number] N. Gonorrhoeae ALEX Negative Normal Negative [facility] Comment on above: Performed By: #### A ABIDA ####[facility] Jhfyvum[address] [place], [place] [address] CBC AUTO DIFFon 04-08-2018 Basophils Auto #/vol (Bld) 0.1 103/ul Normal 0.0-0.1 [facility] Comment on above: Performed By: #### A ABIDA ####[facility] Y[address]jj[address] [place], [place] [address] Basophils/100 WBC Auto (Bld) 0.3 % Normal 0.2-2.0 [facility] Comment on above: Performed By: #### A AIBDA ####[facility] Lgqrfugcgi[address] [place], [place] [address] Eosinophils 0.2 103/ul Normal 0.0-0.7 [facility] Comment on above: Performed By: #### A ABIDA ####[facility] Leowedjxqh29[address] [place], [place] [address] Eosinophils/100 leukocytes 1.2 % Normal 0.9-7.0 [facility] Comment on above: Performed By: #### A ABIDA ####[facility] Gguccbprwk3792 [address] [place] Erythrocyte distribution width Auto Ratio (RBC) 14.3 % Normal 11.0-15.0 [facility] Comment on above: Performed By: #### A ABIDA ####[facility] Psvbjdakcx[address] [place] [address] [place] Erythrocytes (RBC) 3.91 106/ul Critically low 4.20-5.40 [facility] Comment on above: Performed By: #### A ABIDA ####[facility] Zovrnvxlyl[address] [place] [address] [place] Hematocrit (HCT) 34.7 % Critically low 36.0-48.0 [facility] Comment on above: Performed By: #### A ABIDA ####[facility] Z[address]uhlhaqqt[address] [place] [address] [place] Hemoglobin mass conc (Bld) 11.8 g/dL Critically low 12.0-16.0 [facility] Comment on above: Performed By: #### A ABIDA ####[facility] Iqqqlbjzdd[address] [place] [address] [place] IG # 0.18 10e3/ul Critically high 0.00-0.03 [facility] Comment on above: Performed By: #### A ABIDA ####[facility] Kwenhrwjjq[address] [place] [address] [place] IG % 1.0 % Critically high 0.0-0.5 [facility] Comment on above: Performed By: #### A ABIDA ####[facility] Eqlvuurglh[address] [place] [address] [place] Lymphocytes 2.1 103/ul Normal 1.2-3.8 [facility] Comment on above: Performed By: #### A ABIDA ####[facility] Qrvibfrvij4[address] [place] [address] [place] Lymphocytes/100 leukocytes 11.9 % Critically low 20.5-60.0 [facility] Comment on above: Performed By: #### A ABIDA ####[facility] Aoolnhswbg6[address] [place] [id number] MANUAL DIFF REQ NO Normal [facility] Comment on above: Performed By: #### A ABIDA ####[facility] Vgtbnzttub9672 [place] [id number] MCH 30.2 pg Normal 26.7-34.0 [facility] Comment on above: Performed By: #### A ABIDA ####[facility] Whpgdnykpr4998 [place] [id number] MCHC mass conc (RBC) 34.0 g/dL Normal 29.9-35.2 [facility] Comment on above: Performed By: #### A ABIDA ####[facility] Dzjctejbhx[address] [place], [place] [address] MCV 88.7 fL Normal 81.0-99.0 [facility] Comment on above: Performed By: #### A ABIDA ####[facility] Kthkpcjvog7895 [place] [id number] Monocytes 1.1 103/ul Critically high 0.3-0.8 [facility] Comment on above: Performed By: #### A ABIDA ####[facility] Pqkyersvjl1555 [place] [id number] Monocytes/100 leukocytes 6.2 % Normal 1.7-12.0 [facility] Comment on above: Performed By: #### A ABIDA ####[facility] Bwuuuqelen2528 [place] [id number] Neutrophils 14.1 103/ul Critically high 1.4-6.5 [facility] Comment on above: Performed By: #### A ABIDA ####[facility] Jjobqujvdu3578 [place] [id number] Neutrophils/100 WBC Auto (Bld) 79.4 % Critically high 43.0-75.0 [facility] Comment on above: Performed By: #### A ABIDA ####[facility] Aoslxonphv3703 [place] [address] Platelet mean volume (PMV) 12.2 fL Normal 9.5-13.5 [facility] Comment on above: Performed By: #### A ABIDA ####[facility] Qrsyisjcln9443 [place] [id number] Platelets 118 103/ul Critically low 150-450 [facility] Comment on above: Performed By: #### A ABIDA ####[facility] Rxdwrqkfch0925 [address] [place] WBC (Leukocytes) 17.7 103/ul Critically high 4.0-11.0 [facility] Comment on above: Performed By: #### A ABIDA ####[facility] Syztcjppkf[address] [place] [address] [place] SCREENon 04-08-2018 SCREEN Negative Normal [facility] Comment on above: Performed By: #### A ABIDA ####[facility] Pflnxsztxa[address] [place] [address] [place] RHOGAMon 04-08-2018 RHOGAM Status Information Issued Quantity 1 Product ID Rh Immune Globulin Lot Number [id number] Issue Date/Time [id number] Normal [facility] Comment on above: Performed By: #### A ABIDA ####[facility] Rrslowwkvv[address] [place] [address] [place] CBC AUTO DIFFon 04-07-2018 Basophils Auto #/vol (Bld) 0.1 103/ul Normal 0.0-0.1 [facility] Comment on above: Performed By: #### A ABIDA ####[facility] Ehlztyicey[address] [place] [address] [place] Basophils/100 WBC Auto (Bld) 0.3 % Normal 0.2-2.0 [facility] Comment on above: Performed By: #### A ABIDA ####[facility] Vpmgvghvog[address] [place] [address] [place] Eosinophils 0.2 103/ul Normal 0.0-0.7 [facility] Comment on above: Performed By: #### A ABIDA ####[facility] Zcsdwijupc0562 [address] [place] Eosinophils/100 leukocytes 1.0 % Normal 0.9-7.0 [facility] Comment on above: Performed By: #### A ABIDA ####[facility] Qygmhfonmi2280 [address] [place] Erythrocyte distribution width Auto Ratio (RBC) 14.0 % Normal 11.0-15.0 [facility] Comment on above: Performed By: #### A ABIDA ####[facility] Urhtokyopu[address] [place] [address] [place] Erythrocytes (RBC) 4.39 106/ul Normal 4.20-5.40 [facility] Comment on above: Performed By: #### A ABIDA ####[facility] Hzdmmgbguk[address] [place] [address] [place] Hematocrit (HCT) 38.7 % Normal 36.0-48.0 [facility] Comment on above: Performed By: #### A ABIDA ####[facility] Mzalteozmu4[address] [place] [address] [place] Hemoglobin mass conc (Bld) 13.4 g/dL Normal 12.0-16.0 [facility] Comment on above: Performed By: #### A ABIDA ####[facility] Dvdyxhfbwj[address] [place] [address] [place] IG # 0.30 10e3/ul Critically high 0.00-0.03 [facility] Comment on above: Performed By: #### A ABIDA ####[facility] Txsgivkfxh3271 [address] [place] IG % 1.4 % Critically high 0.0-0.5 [facility] Comment on above: Performed By: #### A ABIDA ####[facility] Dxhnblcrwx0926 [address] [place] Lymphocytes 2.6 103/ul Normal 1.2-3.8 [facility] Comment on above: Performed By: #### A ABIDA ####[facility] Yvluaifbjn2843 [place] [id number] Lymphocytes/100 leukocytes 12.6 % Critically low 20.5-60.0 [facility] Comment on above: Performed By: #### A ABIDA ####[facility] Pjhmnvlprg7869 [place] [id number] MANUAL DIFF REQ NO Normal [facility] Comment on above: Performed By: #### A ABIDA ####[facility] T[address]pcqemqxh7[address] [place] [address] [place] MCH 30.5 pg Normal 26.7-34.0 [facility] Comment on above: Performed By: #### A ABIDA ####[facility] Hcmrafzlpk[address] [place] [address] [place] MCHC mass conc (RBC) 34.6 g/dL Normal 29.9-35.2 [facility] Comment on above: Performed By: #### A ABIDA ####[facility] Uadsxnekuf[address] [place] [address] [place] MCV 88.2 fL Normal 81.0-99.0 [facility] Comment on above: Performed By: #### A ABIDA ####[facility] Bquixwofcw[address] [place] [address] [place] Monocytes 1.2 103/ul Critically high 0.3-0.8 [facility] Comment on above: Performed By: #### A ABIDA ####[facility] Uogvanudok[address] [place], [place] [address] Monocytes/100 leukocytes 5.5 % Normal 1.7-12.0 [facility] Comment on above: Performed By: #### A ABIDA ####[facility] Fdxvbxqjpb[address] [place], [place] [address] Neutrophils 16.5 103/ul Critically high 1.4-6.5 [facility] Comment on above: Performed By: #### A ABIDA ####[facility] Ahdpwwtdhk0601 [address] [place] Neutrophils/100 WBC Auto (Bld) 79.2 % Critically high 43.0-75.0 [facility] Comment on above: Performed By: #### A ABIDA ####[facility] Funtdxgcju2481 [address] [place] Platelet mean volume (PMV) 12.2 fL Normal 9.5-13.5 [facility] Comment on above: Performed By: #### A ABIDA ####[facility] Uebscupflp3432 [address] [place] Platelets 139 103/ul Critically low 150-450 [facility] Comment on above: Performed By: #### A ABIDA ####[facility] Yiuutrghxb5812 [address] [place] WBC (Leukocytes) 20.8 103/ul Critically high 4.0-11.0 [facility] Comment on above: Performed By: #### A ABIDA ####[facility] Pteuvajmfa[address] [place] [address] [place] DRUG SCREEN RAPID (URINE)on 04-07-2018 AMP Negative Normal NEGATIVE [facility] Comment on above: Performed By: #### A ABIDA ####[facility] Ffcvmjjwen[address] [place] [address] [place] BAR Negative Normal NEGATIVE [facility] Comment on above: Performed By: #### A ABIDA ####[facility] Paxgdydzpc[address] [place] [address] [place] BUP Negative Normal NEGATIVE [facility] Comment on above: Performed By: #### A ABIDA ####[facility] Ysdovgwkun[address] [place] [address] [place] BZO Negative Normal NEGATIVE [facility] Comment on above: Performed By: #### A ABIDA ####[facility] Iaasslyazk8[address] [place] [address] [place] ELENA Negative Normal NEGATIVE [facility] Comment on above: Performed By: #### A ABIDA ####[facility] Wxlqxeawgw[address] [place] [address] CUT-OFFS SEE BELOW Normal [facility] Comment on above: Result Comment: AMP [...] 300 ng/mL Performed By: #### A ABIDA ####[facility] Ykfeemighc[address] [place] [address] DRUG CUT HEADER DRUG CLASS TEST SYSTEM CUT-OFF CONCENTRATIONS ARE FOLLOWS: Normal [facility] Comment on above: Performed By: #### A ABIDA ####[facility] Lokuixnlxb[address] [place] [address] mAMP Negative Normal NEGATIVE [facility] Comment on above: Performed By: #### A ABIDA ####[facility] Grhdmaqcce[address] [place] [address] MTD Negative Normal NEGATIVE [facility] Comment on above: Performed By: #### A ABIDA ####[facility] [address]alpkiyxs[address] [place] [address] OPI Negative Normal NEGATIVE [facility] Comment on above: Performed By: #### A ABIDA ####[facility] Xpgfxwrwib[address] [place] [address] OXY Negative Normal NEGATIVE [facility] Comment on above: Performed By: #### A ABIDA ####[facility] Bifbqstgmu[address] [place] [address] PCP Negative Normal NEGATIVE [facility] Comment on above: Performed By: #### A ABIDA ####[facility] Wdjioppxzm0178 [address] [place] PPX Negative Normal NEGATIVE [facility] Comment on above: Performed By: #### A ABIDA ####[facility] Klucijtpxd6478 [address] [place] TCA Negative Normal NEGATIVE [facility] Comment on above: Performed By: #### A ABIDA ####[facility] Nkgljmexjn[address] [place] [address] [place] THC Negative Normal NEGATIVE [facility] Comment on above: Performed By: #### A ABIDA ####[facility] Sbmpwuxzlr[address] [place] [address] [place] UA (CLEAN/CATCH) DRUG ABUSE SOCIAL WORKER/MICRO I F IND.on 04-07-2018 Bilirubin (total) Negative Normal NEGATIVE [facility] Comment on above: Performed By: #### A ABIDA ####[facility] Byvlqzkxhy[address] [place] [address] [place] BLOOD Negative Normal NEGATIVE [facility] Comment on above: Performed By: #### A ABIDA ####[facility] Srrwgpvcjh[address] [place] [address] [place] Glucose mass conc Negative Normal NEGATIVE [facility] Comment on above: Performed By: #### A ABIDA ####[facility] Xswblnwtdi[address] [place] [address] [place] pH of blood 6.0 [pH] Normal 5-9 [facility] Comment on above: Performed By: #### A ABIDA ####[facility] Jftiylxace[address] [place] [address] [place] Protein Negative Normal [facility] Comment on above: Performed By: #### A ABIDA ####[facility] Nxsbzahcsn[address] [place] [address] [place] SPEC GRAVITY 1.020 Normal 1.005-<=1.025 [facility] Comment on above: Performed By: #### A ABIDA ####[facility] Ompplsaqnl[address] [place] [address] [place] UR MICRO IND NOT INDICATED Normal [facility] Comment on above: Performed By: #### A ABIDA ####[facility] Zfojvmeeel7891 [address] [place] Urine, clarity CLEAR Normal [facility] Comment on above: Performed By: #### A ABIDA ####[facility] Iiatypdbkh1894 [address] [place] Urine, color LT. YELLOW Normal YELLOW [facility] Comment on above: Performed By: #### A ABIDA ####[facility] Eehomftezd7692 [address] [place] Urine, ketones presence Negative Normal NEGATIVE [facility] Comment on above: Performed By: #### A ABIDA ####[facility] Fluqjstuad4019 [address] [place] Urine, nitrite presence Negative Normal NEGATIVE [facility] Comment on above: Performed By: #### A ABIDA ####[facility] Zpmarkzzfs7[address] [place] [address] [place] Urine, urobilinogen 0.2 {Jer'U}/dL Normal [facility] Comment on above: Performed By: #### A ABIDA ####[facility] [address]qxfsxh[address] [place] [address] [place] WBC (Leukocytes) Negative Normal NEGATIVE [facility] Comment on above: Performed By: #### A ABIDA ####[facility] Uwcwbpzpdx1395 [address] [place] GROUP B STREPTon 03-21-2018 GBS Performed by [facility] , final report to follow Normal NEG FOR GBS [facility] Comment on above: Performed By: #### A ABIDA ####[facility] Fygdmjokdc2765 [address] [place] RHOGAMon 02-04-2018 RHOGAM Status Information Issued Quantity 1 Product ID Rh Immune Globulin Lot Number [id number] Issue Date/Time [id number] Normal [facility] Comment on above: Performed By: #### A ABIDA ####[facility] Rhygbbanel8102 [employer], [place] [address]Qaxrjo Karen CBC AUTO DIFFon 02-03-2018 Basophils Auto #/vol (Bld) 0.0 103/ul Normal 0.0-0.1 [facility] Comment on above: Performed By: #### P REGQNT ####[facility] Rayfqvkysj[address] [place], [place] [address] Basophils/100 WBC Auto (Bld) 0.3 % Normal 0.2-2.0 [facility] Comment on above: Performed By: #### P REGQNT ####[facility] Aymwodsfnc[address] [place], [place] [address] Eosinophils 0.2 103/ul Normal 0.0-0.7 [facility] Comment on above: Performed By: #### P REGQNT ####[facility] Tvvmpcfztp[address] [place] [address] [place] Eosinophils/100 leukocytes 1.1 % Normal 0.9-7.0 [facility] Comment on above: Performed By: #### P REGQNT ####[facility] Cugtddsfvs[address] [place] [address] [place] Erythrocyte distribution width Auto Ratio (RBC) 13.2 % Normal 11.0-15.0 [facility] Comment on above: Performed By: #### P REGQNT ####[facility] Kspitgsjvv[address] [place], [place] [address] Erythrocytes (RBC) 3.91 106/ul Critically low 4.20-5.40 [facility] Comment on above: Performed By: #### P REGQNT ####[facility] Omzguustvp[address] [place], [place] [address] Hematocrit (HCT) 35.5 % Critically low 36.0-48.0 [facility] Comment on above: Performed By: #### P REGQNT ####[facility] Cmjsfprqyl[address] [place], [place] [address] Hemoglobin mass conc (Bld) 12.0 g/dL Normal 12.0-16.0 [facility] Comment on above: Performed By: #### P REGQNT ####[facility] Jpwdvqdpun7610 [place] [address] IG # 0.27 10e3/ul Critically high 0.00-0.03 [facility] Comment on above: Performed By: #### P REGQNT ####[facility] Bvrlqqnjhu6545 [place] [address] IG % 1.8 % Critically high 0.0-0.5 [facility] Comment on above: Performed By: #### P REGQNT ####[facility] Clzrtosouc0106 [address] [place] Lymphocytes 1.8 103/ul Normal 1.2-3.8 [facility] Comment on above: Performed By: #### P REGQNT ####[facility] Ykigqrehcm4935 [address] [place] Lymphocytes/100 leukocytes 11.9 % Critically low 20.5-60.0 [facility] Comment on above: Performed By: #### P REGQNT ####[facility] Gjbquvkrql2603 [address] [place] MANUAL DIFF REQ NO Normal [facility] Comment on above: Performed By: #### P REGQNT ####[facility] Urgnnoygpf8061 [address] [place] MCH 30.7 pg Normal 26.7-34.0 [facility] Comment on above: Performed By: #### P REGQNT ####[facility] Qmtlktuuvu3413 [place] [address] MCHC mass conc (RBC) 33.8 g/dL Normal 29.9-35.2 [facility] Comment on above: Performed By: #### P REGQNT ####[facility] Yvqzjeukjt7435 [address] [place] MCV 90.8 fL Normal 81.0-99.0 [facility] Comment on above: Performed By: #### P REGQNT ####[facility] Fhwvqudptl7914 [employer], [place] [address]Rbhpbt [place] Monocytes 0.6 103/ul Normal 0.3-0.8 [facility] Comment on above: Performed By: #### P REGQNT ####[facility] Onzznrhzbq3612 [employer], [place] [address]Rtvtpn [place] Monocytes/100 leukocytes 3.9 % Normal 1.7-12.0 [facility] Comment on above: Performed By: #### P REGQNT ####[facility] Acdlbfelpt1156 [employer], [place] [address]Bkznag [place] Neutrophils 12.1 103/ul Critically high 1.4-6.5 [facility] Comment on above: Performed By: #### P REGQNT ####[facility] Kljqxhbymz2014 [employer], [place] [address]Zinnwc [place] Neutrophils/100 WBC Auto (Bld) 81.0 % Critically high 43.0-75.0 [facility] Comment on above: Performed By: #### P REGQNT ####[facility] Wxcqvvnlul3306 [employer], [place] [address]Lmrmkv Karen Platelet mean volume (PMV) 11.6 fL Normal 9.5-13.5 [facility] Comment on above: Performed By: #### P REGQNT ####[facility] Ciidivewvd8262 [employer], [place] [address]Lethkr [place] Platelets 133 103/ul Critically low 150-450 [facility] Comment on above: Performed By: #### P REGQNT ####[facility] Ljlkkukoqn7963 [employer], [place] [address]Erzsmi [place] WBC (Leukocytes) 14.9 103/ul Critically high 4.0-11.0 [facility] Comment on above: Performed By: #### P REGQNT ####[facility] Mvcebqxfyr4168 [employer], [place] [address]Kufgzl Karen GLUCOSE - 1HRon 02-03-2018 Glucose mass conc 120 mg/dL Critically high 74-106 [facility] Comment on above: Performed By: #### P REGQNT ####[facility] Tlbwfdvway0190 [employer], [place] [address]Wxstmv [place] TYPE AND SCREENon 02-03-2018 TYPE AND SCREEN Negative Normal [facility] Comment on above: Performed By: #### P REGQNT ####[facility] Yanvzcqrfv5802 [employer], [place] [address]Nalhzb [place] US PREG ANATOMY SINGLEon US PREG ANATOMY SINGLE [address] [place] [address] Patient: ESTUARDO JEREZ Exam Date: 11/25/2017DOB: 1990 Gender:F : FELISHA TATE . Admission #: [id number] : Order #: [id number] HERE TO VIEW EXAM RADIOLOGY REPORT PROCEDURE: [...] Ayala M.D. on 11/25/2017 at 20:18 Normal [facility] PAP ACOG PANEL 4: 21 to 29on 10-11-2017 LCPAP SEE SCANNED REPORT Normal [facility] Comment on above: Performed By: #### P REGQNT ####[facility] Rocjcwrpzs5152 [address] [place] HEMOGLOBIN ELECTOPHORESISon 09-27-2017 HBSREV Reviewed by Adithya Morton MD ([id number]) [facility] Comment on above: Result Comment: Test Performed By: [facility] [address] [place] [address] [employer] Tender: Dalila Roman MD, PhD Performed By: #### P REGQNT ####[facility] Ouybojnqfr[address] [place], [place] [address] Hemoglobin mass conc (Bld) None detected. Normal 0.0-1.8 [facility] Comment on above: Performed By: #### P REGQNT ####[facility] Vxirluprrt[address] [place], [place] [address] Hemoglobin mass conc (Bld) No abnormal hemoglobin identified. Normal [facility] Comment on above: Performed By: #### P REGQNT ####[facility] Vhixypexpx8982 [place] [address] Hemoglobin mass conc (Bld) 97.4 % Normal [facility] Comment on above: Performed By: #### P REGQNT ####[facility] Kcjknkpmfx[address] [place], [place] [address] [place] Hemoglobin mass conc (Bld) 2.6 % Normal 1.5-3.5 [facility] Comment on above: Performed By: #### P REGQNT ####[facility] Pnqxgyzcum4641 [address] [place] Interpertation Hemoglobins were analyzed by capillary electrophoresis. Normal [facility] Comment on above: Result Comment: Norm al pattern Performed By: #### P REGQNT ####[facility] Byrsrifgsa[address] [place] [address] [place] VARICELLA IGGon 09-26-2017 Varicella Zoster IgG 1134.0 Index Value Normal [facility] Comment on above: Result Comment: Inde x Values are Interpreted as Follows:Negative specimens <135.0Equivocal specimens 135.0 to 164.9Positive specimens >164.9The magnitude of the measured result is not indicative of theamount of antibody present. Test Performed By: [facility] [employer] [address] [place] [address] [employer] Steamer Tender: Dalila Roman MD, PhD Performed By: #### P REGQNT ####[facility] [address] [place], [place] [address]en VZVGQL Positive Abnormal NEGAT [facility] Comment on above: Result Comment: Pres ence of detectable VZV IgG antibodies. A positive resultgenerally indicatesexposure to the pathogen or administration of specificimmunoglobulins, but is no indication of active infection or stage of disease. Performed By: #### P REGQNT ####[facility] [address] [place] [address] [place] RPR/SERUMon 09-24-2017 Reagin antibody presence Non Reactive Normal NR [facility] Comment on above: Result Comment: Test Performed By: [facility] [employer] [address] [place] [address] [employer] Tender: Dalila Roman MD, PhD Performed By: #### P REGQNT ####[facility] E[address] [place] [address] [place] CBC AUTO DIFFon 09-23-2017 Basophils Auto #/vol (Bld) 0.0 103/ul Normal 0.0-0.1 [facility] Comment on above: Performed By: #### C BC ####[facility] Hcfslpogvv9572 [address] [place] Basophils/100 WBC Auto (Bld) 0.3 % Normal 0.2-2.0 [facility] Comment on above: Performed By: #### C BC ####[facility] Yid[address] [place], [place] [address]ken [place] Eosinophils 0.2 103/ul Normal 0.0-0.7 [facility] Comment on above: Performed By: #### C BC ####[facility] U[address] [place], [place] [address] [place] Eosinophils/100 leukocytes 1.1 % Normal 0.9-7.0 [facility] Comment on above: Performed By: #### C BC ####[facility] [address] [place] [address] [place] Erythrocyte distribution width Auto Ratio (RBC) 12.5 % Normal 11.0-15.0 [facility] Comment on above: Performed By: #### C BC ####[facility] Szhr[address] [place] [address] [place] Erythrocytes (RBC) 4.61 106/ul Normal 4.20-5.40 [facility] Comment on above: Performed By: #### C BC ####[facility] Taewt[address] [place], [place] [address]Gerken [place] Hematocrit (HCT) 41.5 % Normal 36.0-48.0 [facility] Comment on above: Performed By: #### C BC ####[facility] Mjllple[address] [place], [place] [address]Gerken [place] Hemoglobin mass conc (Bld) 14.5 g/dL Normal 12.0-16.0 [facility] Comment on above: Performed By: #### C BC ####[facility] Uuarfjrsfq[address] [place], [place] [address]Gerken [place] IG # 0.07 10e3/ul Critically high 0.00-0.03 [facility] Comment on above: Performed By: #### C BC ####[facility] L[address]ils[address]xy[address] [place], [place] [address]Gerken [place] IG % 0.5 % Normal 0.0-0.5 [facility] Comment on above: Performed By: #### C BC ####[facility] Itmtruotwy8274 [address] [place] Lymphocytes 2.2 103/ul Normal 1.2-3.8 [facility] Comment on above: Performed By: #### C BC ####[facility] Svjmtxfnhr0490 [address] [place] Lymphocytes/100 leukocytes 15.4 % Critically low 20.5-60.0 [facility] Comment on above: Performed By: #### C BC ####[facility] Qehgyfcjwh1161 [address] [place] MANUAL DIFF REQ NO Normal [facility] Comment on above: Performed By: #### C BC ####[facility] [address] [place] [address] [place] MCH 31.5 pg Normal 26.7-34.0 [facility] Comment on above: Performed By: #### C BC ####[facility] Mxmtpokqly5853 [address] [place] MCHC mass conc (RBC) 34.9 g/dL Normal 29.9-35.2 [facility] Comment on above: Performed By: #### C BC ####[facility] Zsfchzzski8246 [address] [place] MCV 90.0 fL Normal 81.0-99.0 [facility] Comment on above: Performed By: #### C BC ####[facility] Xbyjoewmkr3537 [address] [place] Monocytes 0.5 103/ul Normal 0.3-0.8 [facility] Comment on above: Performed By: #### C BC ####[facility] Ydwbgegbot4195 [address] [place] Monocytes/100 leukocytes 3.6 % Normal 1.7-12.0 [facility] Comment on above: Performed By: #### C BC ####[facility] [address]ft[address] [employer], [place] [address]Oriurj [place] Neutrophils 11.2 103/ul Critically high 1.4-6.5 [facility] Comment on above: Performed By: #### C BC ####[facility] Ucy[address] [place] [address] Neutrophils/100 WBC Auto (Bld) 79.1 % Critically high 43.0-75.0 [facility] Comment on above: Performed By: #### C BC ####[facility] Mes[address]iklctu7568 [place] [address]Gerken [place] Platelet mean volume (PMV) 11.6 fL Normal 9.5-13.5 [facility] Comment on above: Performed By: #### C BC ####[facility] [address] [place] [address] [place] Platelets 170 103/ul Normal 150-450 [facility] Comment on above: Performed By: #### C BC ####[facility] [address] [place], [place] [address]Gerken [place] WBC (Leukocytes) 14.2 103/ul Critically high 4.0-11.0 [facility] Comment on above: Performed By: #### C BC ####[facility] [address] [place] [address] [place] HEP B SURFACE AGon 7 HEP B Surface Ag Negative Normal NEGATIVE [facility] Comment on above: Performed By: #### P REGQNT ####[facility] Oxfnidxnxw2150 [place] [address]ken [place] HEP C ANTIBODYon 09-23-2017 Anti HCV Negative Normal NEGATIVE [facility] Comment on above: Performed By: #### P REGQNT ####[facility] [address] [place] [address]Rqbjql [place] HIV 1 AND 2 ABon 09-23-2017 HIV 1 AND 2 AB Negative Normal NEGATIVE [facility] Comment on above: Performed By: #### H IV12 ####[facility] [address]ft[address]ou[address] [place], [place] [address] PREG QUANT HCGon 09-23-2017 HCG Qn SEE BELOW Normal [facility] Comment on above: Result Comment: 5-50 0-1 WEEK 40-300 1-2 WEEKS 100-1,000 2-3 WEEKS 500-6,000 3-4 WEEKS 5,000-200,000 1-2 MONTHS 10,000-100,000 2-3 MONTHS 3,000-50,000 2ND TRIMESTER 1,000-50,000 3RD TRIMESTER Performed By: #### P REGQNT ####[facility] Pobltteaxk1895 [address] [place] HCG QUANT 74593.00 mIU/mL Normal [facility] Comment on above: Performed By: #### P REGQNT ####[facility] [address]uxom[address] [place] [address] [place] RUBELLA AB IGGon 09-23-2017 RUB HEADER SEE BELOW Normal [facility] Comment on above: Result Comment: or=1 5.0 IU/mL POSITIVE WHO considers levels >or= 10.0 IU/mL to be positive immune status Performed By: #### R UBG ####[facility] [address] [place] [address] [place] RUB IGG 33.1 IU/mL Normal [facility] Comment on above: Performed By: #### R UBG ####[facility] Q[address]vybf[address] [place] [address] [place] TYPE AND SCREENon 09-23-2017 TYPE AND SCREEN Negative Normal [facility] Comment on above: Performed By: #### T NS ####[facility] [address]qs[address] [place] [address] [place] CULTURE URINEon 09-13-2017 CULTURE URINE Culture Observations : Final; See scanned report to follow in HPF Normal [facility] Comment on above: Performed By: #### C XUR ####[facility] [address] [place] [address] [place] UA RANDOM W/MICROSCOPICon Bilirubin (total) Negative Normal NEGATIVE [facility] Comment on above: Performed By: #### U AMIC ####[facility] P[address]q10[address] [employer], [place] [address]Eoiljq [place] BLOOD Negative Normal NEGATIVE [facility] Comment on above: Performed By: #### U AMIC ####[facility] Z[address]rrachqp1026 [employer], [place] [address]Ulqbxe [place] CAST NONE SEEN Normal NONE SEEN [facility] Comment on above: Performed By: #### U AMIC ####[facility] Ztbmgpbtgh2845 [employer], [place] [address]Vgvfmz [place] Erythrocytes (RBC) NONE SEEN Normal 0-2 The [facility] Comment on above: Performed By: #### U AMIC ####[facility] Xnjklvicxq4173 [place] [address]Gerken [place] Glucose mass conc Negative Normal NEGATIVE [facility] Comment on above: Performed By: #### U AMIC ####[facility] P[address]sxdrnpk6714 [place] [address] MUCOUS NONE SEEN Normal NONE SEEN [facility] Comment on above: Performed By: #### U AMIC ####[facility] C[address]btrsgnp6801 [place] [address]Gerken [place] pH of blood 6.5 [pH] Normal 5-9 [facility] Comment on above: Performed By: #### U AMIC ####[facility] Sfuelufytd7912 [place] [address]ken [place] Protein Negative Normal [facility] Comment on above: Performed By: #### U AMIC ####[facility] Jlqoesondk3125 [place] [address] SPEC GRAVITY 1.015 Normal 1.005-<=1.025 [facility] Comment on above: Performed By: #### U AMIC ####[facility] Frkprmuqvd8805 [place] [address]ken [place] Urine, bacteria in sediment TRACE Normal NONE SEEN [facility] Comment on above: Performed By: #### U AMIC ####[facility] Kyzkhqanwy8274 [place] [address] Urine, clarity CLEAR Normal [facility] Comment on above: Performed By: #### U AMIC ####[facility] K[address]wsg6960 [employer], [place] [address]Wwziew [place] Urine, color LT. YELLOW Normal YELLOW [facility] Comment on above: Performed By: #### U AMIC ####[facility] Cqoswplibp8951 [employer], [place] [address]Etydge [place] Urine, crystals in sediment NONE SEEN Normal NONE SEEN [facility] Comment on above: Performed By: #### U AMIC ####[facility] Iknmiirouu0238 [employer], [place] [address]Fifygj [place] Urine, epithelial cells in sediment RARE Normal [facility] Comment on above: Performed By: #### U AMIC ####[facility] One[address]aspbs[address]63 [employer], [place] [address]Nhaxke [place] Urine, ketones presence Negative Normal NEGATIVE [facility] Comment on above: Performed By: #### U AMIC ####[facility] Mkcbqondlt4256 [employer], [place] [address]Rgjqwb [place] Urine, nitrite presence Negative Normal NEGATIVE [facility] Comment on above: Performed By: #### U AMIC ####[facility] W[address]hvyvyr58[address] [employer], [place] [address]Edjufq [place] Urine, urobilinogen 0.2 {Jer'U}/dL Normal [facility] Comment on above: Performed By: #### U AMIC ####[facility] Hykogttdpu0175 [employer], [place] [address]Jjlfub [place] WBC (Leukocytes) NONE SEEN Normal NONE SEEN [facility] Comment on above: Performed By: #### U AMIC ####[facility] Qblzuyzrxd4569 [employer], [place] [address]Kyjvkz [place] WBC (Leukocytes) Negative Normal NEGATIVE [facility] Comment on above: Performed By: #### U AMIC ####[facility] Wswfkvnmtp7167 [employer], [place] [address]Yzpmxh [place] ABO AND RH TYPEon 09-12-2017 ABO AND RH TYPE Negative Normal [facility] Comment on above: Performed By: #### A TRINYH ####[facility] H[address]zydgua6715 [employer], [place] [address]Okmjtb [place] PREG QUANT HCGon 09-12-2017 HCG Qn SEE BELOW Normal [facility] Comment on above: Result Comment: 5-50 0-1 WEEK 40-300 1-2 WEEKS 100-1,000 2-3 WEEKS 500-6,000 3-4 WEEKS 5,000-200,000 1-2 MONTHS 10,000-100,000 2-3 MONTHS 3,000-50,000 2ND TRIMESTER 1,000-50,000 3RD TRIMESTER Performed By: #### P REGQNT ####[facility] Aruesvzmns023[address] [place] HCG QUANT 36487.00 mIU/mL Normal [facility] Comment on above: Performed By: #### P REGQNT ####[facility] Drkxdvcnlk[address] [place] PREG <14 WKSon 08-29-2017 US PREG <14 WKS [address] [place] [address] Patient: ESTUARDO JEREZ Exam Date: 08/29/2017DOB: 1990 Gender:F : FELISHA TATE . Admission #: [id number] : Order #: [id number] HERE TO VIEW EXAM RADIOLOGY REPORT PROCEDURE: [...] Ayala M.D. on 08/29/2017 at 16:03 Normal [facility] Vital Signs Date Time Vital Sign Value Performing Clinician Ozzy spring 12-27-2023 15:05-0500 Body weight 108.86 kg Sabrina Irma DO Work Phone: [facility] 12-27-2023 15:05-0500 Diastolic blood pressure 74 mm[Hg] Sabrina Irma DO Work Phone: [facility] 12-27-2023 15:05-0500 Systolic blood pressure 128 mm[Hg] Sabrina Irma DO Work Phone: [facility] Encounters Encounter Date Encounter Type Care [...] flow sheet Sabrina Irma DO Work Phone: [facility] BCP OB Comment on above: Second trimester [...] Facility:[facility]1 Start: 01-03-2018 End: 01-04-2018 Ambulatory FELISHA TTAE Facility:[facility] Start: 11-25-2017 End: 11-26-2017 Ambulatory FELISHA [...] stick/tabl et rgnt non-auto w/o micrscp Sabrina Parchment DO Work Phone: Start: 11-29-2023 Cytp cerv/vag auto t hin layer prep mnl screen Sabrina Parchment DO Work Phone: Start: 04-07-2018 Delivery of Products of Conception, External Approach FELISHA TATE Start: 04-07-2018 Repair Perineum Skin , External Approach FELISHA TATE Plan of Treatment Date Care Activity Detail Author Start: 01-24-2024 End: 01-24-2024 Patient encounter procedure 01/24/2024 2:20 PM EST Routine [facility] [address] [place] [id number] [place] Gardner PA [address] [place] [address] [facility] Start: 12-27-2023 End: 12-27-2024 [...] Category Payer Unknown [employer] [id number] 2022-Present [phone] [address] [address] [place] [address] [id number] 2022 Unknown [id number] 1990 Unknown [id number] 59 1990 Unknown [id number] [id number] 59 1990 Unknown [id number] [id number] 59 1990 Unknown [id number] [id number] 59 1990 Unknown [id number] 2.16.840.1.926928.3.579.2.12 59 1990 Unknown [id number] 2.16.840.1.729681.3.579.2.12 59 1990 Unknown [id number] 2.16.840.1.404705.3.579.2.12 59 1990 Unknown [id number] [id number] 59 1958 Unknown [id number] Social History Date Type Detail Facility Tobacco smoking stat [facility] Tobacco smoking consumption unknown [facility] Start: 08-13-2023 [facility]care Start: 1990 Sex Assigned At Not on file [facility] Gender identity Not on file [facility] [...] nursing note reviewed. Exam conducted with a batter out present. Vitals: There is no height or [...] DATE CREATED AUTHOR AUTHOR'S ORGANIZ ATION 03/28/2024 [facility] EPIC FOR RECORDS PERTAINING TO PATIENTS [...] BE BASED ON THE PRIMARY CLINICAL RECORDS. [facility] [employer] provides no warranty or guarantee of the accuracy or completeness of information in this document.
== END 2024-04-10 21:00 | disposition home or self-care (01) ==
LOC: LAB 20:59
PROVIDERS: Visit Provider Obstetrics & Gynecology
DX: Z34.93 Encounter for supervision of normal pregnancy, unspecified, third trimester (principal)
CPT/HCPCS: 87081

== ENCOUNTER 2024-04-13 07:16 | Outpatient (OUT) | payer OTHER, SELFPAY ==
--- OUTSIDE RECORDS SUMMARY | 2024-04-13 07:18 | XMS_ITS | CCD ---
Author Organization [facility] Care Team Providers Care Cathead Worker Name Role Phone FELISHA TATE Unavailable Unavailable [...] Provider Unavailabl e ASPEN GARDNER Attending Unavailable IRMA, SABRINA Attending Unavailable ASPEN GARDNER Attending Unavailable IRMA, SABRINA Attending Unavailable JJ, ASPEN Attending Unavailable IRMA, SABRINA Attending Unavailable IRMA, [...] UA Negative Negative - 4(70) +++ mg/dL [facility] Blood, UA Negative Negative - 50 Jesse[facility] Clarity, [facility] Clear [facility] Color, UA Yellow [facility] Glucose, UA Negative Negative - 1999(110) ++++ mg/dL [facility] Interpretation and review of laboratory results Normal [facility] Ketones, UA Negative Negative - 160(16) ++++ mg/dL [facility] Leukocytes, UA Negative Negative - 500+++ Gabrielle/mcL [facility] Nitrite, UA Negative Negative - Positive [facility] pH, UA 7.0 5 - 9 [facility] Protein, UA Negative Negative - 1999(20) ++++ mg/dL [facility] Spec Grav, UA 1.020 1 - 1.03 [facility] Urobilinogen, UA 0.2 0.2 - 12 mg/dL [facility] Cervical or vaginal smear or scraping studyon 11-29-2023 [facility] CHLAMYDIA/GONOCOCCUS ALEX W/C ONF. (SWAB/Uon 04-26-2018 Chlamydia Trach ALEX Negative Normal Negative [facility] Comment on above: Performed By: #### A ABIDA ####[facility] [address] [place] [address] [place] N. Gonorrhoeae ALEX Negative Normal Negative [facility] Comment on above: Performed By: #### A ABIDA ####[facility] Ooyvhivpej[address] [place] [address] [place] CBC AUTO DIFFon 04-08-2018 Basophils Auto #/vol (Bld) 0.1 103/ul Normal 0.0-0.1 [facility] Comment on above: Performed By: #### A ABIDA ####[facility] [address]rf[address]zcllml[address] [place] [address] [place] Basophils/100 WBC Auto (Bld) 0.3 % Normal 0.2-2.0 [facility] Comment on above: Performed By: #### A ABIDA ####[facility] [address]ytzy[address] [place] [address] [place] Eosinophils 0.2 103/ul Normal 0.0-0.7 [facility] Comment on above: Performed By: #### A ABIDA ####[facility] Ykycuarzqb[address] [place] [address] [place] Eosinophils/100 leukocytes 1.2 % Normal 0.9-7.0 [facility] Comment on above: Performed By: #### A ABIDA ####[facility] Jsqrnxqdjb324[address] [place] [address] [place] Erythrocyte distribution width Auto Ratio (RBC) 14.3 % Normal 11.0-15.0 [facility] Comment on above: Performed By: #### A ABIDA ####[facility] Wqjmzqcsqb[address] [place] [address] [place] Erythrocytes (RBC) 3.91 106/ul Critically low 4.20-5.40 [facility] Comment on above: Performed By: #### A ABIDA ####[facility] Fzwpgvdphq[address] [place] [address] [place] Hematocrit (HCT) 34.7 % Critically low 36.0-48.0 [facility] Comment on above: Performed By: #### A ABIDA ####[facility] Dzsfxjyhoz[address] [place] [address] [place] Hemoglobin mass conc (Bld) 11.8 g/dL Critically low 12.0-16.0 [facility] Comment on above: Performed By: #### A ABIDA ####[facility] Avwgivofdv8[address] [place] [address] [place] IG # 0.18 10e3/ul Critically high 0.00-0.03 [facility] Comment on above: Performed By: #### A ABIDA ####[facility] [address]yhcdxhtc[address] [place] [address] [place] IG % 1.0 % Critically high 0.0-0.[address] [facility] Comment on above: Performed By: #### A ABIDA ####[facility] Bxmwhxazab4[address] [place] [address] [place] Lymphocytes 2.1 103/ul Normal 1.2-3.8 [facility] Comment on above: Performed By: #### A ABIDA ####[facility] Epmurhfunk74[address] [place] [address] [place] Lymphocytes/100 leukocytes 11.9 % Critically low 20.5-60.0 [facility] Comment on above: Performed By: #### A ABIDA ####[facility] [address] [place] [id number] MANUAL DIFF REQ NO Normal [facility] Comment on above: Performed By: #### A ABIDA ####[facility] Hbnfxcqwpz1120 [place] [id number] MCH 30.2 pg Normal 26.7-34.0 [facility] Comment on above: Performed By: #### A ABIDA ####[facility] Ajwvivloib9949 [address] [place] MCHC mass conc (RBC) 34.0 g/dL Normal 29.9-35.2 [facility] Comment on above: Performed By: #### A ABIDA ####[facility] Tddykravzs6017 [address] [place] MCV 88.7 fL Normal 81.0-99.0 [facility] Comment on above: Performed By: #### A ABIDA ####[facility] Iv[address]47[address] [place] [address] Monocytes 1.1 103/ul Critically high 0.3-0.[address] [facility] Comment on above: Performed By: #### A ABIDA ####[facility] Hhrespkqrx0449 [address] [place] Monocytes/100 leukocytes 6.2 % Normal 1.7-12.0 [facility] Comment on above: Performed By: #### A ABIDA ####[facility] Ffsjlcoghs2604 [place] [id number] Neutrophils 14.1 103/ul Critically high 1.4-6.5 The [facility] Comment on above: Performed By: #### A ABIDA ####[facility] Ouqpymivut3495 [address] [place] Neutrophils/100 WBC Auto (Bld) 79.4 % Critically high 43.0-75.0 The [facility] Comment on above: Performed By: #### A ABIDA ####[facility] Tqnojlmegv0472 [address] [place] Platelet mean volume (PMV) 12.2 fL Normal 9.5-13.5 [facility] Comment on above: Performed By: #### A ABIDA ####[facility] Otkvbrbbpv4462 [address] [place] Platelets 118 103/ul Critically low 150-450 [facility] Comment on above: Performed By: #### A ABIDA ####[facility] Bltwzbvrwz9357 [address] [place] WBC (Leukocytes) 17.7 103/ul Critically high 4.0-11.0 Th e [facility] Comment on above: Performed By: #### A ABIDA ####[facility] K[address]wptwvfa[address] [place] [address] [place] SCREENon 04-08-2018 SCREEN Negative Normal [facility] Comment on above: Performed By: #### A ABIDA ####[facility] Ktzvm[address]mti[address] [place] [address] [place] RHOGAMon 04-08-2018 RHOGAM Status Information Issued Quantity 1 Product ID Rh Immune Globulin Lot Number [id number] Issue Date/Time [id number] Normal [facility] Comment on above: Performed By: #### A ABIDA ####[facility] Uvebttvacz[address] [place] [address] [place] CBC AUTO DIFFon 04-07-2018 Basophils Auto #/vol (Bld) 0.1 103/ul Normal 0.0-0.1 The [facility] Comment on above: Performed By: #### A ABIDA ####[facility] Anqqjqplzs[address] [place] [address] [place] Basophils/100 WBC Auto (Bld) 0.3 % Normal 0.2-2.0 The [facility] Comment on above: Performed By: #### A ABIDA ####[facility] Asbfjcbwvk9[address] [place] [address] [place] Eosinophils 0.2 103/ul Normal 0.0-0.7 [facility] Comment on above: Performed By: #### A ABIDA ####[facility] Vdvfudfvzc6089 [address] [place] Eosinophils/100 leukocytes 1.0 % Normal 0.9-7.0 [facility] Comment on above: Performed By: #### A ABIDA ####[facility] Jdagoptmdt9305 [address] [place] Erythrocyte distribution width Auto Ratio (RBC) 14.0 % Normal 11.0-15.0 [facility] Comment on above: Performed By: #### A ABIDA ####[facility] Mgmjbhlidq8910[address] [place] [address] [place] Erythrocytes (RBC) 4.39 106/ul Normal 4.20-5.40 [facility] Comment on above: Performed By: #### A ABIDA ####[facility] Rwnjqqlbbe9715[address] [place] [address] [place] Hematocrit (HCT) 38.7 % Normal 36.0-48.0 [facility] Comment on above: Performed By: #### A ABIDA ####[facility] Wwrdngclmc6[address] [place] [address] [place] Hemoglobin mass conc (Bld) 13.4 g/dL Normal 12.0-16.0 [facility] Comment on above: Performed By: #### A ABIDA ####[facility] Cviksxtlky[address] [place], [place] [address] IG # 0.30 10e3/ul Critically high 0.00-0.03 [facility] Comment on above: Performed By: #### A ABIDA ####[facility] Cgbwoknmpf6497 [address] [place] IG % 1.4 % Critically high 0.0-0.5 [facility] Comment on above: Performed By: #### A ABIDA ####[facility] Cfvuphabwq[address] [place], [place] [address] Lymphocytes 2.6 103/ul Normal 1.2-3.8 [facility] Comment on above: Performed By: #### A ABIDA ####[facility] Qxdivkdeie5647 [place] [address] Lymphocytes/100 leukocytes 12.6 % Critically low 20.5-60.0 [facility] Comment on above: Performed By: #### A ABIDA ####[facility] Pdvcduweoo5808 [address] [place] MANUAL DIFF REQ NO Normal [facility] Comment on above: Performed By: #### A ABIDA ####[facility] Cxlgpvzngj[address] [place] [address] [place] MCH 30.5 pg Normal 26.7-34.0 [facility] Comment on above: Performed By: #### A ABIDA ####[facility] Mngtpre[address] [place] [address] MCHC mass conc (RBC) 34.6 g/dL Normal 29.9-35.2 [facility] Comment on above: Performed By: #### A ABIDA ####[facility] Kutjrtoiey[address] [place] [address] [place] MCV 88.2 fL Normal 81.0-99.0 [facility] Comment on above: Performed By: #### A ABIDA ####[facility] S[address] [place], [place] [address] [place] Monocytes 1.2 103/ul Critically high 0.3-0.[address] [facility] Comment on above: Performed By: #### A ABIDA ####[facility] Xcodlkwkej[address] [place], [place] [address] Monocytes/100 leukocytes 5.5 % Normal 1.7-12.0 The [facility] Comment on above: Performed By: #### A ABIDA ####[facility] Ljwxuubxle[address] [place], [place] [address] Neutrophils 16.5 103/ul Critically high 1.4-6.5 [facility] Comment on above: Performed By: #### A ABIDA ####[facility] Mgcurdbtmd9073 [address] [place] Neutrophils/100 WBC Auto (Bld) 79.2 % Critically high 43.0-75.0 [facility] Comment on above: Performed By: #### A ABIDA ####[facility] Nheevgmthp8398 [address] [place] Platelet mean volume (PMV) 12.2 fL Normal 9.5-13.5 [facility] Comment on above: Performed By: #### A ABIDA ####[facility] Xezupqjnyz0040 [address] [place] Platelets 139 103/ul Critically low 150-450 [facility] Comment on above: Performed By: #### A ABIDA ####[facility] Efhszbdhpy[address] [place] [address] [place] WBC (Leukocytes) 20.8 103/ul Critically high 4.0-11.0 [facility] Comment on above: Performed By: #### A ABIDA ####[facility] [address]ysvvywu[address] [place] [address] [place] DRUG SCREEN RAPID (URINE)on 04-07-2018 AMP Negative Normal NEGATIVE [facility] Comment on above: Performed By: #### A ABIDA ####[facility] [address]owoqckti[address] [place] [address] [place] BAR Negative Normal NEGATIVE The [facility] Comment on above: Performed By: #### A ABIDA ####[facility] Fhonmmconr[address] [place] [address] [place] BUP Negative Normal NEGATIVE The [facility] Comment on above: Performed By: #### A ABIDA ####[facility] Nyqysntzcp[address] [place] [address] [place] BZO Negative Normal NEGATIVE The [facility] Comment on above: Performed By: #### A ABIDA ####[facility] Jtgghwbyvp[address] [place] [address] [place] ELENA Negative Normal NEGATIVE The [facility] Comment on above: Performed By: #### A ABIDA ####[facility] Xbonx[address]fr[address] [place] [address] CUT-OFFS SEE BELOW Normal [facility] Comment on above: Result Comment: AMP [...] ng/mL Performed By: #### A ABIDA ####[facility] [address]qmq[address] [place] [address] DRUG CUT HEADER DRUG CLASS TEST SYSTEM CUT-OFF CONCENTRATIONS ARE FOLLOWS: Normal [facility] Comment on above: Performed By: #### A ABIDA ####[facility] [address]wquqeg[address] [place] [address] mAMP Negative Normal NEGATIVE [facility] Comment on above: Performed By: #### A ABIDA ####[facility] C[address]htjdffm[address] [place] [address] MTD Negative Normal NEGATIVE [facility] Comment on above: Performed By: #### A ABIDA ####[facility] Xjwrmsxseu[address] [place] [address] OPI Negative Normal NEGATIVE [facility] Comment on above: Performed By: #### A ABIDA ####[facility] Kcmwfgikke[address] [place] [address] OXY Negative Normal NEGATIVE [facility] Comment on above: Performed By: #### A ABIDA ####[facility] Ascvkqokcy[address] [place] [address] PCP Negative Normal NEGATIVE [facility] Comment on above: Performed By: #### A ABIDA ####[facility] Nmdgkedlar6048 [address] [place] PPX Negative Normal NEGATIVE [facility] Comment on above: Performed By: #### A ABIDA ####[facility] Ecrfxralsn2631 [address] [place] TCA Negative Normal NEGATIVE [facility] Comment on above: Performed By: #### A ABIDA ####[facility] Uzhslkzzch[address] [place] [address] [place] THC Negative Normal NEGATIVE [facility] Comment on above: Performed By: #### A ABIDA ####[facility] Xxyvjvuwsn[address] [place] [address] [place] UA (CLEAN/CATCH) ASSISTANT STORE MANAGER TRAINEE/MICRO I F IND.on 04-07-2018 Bilirubin (total) Negative Normal NEGATIVE [facility] Comment on above: Performed By: #### A ABIDA ####[facility] Lqrpbvwaln[address] [place] [address] [place] BLOOD Negative Normal NEGATIVE The [facility] Comment on above: Performed By: #### A ABIDA ####[facility] Bjqwslfihz[address] [place] [address] [place] Glucose mass conc Negative Normal NEGATIVE [facility] Comment on above: Performed By: #### A ABIDA ####[facility] Bvbbuzvguq[address] [place] [address] [place] pH of blood 6.0 [pH] Normal 5-9 [facility] Comment on above: Performed By: #### A ABIDA ####[facility] Dndonfldtu[address] [place] [address] [place] Protein Negative Normal [facility] Comment on above: Performed By: #### A ABIDA ####[facility] Tdxkpoymzr[address] [place] [address] [place] SPEC GRAVITY 1.020 Normal 1.005-<=1.[address] [facility] Comment on above: Performed By: #### A ABIDA ####[facility] Klesttrwgo0319 [address] [place] UR MICRO IND NOT INDICATED Normal [facility] Comment on above: Performed By: #### A ABIDA ####[facility] Kunygxellt3979 [address] [place] Urine, clarity CLEAR Normal The [facility] Comment on above: Performed By: #### A ABIDA ####[facility] Kmikvgygjl4976 [address] [place] Urine, color LT. YELLOW Normal YELLOW [facility] Comment on above: Performed By: #### A ABIDA ####[facility] Rfvqrnwhno7622 [address] [place] Urine, ketones presence Negative Normal NEGATIVE [facility] Comment on above: Performed By: #### A ABIDA ####[facility] Oweokwgvlk8780 [address] [place] Urine, nitrite presence Negative Normal NEGATIVE [facility] Comment on above: Performed By: #### A ABIDA ####[facility] Kkotiuligo[address] [place] [address] [place] Urine, urobilinogen 0.2 {Jer'U}/dL Normal [facility] Comment on above: Performed By: #### A ABIDA ####[facility] Jotnsrvddt[address] [place] [address] [place] WBC (Leukocytes) Negative Normal NEGATIVE [facility] Comment on above: Performed By: #### A ABIDA ####[facility] Jkgrbjhafp[address] [place] [address] [place] GROUP B STREPTon 03-21-2018 GBS Performed by [facility] , final report to follow Normal NEG FOR GBS The [facility] Comment on above: Performed By: #### A ABIDA ####[facility] [address]rkt[address] [place] [address] [place] RHOGAMon 02-04-2018 RHOGAM Status Information Issued Quantity 1 Product ID Rh Immune Globulin Lot Number [id number] Issue Date/Time [id number] Normal [facility] Comment on above: Performed By: #### A ABIDA ####[facility] [address] [place] [id number] CBC AUTO DIFFon 02-03-2018 Basophils Auto #/vol (Bld) 0.0 103/ul Normal 0.0-0.1 [facility] Comment on above: Performed By: #### P REGQNT ####[facility] Jjbgonkopk0448 [address] [place] Basophils/100 WBC Auto (Bld) 0.3 % Normal 0.2-2.0 [facility] Comment on above: Performed By: #### P REGQNT ####[facility] [address]rsxqbwz[address] [place] [address] [place] Eosinophils 0.2 103/ul Normal 0.0-0.7 [facility] Comment on above: Performed By: #### P REGQNT ####[facility] Hqpzqyorhm[address] [place] [address] [place] Eosinophils/100 leukocytes 1.1 % Normal 0.9-7.0 [facility] Comment on above: Performed By: #### P REGQNT ####[facility] Pqwkszkkya[address] [place] [address] [place] Erythrocyte distribution width Auto Ratio (RBC) 13.2 % Normal 11.0-15.0 [facility] Comment on above: Performed By: #### P REGQNT ####[facility] Hgtyilanky8[address] [place] [address] [place] Erythrocytes (RBC) 3.91 106/ul Critically low 4.20-5.40 [facility] Comment on above: Performed By: #### P REGQNT ####[facility] Nrbcifzxpv[address] [place] [address] [place] Hematocrit (HCT) 35.5 % Critically low 36.0-48.0 [facility] Comment on above: Performed By: #### P REGQNT ####[facility] Iqneshaqun[address] [place] [address] [place] Hemoglobin mass conc (Bld) 12.0 g/dL Normal 12.0-16.0 [facility] Comment on above: Performed By: #### P REGQNT ####[facility] Zbjzzjykih6[address] [place] IG # 0.27 10e3/ul Critically high 0.00-0.03 [facility] Comment on above: Performed By: #### P REGQNT ####[facility] Eovhsctuyb8397 [address] [place] IG % 1.8 % Critically high 0.0-0.5 [facility] Comment on above: Performed By: #### P REGQNT ####[facility] Kpzldcsmtt1213 [address] [place] Lymphocytes 1.8 103/ul Normal 1.2-3.8 [facility] Comment on above: Performed By: #### P REGQNT ####[facility] Cuqgztkirp8193 [address] [place] Lymphocytes/100 leukocytes 11.9 % Critically low 20.5-60.0 [facility] Comment on above: Performed By: #### P REGQNT ####[facility] Iqicgufpnk6966 [address] [place] MANUAL DIFF REQ NO Normal [facility] Comment on above: Performed By: #### P REGQNT ####[facility] [address] [place] [address] [place] MCH 30.7 pg Normal 26.7-34.0 [facility] Comment on above: Performed By: #### P REGQNT ####[facility] Crggxcfqiy8530 [address] [place] MCHC mass conc (RBC) 33.8 g/dL Normal 29.9-35.2 [facility] Comment on above: Performed By: #### P REGQNT ####[facility] [address]froueuw[address] [place] [address] [place] MCV 90.8 fL Normal 81.0-99.0 [facility] Comment on above: Performed By: #### P REGQNT ####[facility] Amopwt[address]og[address] [place], [place] [address]Zhqdgn [place] Monocytes 0.6 103/ul Normal 0.3-0.8 [facility] Comment on above: Performed By: #### P REGQNT ####[facility] Hwcmpgivda5649 [place], [place] [address]Biwpqx [place] Monocytes/100 leukocytes 3.9 % Normal 1.7-12.0 [facility] Comment on above: Performed By: #### P REGQNT ####[facility] Texsehsdym8509 [place], [place] [address]Zhvsnh [place] Neutrophils 12.1 103/ul Critically high 1.4-6.5 [facility] Comment on above: Performed By: #### P REGQNT ####[facility] Esryjlxasy7281 [place], [place] [address]Xnywdh [place] Neutrophils/100 WBC Auto (Bld) 81.0 % Critically high 43.0-75.0 [facility] Comment on above: Performed By: #### P REGQNT ####[facility] Eiahenhauc3469 [place], [place] [address]Xvcxvj Karen Platelet mean volume (PMV) 11.6 fL Normal 9.5-13.5 [facility] Comment on above: Performed By: #### P REGQNT ####[facility] Xdictzqomk6005 [place], [place] [address]Zvdaik [place] Platelets 133 103/ul Critically low 150-450 [facility] Comment on above: Performed By: #### P REGQNT ####[facility] Bvgvojstnq1348 [place], [place] [address]Pihnkn [place] WBC (Leukocytes) 14.9 103/ul Critically high 4.0-11.0 [facility] Comment on above: Performed By: #### P REGQNT ####[facility] Tticmnysvz8362 [place], [place] [address]Mgjnsz Karen GLUCOSE - 1HRon 02-03-2018 Glucose mass conc 120 mg/dL Critically high 74-106 [facility] Comment on above: Performed By: #### P REGQNT ####[facility] Wianfmxszx26[address] [place], [place] [address]Wkpbnt [place] TYPE AND SCREENon 02-03-2018 TYPE AND SCREEN Negative Normal [facility] Comment on above: Performed By: #### P REGQNT ####[facility] Slkraqulxx0441 [place], [place] [address]Pjnapf [place] US PREG ANATOMY SINGLEon US PREG ANATOMY SINGLE [address] [place] [address] Patient: ESTUARDO JEREZ Exam Date: 11/25/2017DOB: 1990 Gender:F : FELISHA TATE . Admission #: [id number] : Order #: [id number] HERE TO VIEW EXAM RADIOLOGY REPORT PROCEDURE: [...] Ayala M.D. on 11/25/2017 at 20:18 Normal [facility] PAP ACOG PANEL 4: 21 to 29on 10-11-2017 LCPAP SEE SCANNED REPORT Normal [facility] Comment on above: Performed By: #### P REGQNT ####[facility] Jr[address] [place] [address] [place] HEMOGLOBIN ELECTOPHORESISon 09-27-2017 HBSREV Reviewed by Adithya Morton MD ([id number]) Normal [facility] Comment on above: Result Comment: Test Performed By: [facility] [address] [place] [address] Documentation Billing Clerk: Dalila Roman MD, PhD Performed By: #### P REGQNT ####[facility] [address] [place] [address] [place] Hemoglobin mass conc (Bld) None detected. Normal 0.0-1.8 [facility] Comment on above: Performed By: #### P REGQNT ####[facility] [address] [place], [place] [address]Ger[address] [place] Hemoglobin mass conc (Bld) No abnormal hemoglobin identified. Normal [facility] Comment on above: Performed By: #### P REGQNT ####[facility] [address] [place] [address] Hemoglobin mass conc (Bld) 97.4 % Normal [facility] Comment on above: Performed By: #### P REGQNT ####[facility] S[address] [place], [place] [address] [place] Hemoglobin mass conc (Bld) 2.6 % Normal 1.5-3.5 [facility] Comment on above: Performed By: #### P REGQNT ####[facility] Wgvdbnsnxa8859 [address] [place] Interpertation Hemoglobins were analyzed by capillary electrophoresis. Normal The [facility] Comment on above: Result Comment: Norm al pattern Performed By: #### P REGQNT ####[facility] [address] [place] [address] [place] VARICELLA IGGon 09-26-2017 Varicella Zoster IgG 1134.0 Index Value Normal The [facility] Comment on above: Result Comment: Inde x Values are Interpreted as Follows:Negative specimens <135.0Equivocal specimens 135.0 to 164.9Positive specimens >164.9The magnitude of the measured result is not indicative of theamount of antibody present. Test Performed By: [facility] Unbxd [address] [place] [address] Documentation Billing Clerk: Dalila Roman MD, PhD Performed By: #### P REGQNT ####[facility] Af[address]omr[address] [place], [place] [address]en VZVGQL Positive Abnormal NEGAT The [facility] Comment on above: Result Comment: Pres ence of detectable VZV IgG antibodies. A positive resultgenerally indicatesexposure to the pathogen or administration of specificimmunoglobulins, but is no indication of active infection or stage of disease. Performed By: #### P REGQNT ####[facility] V[address] [place] [address] [place] RPR/SERUMon 09-24-2017 Reagin antibody presence Non Reactive Normal NR The [facility] Comment on above: Result Comment: Test Performed By: [facility] Unb[address] [place] [address] Documentation Billing Clerk: Dalila Roman MD, PhD Performed By: #### P REGQNT ####[facility] I[address] [place] [address] [place] CBC AUTO DIFFon 09-23-2017 Basophils Auto #/vol (Bld) 0.0 103/ul Normal 0.0-0.1 [facility] Comment on above: Performed By: #### C BC ####[facility] [address] [place] [address] Basophils/100 WBC Auto (Bld) 0.3 % Normal 0.2-2.0 The [facility] Comment on above: Performed By: #### C BC ####[facility] [address] [place] [address] Eosinophils 0.2 103/ul Normal 0.0-0.7 [facility] Comment on above: Performed By: #### C BC ####[facility] [address] [place] [address] Eosinophils/100 leukocytes 1.1 % Normal 0.9-7.0 The [facility] Comment on above: Performed By: #### C BC ####[facility] [address] [place] [address] Erythrocyte distribution width Auto Ratio (RBC) 12.5 % Normal 11.0-15.0 The [facility] Comment on above: Performed By: #### C BC ####[facility] [address] [place], [place] [address] Erythrocytes (RBC) 4.61 106/ul Normal 4.20-5.40 The [facility] Comment on above: Performed By: #### C BC ####[facility] Ph[address]io[address] [place], [place] [address] Hematocrit (HCT) 41.5 % Normal 36.0-48.0 [facility] Comment on above: Performed By: #### C BC ####[facility] [address] [place] [address] Hemoglobin mass conc (Bld) 14.5 g/dL Normal 12.0-16.0 The [facility] Comment on above: Performed By: #### C BC ####[facility] [address] [place] [address] IG # 0.07 10e3/ul Critically high 0.00-0.03 [facility] Comment on above: Performed By: #### C BC ####[facility] Dhs[address]qcuk6[address] [place] IG % 0.5 % Normal 0.0-0.5 [facility] Comment on above: Performed By: #### C BC ####[facility] Dpjhigjezb6258 [address] [place] Lymphocytes 2.2 103/ul Normal 1.2-3.8 The [facility] Comment on above: Performed By: #### C BC ####[facility] Xgluecmfim1494 [address] [place] Lymphocytes/100 leukocytes 15.4 % Critically low 20.5-60.0 [facility] Comment on above: Performed By: #### C BC ####[facility] Zpopppbisr2944 [address] [place] MANUAL DIFF REQ NO Normal [facility] Comment on above: Performed By: #### C BC ####[facility] N[address] [place] [address] [place] MCH 31.5 pg Normal 26.7-34.0 [facility] Comment on above: Performed By: #### C BC ####[facility] [address] [place] [address] [place] MCHC mass conc (RBC) 34.9 g/dL Normal 29.9-35.2 The [facility] Comment on above: Performed By: #### C BC ####[facility] Oexdcsidzv[address] [place] MCV 90.0 fL Normal 81.0-99.0 The [facility] Comment on above: Performed By: #### C BC ####[facility] Fukwjtdvno7879 [address] [place] Monocytes 0.5 103/ul Normal 0.3-0.8 The [facility] Comment on above: Performed By: #### C BC ####[facility] Ruouawkmym2309 [address] [place] Monocytes/100 leukocytes 3.6 % Normal 1.7-12.0 The [facility] Comment on above: Performed By: #### C BC ####[facility] R[address]sumpt[address] [place], [place] [address]Hxalhn [place] Neutrophils 11.2 103/ul Critically high 1.4-6.5 [facility] Comment on above: Performed By: #### C BC ####[facility] Weggjgebia[address]96 [place], [place] [address]Kbizhq [place] Neutrophils/100 WBC Auto (Bld) 79.1 % Critically high 43.0-75.0 [facility] Comment on above: Performed By: #### C BC ####[facility] [address] [place] [address] Platelet mean volume (PMV) 11.6 fL Normal 9.5-13.5 [facility] Comment on above: Performed By: #### C BC ####[facility] Onuz[address] [place], [place] [address] Platelets 170 103/ul Normal 150-450 [facility] Comment on above: Performed By: #### C BC ####[facility] [address] [place] [address]Wgifxa [place] WBC (Leukocytes) 14.2 103/ul Critically high 4.0-11.0 [facility] Comment on above: Performed By: #### C BC ####[facility] Su[address] [place], [place] [address] HEP B SURFACE AGon 7 HEP B Surface Ag Negative Normal NEGATIVE [facility] Comment on above: Performed By: #### P REGQNT ####[facility] [address] [place] [address] HEP C ANTIBODYon 09-23-2017 Anti HCV Negative Normal NEGATIVE [facility] Comment on above: Performed By: #### P REGQNT ####[facility] Qigsonkjkd[address]759 [place], [place] [address]Rhtzoa [place] HIV 1 AND 2 ABon 09-23-2017 HIV 1 AND 2 AB Negative Normal NEGATIVE [facility] Comment on above: Performed By: #### H IV12 ####[facility] [address] [place], [place] [address] PREG QUANT HCGon 09-23-2017 HCG Qn SEE BELOW Normal [facility] Comment on above: Result Comment: 5-50 0-1 WEEK 40-300 1-2 WEEKS 100-1,000 2-3 WEEKS 500-6,000 3-4 WEEKS 5,000-200,000 1-2 MONTHS 10,000-100,000 2-3 MONTHS 3,000-50,000 2ND TRIMESTER 1,000-50,000 3RD TRIMESTER Performed By: #### P REGQNT ####[facility] [address] [place] [address] [place] HCG QUANT 55506.00 mIU/mL Normal [facility] Comment on above: Performed By: #### P REGQNT ####[facility] [address] [place] [address] [place] RUBELLA AB IGGon 09-23-2017 RUB HEADER SEE BELOW Normal [facility] Comment on above: Result Comment: or=1 5.0 IU/mL POSITIVE WHO considers levels >or= 10.0 IU/mL to be positive immune status Performed By: #### R UBG ####[facility] [address] [place] [address] [place] RUB IGG 33.1 IU/mL Normal [facility] Comment on above: Performed By: #### R UBG ####[facility] [address] [place] [address] [place] TYPE AND SCREENon 09-23-2017 TYPE AND SCREEN Negative Normal [facility] Comment on above: Performed By: #### T NS ####[facility] Gov[address] [place] [address] [place] CULTURE URINEon 09-13-2017 CULTURE URINE Culture Observations : Final; See scanned report to follow in HPF [facility] Comment on above: Performed By: #### C XUR ####[facility] [address] [place] [address] [place] UA RANDOM W/MICROSCOPICon Bilirubin (total) Negative Normal NEGATIVE [facility] Comment on above: Performed By: #### U AMIC ####[facility] Zvne[address]jsci[address] [place], [place] [address]Xovrni [place] BLOOD Negative Normal NEGATIVE The [facility] Comment on above: Performed By: #### U AMIC ####[facility] Dkvqllvrpw6[address] [place], [place] [address]Somzvw [place] CAST NONE SEEN Normal NONE SEEN [facility] Comment on above: Performed By: #### U AMIC ####[facility] [address] [place] [address] Erythrocytes (RBC) NONE SEEN Normal 0-2 The [facility] Comment on above: Performed By: #### U AMIC ####[facility] Endyqxnwgh2190 [address] [place] Glucose mass conc Negative Normal NEGATIVE The [facility] Comment on above: Performed By: #### U AMIC ####[facility] Pnqnocnzuo[address] [place] MUCOUS NONE SEEN Normal NONE SEEN [facility] Comment on above: Performed By: #### U AMIC ####[facility] Xt[address]fi[address] [place] [address] pH of blood 6.5 [pH] Normal 5-9 [facility] Comment on above: Performed By: #### U AMIC ####[facility] Rafbetcfao5212 [address] [place] Protein Negative Normal The [facility] Comment on above: Performed By: #### U AMIC ####[facility] [address]we[address] [place] [address] SPEC GRAVITY 1.015 Normal 1.005-<=1.[address] [facility] Comment on above: Performed By: #### U AMIC ####[facility] Gezutlfxeh[address]56 [address] [place] Urine, bacteria in sediment TRACE Normal NONE SEEN [facility] Comment on above: Performed By: #### U AMIC ####[facility] [address], [place] [address]Rkghwj [place] Urine, clarity CLEAR Normal The [facility] Comment on above: Performed By: #### U AMIC ####[facility] B[address]ryc[address] [place], [place] [address]Zemdpc [place] Urine, color LT. YELLOW Normal YELLOW The [facility] Comment on above: Performed By: #### U AMIC ####[facility] Lb[address]fttve7939 [place], [place] [address]Ujddvy [place] Urine, crystals in sediment NONE SEEN Normal NONE SEEN The [facility] Comment on above: Performed By: #### U AMIC ####[facility] Zyvqeawhdw7714 [place], [place] [address]Avakhh [place] Urine, epithelial cells in sediment RARE Normal The [facility] Comment on above: Performed By: #### U AMIC ####[facility] Vrjfjrkzbn7818 [place], [place] [address]Zmqpgl [place] Urine, ketones presence Negative Normal NEGATIVE The [facility] Comment on above: Performed By: #### U AMIC ####[facility] T[address]zraapk[address]809 [place], [place] [address]Cuezoa [place] Urine, nitrite presence Negative Normal NEGATIVE The [facility] Comment on above: Performed By: #### U AMIC ####[facility] Gswnmfhmtm6140 [place], [place] [address]Xpdcvw [place] Urine, urobilinogen 0.2 {Jer'U}/dL Normal The [facility] Comment on above: Performed By: #### U AMIC ####[facility] Eugqblqqza5157 [place], [place] [address]Ffjals [place] WBC (Leukocytes) NONE SEEN Normal NONE SEEN [facility] Comment on above: Performed By: #### U AMIC ####[facility] Mo[address] [place] [address] WBC (Leukocytes) Negative Normal NEGATIVE [facility] Comment on above: Performed By: #### U AMIC ####[facility] Ynea[address]ztx[address] [place] [address] ABO AND RH TYPEon 09-12-2017 ABO AND RH TYPE Negative Normal The [facility] Comment on above: Performed By: #### A BORH ####[facility] H[address]ogiy[address]ivz[address] [place] PREG QUANT HCGon 09-12-2017 HCG Qn SEE BELOW Normal The [facility] Comment on above: Result Comment: 5-50 0-1 WEEK 40-300 1-2 WEEKS 100-1,000 2-3 WEEKS 500-6,000 3-4 WEEKS 5,000-200,000 1-2 MONTHS 10,000-100,000 2-3 MONTHS 3,000-50,000 2ND TRIMESTER 1,000-50,000 3RD TRIMESTER Performed By: #### P REGQNT ####[facility] Couwquqrjc0469 [address] [place] HCG QUANT 11224.00 mIU/mL Normal [facility] Comment on above: Performed By: #### P REGQNT ####[facility] Zkqwlculin[address] [place] PREG <14 WKSon 08-29-2017 [place] PREG <14 WKS [address] [place] [address] Patient: ESTUARDO JEREZ Exam Date: 08/29/2017DOB: 1990 Gender:F : FELISHA TATE . Admission #: [id number] : Order #: [id number] HERE TO VIEW EXAM RADIOLOGY REPORT PROCEDURE: [...] Ayala M.D. on 08/29/2017 at 16:03 Normal [facility] Vital Signs Date Time Vital Sign Value Performing Clinician Faci lity 12-27-2023 15:05-0500 Body weight 108.86 kg Sabrina Irma DO Work Phone: [facility] 12-27-2023 15:05-0500 Diastolic blood pressure 74 mm[Hg] Sabrina Irma DO Work Phone: [facility] 12-27-2023 15:05-0500 Systolic blood pressure 128 mm[Hg] Sabrina Irma DO Work Phone: [facility] Encounters Encounter Date Encounter Type Care Provider Facility Start: 04-10-2024 End: 04-10-2024 ambulatory SABRINA IRMA Not Available Start: 03-27-2024 End: 03-27-2024 ambulatory SABRINA IRMA [...] flow sheet Sabrina Irma DO Work Phone: [facility] Comment on above: Second trimester pre gnancy; Diabetes mellitus screening; Nausea and vomiting, unspecified vomiting type; Upper respiratory tract infection, unspecified type Start: 11-29-2023 End: 11-29-2023 ambulatory ASPEN JJ Not Available Start: 11-01-2023 End: 11-01-2023 ambulatory SABRINA IRMA Not Available Start: 04-11-2018 End: 04-11-2018 Ambulatory FELISHA TATE Facility: Start: 04-06-2018 End: 04-09-2018 Evaluation and management [...] PM EST Routine [facility] [address] [place] [address] Aspen Gardner [facility] [address] [place] [address] [facility] Start: 12-27-2023 End: 12-27-2024 CBC panel - Blood by Automated count CBC Lab Routine Diabetes mellitus screening Expected: 12/27/2023 (Approximate), Expires: 12/27/2024 [facility] Work Phone: Comment on above: Expected: 12/27/2023 (Approximate), Expires: 12/27/2024 Start: 12-27-2023 End: 12-27-2024 Measurement of glucose 1 hour after glucose challenge for glucose tolerance test Glucose tolerance, 1 hour Lab Routine Diabetes mellitus screening Expected: 12/27/2023 (Approximate), Expires: 12/27/2024 [facility] Comment on above: Expected: 12/27/2023 (Approximate), Expires: 12/27/2024 Payers Date Payer Category Payer Unknown [employer] [id number] 2022-Present [phone] [address] [address] [place] [address] [id number] 2022 Unknown [id number] 1990 Unknown [id number] 59 1990 Unknown [id number] 59 1990 Unknown [id number] 59 1990 Unknown [id number] 59 1990 Unknown [id number] 59 1990 Unknown [id number] [id number] 59 1990 Unknown [id number] [id number] 59 1990 Unknown [id number] [id number] 59 1990 Unknown [id number] [id number] 59 1958 Unknown [id number] Social History Date Type Detail Facility Tobacco smoking stat [facility] Tobacco smoking consumption unknown [facility] Start: 08-13-2023 [facility] Start: 1990 Sex Assigned At Not on file [facility] Gender identity Not on file [facility] History of Present illness Narrative 12-27-2023 [place], 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 Exam conducted with a vocational education teacher present. Vitals: There is no height or [...] pital DATE CREATED AUTHOR AUTHOR'S ORGANIZ ATION 04/12/2024 [facility] EPIC FOR RECORDS PERTAINING TO [...] BE BASED ON THE PRIMARY CLINICAL RECORDS. [facility] [employer] provides no warranty or guarantee of the accuracy or completeness of information in this document.
--- NOTE | 2024-04-13 10:34 | US_ITS ---
[address] [address] Patient Name: ESTUARDO SLADE MRN: [id number] date: 1990 Sex: F Assigned Patient Location: [facility] Current Patient Location: [facility] Accession/Order Number: [id number] Exam Date: 04/13/2024 10:55 Report Date: 04/13/2024 11:31 At the request of: SABRINA ALY Procedure: US OB BPP w non-stress EXAMINATION: US OB BPP w non-stress HISTORY: Excessive growth COMPARISON: No relevant comparison available. TECHNIQUE: Ultrasound biophysical profile was performed in the radiology department. non-reactive stress testing was performed by nursing staff in the birthing center. FINDINGS: BREATHING MOVEMENTS: 2.0 GROSS BODY MOVEMENTS: 2.0 TONE: 2.0 QUALITATIVE AMNIOTIC FLUID VOLUME: 2.0 PRESENTATION: CEPHALIC HEART RATE: 139.2 bpm H.B./min AMNIOTIC FLUID VOLUME: 16.4 cm cm GESTATIONAL AGE: 36 weeks 6 days CONCLUSION: Total biophysical profile score: 8.0 Electronically authenticated by: JACOB AYALA Date: 04/13/2024 11:31
[2024-04-13 11:11] VITALS: BP 112/69; PULSE 86
== END 2024-04-13 11:12 | disposition home or self-care (01) ==
LOC: US 07:16 → FBC 10:25
PROVIDERS: Visit Provider Obstetrics & Gynecology
DX: O36.63X0 Maternal care for excessive fetal growth, third trimester, not applicable or unspecified (principal); Z3A.36 36 weeks gestation of pregnancy
CPT/HCPCS: 76818

== ENCOUNTER 2024-04-17 07:00 | Outpatient (OUT) | payer OTHER, SELFPAY ==
--- OUTSIDE RECORDS SUMMARY | 2024-04-17 07:31 | XMS_ITS | CCD ---
Author Organization [facility] Care Team Providers Care Park Attendant Name Role Phone FELISHA TATE Unavailable Unavailable [...] TATE Unavailable Unavailable FELISHA TATE Unavailable Unavailable FELIHSA TATE Unavailable Unavailable RANJAN TATEA Unavailable Unavailable FLEISHA TATE Unavailable Unavailable FELISHA TATE Unavailable Unavailable [...] Negative Negative - 4(70) +++ mg/dL [facility] Blood, UA Negative Negative - 50 Jesse/mcL [facility] Clarity, UA Clear [facility] Color, UA Yellow [facility] Glucose, UA Negative Negative - 1999(110) ++++ mg/dL [facility] Interpretation and review of laboratory results Normal [facility] Ketones, UA Negative Negative - 160(16) ++++ mg/dL [facility] Leukocytes, UA Negative Negative - 500+++ Gabrielle/mcL [facility] Nitrite, UA Negative Negative - Positive [facility] pH, UA 7.0 5 - 9 [facility] Protein, UA Negative Negative - 2000(20) ++++ mg/dL [facility] Spec Grav, UA 1.020 1 - 1.03 [facility] Urobilinogen, UA 0.2 0.2 - 12 mg/dL [facility] Cervical or vaginal smear or scraping studyon 11-29-2023 [facility] CHLAMYDIA/GONOCOCCUS ALEX W/C ONF. (SWAB/Uon 04-26-2018 Chlamydia Trach ALEX Negative Normal Negative [facility] Comment on above: Performed By: #### A ABIDA ####[facility] [address] [place], [place] [address] N. Gonorrhoeae ALEX Negative Normal Negative [facility] Comment on above: Performed By: #### A ABIDA ####[facility] [address] [place] [address]Urahpe [place] CBC AUTO DIFFon 04-08-2018 Basophils Auto #/vol (Bld) 0.1 103/ul Normal 0.0-0.1 [facility] Comment on above: Performed By: #### A ABIDA ####[facility] Xnrmalsbjf[address] [place], [place] [address] Basophils/100 WBC Auto (Bld) 0.3 % Normal 0.2-2.0 [facility] Comment on above: Performed By: #### A ABIDA ####[facility] Jikerreqmn[address] [place], [place] [address] Eosinophils 0.2 103/ul Normal 0.0-0.7 [facility] Comment on above: Performed By: #### A ABIDA ####[facility] H[address]wbt[address]k94[address] [place] [address] Eosinophils/100 leukocytes 1.2 % Normal 0.9-7.0 [facility] Comment on above: Performed By: #### A ABIDA ####[facility] Emhgnftopq2217 [place] [address] Erythrocyte distribution width Auto Ratio (RBC) 14.3 % Normal 11.0-15.0 [facility] Comment on above: Performed By: #### A ABIDA ####[facility] Nolmczcbfs3147 [place] [address] Erythrocytes (RBC) 3.91 106/ul Critically low 4.20-5.40 [facility] Comment on above: Performed By: #### A ABIDA ####[facility] Anasfigkzj6[address] [place], [place] [address] Hematocrit (HCT) 34.7 % Critically low 36.0-48.0 [facility] Comment on above: Performed By: #### A ABIDA ####[facility] Msfcjfnlrf[address] [place], [place] [address] Hemoglobin mass conc (Bld) 11.8 g/dL Critically low 12.0-16.0 [facility] Comment on above: Performed By: #### A ABIDA ####[facility] Obezfmdnra[address] [place], [place] [address] IG # 0.18 10e3/ul Critically high 0.00-0.03 [facility] Comment on above: Performed By: #### A ABIDA ####[facility] Ehtbgczhnn[address] [place], [place] [address] IG % 1.0 % Critically high 0.0-0.5 [facility] Comment on above: Performed By: #### A ABIDA ####[facility] Gyyezzmkrv[address] [place], [place] [address] Lymphocytes 2.1 103/ul Normal 1.2-3.8 [facility] Comment on above: Performed By: #### A ABIDA ####[facility] Smbypqskge[address] [place], [place] [address] Lymphocytes/100 leukocytes 11.9 % Critically low 20.5-60.0 [facility] Comment on above: Performed By: #### A ABIDA ####[facility] Lvwleuxtzp8070 [place] [address] MANUAL DIFF REQ NO Normal [facility] Comment on above: Performed By: #### A ABIDA ####[facility] Hmeglgdcsq9154 [place] [address] MCH 30.2 pg Normal 26.7-34.0 [facility] Comment on above: Performed By: #### A ABIDA ####[facility] Dbjucremuv0695 [address] [place] MCHC mass conc (RBC) 34.0 g/dL Normal 29.9-35.2 [facility] Comment on above: Performed By: #### A ABIDA ####[facility] J[address]jknxwzd[address] [place] [address] [place] MCV 88.7 fL Normal 81.0-99.0 [facility] Comment on above: Performed By: #### A ABIDA ####[facility] Usclhsihxt[address] [place], [place] [address] Monocytes 1.1 103/ul Critically high 0.3-0.8 [facility] Comment on above: Performed By: #### A ABIDA ####[facility] Liwpcpdazy0833 [address] [place] Monocytes/100 leukocytes 6.2 % Normal 1.7-12.0 [facility] Comment on above: Performed By: #### A ABIDA ####[facility] Cfrxkbyuqu5842 [place] [address] Neutrophils 14.1 103/ul Critically high 1.4-6.5 [facility] Comment on above: Performed By: #### A ABIDA ####[facility] Xobyxpgflx5128 [address] [place] Neutrophils/100 WBC Auto (Bld) 79.4 % Critically high 43.0-75.0 [facility] Comment on above: Performed By: #### A ABIDA ####[facility] Afximvgqpd0200 [address] [place] Platelet mean volume (PMV) 12.2 fL Normal 9.5-13.5 [facility] Comment on above: Performed By: #### A ABIDA ####[facility] Ktkbskpfig4390 [address] [place] Platelets 118 103/ul Critically low 150-450 [facility] Comment on above: Performed By: #### A ABIDA ####[facility] Gbzi[address] [place] [address] [place] WBC (Leukocytes) 17.7 103/ul Critically high 4.0-11.0 [facility] Comment on above: Performed By: #### A ABIDA ####[facility] Ilw[address]xvv[address] [place], [place] [address] SCREENon 04-08-2018 SCREEN Negative Normal [facility] Comment on above: Performed By: #### A ABIDA ####[facility] Wgsxxyhgus[address] [place] [address] [place] RHOGAMon 04-08-2018 RHOGAM Status Information Issued Quantity 1 Product ID Rh Immune Globulin Lot Number [id number] Issue Date/Time [id number] Normal [facility] Comment on above: Performed By: #### A ABIDA ####[facility] Jpxqyfspal[address] [place] [address] [place] CBC AUTO DIFFon 04-07-2018 Basophils Auto #/vol (Bld) 0.1 103/ul Normal 0.0-0.1 [facility] Comment on above: Performed By: #### A ABIDA ####[facility] Zfqqnl[address] [place] [address] [place] Basophils/100 WBC Auto (Bld) 0.3 % Normal 0.2-2.0 [facility] Comment on above: Performed By: #### A ABIDA ####[facility] Eieramehzz[address] [place], [place] [address]ken [place] Eosinophils 0.2 103/ul Normal 0.0-0.7 [facility] Comment on above: Performed By: #### A ABIDA ####[facility] Mzfdbedrsk7570 [address] [place] Eosinophils/100 leukocytes 1.0 % Normal 0.9-7.0 [facility] Comment on above: Performed By: #### A ABIDA ####[facility] C[address]jruzgvrc[address] [place] [address] [place] Erythrocyte distribution width Auto Ratio (RBC) 14.0 % Normal 11.0-15.0 [facility] Comment on above: Performed By: #### A ABIDA ####[facility] Kdaqcfmsyq[address] [place] [address] [place] Erythrocytes (RBC) 4.39 106/ul Normal 4.20-5.40 [facility] Comment on above: Performed By: #### A ABIDA ####[facility] Pmkkysqdhi[address] [place] [address] [place] Hematocrit (HCT) 38.7 % Normal 36.0-48.0 [facility] Comment on above: Performed By: #### A ABIDA ####[facility] Chqsbvkmxg[address] [place] [address] [place] Hemoglobin mass conc (Bld) 13.4 g/dL Normal 12.0-16.0 [facility] Comment on above: Performed By: #### A ABIDA ####[facility] Ekyuexdsoz[address] [place] [address] [place] IG # 0.30 10e3/ul Critically high 0.00-0.03 [facility] [place] [facility] Comment on above: Performed By: #### A ABIDA ####[facility] Ipqesxxxci6763 [address] [place] IG % 1.4 % Critically high 0.0-0.5 [facility] Comment on above: Performed By: #### A ABIDA ####[facility] [address]uzwslzrj[address] [place] [address] [place] Lymphocytes 2.6 103/ul Normal 1.2-3.8 [facility] Comment on above: Performed By: #### A ABIDA ####[facility] Qibxfgqjlw8612 [place] [address] Lymphocytes/100 leukocytes 12.6 % Critically low 20.5-60.0 [facility] Comment on above: Performed By: #### A ABIDA ####[facility] Fspaxpwbij3110 [address] [place] MANUAL DIFF REQ NO Normal [facility] Comment on above: Performed By: #### A ABIDA ####[facility] [address]fbihv[address] [place] [address] [place] MCH 30.5 pg Normal 26.7-34.0 [facility] Comment on above: Performed By: #### A ABIDA ####[facility] Ajloufdjne[address] [place], [place] [address] MCHC mass conc (RBC) 34.6 g/dL Normal 29.9-35.2 [facility] Comment on above: Performed By: #### A ABIDA ####[facility] P[address]olx[address] [place] [address] [place] MCV 88.2 fL Normal 81.0-99.0 [facility] Comment on above: Performed By: #### A ABIDA ####[facility] X[address]jntfwub[address] [place] [address] [place] Monocytes 1.2 103/ul Critically high 0.3-0.8 [facility] Comment on above: Performed By: #### A ABIDA ####[facility] Fricdyqxfs[address] [place] [address] [place] Monocytes/100 leukocytes 5.5 % Normal 1.7-12.0 [facility] Comment on above: Performed By: #### A ABIDA ####[facility] Ekkzyeqqvy[address] [place] [address] [place] Neutrophils 16.5 103/ul Critically high 1.4-6.5 [facility] [place] [facility] Comment on above: Performed By: #### A ABIDA ####[facility] Bkzyejnmzd4790 [place] [address] Neutrophils/100 WBC Auto (Bld) 79.2 % Critically high 43.0-75.0 [facility] Comment on above: Performed By: #### A ABIDA ####[facility] Ehtbbbmrug3060 [place] [address] Platelet mean volume (PMV) 12.2 fL Normal 9.5-13.5 [facility] Comment on above: Performed By: #### A ABIDA ####[facility] Uyvjigyyhm5004 [address] [place] Platelets 139 103/ul Critically low 150-450 [facility] Comment on above: Performed By: #### A ABIDA ####[facility] Gwviyrzmfb[address] [place], [place] [address] WBC (Leukocytes) 20.8 103/ul Critically high 4.0-11.0 [facility] Comment on above: Performed By: #### A ABIDA ####[facility] Lhosmpapki[address] [place] [address] [place] DRUG SCREEN RAPID (URINE)on 04-07-2018 AMP Negative Normal NEGATIVE [facility] Comment on above: Performed By: #### A ABIDA ####[facility] S[address]xlwxlfed[address] [place] [address] [place] BAR Negative Normal NEGATIVE [facility] Comment on above: Performed By: #### A ABIDA ####[facility] Fgpforhjex7027 [address] [place] BUP Negative Normal NEGATIVE [facility] Comment on above: Performed By: #### A ABIDA ####[facility] [address]dksx[address] [place] [address] [place] BZO Negative Normal NEGATIVE [facility] Comment on above: Performed By: #### A ABIDA ####[facility] Mimsnctbwv[address] [place] [address] [place] ELENA Negative Normal NEGATIVE [facility] Comment on above: Performed By: #### A ABIDA ####[facility] [address]mp[address] [place] [address] CUT-OFFS SEE BELOW Normal [facility] Comment on above: Result Comment: AMP [...] 300 ng/mL Performed By: #### A ABIDA ####[facility] Demgsycxyg[address] [place] [address] DRUG CUT HEADER DRUG CLASS TEST SYSTEM CUT-OFF CONCENTRATIONS ARE FOLLOWS: Normal [facility] Comment on above: Performed By: #### A ABIDA ####[facility] Usgjohsvyf[address] [place] [address] mAMP Negative Normal NEGATIVE [facility] Comment on above: Performed By: #### A ABIDA ####[facility] Azhmvkwjzc[address] [place] [address] MTD Negative Normal NEGATIVE [facility] Comment on above: Performed By: #### A ABIDA ####[facility] Adxpcjdivr[address] [place] [address] OPI Negative Normal NEGATIVE [facility] Comment on above: Performed By: #### A ABIDA ####[facility] Hankwwggbg[address] [place] [address] OXY Negative Normal NEGATIVE [facility] Comment on above: Performed By: #### A ABIDA ####[facility] Irmotzaxcv[address] [place] [address] PCP Negative Normal NEGATIVE [facility] Comment on above: Performed By: #### A ABIDA ####[facility] Kkpyrupjsm8398 [address] [place] PPX Negative Normal NEGATIVE [facility] Comment on above: Performed By: #### A ABIDA ####[facility] Puuhzubopq1535 [address] [place] TCA Negative Normal NEGATIVE [facility] Comment on above: Performed By: #### A ABIDA ####[facility] [address]bm[address]opv[address] [place] [address] [place] THC Negative Normal NEGATIVE [facility] Comment on above: Performed By: #### A ABIDA ####[facility] Kvexpqllrk[address] [place] [address] [place] UA (CLEAN/CATCH) RADIO EQUIPMENT INSTALLER/MICRO I F IND.on 04-07-2018 Bilirubin (total) Negative Normal NEGATIVE [facility] Comment on above: Performed By: #### A ABIDA ####[facility] [address]rumb[address] [place] [address] [place] BLOOD Negative Normal NEGATIVE [facility] Comment on above: Performed By: #### A ABIDA ####[facility] Mfrgecqnov[address] [place] [address] [place] Glucose mass conc Negative Normal NEGATIVE [facility] Comment on above: Performed By: #### A ABIDA ####[facility] Oqpxsheabj[address] [place] [address] [place] pH of blood 6.0 [pH] Normal 5-9 [facility] Comment on above: Performed By: #### A ABIDA ####[facility] P[address]vxkbinc[address] [place] [address] [place] Protein Negative Normal [facility] Comment on above: Performed By: #### A ABIDA ####[facility] Igonnyqbbs[address] [place] [address] [place] SPEC GRAVITY 1.020 Normal 1.005-<=1.025 [facility] Comment on above: Performed By: #### A ABIDA ####[facility] Gdunypemhf5427 [address] [place] UR MICRO IND NOT INDICATED Normal [facility] Comment on above: Performed By: #### A ABIDA ####[facility] Ovwgbrlrhh9076 [address] [place] Urine, clarity CLEAR Normal [facility] Comment on above: Performed By: #### A ABIDA ####[facility] Sregpihvco8150 [address] [place] Urine, color LT. YELLOW Normal YELLOW [facility] Comment on above: Performed By: #### A ABIDA ####[facility] Deisisscry6530 [address] [place] Urine, ketones presence Negative Normal NEGATIVE [facility] Comment on above: Performed By: #### A ABIDA ####[facility] Wyzgfmwwxo[address] [place] [address] [place] Urine, nitrite presence Negative Normal NEGATIVE [facility] Comment on above: Performed By: #### A ABIDA ####[facility] Lmpyycpbxp[address] [place] [address] [place] Urine, urobilinogen 0.2 {Jer'U}/dL Normal [facility] Comment on above: Performed By: #### A ABIDA ####[facility] Zpzdxzejlk[address] [place] [address] [place] WBC (Leukocytes) Negative Normal NEGATIVE [facility] Comment on above: Performed By: #### A ABIDA ####[facility] [address] [place] [address] [place] GROUP B STREPTon 03-21-2018 GBS Performed by [facility] , final report to follow Normal NEG FOR GBS [facility] Comment on above: Performed By: #### A ABIDA ####[facility] Kwnswmtx[address] [place] [address] [place] RHOGAMon 02-04-2018 RHOGAM Status Information Issued Quantity 1 Product ID Rh Immune Globulin Lot Number [id number] Issue Date/Time [id number] Normal [facility] Comment on above: Performed By: #### A ABIDA ####[facility] Hynooccjxo8582 [address] [place] CBC AUTO DIFFon 02-03-2018 Basophils Auto #/vol (Bld) 0.0 103/ul Normal 0.0-0.1 [facility] Comment on above: Performed By: #### P REGQNT ####[facility] Sil[address] [place] [address] [place] Basophils/100 WBC Auto (Bld) 0.3 % Normal 0.2-2.0 [facility] Comment on above: Performed By: #### P REGQNT ####[facility] Ocqmhbiyyx[address] [place] [address] [place] Eosinophils 0.2 103/ul Normal 0.0-0.7 [facility] Comment on above: Performed By: #### P REGQNT ####[facility] B[address]znk[address] [place] [address] [place] Eosinophils/100 leukocytes 1.1 % Normal 0.9-7.0 [facility] Comment on above: Performed By: #### P REGQNT ####[facility] W[address]lwlvrum[address] [place] [address] [place] Erythrocyte distribution width Auto Ratio (RBC) 13.2 % Normal 11.0-15.0 [facility] Comment on above: Performed By: #### P REGQNT ####[facility] Ypiszknneg[address] [place] [address] [place] Erythrocytes (RBC) 3.91 106/ul Critically low 4.20-5.40 [facility] Comment on above: Performed By: #### P REGQNT ####[facility] Onbberiuoy[address] [place] [address] [place] Hematocrit (HCT) 35.5 % Critically low 36.0-48.0 [facility] Comment on above: Performed By: #### P REGQNT ####[facility] F[address]rtrejtru[address] [place] [address] [place] Hemoglobin mass conc (Bld) 12.0 g/dL Normal 12.0-16.0 [facility] Comment on above: Performed By: #### P REGQNT ####[facility] Zwurgttcda7771 [address] [place] IG # 0.27 10e3/ul Critically high 0.00-0.03 [facility] [place] [facility] Comment on above: Performed By: #### P REGQNT ####[facility] Hjnltswfcw3375 [address] [place] IG % 1.8 % Critically high 0.0-0.5 [facility] Comment on above: Performed By: #### P REGQNT ####[facility] Wczfeytzab0207 [address] [place] Lymphocytes 1.8 103/ul Normal 1.2-3.8 [facility] Comment on above: Performed By: #### P REGQNT ####[facility] [address]iriawx[address] [place] [address] [place] Lymphocytes/100 leukocytes 11.9 % Critically low 20.5-60.0 [facility] Comment on above: Performed By: #### P REGQNT ####[facility] [address]ijcuftl[address] [place] [address] [place] MANUAL DIFF REQ NO Normal [facility] Comment on above: Performed By: #### P REGQNT ####[facility] Woosx[address]wct2598 [address] MCH 30.7 pg Normal 26.7-34.0 [facility] Comment on above: Performed By: #### P REGQNT ####[facility] Wdwzgyqocw2416 [address] [place] MCHC mass conc (RBC) 33.8 g/dL Normal 29.9-35.2 [facility] Comment on above: Performed By: #### P REGQNT ####[facility] [address]zn[address]lopp[address] [place], [place] [address] MCV 90.8 fL Normal 81.0-99.0 [facility] Comment on above: Performed By: #### P REGQNT ####[facility] Fscxoalprl0882 [place], [place] [address]Mlrosx [place] Monocytes 0.6 103/ul Normal 0.3-0.8 [facility] Comment on above: Performed By: #### P REGQNT ####[facility] Mlvnzksunb4397 [place], [place] [address]Mflijv [place] Monocytes/100 leukocytes 3.9 % Normal 1.7-12.0 [facility] Comment on above: Performed By: #### P REGQNT ####[facility] Mzwwfitnvg1482 [place], [place] [address]Njhpmx [place] Neutrophils 12.1 103/ul Critically high 1.4-6.5 [facility] [place] [facility] Comment on above: Performed By: #### P REGQNT ####[facility] Pvmyxbzyiy9184 [place], [place] [address]Qkzalw [place] Neutrophils/100 WBC Auto (Bld) 81.0 % Critically high 43.0-75.0 [facility] Comment on above: Performed By: #### P REGQNT ####[facility] [address] [place] [address]Xlwjkw Karen Platelet mean volume (PMV) 11.6 fL Normal 9.5-13.5 [facility] Comment on above: Performed By: #### P REGQNT ####[facility] Jiaycdunby0612 [place], [place] [address]Fcdgfg [place] Platelets 133 103/ul Critically low 150-450 [facility] Comment on above: Performed By: #### P REGQNT ####[facility] Fosiygkenx3954 [place], [place] [address]Tevlvb [place] WBC (Leukocytes) 14.9 103/ul Critically high 4.0-11.0 [facility] Comment on above: Performed By: #### P REGQNT ####[facility] Tgmrunrnsh1278 [place], [place] [address]Sfudfn Karen GLUCOSE - 1HRon 02-03-2018 Glucose mass conc 120 mg/dL Critically high 74-106 [facility] Comment on above: Performed By: #### P REGQNT ####[facility] Tafyhfurqa5714 [place], [place] [address] TYPE AND SCREENon 02-03-2018 TYPE AND SCREEN Negative Normal [facility] Comment on above: Performed By: #### P REGQNT ####[facility] Sdzjarwdpq7111 [place], [place] [address] US PREG ANATOMY SINGLEon US PREG ANATOMY SINGLE [address] [place] [address] Patient: ESTUARDO JEREZ Exam Date: 11/25/2017DOB: 1990 Gender:F : FELISHA TATE . Admission #: [id number] : Order #: [id number] HERE TO VIEW EXAM RADIOLOGY REPORT PROCEDURE: [...] Ayala M.D. on 11/25/2017 at 20:18 Normal [facility] PAP ACOG PANEL 4: 21 to 29on 10-11-2017 LCPAP SEE SCANNED REPORT Normal [facility] Comment on above: Performed By: #### P REGQNT ####[facility] D[address]tsy[address] [place] [address] [place] HEMOGLOBIN ELECTOPHORESISon 09-27-2017 HBSREV Reviewed by Adithya Morton MD ([id number]) [facility] Comment on above: Result Comment: Test Performed By: [facility] [address] [place] [address] Supervisor Brake Repair: Dalila Roman MD, PhD Performed By: #### P REGQNT ####[facility] Zzgtbtflgl[address] [place], [place] [address]Ger[address] [place] Hemoglobin mass conc (Bld) None detected. Normal 0.0-1.8 [facility] Comment on above: Performed By: #### P REGQNT ####[facility] U[address]yfbpikd[address] [place], [place] [address]Ger[address] [place] Hemoglobin mass conc (Bld) No abnormal hemoglobin identified. Normal [facility] Comment on above: Performed By: #### P REGQNT ####[facility] [address]oy[address]qf[address] [place], [place] [address] [place] Hemoglobin mass conc (Bld) 97.4 % Normal [facility] Comment on above: Performed By: #### P REGQNT ####[facility] Y[address]oyqbykmy[address] [place], [place] [address] [place] Hemoglobin mass conc (Bld) 2.6 % Normal 1.5-3.5 [facility] Comment on above: Performed By: #### P REGQNT ####[facility] Woawtvgwvh5749 [address] [place] Interpertation Hemoglobins were analyzed by capillary electrophoresis. Normal [facility] Comment on above: Result Comment: Norm al pattern Performed By: #### P REGQNT ####[facility] [address] [place] [address] [place] VARICELLA IGGon 09-26-2017 Varicella Zoster IgG 1134.0 Index Value Normal [facility] Comment on above: Result Comment: Inde x Values are Interpreted as Follows:Negative specimens <135.0Equivocal specimens 135.0 to 164.9Positive specimens >164.9The magnitude of the measured result is not indicative of theamount of antibody present. Test Performed By: [facility] [facility] [employer] [address] [place] [address] Supervisor Brake Repair: Dalila Roman MD, PhD Performed By: #### P REGQNT ####[facility] [address] [place] [address] [place] VZVGQL Positive Abnormal NEGAT [facility] Comment on above: Result Comment: Pres ence of detectable VZV IgG antibodies. A positive resultgenerally indicatesexposure to the pathogen or administration of specificimmunoglobulins, but is no indication of active infection or stage of disease. Performed By: #### P REGQNT ####[facility] [address] [place] [address] [place] RPR/SERUMon 09-24-2017 Reagin antibody presence Non Reactive Normal NR [facility] Comment on above: Result Comment: Test Performed By: [facility] [employer] [address] [place] [address] Supervisor Brake Repair: Dalila Roman MD, PhD Performed By: #### P REGQNT ####[facility] Pm[address] [place] [address] [place] CBC AUTO DIFFon 09-23-2017 Basophils Auto #/vol (Bld) 0.0 103/ul Normal 0.0-0.1 [facility] Comment on above: Performed By: #### C BC ####[facility] Fnhityufpt5030 [place], [place] [address]Xnkobs [place] Basophils/100 WBC Auto (Bld) 0.3 % Normal 0.2-2.0 [facility] Comment on above: Performed By: #### C BC ####[facility] Xolobphebm2657 [place], [place] [address]Heuwfb [place] Eosinophils 0.2 103/ul Normal 0.0-0.7 [facility] Comment on above: Performed By: #### C BC ####[facility] Vqotweluvb0958 [place] [address] Eosinophils/100 leukocytes 1.1 % Normal 0.9-7.0 [facility] Comment on above: Performed By: #### C BC ####[facility] [address] [place], [place] [address]ken [place] Erythrocyte distribution width Auto Ratio (RBC) 12.5 % Normal 11.0-15.0 [facility] Comment on above: Performed By: #### C BC ####[facility] N[address]ws[address] [place], [place] [address]ken [place] Erythrocytes (RBC) 4.61 106/ul Normal 4.20-5.40 [facility] Comment on above: Performed By: #### C BC ####[facility] S[address] [place], [place] [address]ken [place] Hematocrit (HCT) 41.5 % Normal 36.0-48.0 [facility] Comment on above: Performed By: #### C BC ####[facility] Uouefpasoe8506 [place], [place] [address]Vfxdbd [place] Hemoglobin mass conc (Bld) 14.5 g/dL Normal 12.0-16.0 [facility] Comment on above: Performed By: #### C BC ####[facility] Tchkoiawxm7776 [place] [address] IG # 0.07 10e3/ul Critically high 0.00-0.03 [facility] [place] [facility] Comment on above: Performed By: #### C BC ####[facility] Nuoqtxxldm65[address] [place] IG % 0.5 % Normal 0.0-0.5 [facility] Comment on above: Performed By: #### C BC ####[facility] Dgeyrhpggx0856 [address] [place] Lymphocytes 2.2 103/ul Normal 1.2-3.8 [facility] Comment on above: Performed By: #### C BC ####[facility] [address] [place] [address] [place] Lymphocytes/100 leukocytes 15.4 % Critically low 20.5-60.0 [facility] Comment on above: Performed By: #### C BC ####[facility] [address] [place] [address] [place] MANUAL DIFF REQ NO Normal [facility] Comment on above: Performed By: #### C BC ####[facility] [address] [place] [address] [place] MCH 31.5 pg Normal 26.7-34.0 [facility] Comment on above: Performed By: #### C BC ####[facility] [address] [place] [address] [place] MCHC mass conc (RBC) 34.9 g/dL Normal 29.9-35.2 [facility] Comment on above: Performed By: #### C BC ####[facility] Mrvac[address]tt[address] [place] [address] [place] MCV 90.0 fL Normal 81.0-99.0 [facility] Comment on above: Performed By: #### C BC ####[facility] [address] [place] [address] [place] Monocytes 0.5 103/ul Normal 0.3-0.8 [facility] Comment on above: Performed By: #### C BC ####[facility] [address] [place] [address] [place] Monocytes/100 leukocytes 3.6 % Normal 1.7-12.0 [facility] Comment on above: Performed By: #### C BC ####[facility] Faonucjmlu4179 [place], [place] [address]Ejadyg [place] Neutrophils 11.2 103/ul Critically high 1.4-6.5 [facility] [place] [facility] Comment on above: Performed By: #### C BC ####[facility] Klgfkioffj1792 [place], [place] [address]Knhspi [place] Neutrophils/100 WBC Auto (Bld) 79.1 % Critically high 43.0-75.0 [facility] Comment on above: Performed By: #### C BC ####[facility] Jjcohoyamq6131 [place] [address] Platelet mean volume (PMV) 11.6 fL Normal 9.5-13.5 [facility] Comment on above: Performed By: #### C BC ####[facility] Lltuudxikc3950 [place] [address] Platelets 170 103/ul Normal 150-450 [facility] Comment on above: Performed By: #### C BC ####[facility] Wyrryonzuk4532 [place], [place] [address]Vaabml [place] WBC (Leukocytes) 14.2 103/ul Critically high 4.0-11.0 [facility] Comment on above: Performed By: #### C BC ####[facility] Irldkkayjy5070 [place] [address] HEP B SURFACE AGon 7 HEP B Surface Ag Negative Normal NEGATIVE [facility] Comment on above: Performed By: #### P REGQNT ####[facility] Teaonriams2458 [place] [address] HEP C ANTIBODYon 09-23-2017 Anti HCV Negative Normal NEGATIVE [facility] Comment on above: Performed By: #### P REGQNT ####[facility] Caxexmjcoq2195 [place] [address] HIV 1 AND 2 ABon 09-23-2017 HIV 1 AND 2 AB Negative Normal NEGATIVE [facility] Comment on above: Performed By: #### H IV12 ####[facility] Uhtyxemfqp2121 [place] [address] PREG QUANT HCGon 09-23-2017 HCG Qn SEE BELOW Normal [facility] Comment on above: Result Comment: 5-50 0-1 WEEK 40-300 1-2 WEEKS 100-1,000 2-3 WEEKS 500-6,000 3-4 WEEKS 5,000-200,000 1-2 MONTHS 10,000-100,000 2-3 MONTHS 3,000-50,000 2ND TRIMESTER 1,000-50,000 3RD TRIMESTER Performed By: #### P REGQNT ####[facility] G[address]ulxrnj[address] [place] HCG QUANT 29196.00 mIU/mL Normal [facility] Comment on above: Performed By: #### P REGQNT ####[facility] [address] [place] [address] [place] RUBELLA AB IGGon 09-23-2017 RUB HEADER SEE BELOW Normal [facility] Comment on above: Result Comment: or=1 5.0 IU/mL POSITIVE WHO considers levels >or= 10.0 IU/mL to be positive immune status Performed By: #### R UBG ####[facility] [address] [place] [address] [place] RUB IGG 33.1 IU/mL Normal [facility] Comment on above: Performed By: #### R UBG ####[facility] Tjeizukaog60[address] [place] TYPE AND SCREENon 09-23-2017 TYPE AND SCREEN Negative Normal [facility] Comment on above: Performed By: #### T NS ####[facility] [address] [place] [address] [place] CULTURE URINEon 09-13-2017 CULTURE URINE Culture Observations : Final; See scanned report to follow in HPF [facility] Comment on above: Performed By: #### C XUR ####[facility] Rqeaflkexw9064 [address] [place] UA RANDOM W/MICROSCOPICon Bilirubin (total) Negative Normal NEGATIVE [facility] [place] [facility] Comment on above: Performed By: #### U AMIC ####[facility] Ykxugvbjur5517 [place] [address] BLOOD Negative Normal NEGATIVE [facility] Comment on above: Performed By: #### U AMIC ####[facility] Nezlrkituc2898 [place], [place] [address]Moprwx [place] CAST NONE SEEN Normal NONE SEEN [facility] Comment on above: Performed By: #### U AMIC ####[facility] Enxcbemttp8431 [address] [place] Erythrocytes (RBC) NONE SEEN Normal 0-2 [facility] Comment on above: Performed By: #### U AMIC ####[facility] Bbeokdbrqu3764 [address] [place] Glucose mass conc Negative Normal NEGATIVE [facility] Comment on above: Performed By: #### U AMIC ####[facility] Sraiusxaoe84[address] [place] MUCOUS NONE SEEN Normal NONE SEEN [facility] Comment on above: Performed By: #### U AMIC ####[facility] Vezocionld75[address] [place] pH of blood 6.5 [pH] Normal 5-9 [facility] Comment on above: Performed By: #### U AMIC ####[facility] Vtbdfqvwiw[address] [place] Protein Negative Normal [facility] Comment on above: Performed By: #### U AMIC ####[facility] Lfvjufmjel4745 [place] [address] SPEC GRAVITY 1.015 Normal 1.005-<=1.025 [facility] Comment on above: Performed By: #### U AMIC ####[facility] Rihwfvuyzh8664 [address] [place] Urine, bacteria in sediment TRACE Normal NONE SEEN [facility] Comment on above: Performed By: #### U AMIC ####[facility] Ppbpuwjjmp0609 [place], [place] [address]Nterrp [place] Urine, clarity CLEAR Normal [facility] Comment on above: Performed By: #### U AMIC ####[facility] Sbdagevejo8389 [place], [place] [address]Ptcujv [place] Urine, color LT. YELLOW Normal YELLOW [facility] Comment on above: Performed By: #### U AMIC ####[facility] Qutknrwyvz8055 [place], [place] [address]Rspxmv [place] Urine, crystals in sediment NONE SEEN Normal NONE SEEN [facility] Comment on above: Performed By: #### U AMIC ####[facility] Esnbjgtvjb5282 [place], [place] [address]Vrxisx [place] Urine, epithelial cells in sediment RARE Normal [facility] Comment on above: Performed By: #### U AMIC ####[facility] Jchcdyxmdh8871 [place], [place] [address]Kgftog [place] Urine, ketones presence Negative Normal NEGATIVE [facility] Comment on above: Performed By: #### U AMIC ####[facility] Agyxsmryqj7970 [place], [place] [address]Mjckbf [place] Urine, nitrite presence Negative Normal NEGATIVE [facility] Comment on above: Performed By: #### U AMIC ####[facility] Zwsscbhkqe1034 [place], [place] [address]Znystc [place] Urine, urobilinogen 0.2 {Jer'U}/dL Normal [facility] Comment on above: Performed By: #### U AMIC ####[facility] Mqoqwxeose8887 [place], [place] [address]Amkemw [place] WBC (Leukocytes) NONE SEEN Normal NONE SEEN [facility] Comment on above: Performed By: #### U AMIC ####[facility] Fpocjinwwx0644 [place], [place] [address]Ubkfqk [place] WBC (Leukocytes) Negative Normal NEGATIVE [facility] Comment on above: Performed By: #### U AMIC ####[facility] [address] [place], [place] [address] [place] ABO AND RH TYPEon 09-12-2017 ABO AND RH TYPE Negative Normal [facility] Comment on above: Performed By: #### A BORH ####[facility] Dovfzidmty0183 [place], [place] [address]Ihrqfh [place] PREG QUANT HCGon 09-12-2017 HCG Qn SEE BELOW Normal [facility] Comment on above: Result Comment: 5-50 0-1 WEEK 40-300 1-2 WEEKS 100-1,000 2-3 WEEKS 500-6,000 3-4 WEEKS 5,000-200,000 1-2 MONTHS 10,000-100,000 2-3 MONTHS 3,000-50,000 2ND TRIMESTER 1,000-50,000 3RD TRIMESTER Performed By: #### P REGQNT ####[facility] Vnkqxkoinr3147 [address] [place] HCG QUANT 16837.00 mIU/mL Normal [facility] Comment on above: Performed By: #### P REGQNT ####[facility] Afovasjqjh43[address] [place] PREG <14 WKSon 08-29-2017 [place] PREG <14 WKS [address] [place] [address] Patient: ESTUARDO JEREZ Exam Date: 08/29/2017DOB: 1990 Gender:F : FELISHA TATE . Admission #: [id number] : Order #: [id number] HERE TO VIEW EXAM RADIOLOGY REPORT PROCEDURE: [...] Ayala M.D. on 08/29/2017 at 16:03 Normal [facility] Vital Signs Date Time Vital Sign Value Performing Clinician Ozzy spring 12-27-2023 15:05-0500 Body weight 108.86 kg Sabrina Irma DO Work Phone: [facility] 12-27-2023 15:05-0500 Diastolic blood pressure 74 mm[Hg] Sabrina Irma DO Work Phone: [facility] 12-27-2023 15:05-0500 Systolic blood pressure 128 mm[Hg] Sabrina Irma DO Work Phone: [facility] Encounters Encounter Date Encounter [...] flow sheet Sabrina Irma DO Work Phone: [facility] Comment on above: [...] auto t hin layer prep mnl screen [facility] DO Work Phone: Start: 04-07-2018 Delivery of Products of Conception, External Approach FELISHA TAET Start: 04-07-2018 Repair Perineum Skin , External Approach FELISHA TATE Plan of Treatment Date Care Activity Detail Author Start: 01-24-2024 End: 01-24-2024 Patient encounter procedure 01/24/2024 2:20 PM EST Routine [facility] [address] [place] [address] Aspen Gardner PA [address] [place] [address] [facility] Start: 12-27-2023 End: 12-27-2024 CBC panel - Blood by Automated count CBC Lab Routine Diabetes mellitus screening Expected: 12/27/2023 (Approximate), Expires: 12/27/2024 [facility] [email or web address] Work Phone: Comment on above: Expected: 12/27/2023 (Approximate), Expires: 12/27/2024 Start: 12-27-2023 End: 12-27-2024 Measurement of glucose 1 hour after glucose challenge for glucose tolerance test Glucose tolerance, 1 hour Lab Routine Diabetes mellitus screening Expected: 12/27/2023 (Approximate), Expires: 12/27/2024 [facility] Comment on above: Expected: 12/27/2023 (Approximate), Expires: 12/27/2024 Payers Date Payer Category Payer Unknown [employer] [id number] 2022-Present [phone] [address] [address] [place] [address] [id number] 2022 Unknown [id number] 1990 Unknown [id number] 59 1990 Unknown [id number] 59 1990 Unknown [id number] 59 1990 Unknown [id number] [id number] 59 1990 Unknown [id number] [id number] 59 1990 Unknown [id number] [id number] 59 1990 Unknown [id number] [id number] 59 1990 Unknown [id number] 59 1990 Unknown [id number] 59 1958 Unknown [id number] Social History Date Type Detail Facility Tobacco smoking stat [facility] Tobacco smoking consumption unknown [facility] Start: 08-13-2023 [facility] Start: 1990 Sex Assigned At Not [...] nursing note reviewed. Exam conducted with a senior investigator present. Vitals: There is no height or [...] DATE CREATED AUTHOR 05/17/2018 [facility] DATE CREATED AUTHOR [facility] 04/12/2024 [facility] EPIC FOR RECORDS PERTAINING TO PATIENTS [...] BE BASED ON THE PRIMARY CLINICAL RECORDS. [employer] provides no warranty or guarantee of the accuracy or completeness of information in this document.
[2024-04-17 10:26] VITALS: BP 136/78; PULSE 93
== END 2024-04-17 10:30 | disposition home or self-care (01) ==
LOC: FBCO 07:29 → FBC 10:01
PROVIDERS: Visit Provider Obstetrics & Gynecology
DX: O36.63X0 Maternal care for excessive fetal growth, third trimester, not applicable or unspecified (principal); Z3A.37 37 weeks gestation of pregnancy
CPT/HCPCS: 59025; 76816

== ENCOUNTER 2024-04-17 11:11 | Outpatient (OUT) | payer OTHER, SELFPAY ==
--- NOTE | 2024-04-17 11:14 | US_ITS ---
The [address] [address] Patient Name: ESTUARDO SLADE MRN: [id number] date: 1990 Sex: F Assigned Patient Location: [facility] Current Patient Location: [facility] Accession/Order Number: [id number] Exam Date: 04/17/2024 11:14 Report Date: 04/17/2024 12:16 At the request of: SABRINA SOLIS Procedure: US OB growth EXAMINATION: US OB growth HISTORY: LARGE FOR GESTATIONAL AGE COMPARISON: Ultrasound OB growth 03/27/2024 FINDINGS: Heart Rate: 135.0 bpm Number: 1.0 Position: Cephalic Amniotic Fluid Volume: 15.1 cm Maximum Vertical Pocket: 5.0 cm BIOMETRY: BPD: 9.4 cm cm; 38 weeks 3 days; 88% HC: 35.2 cmcm; 41 weeks 0 days ; 95% AC: 40.1 cm cm; out of range; >97% FL: 7.3 cm cm; 37 weeks 3 days; 49% EFW: 4517.2 grams; >97% FL/AC: 18.2 FL/BPD: 77.5 HC/AC: 0.9 GESTATIONAL AGE: Age by EDC: 37 weeks 3 days ADELE by EDC: 05/05/2024 Age by US: 39 weeks 0 days ADELE by US: 04/16/2024 US/US OB growth IMPRESSION: 1. Single live intrauterine with growth detailed above. 2. Estimated weight is greater than 97th percentile. 3. Abdominal circumference is out of range/greater than 97th percentile. Dr. Solis was notified of these findings by the supervisor aluminum boat assembly at time of imaging. Electronically authenticated by: BERTHA OBREGON Date: 04/17/2024 12:16
--- OUTSIDE RECORDS SUMMARY | 2024-04-17 11:29 | XMS_ITS | CCD ---
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 Blood, UA Negative Negative - 50 Jesse/mcL [facility] Clarity, UA Clear [facility] Color, UA Yellow [facility] Glucose, UA Negative Negative - 1999(110) ++++ mg/dL [facility] Interpretation and review of laboratory results Normal [facility] Ketones, UA Negative Negative - 160(16) ++++ mg/dL [facility] Leukocytes, UA Negative Negative - 500+++ Gabrielle/mcL [facility] Nitrite, UA Negative Negative - Positive [facility] pH, UA 7.0 5 - 9 [facility] Protein, UA Negative Negative - 2000(20) ++++ mg/dL [facility] Spec Grav, UA 1.020 1 - 1.03 [facility] Urobilinogen, UA 0.2 0.2 - 12 mg/dL [facility] Cytology Cervical or vaginal smear or scraping studyon 11-29-2023 [facility] CHLAMYDIA/GONOCOCCUS ALEX W/C ONF. (SWAB/Uon 04-26-2018 Chlamydia Trach ALEX Negative Normal Negative [facility] Comment on above: Performed By: #### A ABIDA ####[facility] V[address] [place], [place] [address] N. Gonorrhoeae ALEX Negative Normal Negative [facility] Comment on above: Performed By: #### A ABIDA ####[facility] F[address] [place] [address] 47[address]Uuceju [place] CBC AUTO DIFFon 04-08-2018 Basophils Auto #/vol (Bld) 0.1 103/ul Normal 0.0-0.1 The [facility] Comment on above: Performed By: #### A ABIDA ####[facility] Gsyzfqasvi[address] [place], [place] [address] Basophils/100 WBC Auto (Bld) 0.3 % Normal 0.2-2.0 The [facility] Comment on above: Performed By: #### A ABIDA ####[facility] M[address] [place], [place] [address] Eosinophils 0.2 103/ul Normal 0.0-0.7 [facility] Comment on above: Performed By: #### A ABIDA ####[facility] [address]hmcvbi5[address] [place] [id number] Eosinophils/100 leukocytes 1.2 % Normal 0.9-7.0 The [facility] Comment on above: Performed By: #### A ABIDA ####[facility] Bqylatrokd4343 [place] [id number] Erythrocyte distribution width Auto Ratio (RBC) 14.3 % Normal 11.0-15.0 The [facility] Comment on above: Performed By: #### A ABIDA ####[facility] Zgxlcmpatj5224 [place] [id number] Erythrocytes (RBC) 3.91 106/ul Critically low 4.20-5.40 [facility] Comment on above: Performed By: #### A ABIDA ####[facility] Mhkwfzjgya[address] [place], [place] [address] Hematocrit (HCT) 34.7 % Critically low 36.0-48.0 The [facility] Comment on above: Performed By: #### A ABIDA ####[facility] Wodbslpvbe[address] [place], [place] [address] Hemoglobin mass conc (Bld) 11.8 g/dL Critically low 12.0-16.0 The [facility] Comment on above: Performed By: #### A ABIDA ####[facility] Ffnwkszpch[address] [place], [place] [address] IG # 0.18 10e3/ul Critically high 0.00-0.03 The [facility] Comment on above: Performed By: #### A ABIDA ####[facility] Uejnxfrstm[address] [place], [place] [address] IG % 1.0 % Critically high 0.0-0.5 The [facility] Comment on above: Performed By: #### A ABIDA ####[facility] Vttivqctal[address] [place], [place] [address] Lymphocytes 2.1 103/ul Normal 1.2-3.8 The [facility] Comment on above: Performed By: #### A ABIDA ####[facility] Teprqgjqjk7397[address] [place], [place] [address] Lymphocytes/100 leukocytes 11.9 % Critically low 20.5-60.0 The [facility] Comment on above: Performed By: #### A ABIDA ####[facility] Jwiitdwoef6136 [place] [id number] MANUAL DIFF REQ NO Normal The [facility] Comment on above: Performed By: #### A ABIDA ####[facility] Tgovebzrms0140 [place] [phone] MCH 30.2 pg Normal 26.7-34.0 The [facility] Comment on above: Performed By: #### A ABIDA ####[facility] Kwdrjdfxrw8123 [address] [place] MCHC mass conc (RBC) 34.0 g/dL Normal 29.9-35.2 The [facility] Comment on above: Performed By: #### A ABIDA ####[facility] Hrcjrtzg[address] [place] [address] [place] MCV 88.7 fL Normal 81.0-99.0 The [facility] Comment on above: Performed By: #### A ABIDA ####[facility] E[address] [place], [place] [address] Monocytes 1.1 103/ul Critically high 0.3-0.8 The [facility] Comment on above: Performed By: #### A ABIDA ####[facility] Splswngoht5399 [address] [place] Monocytes/100 leukocytes 6.2 % Normal 1.7-12.0 The [facility] Comment on above: Performed By: #### A ABIDA ####[facility] Hzgcgmhfdm1970 [place] [id number] Neutrophils 14.1 103/ul Critically high 1.4-6.5 The [facility] Comment on above: Performed By: #### A ABIDA ####[facility] Gisjltskjq6787 [address] [place] Neutrophils/100 WBC Auto (Bld) 79.4 % Critically high 43.0-75.0 The [facility] Comment on above: Performed By: #### A ABIDA ####[facility] Sqjdkzwzjn6529 [address] [place] Platelet mean volume (PMV) 12.2 fL Normal 9.5-13.5 [facility] Comment on above: Performed By: #### A ABIDA ####[facility] Kqsxrivmkw2534 [address] [place] Platelets 118 103/ul Critically low 150-450 [facility] Comment on above: Performed By: #### A ABIDA ####[facility] Vxll[address]wo[address] [place] [address] [place] WBC (Leukocytes) 17.7 103/ul Critically high 4.0-11.0 Th e [facility] Comment on above: Performed By: #### A ABIDA ####[facility] I[address]hknjali[address] [place], [place] [address] SCREENon 04-08-2018 SCREEN Negative Normal [facility] Comment on above: Performed By: #### A ABIDA ####[facility] [address]qowf[address] [place] [address] [place] RHOGAMon 04-08-2018 RHOGAM Status Information Issued Quantity 1 Product ID Rh Immune Globulin Lot Number [id number] Issue Date/Time [id number] Normal [facility] Comment on above: Performed By: #### A ABIDA ####[facility] O[address]qhb[address] [place] [address] [place] CBC AUTO DIFFon 04-07-2018 Basophils Auto #/vol (Bld) 0.1 103/ul Normal 0.0-0.1 [facility] Comment on above: Performed By: #### A ABIDA ####[facility] N[address] [place] [address] [place] Basophils/100 WBC Auto (Bld) 0.3 % Normal 0.2-2.0 [facility] Comment on above: Performed By: #### A ABIDA ####[facility] Cqrpgpsbf[address] [place], [place] [address]ken [place] Eosinophils 0.2 103/ul Normal 0.0-0.7 [facility] Comment on above: Performed By: #### A ABIDA ####[facility] Vmmdsfhhqk3261 [address] [place] Eosinophils/100 leukocytes 1.0 % Normal 0.9-7.0 [facility] Comment on above: Performed By: #### A ABIDA ####[facility] Hodqqlavhc[address] [place] [address] [place] Erythrocyte distribution width Auto Ratio (RBC) 14.0 % Normal 11.0-15.0 The [facility] Comment on above: Performed By: #### A ABIDA ####[facility] Eugftojbzt[address] [place] [address] [place] Erythrocytes (RBC) 4.39 106/ul Normal 4.20-5.40 [facility] Comment on above: Performed By: #### A ABIDA ####[facility] Kbdngwdioo[address] [place] [address] [place] Hematocrit (HCT) 38.7 % Normal 36.0-48.0 The [facility] Comment on above: Performed By: #### A ABIDA ####[facility] X[address] [place] [address] [place] Hemoglobin mass conc (Bld) 13.4 g/dL Normal 12.0-16.0 The [facility] Comment on above: Performed By: #### A ABIDA ####[facility] Kogwntbolt[address] [place] [address] [place] IG # 0.30 10e3/ul Critically high 0.00-0.03 [facility] Comment on above: Performed By: #### A ABIDA ####[facility] Yxuhcqluha9091 [address] [place] IG % 1.4 % Critically high 0.0-0.5 The [facility] Comment on above: Performed By: #### A ABIDA ####[facility] [address]wplju[address] [place] [address] [place] Lymphocytes 2.6 103/ul Normal 1.2-3.8 [facility] Comment on above: Performed By: #### A ABIDA ####[facility] Njjakremef8570 [place] [id number] Lymphocytes/100 leukocytes 12.6 % Critically low 20.5-60.0 [facility] Comment on above: Performed By: #### A ABIDA ####[facility] Sboftnahyi6704 [address] [place] MANUAL DIFF REQ NO Normal [facility] Comment on above: Performed By: #### A ABIDA ####[facility] V[address]jzzwn[address] [place] [address] [place] MCH 30.5 pg Normal 26.7-34.0 [facility] Comment on above: Performed By: #### A ABIDA ####[facility] Tulvtmwcrg[address] [place], [place] [address] MCHC mass conc (RBC) 34.6 g/dL Normal 29.9-35.2 [facility] Comment on above: Performed By: #### A ABIDA ####[facility] E[address]exsxb[address] [place] [address] [place] MCV 88.2 fL Normal 81.0-99.0 [facility] Comment on above: Performed By: #### A ABIDA ####[facility] Qnzxmqbj[address] [place] [address] [place] Monocytes 1.2 103/ul Critically high 0.3-0.8 [facility] Comment on above: Performed By: #### A ABIDA ####[facility] Qncpsklipb[address] [place] [address] [place] Monocytes/100 leukocytes 5.5 % Normal 1.7-12.0 The [facility] Comment on above: Performed By: #### A ABIDA ####[facility] Cubpzsxclz[address] [place] [address] [place] Neutrophils 16.5 103/ul Critically high 1.4-6.5 [facility] Comment on above: Performed By: #### A ABIDA ####[facility] Tfkswwxbxm[address]109 [place] [address] Neutrophils/100 WBC Auto (Bld) 79.2 % Critically high 43.0-75.0 [facility] Comment on above: Performed By: #### A ABIDA ####[facility] Xzgidbplkk1520 [place] [id number] Platelet mean volume (PMV) 12.2 fL Normal 9.5-13.5 [facility] Comment on above: Performed By: #### A ABIDA ####[facility] Jipgglxgbt4667 [address] [place] Platelets 139 103/ul Critically low 150-450 [facility] Comment on above: Performed By: #### A ABIDA ####[facility] Ajpsudytjr[address] [place], [place] [address] WBC (Leukocytes) 20.8 103/ul Critically high 4.0-11.0 [facility] Comment on above: Performed By: #### A ABIDA ####[facility] Vadll[address] [place] [address] [place] DRUG SCREEN RAPID (URINE)on 04-07-2018 AMP Negative Normal NEGATIVE [facility] Comment on above: Performed By: #### A ABIDA ####[facility] Xjktmilj[address] [place] [address] [place] BAR Negative Normal NEGATIVE The [facility] Comment on above: Performed By: #### A ABIDA ####[facility] Vvoonhirct9268 [address] [place] BUP Negative Normal NEGATIVE [facility] Comment on above: Performed By: #### A ABIDA ####[facility] [address]roifyqvtt[address] [place] [address] [place] BZO Negative Normal NEGATIVE The [facility] Comment on above: Performed By: #### A ABIDA ####[facility] [address]fxf[address] [place] [address] [place] ELENA Negative Normal NEGATIVE The [facility] Comment on above: Performed By: #### A ABIDA ####[facility] J[address]no[address] [place] [address] CUT-OFFS SEE BELOW Normal The [facility] Comment on above: Result Comment: AMP [...] 300 ng/mL Performed By: #### A ABIDA ####[facility] Avnkdgaapz[address] [place] [address] DRUG CUT HEADER DRUG CLASS TEST SYSTEM CUT-OFF CONCENTRATIONS ARE FOLLOWS: Normal [facility] Comment on above: Performed By: #### A ABIDA ####[facility] Rxeuoxwdtm[address] [place] [address] mAMP Negative Normal NEGATIVE The [facility] Comment on above: Performed By: #### A ABIDA ####[facility] Xdsojvkj[address] [place] [address] MTD Negative Normal NEGATIVE The [facility] Comment on above: Performed By: #### A ABIDA ####[facility] Cwxektnkur[address] [place] [address] OPI Negative Normal NEGATIVE The [facility] Comment on above: Performed By: #### A ABIDA ####[facility] Knkjrgzsps[address] [place] [address] OXY Negative Normal NEGATIVE The [facility] Comment on above: Performed By: #### A ABIDA ####[facility] Whpjghhigh[address] [place] [address] PCP Negative Normal NEGATIVE The [facility] Comment on above: Performed By: #### A BAIDA ####[facility] Tvatqnnuud9627 [address] [place] PPX Negative Normal NEGATIVE The [facility] Comment on above: Performed By: #### A ABIDA ####[facility] Blmoeeeoul2726 [address] [place] TCA Negative Normal NEGATIVE The [facility] Comment on above: Performed By: #### A ABIDA ####[facility] G[address]osfyd[address] [place] [address] [place] THC Negative Normal NEGATIVE The [facility] Comment on above: Performed By: #### A ABIDA ####[facility] [address] [place] [address] [place] UA (CLEAN/CATCH) NEIGHBORHOOD AIDE/MICRO I F IND.on 04-07-2018 Bilirubin (total) Negative Normal NEGATIVE The [facility] Comment on above: Performed By: #### A ABIDA ####[facility] Vwfojfsula[address] [place] [address] [place] BLOOD Negative Normal NEGATIVE The [facility] Comment on above: Performed By: #### A ABIDA ####[facility] Glfcrkookq[address] [place] [address] [place] Glucose mass conc Negative Normal NEGATIVE The [facility] Comment on above: Performed By: #### A ABIDA ####[facility] Oznluuohpp[address] [place] [address] [place] pH of blood 6.0 [pH] Normal 5-9 The [facility] Comment on above: Performed By: #### A ABIDA ####[facility] V[address]fomktpz[address] [place] [address] [place] Protein Negative Normal The [facility] Comment on above: Performed By: #### A ABIDA ####[facility] Vizbmiprxk[address] [place] [address] [place] SPEC GRAVITY 1.020 Normal 1.005-<=1.025 The [facility] Comment on above: Performed By: #### A ABIDA ####[facility] Ebfsmyvzep0237 [address] [place] UR MICRO IND NOT INDICATED Normal The [facility] Comment on above: Performed By: #### A ABIDA ####[facility] Yesczlxflc0957 [address] [place] Urine, clarity CLEAR Normal The [facility] Comment on above: Performed By: #### A ABIDA ####[facility] Dsgpjlctsm7656 [address] [place] Urine, color LT. YELLOW Normal YELLOW The [facility] Comment on above: Performed By: #### A ABIDA ####[facility] Lgwlxpdkvs8833 [address] [place] Urine, ketones presence Negative Normal NEGATIVE The [facility] Comment on above: Performed By: #### A ABIDA ####[facility] [address]lyenyiesn[address] [place] [address] [place] Urine, nitrite presence Negative Normal NEGATIVE The [facility] Comment on above: Performed By: #### A ABIDA ####[facility] Bnmoghjyae[address] [place] [address] [place] Urine, urobilinogen 0.2 {Jer'U}/dL Normal [facility] Comment on above: Performed By: #### A ABIDA ####[facility] Ncjyubcqxk[address] [place] [address] [place] WBC (Leukocytes) Negative Normal NEGATIVE The [facility] Comment on above: Performed By: #### A ABIDA ####[facility] Tlsmlwfd[address] [place] [address] [place] GROUP B STREPTon 03-21-2018 GBS Performed by [facility] , final report to follow Normal NEG FOR GBS The [facility] Comment on above: Performed By: #### A ABIDA ####[facility] Cxzidmyiwe[address] [place] [address] [place] RHOGAMon 02-04-2018 RHOGAM Status Information Issued Quantity 1 Product ID Rh Immune Globulin Lot Number [id number] Issue Date/Time [id number] Normal [facility] Comment on above: Performed By: #### A ABIDA ####[facility] Pwpotiqxur6774 [address] [place] CBC AUTO DIFFon 02-03-2018 Basophils Auto #/vol (Bld) 0.0 103/ul Normal 0.0-0.1 [facility] Comment on above: Performed By: #### P REGQNT ####[facility] [address]jptwnesh[address] [place] [address] [place] Basophils/100 WBC Auto (Bld) 0.3 % Normal 0.2-2.0 [facility] Comment on above: Performed By: #### P REGQNT ####[facility] [address]zuannzb[address] [place] [address] [place] Eosinophils 0.2 103/ul Normal 0.0-0.7 [facility] Comment on above: Performed By: #### P REGQNT ####[facility] Ctodfqive[address] [place] [address] [place] Eosinophils/100 leukocytes 1.1 % Normal 0.9-7.0 [facility] Comment on above: Performed By: #### P REGQNT ####[facility] K[address]zhezuc[address] [place] [address] [place] Erythrocyte distribution width Auto Ratio (RBC) 13.2 % Normal 11.0-15.0 [facility] Comment on above: Performed By: #### P REGQNT ####[facility] Audhxlwezo[address] [place] [address] [place] Erythrocytes (RBC) 3.91 106/ul Critically low 4.20-5.40 [facility] Comment on above: Performed By: #### P REGQNT ####[facility] Lyms[address]ureh[address] [place] [address] [place] Hematocrit (HCT) 35.5 % Critically low 36.0-48.0 [facility] Comment on above: Performed By: #### P REGQNT ####[facility] Ish[address]vfjd[address] [place] [address] [place] Hemoglobin mass conc (Bld) 12.0 g/dL Normal 12.0-16.0 [facility] Comment on above: Performed By: #### P REGQNT ####[facility] Fybjudmpqg4134 [address] [place] IG # 0.27 10e3/ul Critically high 0.00-0.03 [facility] Comment on above: Performed By: #### P REGQNT ####[facility] Tjurtssuek6927 [address] [place] IG % 1.8 % Critically high 0.0-0.5 [facility] Comment on above: Performed By: #### P REGQNT ####[facility] Vytxpnbppc1231 [address] [place] Lymphocytes 1.8 103/ul Normal 1.2-3.8 [facility] Comment on above: Performed By: #### P REGQNT ####[facility] Jrqypaytvs[address] [place] [address] [place] Lymphocytes/100 leukocytes 11.9 % Critically low 20.5-60.0 [facility] Comment on above: Performed By: #### P REGQNT ####[facility] [address]nixweaujj[address] [place] [address] [place] MANUAL DIFF REQ NO Normal [facility] Comment on above: Performed By: #### P REGQNT ####[facility] Sx[address]uxaxn2341 [address] MCH 30.7 pg Normal 26.7-34.0 [facility] Comment on above: Performed By: #### P REGQNT ####[facility] Qvciuyyulw7614 [address] [place] MCHC mass conc (RBC) 33.8 g/dL Normal 29.9-35.2 The [facility] Comment on above: Performed By: #### P REGQNT ####[facility] Vjktedaazb[address] [place], [place] [address] MCV 90.8 fL Normal 81.0-99.0 [facility] Comment on above: Performed By: #### P REGQNT ####[facility] Hdvruejtmi7852 [place], [place] [address]Rzwsfr [place] Monocytes 0.6 103/ul Normal 0.3-0.8 [facility] Comment on above: Performed By: #### P REGQNT ####[facility] Fikcayznlw7896 [place], [place] [address]Xacjqf [place] Monocytes/100 leukocytes 3.9 % Normal 1.7-12.0 [facility] Comment on above: Performed By: #### P REGQNT ####[facility] Uklidfqpus2645 [place], [place] [address]Ojmdfm [place] Neutrophils 12.1 103/ul Critically high 1.4-6.5 [facility] Comment on above: Performed By: #### P REGQNT ####[facility] Wwxjvdhplk6987 [place], [place] [address]Ufqeyo [place] Neutrophils/100 WBC Auto (Bld) 81.0 % Critically high 43.0-75.0 [facility] Comment on above: Performed By: #### P REGQNT ####[facility] [address]te[address] [place] [address]Uevefx Karen Platelet mean volume (PMV) 11.6 fL Normal 9.5-13.5 [facility] Comment on above: Performed By: #### P REGQNT ####[facility] Epfzcqgpnr4692 [place], [place] [address]Bythaw [place] Platelets 133 103/ul Critically low 150-450 [facility] Comment on above: Performed By: #### P REGQNT ####[facility] Bqyzpkcwbq9662 [place], [place] [address]Hrdnzn [place] WBC (Leukocytes) 14.9 103/ul Critically high 4.0-11.0 [facility] Comment on above: Performed By: #### P REGQNT ####[facility] Voswelettl7299 [place], [place] [address]Mzvedl Karen GLUCOSE - 1HRon 02-03-2018 Glucose mass conc 120 mg/dL Critically high 74-106 [facility] Comment on above: Performed By: #### P REGQNT ####[facility] Fbekfdgboj8227 [place], [place] [address] TYPE AND SCREENon 02-03-2018 TYPE AND SCREEN Negative Normal [facility] Comment on above: Performed By: #### P REGQNT ####[facility] Wavuzvpurw8949 [place], [place] [address]jq[place] US PREG ANATOMY SINGLEon US PREG ANATOMY SINGLE [address] [place] [address] Patient: ESTUARDO JEREZ Exam Date: 11/25/2017DOB: 1990 Gender:F : FELISHA TATE . Admission #: [id number] : Order #: [id number] HERE TO VIEW EXAM RADIOLOGY REPORT PROCEDURE: [...] Ayala M.D. on 11/25/2017 at 20:18 Normal [facility] PAP ACOG PANEL 4: 21 to 29on 10-11-2017 LCPAP SEE SCANNED REPORT Normal [facility] Comment on above: Performed By: #### P REGQNT ####[facility] [address] [place] [address] [place] HEMOGLOBIN ELECTOPHORESISon 09-27-2017 HBSREV Reviewed by Adithya Morton MD ([id number]) [facility] Comment on above: Result Comment: Test Performed By: [facility] [address] [place] [address] Window Cutter: Dalila Roman MD, PhD Performed By: #### P REGQNT ####[facility] V[address] [place], [place] [address]Gerken [place] Hemoglobin mass conc (Bld) None detected. Normal 0.0-1.8 [facility] Comment on above: Performed By: #### P REGQNT ####[facility] W[address] [place], [place] [address]Ger[address] [place] Hemoglobin mass conc (Bld) No abnormal hemoglobin identified. Normal [facility] Comment on above: Performed By: #### P REGQNT ####[facility] Ds[address] [place], [place] [address] Hemoglobin mass conc (Bld) 97.4 % Normal [facility] Comment on above: Performed By: #### P REGQNT ####[facility] Wkkossvccp[address] [place], [place] [address]Ger[place] Hemoglobin mass conc (Bld) 2.6 % Normal 1.5-3.5 [facility] Comment on above: Performed By: #### P REGQNT ####[facility] Stkparikud1706 [address] [place] Interpertation Hemoglobins were analyzed by capillary electrophoresis. Normal [facility] Comment on above: Result Comment: Norm al pattern Performed By: #### P REGQNT ####[facility] [address] [place] [address] [place] VARICELLA IGGon 09-26-2017 Varicella Zoster IgG 1134.0 Index Value Normal [facility] Comment on above: Result Comment: Inde x Values are Interpreted as Follows:Negative specimens <135.0Equivocal specimens 135.0 to 164.9Positive specimens >164.9The magnitude of the measured result is not indicative of theamount of antibody present. Test Performed By: [facility] [employer] [address] [place] [address] Window Cutter: Dalila Roman MD, PhD Performed By: #### P REGQNT ####[facility] [address] [place] [address] [place] VZVGQL Positive Abnormal NEGAT The [facility] Comment on above: Result Comment: Pres ence of detectable VZV IgG antibodies. A positive resultgenerally indicatesexposure to the pathogen or administration of specificimmunoglobulins, but is no indication of active infection or stage of disease. Performed By: #### P REGQNT ####[facility] [address] [place] [address] [place] RPR/SERUMon 09-24-2017 Reagin antibody presence Non Reactive Normal NR The [facility] Comment on above: Result Comment: Test Performed By: [facility] [employer] [address] [place] [address] Window Cutter: Dalila Roman MD, PhD Performed By: #### P REGQNT ####[facility] [address] [place] [address] [place] CBC AUTO DIFFon 09-23-2017 Basophils Auto #/vol (Bld) 0.0 103/ul Normal 0.0-0.1 [facility] Comment on above: Performed By: #### C BC ####[facility] Obyroxzjbb6870 [place], [place] [address]Jjrwhr [place] Basophils/100 WBC Auto (Bld) 0.3 % Normal 0.2-2.0 [facility] Comment on above: Performed By: #### C BC ####[facility] Ixjaejilru4788 [place], [place] [address]Zithkb [place] Eosinophils 0.2 103/ul Normal 0.0-0.7 The [facility] Comment on above: Performed By: #### C BC ####[facility] Iq[address]hon5131 [place] [address] Eosinophils/100 leukocytes 1.1 % Normal 0.9-7.0 The [facility] Comment on above: Performed By: #### C BC ####[facility] A[address] [place], [place] [address]ken [place] Erythrocyte distribution width Auto Ratio (RBC) 12.5 % Normal 11.0-15.0 The [facility] Comment on above: Performed By: #### C BC ####[facility] [address] [place], [place] [address]ken [place] Erythrocytes (RBC) 4.61 106/ul Normal 4.20-5.40 [facility] Comment on above: Performed By: #### C BC ####[facility] Ajkovnyqq[address] [place], [place] [address] Hematocrit (HCT) 41.5 % Normal 36.0-48.0 The [facility] Comment on above: Performed By: #### C BC ####[facility] Htskajzetr1582 [place], [place] [address]Qidzbl [place] Hemoglobin mass conc (Bld) 14.5 g/dL Normal 12.0-16.0 The [facility] Comment on above: Performed By: #### C BC ####[facility] Owukxik[address] [place] [address] IG # 0.07 10e3/ul Critically high 0.00-0.03 [facility] Comment on above: Performed By: #### C BC ####[facility] Ejeiikfvnx5144 [address] [place] IG % 0.5 % Normal 0.0-0.5 [facility] Comment on above: Performed By: #### C BC ####[facility] Iebravcnvi9711 [address] [place] Lymphocytes 2.2 103/ul Normal 1.2-3.8 The [facility] Comment on above: Performed By: #### C BC ####[facility] [address] [place] [address] [place] Lymphocytes/100 leukocytes 15.4 % Critically low 20.5-60.0 The [facility] Comment on above: Performed By: #### C BC ####[facility] [address] [place] [address] [place] MANUAL DIFF REQ NO Normal [facility] Comment on above: Performed By: #### C BC ####[facility] O[address] [place] [address] [place] MCH 31.5 pg Normal 26.7-34.0 The [facility] Comment on above: Performed By: #### C BC ####[facility] M[address]zn[address] [place] [address] [place] MCHC mass conc (RBC) 34.9 g/dL Normal 29.9-35.2 The [facility] Comment on above: Performed By: #### C BC ####[facility] [address] [place] [address] [place] MCV 90.0 fL Normal 81.0-99.0 The [facility] Comment on above: Performed By: #### C BC ####[facility] [address] [place] [address] [place] Monocytes 0.5 103/ul Normal 0.3-0.8 The [facility] Comment on above: Performed By: #### C BC ####[facility] [address] [place] [address] [place] Monocytes/100 leukocytes 3.6 % Normal 1.7-12.0 The [facility] Comment on above: Performed By: #### C BC ####[facility] Xzcscsakvu9602 [place], [place] [address]Dzzvii [place] Neutrophils 11.2 103/ul Critically high 1.4-6.5 [facility] Comment on above: Performed By: #### C BC ####[facility] Mzizejqbqd8779 [place], [place] [address]Fhmhsb [place] Neutrophils/100 WBC Auto (Bld) 79.1 % Critically high 43.0-75.0 [facility] Comment on above: Performed By: #### C BC ####[facility] R[address]llacf17[address] [place] [address] Platelet mean volume (PMV) 11.6 fL Normal 9.5-13.5 [facility] Comment on above: Performed By: #### C BC ####[facility] Zqloogdhvs7817 [place] [address] Platelets 170 103/ul Normal 150-450 [facility] Comment on above: Performed By: #### C BC ####[facility] Hdjtispohk4819 [place], [place] [address]Zfzdyr [place] WBC (Leukocytes) 14.2 103/ul Critically high 4.0-11.0 [facility] Comment on above: Performed By: #### C BC ####[facility] Tysvlrukew8022 [place] [address] HEP B SURFACE AGon 7 HEP B Surface Ag Negative Normal NEGATIVE [facility] Comment on above: Performed By: #### P REGQNT ####[facility] Dvfhjzixcc0424 [place] [address] HEP C ANTIBODYon 09-23-2017 Anti HCV Negative Normal NEGATIVE [facility] Comment on above: Performed By: #### P REGQNT ####[facility] Skejjviypd9667 [place] [address] HIV 1 AND 2 ABon 09-23-2017 HIV 1 AND 2 AB Negative Normal NEGATIVE [facility] Comment on above: Performed By: #### H IV12 ####[facility] Rbxabixwtm3456 [place] [address] PREG QUANT HCGon 09-23-2017 HCG Qn SEE BELOW Normal [facility] Comment on above: Result Comment: 5-50 0-1 WEEK 40-300 1-2 WEEKS 100-1,000 2-3 WEEKS 500-6,000 3-4 WEEKS 5,000-200,000 1-2 MONTHS 10,000-100,000 2-3 MONTHS 3,000-50,000 2ND TRIMESTER 1,000-50,000 3RD TRIMESTER Performed By: #### P REGQNT ####[facility] Vcoruiphup6282 [address] [place] HCG QUANT 80410.00 mIU/mL Normal [facility] Comment on above: Performed By: #### P REGQNT ####[facility] [address] [place] [address] [place] RUBELLA AB IGGon 09-23-2017 RUB HEADER SEE BELOW Normal [facility] Comment on above: Result Comment: or=1 5.0 IU/mL POSITIVE WHO considers levels >or= 10.0 IU/mL to be positive immune status Performed By: #### R UBG ####[facility] [address] [place] [address] [place] RUB IGG 33.1 IU/mL Normal [facility] Comment on above: Performed By: #### R UBG ####[facility] Uexrkuyqzk2156 [address] [place] TYPE AND SCREENon 09-23-2017 TYPE AND SCREEN Negative Normal [facility] Comment on above: Performed By: #### T NS ####[facility] [address] [place] [address] [place] CULTURE URINEon 09-13-2017 CULTURE URINE Culture Observations : Final; See scanned report to follow in [facility] Comment on above: Performed By: #### C XUR ####[facility] Ymzknrncxm5828 [address] [place] UA RANDOM W/MICROSCOPICon Bilirubin (total) Negative Normal NEGATIVE [facility] Comment on above: Performed By: #### U AMIC ####[facility] Lczzhb[address]yo0820 [place] [address] BLOOD Negative Normal NEGATIVE The [facility] Comment on above: Performed By: #### U AMIC ####[facility] Tehnceagyf1782 [place], [place] [address]Qrsvgo [place] CAST NONE SEEN Normal NONE SEEN [facility] Comment on above: Performed By: #### U AMIC ####[facility] Ddjsxkzqpb3508 [address] [place] Erythrocytes (RBC) NONE SEEN Normal 0-2 The [facility] Comment on above: Performed By: #### U AMIC ####[facility] Kxvvywkkyk1101 [address] [place] Glucose mass conc Negative Normal NEGATIVE The [facility] Comment on above: Performed By: #### U AMIC ####[facility] Trslwuejqn5603 [address] [place] MUCOUS NONE SEEN Normal NONE SEEN [facility] Comment on above: Performed By: #### U AMIC ####[facility] Spbiwdursy6339 [address] [place] pH of blood 6.5 [pH] Normal 5-9 The [facility] Comment on above: Performed By: #### U AMIC ####[facility] Trtuvmvxdn4556 [address] [place] Protein Negative Normal [facility] Comment on above: Performed By: #### U AMIC ####[facility] Ilxsrpjurz1125 [place] [address] SPEC GRAVITY 1.015 Normal 1.005-<=1.025 [facility] Comment on above: Performed By: #### U AMIC ####[facility] Cvlanpgedd6465 [address] [place] Urine, bacteria in sediment TRACE Normal NONE SEEN [facility] Comment on above: Performed By: #### U AMIC ####[facility] Zsanmakurz5051 [place], [place] [address]Quisdx [place] Urine, clarity CLEAR Normal [facility] Comment on above: Performed By: #### U AMIC ####[facility] Ueuhuikqls8754 [place], [place] [address]Rcijji [place] Urine, color LT. YELLOW Normal YELLOW The [facility] Comment on above: Performed By: #### U AMIC ####[facility] Tkzwrtleoj0500 [place], [place] [address]Pegjug [place] Urine, crystals in sediment NONE SEEN Normal NONE SEEN The [facility] Comment on above: Performed By: #### U AMIC ####[facility] Ngrdpstwcd1101 [place], [place] [address]Uiqzwe [place] Urine, epithelial cells in sediment RARE Normal [facility] Comment on above: Performed By: #### U AMIC ####[facility] Rbpzwcuvad6499 [place], [place] [address]Vdyhxl [place] Urine, ketones presence Negative Normal NEGATIVE The [facility] Comment on above: Performed By: #### U AMIC ####[facility] Jwejpfqojx3465 [place], [place] [address]X[place]uk [place] Urine, nitrite presence Negative Normal NEGATIVE The [facility] Comment on above: Performed By: #### U AMIC ####[facility] Cqfihvatkk5799 [place], [place] [address]Wdwaqm [place] Urine, urobilinogen 0.2 {Jer'U}/dL Normal [facility] Comment on above: Performed By: #### U AMIC ####[facility] Qjxyqfyomf8516 [place], [place] [address]Kdbpnw [place] WBC (Leukocytes) NONE SEEN Normal NONE SEEN The [facility] Comment on above: Performed By: #### U AMIC ####[facility] Fgcjflzniz5893 [place], [place] [address]Tcjuze [place] WBC (Leukocytes) Negative Normal NEGATIVE [facility] Comment on above: Performed By: #### U AMIC ####[facility] Mdcoskrnsw[address] [place], [place] [address] ABO AND RH TYPEon 09-12-2017 ABO AND RH TYPE Negative Normal [facility] Comment on above: Performed By: #### A BORH ####[facility] Thmtlhtlqm6406 [place], [place] [address]Bdulaa [place] PREG QUANT HCGon 09-12-2017 HCG Qn SEE BELOW Normal [facility] Comment on above: Result Comment: 5-50 0-1 WEEK 40-300 1-2 WEEKS 100-1,000 2-3 WEEKS 500-6,000 3-4 WEEKS 5,000-200,000 1-2 MONTHS 10,000-100,000 2-3 MONTHS 3,000-50,000 2ND TRIMESTER 1,000-50,000 3RD TRIMESTER Performed By: #### P REGQNT ####[facility] Bnawhfpgqe9921 [address] [place] HCG QUANT 52995.00 mIU/mL Normal [facility] Comment on above: Performed By: #### P REGQNT ####[facility] Tthpwawfhc4[address] [place] PREG <14 WKSon 08-29-2017 US PREG <14 WKS [address] [place] [address] Patient: ESTUARDO JEREZ Exam Date: 08/29/2017DOB: 1990 Gender:F : FELISHA TATE . Admission #: [id number] : Order #: [id number] HERE TO VIEW EXAM RADIOLOGY REPORT PROCEDURE: [...] Ayala M.D. on 08/29/2017 at 16:03 Normal [facility] Vital Signs Date Time Vital Sign Value Performing Clinician Ozzy spring 12-27-2023 15:05-0500 Body weight 108.86 kg Sabrina Irma DO Work Phone: [facility] 12-27-2023 15:05-0500 Diastolic blood pressure 74 mm[Hg] Sabrina Irma DO Work Phone: [facility] 12-27-2023 15:05-0500 Systolic blood pressure 128 mm[Hg] Sabrina Irma DO Work Phone: [facility] Encounters Encounter Date Encounter Type Care Provider Facility Start: 04-10-2024 End: 04-10-2024 ambulatory SABRINA RIMA Not Available Start: 03-27-2024 End: 03-27-2024 ambulatory [...] flow sheet Sabrina Irma DO Work Phone: [facility] Comment on above: [...] auto t hin layer prep mnl screen [facility] DO Work Phone: Start: 04-07-2018 Delivery of Products of Conception, External Approach FELISHA TATE Start: 04-07-2018 Repair Perineum Skin , External Approach FELISHA TATE Plan of Treatment Date Care Activity Detail Author Start: 01-24-2024 End: 01-24-2024 Patient encounter procedure 01/24/2024 2:20 PM EST Routine [facility] [address] [place] [address] Aspen Gardner PA [address] [place] [address] [facility] Start: 12-27-2023 End: 12-27-2024 CBC panel - Blood by Automated count CBC Lab Routine Diabetes mellitus screening Expected: 12/27/2023 (Approximate), Expires: 12/27/2024 [facility] [place] Work Phone: Comment on above: Expected: 12/27/2023 (Approximate), Expires: 12/27/2024 Start: 12-27-2023 End: 12-27-2024 Measurement of glucose 1 hour after glucose challenge for glucose tolerance test Glucose tolerance, 1 hour Lab Routine Diabetes mellitus screening Expected: 12/27/2023 (Approximate), Expires: 12/27/2024 [facility] Comment on above: Expected: 12/27/2023 (Approximate), Expires: 12/27/2024 Payers Date Payer Category Payer Unknown [employer] [id number] 2022-Present [phone] [address] [address] [place] [address] [id number] 2022 Unknown [id number] 1990 Unknown [id number] 59 1990 Unknown [id number] [id number] 59 1990 Unknown [id number] [id number] 59 1990 Unknown [id number] 2.16.840.1.534130.3.579.2.12 59 1990 Unknown [id number] 2.16.840.1.468475.3.579.2.12 59 1990 Unknown [id number] 2.16.840.1.730168.3.579.2.12 59 1990 Unknown [id number] 2.16.840.1.798133.3.579.2.12 59 1990 Unknown [id number] 2.16.840.1.870485.3.579.2.12 59 1990 Unknown [id number] 2.16.840.1.191038.3.579.2.12 59 1958 Unknown [id number] Social History Date Type Detail Facility Tobacco smoking stat [facility] Tobacco smoking consumption unknown [facility] [...] note reviewed. Exam conducted with a senior dynamics crm developer present. Vitals: There is no height or [...] DATE CREATED AUTHOR 05/17/2018 [facility] DATE CREATED AUTHOR [facility]/12/2024 [facility] dictn Specialists EPIC FOR RECORDS PERTAINING TO PATIENTS [...] BE BASED ON THE PRIMARY CLINICAL RECORDS. [employer] provides no warranty or guarantee of the accuracy or completeness of information in this document.
== END 2024-04-17 11:12 | disposition home or self-care (01) ==
LOC: NOMS 11:11
PROVIDERS: Visit Provider Obstetrics & Gynecology
DX: O36.63X0 Maternal care for excessive fetal growth, third trimester, not applicable or unspecified (principal); Z3A.37 37 weeks gestation of pregnancy
CPT/HCPCS: 76816

== ENCOUNTER 2024-04-20 07:16 | Outpatient (OUT) | payer OTHER, SELFPAY ==
--- OUTSIDE RECORDS SUMMARY | 2024-04-20 07:19 | XMS_ITS | CCD ---
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 Name Role Phone FELISHA TATE Unavailable Unavailable [...] TATEA Unavailable Unavailable FELISHA TATE Unavailable Unavailable REQUEST, [...] UA Negative Negative - 4(70) +++ mg/dL [facility] Blood, UA Negative Negative - 50 Jesse/mcL [facility] Clarity, UA Clear [facility] Color, UA Yellow [facility] Glucose, UA Negative Negative - 1999(110) ++++ mg/dL [facility] Interpretation and review of laboratory results Normal [facility] Ketones, UA Negative Negative - 160(16) ++++ mg/dL [facility] Leukocytes, UA Negative Negative - 500+++ Gabrielle/mcL [facility] Nitrite, UA Negative Negative - Positive [facility] pH, UA 7.0 5 - 9 [facility] Protein, UA Negative Negative - 2000(20) ++++ mg/dL [facility] Spec Grav, UA 1.020 1 - 1.03 [facility] Urobilinogen, UA 0.2 0.2 - 12 mg/dL [facility] Cytology Cervical or vaginal smear or scraping studyon 11-29-2023 [facility] CHLAMYDIA/GONOCOCCUS ALEX W/C ONF. (SWAB/Uon 04-26-2018 Chlamydia Trach ALEX Negative Normal Negative [facility] Comment on above: Performed By: #### A ABIDA ####[facility] Os[address] [place] [address]Zaylhh [place] N. Gonorrhoeae ALEX Negative Normal Negative [facility] Comment on above: Performed By: #### A ABIDA ####[facility] Okvecbzhnf[address] [place], [place] [address] CBC AUTO DIFFon 04-08-2018 Basophils Auto #/vol (Bld) 0.1 103/ul Normal 0.0-0.1 [facility] Comment on above: Performed By: #### A ABIDA ####[facility] Hbedbaxdp[address] [place] [address]Ebfugt [place] Basophils/100 WBC Auto (Bld) 0.3 % Normal 0.2-2.0 [facility] Comment on above: Performed By: #### A ABIDA ####[facility] Dcuthrnldq[address] [place], [place] [address] Eosinophils 0.2 103/ul Normal 0.0-0.7 [facility] Comment on above: Performed By: #### A ABIDA ####[facility] Fhujynysyt5078 [place] [id number] Eosinophils/100 leukocytes 1.2 % Normal 0.9-7.0 [facility] Comment on above: Performed By: #### A ABIDA ####[facility] Rxrpfewlzo7793 [place] [id number] Erythrocyte distribution width Auto Ratio (RBC) 14.3 % Normal 11.0-15.0 [facility] Comment on above: Performed By: #### A ABIDA ####[facility] Icnwmudswx4279 [place] [id number] Erythrocytes (RBC) 3.91 106/ul Critically low 4.20-5.40 [facility] Comment on above: Performed By: #### A ABIDA ####[facility] Rpyqirwy[address] [place], [place] [address] Hematocrit (HCT) 34.7 % Critically low 36.0-48.0 [facility] Comment on above: Performed By: #### A ABIDA ####[facility] Kabgqpwl[address] [place], [place] [address] Hemoglobin mass conc (Bld) 11.8 g/dL Critically low 12.0-16.0 [facility] Comment on above: Performed By: #### A ABIDA ####[facility] V[address]ym[address]rq[address] [place], [place] [address] IG # 0.18 10e3/ul Critically high 0.00-0.03 [facility] Comment on above: Performed By: #### A ABIDA ####[facility] Tdatqllkxl7019 [place] [id number] IG % 1.0 % Critically high 0.0-0.5 The [facility] Comment on above: Performed By: #### A ABIDA ####[facility] Asonzgzslz0994 [place] [address] Lymphocytes 2.1 103/ul Normal 1.2-3.8 [facility] Comment on above: Performed By: #### A ABIDA ####[facility] Nyzouvrpoc3498 [place] [id number] Lymphocytes/100 leukocytes 11.9 % Critically low 20.5-60.0 [facility] Comment on above: Performed By: #### A ABIDA ####[facility] Uzxdzdxvpt3182 [place] [id number] MANUAL DIFF REQ NO Normal [facility] Comment on above: Performed By: #### A ABIDA ####[facility] Xhplsejtup4964 [place] [id number] MCH 30.2 pg Normal 26.7-34.0 [facility] Comment on above: Performed By: #### A ABIDA ####[facility] Swugxdzziz1159 [place] [id number] MCHC mass conc (RBC) 34.0 g/dL Normal 29.9-35.2 [facility] Comment on above: Performed By: #### A ABIDA ####[facility] Mpbkbokmgt[address] [place], [place] [address] MCV 88.7 fL Normal 81.0-99.0 [facility] Comment on above: Performed By: #### A ABIDA ####[facility] Uvusxigvzz[address] [place], [place] [address] Monocytes 1.1 103/ul Critically high 0.3-0.8 [facility] Comment on above: Performed By: #### A ABIDA ####[facility] Bgaewwzgiz[address] [place], [place] [address] Monocytes/100 leukocytes 6.2 % Normal 1.7-12.0 [facility] Comment on above: Performed By: #### A ABIDA ####[facility] Njkzubhtnx[address] [place], [place] [address] Neutrophils 14.1 103/ul Critically high 1.4-6.5 The [facility] Comment on above: Performed By: #### A ABIDA ####[facility] Ywn[address]la[address] [place] [address] [place] Neutrophils/100 WBC Auto (Bld) 79.4 % Critically high 43.0-75.0 [facility] Comment on above: Performed By: #### A ABIDA ####[facility] Ikttonaq[address] [place] [address] [place] Platelet mean volume (PMV) 12.2 fL Normal 9.5-13.5 [facility] Comment on above: Performed By: #### A ABIDA ####[facility] Fkytxjyh[address] [place] [address] [place] Platelets 118 103/ul Critically low 150-450 [facility] Comment on above: Performed By: #### A ABIDA ####[facility] Ulfvqtjacv[address] [place] [address] [place] WBC (Leukocytes) 17.7 103/ul Critically high 4.0-11.0 Th e [facility] Comment on above: Performed By: #### A ABIDA ####[facility] Xfliuyyfgj[address] [place] [address] [place] SCREENon 04-08-2018 SCREEN Negative Normal [facility] Comment on above: Performed By: #### A ABIDA ####[facility] [address]hs[address] [place] [address] [place] RHOGAMon 04-08-2018 RHOGAM Status Information Issued Quantity 1 Product ID Rh Immune Globulin Lot Number [id number] Issue Date/Time [id number] Normal [facility] Comment on above: Performed By: #### A ABIDA ####[facility] Crexwrv[address] [place] [address] [place] CBC AUTO DIFFon 04-07-2018 Basophils Auto #/vol (Bld) 0.1 103/ul Normal 0.0-0.1 [facility] Comment on above: Performed By: #### A ABIDA ####[facility] Rulolegpbz[address] [place] [address] [place] Basophils/100 WBC Auto (Bld) 0.3 % Normal 0.2-2.0 [facility] Comment on above: Performed By: #### A ABIDA ####[facility] Bgreeofbue5480 [address] [place] Eosinophils 0.2 103/ul Normal 0.0-0.7 [facility] Comment on above: Performed By: #### A ABIDA ####[facility] Mwtdocymof8638 [address] [place] Eosinophils/100 leukocytes 1.0 % Normal 0.9-7.0 [facility] Comment on above: Performed By: #### A ABIDA ####[facility] Hlchxsutma9452 [address] [place] Erythrocyte distribution width Auto Ratio (RBC) 14.0 % Normal 11.0-15.0 [facility] Comment on above: Performed By: #### A ABIDA ####[facility] Zaxtmjghtw[address] [place] [address] [place] Erythrocytes (RBC) 4.39 106/ul Normal 4.20-5.40 [facility] Comment on above: Performed By: #### A ABIDA ####[facility] Ofxuevrauc[address] [place] [address] [place] Hematocrit (HCT) 38.7 % Normal 36.0-48.0 The [facility] Comment on above: Performed By: #### A ABIDA ####[facility] Rpzbrqnjpg[address] [place] [address] [place] Hemoglobin mass conc (Bld) 13.4 g/dL Normal 12.0-16.0 [facility] Comment on above: Performed By: #### A ABIDA ####[facility] Xazalwfkyd6175 [place] [address] IG # 0.30 10e3/ul Critically high 0.00-0.03 The [facility] Comment on above: Performed By: #### A ABIDA ####[facility] Keofmmmhee7059 [address] [place] IG % 1.4 % Critically high 0.0-0.5 The [facility] Comment on above: Performed By: #### A ABIDA ####[facility] Yloxghypta9492 [address] [place] Lymphocytes 2.6 103/ul Normal 1.2-3.8 The [facility] Comment on above: Performed By: #### A ABIDA ####[facility] Etltrsujxy4798 [address] [place] Lymphocytes/100 leukocytes 12.6 % Critically low 20.5-60.0 [facility] Comment on above: Performed By: #### A ABIDA ####[facility] Wibgndejlx8863 [address] [place] MANUAL DIFF REQ NO Normal The [facility] Comment on above: Performed By: #### A ABIDA ####[facility] Gncxoigibc9212 [address] [place] MCH 30.5 pg Normal 26.7-34.0 [facility] Comment on above: Performed By: #### A ABIDA ####[facility] Zjztuzmgyn9001 [address] [place] MCHC mass conc (RBC) 34.6 g/dL Normal 29.9-35.2 [facility] Comment on above: Performed By: #### A ABIDA ####[facility] Mcigyzpjpr1191 [address] [place] MCV 88.2 fL Normal 81.0-99.0 [facility] Comment on above: Performed By: #### A AIBDA ####[facility] Jrsowtpayq1493 [address] [place] Monocytes 1.2 103/ul Critically high 0.3-0.8 The [facility] Comment on above: Performed By: #### A ABIDA ####[facility] Rocruutlsm4725 [address] [place] Monocytes/100 leukocytes 5.5 % Normal 1.7-12.0 [facility] Comment on above: Performed By: #### A ABIDA ####[facility] Xhqxagaone4508 [address] [place] Neutrophils 16.5 103/ul Critically high 1.4-6.5 The [facility] Comment on above: Performed By: #### A ABIDA ####[facility] Xzqrftyzas6147 [place] [id number] Neutrophils/100 WBC Auto (Bld) 79.2 % Critically high 43.0-75.0 [facility] Comment on above: Performed By: #### A ABIDA ####[facility] Smvnbzikqa4377 [place] [id number] Platelet mean volume (PMV) 12.2 fL Normal 9.5-13.5 [facility] Comment on above: Performed By: #### A ABIDA ####[facility] Ellogjgrcv2206 [place] [address] Platelets 139 103/ul Critically low 150-450 [facility] Comment on above: Performed By: #### A ABIDA ####[facility] Mtwkjpmltl6031 [place] [id number] WBC (Leukocytes) 20.8 103/ul Critically high 4.0-11.0 [facility] Comment on above: Performed By: #### A ABIDA ####[facility] Fgbzydmdpg0158 [address] [place] DRUG SCREEN RAPID (URINE)on 04-07-2018 AMP Negative Normal NEGATIVE [facility] Comment on above: Performed By: #### A ABIDA ####[facility] Umzpokawlu6373 [address] [place] BAR Negative Normal NEGATIVE The [facility] Comment on above: Performed By: #### A ABIDA ####[facility] Noixtegpqe2217 [place] [id number] BUP Negative Normal NEGATIVE The [facility] Comment on above: Performed By: #### A ABIDA ####[facility] Tqlsbvenkq8266 [address] [place] BZO Negative Normal NEGATIVE The [facility] Comment on above: Performed By: #### A ABIDA ####[facility] Ttbfetypss4465 [address] [place] ELENA Negative Normal NEGATIVE The [facility] Comment on above: Performed By: #### A ABIDA ####[facility] [address] [place] [address] CUT-OFFS SEE BELOW Normal [facility] Comment on above: Result Comment: AMP (Amphetamine): [...] 300 ng/mL Performed By: #### A ABIDA ####[facility] [address]fe[address] [place] [address] DRUG CUT HEADER DRUG CLASS TEST SYSTEM CUT-OFF CONCENTRATIONS ARE FOLLOWS: Normal [facility] Comment on above: Performed By: #### A ABIDA ####[facility] Inpbmmfxxn[address] [place] [address] mAMP Negative Normal NEGATIVE [facility] Comment on above: Performed By: #### A ABIDA ####[facility] Kkyqxaxsor[address] [place] [address] MTD Negative Normal NEGATIVE The [facility] Comment on above: Performed By: #### A ABIDA ####[facility] U[address]ercum[address] [place] [address] OPI Negative Normal NEGATIVE [facility] Comment on above: Performed By: #### A ABIDA ####[facility] [address]unjjul[address] [place] [address] OXY Negative Normal NEGATIVE [facility] Comment on above: Performed By: #### A ABIDA ####[facility] Zwfooixeio[address] [place] [address] PCP Negative Normal NEGATIVE [facility] Comment on above: Performed By: #### A ABIDA ####[facility] Auznmgamsg8732 [address] [place] PPX Negative Normal NEGATIVE [facility] Comment on above: Performed By: #### A ABIDA ####[facility] Ttbustsvcw8029 [address] [place] TCA Negative Normal NEGATIVE [facility] Comment on above: Performed By: #### A ABIDA ####[facility] Ntpnedjmfp2835 [address] [place] THC Negative Normal NEGATIVE [facility] Comment on above: Performed By: #### A ABIDA ####[facility] [address]zynijll[address] [place] [address] [place] UA (CLEAN/CATCH) HOSPICE HOME HEALTH AIDE/MICRO I F IND.on 04-07-2018 Bilirubin (total) Negative Normal NEGATIVE The [facility] Comment on above: Performed By: #### A ABIDA ####[facility] Uejbxjpsqn[address] [place] [address] [place] BLOOD Negative Normal NEGATIVE [facility] Comment on above: Performed By: #### A ABIDA ####[facility] Ngrjhrpouh[address] [place] [address] [place] Glucose mass conc Negative Normal NEGATIVE The [facility] Comment on above: Performed By: #### A ABIDA ####[facility] Kdnhxwrtxd[address] [place] [address] [place] pH of blood 6.0 [pH] Normal 5-9 [facility] Comment on above: Performed By: #### A ABIDA ####[facility] Trhbrpdzmp9303 [address] [place] Protein Negative Normal The [facility] Comment on above: Performed By: #### A ABIDA ####[facility] Ramncjuukm5716 [address] [place] SPEC GRAVITY 1.020 Normal 1.005-<=1.025 The [facility] Comment on above: Performed By: #### A ABIDA ####[facility] Shtiwytqfv9734 [address] [place] UR MICRO IND NOT INDICATED Normal [facility] Comment on above: Performed By: #### A ABIDA ####[facility] Djkpitqwld9687 [address] [place] Urine, clarity CLEAR Normal The [facility] Comment on above: Performed By: #### A ABIDA ####[facility] Bdjdpyaort4212 [address] [place] Urine, color LT. YELLOW Normal YELLOW [facility] Comment on above: Performed By: #### A ABIDA ####[facility] Hxxbbrvrjf1585 [address] [place] Urine, ketones presence Negative Normal NEGATIVE The [facility] Comment on above: Performed By: #### A ABIDA ####[facility] Z[address]ddepddto[address] [place] [address] [place] Urine, nitrite presence Negative Normal NEGATIVE The [facility] Comment on above: Performed By: #### A ABIDA ####[facility] Lolytjbbdp7623 [address] [place] Urine, urobilinogen 0.2 {Jer'U}/dL Normal [facility] Comment on above: Performed By: #### A ABIDA ####[facility] Njfsjmfkqg1548 [address] [place] WBC (Leukocytes) Negative Normal NEGATIVE The [facility] Comment on above: Performed By: #### A ABIDA ####[facility] [address]dxcd[address] [place] [address] [place] GROUP B STREPTon 03-21-2018 GBS Performed by [facility] , final report to follow Normal NEG FOR GBS The [facility] Comment on above: Performed By: #### A ABIDA ####[facility] [address]rx[address] [place] [address] [place] RHOGAMon 02-04-2018 RHOGAM Status Information Issued Quantity 1 Product ID Rh Immune Globulin Lot Number [id number] Issue Date/Time [id number] Normal [facility] Comment on above: Performed By: #### A ABIDA ####[facility] Jffugeoxmk2070 [place] [id number] CBC AUTO DIFFon 02-03-2018 Basophils Auto #/vol (Bld) 0.0 103/ul Normal 0.0-0.1 [facility] Comment on above: Performed By: #### P REGQNT ####[facility] Phlatgaoqs[address] [place] [address] [place] Basophils/100 WBC Auto (Bld) 0.3 % Normal 0.2-2.0 [facility] Comment on above: Performed By: #### P REGQNT ####[facility] N[address]vflpb[address] [place] [address] [place] Eosinophils 0.2 103/ul Normal 0.0-0.7 [facility] Comment on above: Performed By: #### P REGQNT ####[facility] K[address]fjkemjj[address] [place] [address] [place] Eosinophils/100 leukocytes 1.1 % Normal 0.9-7.0 [facility] Comment on above: Performed By: #### P REGQNT ####[facility] Fxpucmerop[address] [place] [address] [place] Erythrocyte distribution width Auto Ratio (RBC) 13.2 % Normal 11.0-15.0 [facility] Comment on above: Performed By: #### P REGQNT ####[facility] Zzy[address]wkf[address] [place] [address] [place] Erythrocytes (RBC) 3.91 106/ul Critically low 4.20-5.40 [facility] Comment on above: Performed By: #### P REGQNT ####[facility] Zpcv[address]ryr[address] [place] [address] [place] Hematocrit (HCT) 35.5 % Critically low 36.0-48.0 [facility] Comment on above: Performed By: #### P REGQNT ####[facility] [address]sf[address] [place] [address] [place] Hemoglobin mass conc (Bld) 12.0 g/dL Normal 12.0-16.0 [facility] Comment on above: Performed By: #### P REGQNT ####[facility] Liwwmfatbf[address] [place] [id number] IG # 0.27 10e3/ul Critically high 0.00-0.03 [facility] Comment on above: Performed By: #### P REGQNT ####[facility] Fxynxmmwxz4103 [place] [address] IG % 1.8 % Critically high 0.0-0.5 The [facility] Comment on above: Performed By: #### P REGQNT ####[facility] Yhwsctchrj7809 [place] [address] Lymphocytes 1.8 103/ul Normal 1.2-3.8 [facility] Comment on above: Performed By: #### P REGQNT ####[facility] Iqfsusiqno4544 [address] [place] Lymphocytes/100 leukocytes 11.9 % Critically low 20.5-60.0 [facility] Comment on above: Performed By: #### P REGQNT ####[facility] Kihsgpjnkr2704 [address] [place] MANUAL DIFF REQ NO Normal [facility] Comment on above: Performed By: #### P REGQNT ####[facility] Qbavwtabir1196 [address] [place] MCH 30.7 pg Normal 26.7-34.0 [facility] Comment on above: Performed By: #### P REGQNT ####[facility] Rnxbnibrbj2467 [address] [place] MCHC mass conc (RBC) 33.8 g/dL Normal 29.9-35.2 [facility] Comment on above: Performed By: #### P REGQNT ####[facility] Bxfibnjvrk5280 [address] [place] MCV 90.8 fL Normal 81.0-99.0 [facility] Comment on above: Performed By: #### P REGQNT ####[facility] Vqfhyxcxx[address] [place], [place] [address]Shcjub [place] Monocytes 0.6 103/ul Normal 0.3-0.8 [facility] Comment on above: Performed By: #### P REGQNT ####[facility] Svzonrdmbt5391 [place], [place] [address]Xrkkiu [place] Monocytes/100 leukocytes 3.9 % Normal 1.7-12.0 [facility] Comment on above: Performed By: #### P REGQNT ####[facility] Fbrjxxfnvs3579 [place], [place] [address]Tfkghb [place] Neutrophils 12.1 103/ul Critically high 1.4-6.5 [facility] Comment on above: Performed By: #### P REGQNT ####[facility] Osxsnohtiv2666 [place] [address] Neutrophils/100 WBC Auto (Bld) 81.0 % Critically high 43.0-75.0 [facility] Comment on above: Performed By: #### P REGQNT ####[facility] Pvllvlnwhn5313 [place] [id number] Platelet mean volume (PMV) 11.6 fL Normal 9.5-13.5 [facility] Comment on above: Performed By: #### P REGQNT ####[facility] Mczowakgnu9383 [place] [address] Platelets 133 103/ul Critically low 150-450 [facility] Comment on above: Performed By: #### P REGQNT ####[facility] [facility] [address]seb[address] [place] [id number] [place] WBC (Leukocytes) 14.9 103/ul Critically high 4.0-11.0 [facility] Comment on above: Performed By: #### P REGQNT ####[facility] Ufcebocloo5[address] [place], [place] [address]nuhs[place] GLUCOSE - 1HRon 02-03-2018 Glucose mass conc 120 mg/dL Critically high 74-106 Th [facility] Comment on above: Performed By: #### P REGQNT ####[facility] Lydptjcnjm3378 [place], [place] [address] TYPE AND SCREENon 02-03-2018 TYPE AND SCREEN Negative Normal [facility] Comment on above: Performed By: #### P REGQNT ####[facility] Smwgubmvdj8986 [place], [place] [address]zxl[place] US PREG ANATOMY SINGLEon US PREG ANATOMY SINGLE [address] [place] [address] Patient: ESTUARDO JEREZ Exam Date: 11/25/2017DOB: 1990 Gender:F : FELISHA TATE . Admission #: [id number] : Order #: [id number] HERE TO VIEW EXAM RADIOLOGY REPORT PROCEDURE: [...] Ayala M.D. on 11/25/2017 at 20:18 Normal [facility] PAP ACOG PANEL 4: 21 to 29on 10-11-2017 LCPAP SEE SCANNED REPORT Normal [facility] Comment on above: Performed By: #### P REGQNT ####[facility] [address] [place] [address] [place] HEMOGLOBIN ELECTOPHORESISon 09-27-2017 HBSREV Reviewed by Adithya Morton MD ([id number]) [facility] Comment on above: Result Comment: Test Performed By: [facility] [address] [place] [address] Transfer Clerk: Dalila Roman MD, PhD Performed By: #### P REGQNT ####[facility] [address] [place] [address] [place] Hemoglobin mass conc (Bld) None detected. Normal 0.0-1.8 [facility] Comment on above: Performed By: #### P REGQNT ####[facility] [address] [place] [address]Ger[place] Hemoglobin mass conc (Bld) No abnormal hemoglobin identified. Normal [facility] Comment on above: Performed By: #### P REGQNT ####[facility] Lxnjooxcud4[address] [place] [address] [place] Hemoglobin mass conc (Bld) 97.4 % Normal [facility] Comment on above: Performed By: #### P REGQNT ####[facility] Cens[address] [place], [place] [address]Ger[address] [place] Hemoglobin mass conc (Bld) 2.6 % Normal 1.5-3.5 The [facility] Comment on above: Performed By: #### P REGQNT ####[facility] Euvjognuhr0424 [address] [place] Interpertation Hemoglobins were analyzed by capillary electrophoresis. Normal The [facility] Comment on above: Result Comment: Norm al pattern Performed By: #### P REGQNT ####[facility] [address] [place] [address] [place] VARICELLA IGGon 09-26-2017 Varicella Zoster IgG 1134.0 Index Value Normal The [facility] Comment on above: Result Comment: Inde x Values are Interpreted as Follows:Negative specimens <135.0Equivocal specimens 135.0 to 164.9Positive specimens >164.9The magnitude of the measured result is not indicative of theamount of antibody present. Test Performed By: [facility] [employer] [address] [place] [address] Transfer Clerk: Dalila Roman MD, PhD Performed By: #### P REGQNT ####[facility] [address] [place] [address] [place] VZVGQL Positive Abnormal NEGAT The [facility] Comment on above: Result Comment: Pres ence of detectable VZV IgG antibodies. A positive resultgenerally indicatesexposure to the pathogen or administration of specificimmunoglobulins, but is no indication of active infection or stage of disease. Performed By: #### P REGQNT ####[facility] [address] [place] [address] [place] RPR/SERUMon 09-24-2017 Reagin antibody presence Non Reactive Normal NR The [facility] Comment on above: Result Comment: Test Performed By: [facility] [employer] [address] [place] [address] Transfer Clerk: Dalila Roman MD, PhD Performed By: #### P REGQNT ####[facility] [address] [place] [address] [place] CBC AUTO DIFFon 09-23-2017 Basophils Auto #/vol (Bld) 0.0 103/ul Normal 0.0-0.1 [facility] Comment on above: Performed By: #### C BC ####[facility] [address]ys[address] [place], [place] [address]Duofba [place] Basophils/100 WBC Auto (Bld) 0.3 % Normal 0.2-2.0 [facility] Comment on above: Performed By: #### C BC ####[facility] Gqxbxztsfs6[address] [place], [place] [address]Qlivbw [place] Eosinophils 0.2 103/ul Normal 0.0-0.7 [facility] Comment on above: Performed By: #### C BC ####[facility] Qlxmvygsfw44[address] [place] [address]Gerken [place] Eosinophils/100 leukocytes 1.1 % Normal 0.9-7.0 [facility] Comment on above: Performed By: #### C BC ####[facility] [address] [place], [place] [address]Gerken [place] Erythrocyte distribution width Auto Ratio (RBC) 12.5 % Normal 11.0-15.0 [facility] Comment on above: Performed By: #### C BC ####[facility] Niklttiakq[address] [place] [id number] [place] Erythrocytes (RBC) 4.61 106/ul Normal 4.20-5.40 [facility] Comment on above: Performed By: #### C BC ####[facility] Akux[address]lezwu[address] [place] [address]Gerken [place] Hematocrit (HCT) 41.5 % Normal 36.0-48.0 [facility] Comment on above: Performed By: #### C BC ####[facility] Rkms[address]zmqzk36[address] [place], [place] [address]Vkhdtb [place] Hemoglobin mass conc (Bld) 14.5 g/dL Normal 12.0-16.0 [facility] Comment on above: Performed By: #### C BC ####[facility] Dagdpsnjbp1306 [place], [place] [address]Tnquap [place] IG # 0.07 10e3/ul Critically high 0.00-0.03 [facility] Comment on above: Performed By: #### C BC ####[facility] Vscredmldx[address] [place] IG % 0.5 % Normal 0.0-0.5 [facility] Comment on above: Performed By: #### C BC ####[facility] Bfeiraginf[address] [place] Lymphocytes 2.2 103/ul Normal 1.2-3.8 [facility] Comment on above: Performed By: #### C BC ####[facility] Kanxxmzdga9066 [address] [place] Lymphocytes/100 leukocytes 15.4 % Critically low 20.5-60.0 [facility] Comment on above: Performed By: #### C BC ####[facility] Uncsoahqzh8[address] [place] MANUAL DIFF REQ NO Normal The [facility] Comment on above: Performed By: #### C BC ####[facility] [address] [place] [address] [place] MCH 31.5 pg Normal 26.7-34.0 [facility] Comment on above: Performed By: #### C BC ####[facility] [address] [place], [place] [address]Gerken [place] MCHC mass conc (RBC) 34.9 g/dL Normal 29.9-35.2 [facility] Comment on above: Performed By: #### C BC ####[facility] [address] [place] [address] [place] MCV 90.0 fL Normal 81.0-99.0 [facility] Comment on above: Performed By: #### C BC ####[facility] Ifiug[address]qz[address] [place] [address] [place] Monocytes 0.5 103/ul Normal 0.3-0.8 [facility] Comment on above: Performed By: #### C BC ####[facility] E[address] [place] [address] [place] Monocytes/100 leukocytes 3.6 % Normal 1.7-12.0 [facility] Comment on above: Performed By: #### C BC ####[facility] Dmftiudyrd[address] [place], [place] [address]Jwmhdq [place] Neutrophils 11.2 103/ul Critically high 1.4-6.5 [facility] Comment on above: Performed By: #### C BC ####[facility] Fzhywleyya65[address] [place], [place] [address]Hsjqux [place] Neutrophils/100 WBC Auto (Bld) 79.1 % Critically high 43.0-75.0 [facility] Comment on above: Performed By: #### C BC ####[facility] Y[address]fttknfm[address] [place] [address] Platelet mean volume (PMV) 11.6 fL Normal 9.5-13.5 [facility] Comment on above: Performed By: #### C BC ####[facility] Fewl[address]zn[address] [place] [address]ken [place] Platelets 170 103/ul Normal 150-450 [facility] Comment on above: Performed By: #### C BC ####[facility] [address]uby[address]uyqi[address] [place], [place] [address]Nwevmc [place] WBC (Leukocytes) 14.2 103/ul Critically high 4.0-11.0 [facility] Comment on above: Performed By: #### C BC ####[facility] [address]el[address] [place] [address]ken [place] HEP B SURFACE AGon 7 HEP B Surface Ag Negative Normal NEGATIVE [facility] Comment on above: Performed By: #### P REGQNT ####[facility] [address] [place] [address] HEP C ANTIBODYon 09-23-2017 Anti HCV Negative Normal NEGATIVE [facility] Comment on above: Performed By: #### P REGQNT ####[facility] Bns[address]qmrqs5[address] [place], [place] [address]Egwanb [place] HIV 1 AND 2 ABon 09-23-2017 HIV 1 AND 2 AB Negative Normal NEGATIVE [facility] Comment on above: Performed By: #### H IV12 ####[facility] [address] [place] [address] PREG QUANT HCGon 09-23-2017 HCG Qn SEE BELOW Normal [facility] Comment on above: Result Comment: 5-50 0-1 WEEK 40-300 1-2 WEEKS 100-1,000 2-3 WEEKS 500-6,000 3-4 WEEKS 5,000-200,000 1-2 MONTHS 10,000-100,000 2-3 MONTHS 3,000-50,000 2ND TRIMESTER 1,000-50,000 3RD TRIMESTER Performed By: #### P REGQNT ####[facility] [address] [place] [address] [place] HCG QUANT 57132.00 mIU/mL Normal [facility] Comment on above: Performed By: #### P REGQNT ####[facility] [address] [place] [address] [place] RUBELLA AB IGGon 09-23-2017 RUB HEADER SEE BELOW Normal [facility] Comment on above: Result Comment: or=1 5.0 IU/mL POSITIVE WHO considers levels >or= 10.0 IU/mL to be positive immune status Performed By: #### R UBG ####[facility] [address] [place] [address] [place] RUB IGG 33.1 IU/mL Normal [facility] Comment on above: Performed By: #### R UBG ####[facility] Xzmchvittr[address]56 [address] [place] TYPE AND SCREENon 09-23-2017 TYPE AND SCREEN Negative Normal [facility] Comment on above: Performed By: #### T NS ####[facility] Q[address] [place] [address] [place] CULTURE URINEon 09-13-2017 CULTURE URINE Culture Observations : Final; See scanned report to follow in HPF [facility] Comment on above: Performed By: #### C XUR ####[facility] [address] [place] [address] [place] UA RANDOM W/MICROSCOPICon Bilirubin (total) Negative Normal NEGATIVE [facility] Comment on above: Performed By: #### U AMIC ####[facility] Jttzzmadde[address]15 [address] [place] BLOOD Negative Normal NEGATIVE [facility] Comment on above: Performed By: #### U AMIC ####[facility] Zcvlqlpkmc4134 [address] [place] CAST NONE SEEN Normal NONE SEEN [facility] Comment on above: Performed By: #### U AMIC ####[facility] Qvjairgyvp0720 [address] [place] Erythrocytes (RBC) NONE SEEN Normal 0-2 [facility] Comment on above: Performed By: #### U AMIC ####[facility] [address] [place] [address] [place] Glucose mass conc Negative Normal NEGATIVE [facility] Comment on above: Performed By: #### U AMIC ####[facility] [address] [place] [address] [place] MUCOUS NONE SEEN Normal NONE SEEN [facility] Comment on above: Performed By: #### U AMIC ####[facility] [address] [place] [address] [place] pH of blood 6.5 [pH] Normal 5-9 [facility] Comment on above: Performed By: #### U AMIC ####[facility] [address] [place] [address] [place] Protein Negative Normal [facility] Comment on above: Performed By: #### U AMIC ####[facility] Uywynmovup[address] [place] SPEC GRAVITY 1.015 Normal 1.005-<=1.025 [facility] Comment on above: Performed By: #### U AMIC ####[facility] Lhcdfhtcba[address] [place] Urine, bacteria in sediment TRACE Normal NONE SEEN [facility] Comment on above: Performed By: #### U AMIC ####[facility] [address] [place], [place] [address]Bwtzun [place] Urine, clarity CLEAR Normal [facility] Comment on above: Performed By: #### U AMIC ####[facility] [address]izzr8927 [place], [place] [address]Ajjatn [place] Urine, color LT. YELLOW Normal YELLOW [facility] Comment on above: Performed By: #### U AMIC ####[facility] Hllzhjfldt399[address] [place], [place] [address]Rghhsv [place] Urine, crystals in sediment NONE SEEN Normal NONE SEEN The [facility] Comment on above: Performed By: #### U AMIC ####[facility] V[address] [place], [place] [address]Bwrvmd [place] Urine, epithelial cells in sediment RARE Normal [facility] Comment on above: Performed By: #### U AMIC ####[facility] N[address]qdqs40[address] [place], [place] [address]Kkbzqo [place] Urine, ketones presence Negative Normal NEGATIVE [facility] Comment on above: Performed By: #### U AMIC ####[facility] Alhip[address]bai[address] [place], [place] [address]Xxbduu [place] Urine, nitrite presence Negative Normal NEGATIVE [facility] Comment on above: Performed By: #### U AMIC ####[facility] [address] [place], [place] [address]Lexyfg [place] Urine, urobilinogen 0.2 {Jer'U}/dL Normal [facility] Comment on above: Performed By: #### U AMIC ####[facility] [address]zcr[address]zokx260[address] [place], [place] [address]Lkxpfy [place] WBC (Leukocytes) NONE SEEN Normal NONE SEEN The [facility] Comment on above: Performed By: #### U AMIC ####[facility] X[address]qklar7[address] [place], [place] [address]Mhrryv [place] WBC (Leukocytes) Negative Normal NEGATIVE [facility] Comment on above: Performed By: #### U AMIC ####[facility] [address] [place] [address]Gerken [place] ABO AND RH TYPEon 10-16-2017 ABO AND RH TYPE Negative Normal [facility] Comment on above: Performed By: #### A BORH ####[facility] [address]wnwwny[address]hi[address] [place], [place] [address] PREG QUANT HCGon 09-12-2017 HCG Qn SEE BELOW Normal [facility] Comment on above: Result Comment: 5-50 0-1 WEEK 40-300 1-2 WEEKS 100-1,000 2-3 WEEKS 500-6,000 3-4 WEEKS 5,000-200,000 1-2 MONTHS 10,000-100,000 2-3 MONTHS 3,000-50,000 2ND TRIMESTER 1,000-50,000 3RD TRIMESTER Performed By: #### P REGQNT ####[facility] [address] [place], [place] [address]JzxchkReymundo [place] HCG QUANT 33840.00 mIU/mL Normal [facility] Comment on above: Performed By: #### P REGQNT ####[facility] Ev[address] [place], [place] [address]QypgvaRe[place] US PREG <14 WKSon 08-29-2017 US PREG <14 WKS [address] [place] [address] Patient: ESTUARDO JEREZ Exam Date: 08/29/2017DOB: 1990 Gender:F : FELISHA Joel TATE . Admission #: [id number] : Order #: [id number] HERE TO VIEW EXAM RADIOLOGY REPORT PROCEDURE: [...] Ayala M.D. on 08/29/2017 at 16:03 Normal [facility] Vital Signs Date Time Vital Sign Value Performing Clinician Faci lity 12-27-2023 15:05-0500 Body weight 108.86 kg Sabrina Irma DO Work Phone: [facility] 12-27-2023 15:05-0500 Diastolic blood pressure 74 mm[Hg] Sabrina Irma DO Work Phone: [facility] 12-27-2023 15:05-0500 Systolic blood pressure 128 mm[Hg] Sabrina Irma DO Work Phone: [facility] Encounters Encounter Date Encounter Type Care Provider Facility Start: 04-17-2024 End: 04-17-2024 ambulatory SABRINA IRMA Not Available Start: 04-10-2024 End: 04-10-2024 ambulatory SABRINA IRMA [...] flow sheet Sabrina Irma DO Work Phone: [facility] BCP OB Comment on above: Second [...] dip stick/tabl et rgnt non-auto w/o micrscp [facility] DO Work Phone: Start: 11-29-2023 Cytp cerv/vag auto t hin layer prep mnl screen [facility] DO Work Phone: Start: 04-07-2018 Delivery of Products of Conception, External Approach FELISHA TATE Start: 04-07-2018 Repair Perineum Skin , External Approach FELISHA TATE Plan of Treatment Date Care Activity Detail Author Start: 01-24-2024 End: 01-24-2024 Patient encounter procedure 01/24/2024 2:20 PM EST Routine [facility] [address] [facility] [place] [id number] [place] Gardner [facility] [address] [place] [address] [facility] Start: 12-27-2023 End: 12-27-2024 CBC panel - Blood by Automated count CBC Lab Routine Diabetes mellitus screening Expected: 12/27/2023 (Approximate), Expires: 12/27/2024 [facility] [employer] Work Phone: Comment on above: Expected: 12/27/2023 (Approximate), Expires: 12/27/2024 Start: 12-27-2023 End: 12-27-2024 Measurement of glucose 1 hour after glucose challenge for glucose tolerance test Glucose tolerance, 1 hour Lab Routine Diabetes mellitus screening Expected: 12/27/2023 (Approximate), Expires: 12/27/2024 [facility] Comment on above: Expected: 12/27/2023 (Approximate), Expires: 12/27/2024 Payers Date Payer Category Payer Unknown [employer] [id number] 2022-Present [phone] [address] [address] [place] [address] [id number] 2022 Unknown [id number] 1990 Unknown [id number] 1990 Unknown [id number] [id number] 1990 Unknown [id number] 2.16.840.1.089999.3.579.2.12 1990 Unknown [id number] 2.16.840.1.451976.3.579.2.12 59 1990 Unknown [id number] [id number] 1990 Unknown [id number] 2.16.840.1.846279.3.579.2.12 1990 Unknown [id number] 2.16.840.1.351129.3.579.2.12 1990 Unknown [id number] 2.16.840.1.769313.3.579.2.12 59 1990 Unknown [id number] 2.16.840.1.191181.3.579.2.12 59 1990 Unknown [id number] [id number] 59 1958 Unknown [id number] Social History Date Type Detail Facility Tobacco smoking stat [facility] Tobacco smoking consumption unknown [facility] [...] nursing note reviewed. Exam conducted with a separator operator shellfish meats present. Vitals: There is no height or weight on file to calculate BMI. BP: 128/74 Patient's last menstrual period was 07/30/2023. Assessment/Plan Encounter Diagnoses Name Primary? Second trimester Diabetes mellitus screening Pt doing well with complaints of nausea and URI- Rx for zpack and zofran faxed to pharmacy. Pt to return in 4 weeks for scheduled OB appt. Documented by [place]lee iHll LPN on behalf of: Sabrina Solis DO [...] DATE CREATED AUTHOR 05/17/2018 [facility] DATE CREATED AUTHOR 'S ORGANIZ ATFORMERLY [facility] 04/19/2024 [facility] dicoh Specialists [facility] FOR RECORDS PERTAINING TO PATIENTS WHO ARE [...] BE BASED ON THE PRIMARY CLINICAL RECORDS. [facility] [employer] provides no warranty or guarantee of the accuracy or completeness of information in this document.
[2024-04-20 10:29] VITALS: BP 135/84; PULSE 98
--- NOTE | 2024-04-20 11:04 | US_ITS ---
[address] [address] Patient Name: ESTUARDO SLADE MRN: [id number] date: 1990 Sex: F Assigned Patient Location: US Current Patient Location: US Accession/Order Number: [id number] Exam Date: 04/20/2024 11:12 Report Date: 04/20/2024 12:16 At the request of: SABRINA ALY Procedure: US OB BPP w non-stress EXAMINATION: US OB BPP w non-stress HISTORY: EXCESSIVE GROWTH O36.60X0 COMPARISON: No relevant comparison available. TECHNIQUE: Ultrasound biophysical profile was performed in the radiology department. BREATHING MOVEMENTS: 2.0 GROSS BODY MOVEMENTS: 2.0 TONE: 2.0 QUALITATIVE AMNIOTIC FLUID VOLUME: 2.0 PRESENTATION: CEPHALIC HEART RATE: 128.6 bpm bpm. AMNIOTIC FLUID VOLUME: 14.0 cm GESTATIONAL AGE: 37 weeks 6 days CONCLUSION: Total biophysical profile score 8.0. Electronically authenticated by: BERTHA OBREGON Date: 04/20/2024 12:16
== END 2024-04-20 11:48 | disposition home or self-care (01) ==
LOC: US 07:16 → FBC 10:22
PROVIDERS: Visit Provider Obstetrics & Gynecology
DX: O36.63X0 Maternal care for excessive fetal growth, third trimester, not applicable or unspecified (principal); Z3A.37 37 weeks gestation of pregnancy
CPT/HCPCS: 76818

== ENCOUNTER 2024-04-28 06:25 | Inpatient (IN) | payer OTHER, SELFPAY ==
[2024-04-28] VITALS (37 sets, daily range): BP systolic 81–129; BP diastolic 37–78; PULSE 64–92; TEMP 35.6–37.3; O2SAT 93–98
--- OUTSIDE RECORDS SUMMARY | 2024-04-28 06:28 | XMS_ITS | CCD ---
Author Organization [facility] [place] [facility] Team Providers Care Construction Coordinator Name Role Phone FELISHA TATE Unavailable Unavailable [...] GARDNER Attending Unavailable IRMA, SABRINA Attending Unavailable JJASPEN ROBBINS Attending Unavailable IRMA, SABRINA Attending Unavailable JJASPEN ROBBINS Attending Unavailable IRMA, SABRINA Attending Unavailable IRMA, [...] [facility] [place] Glucose, UA Negative Negative - 1999(110) ++++ mg/dL [facility] Interpretation and review of laboratory results Normal [facility] Ketones, UA Negative Negative - 160(16) ++++ mg/dL [facility] Leukocytes, UA Negative Negative - 500+++ Gabrielle/mcL [facility] Nitrite, UA Negative Negative - Positive [facility] pH, UA 7.0 5 - 9 [facility] Protein, UA Negative Negative - 1999(20) ++++ mg/dL [facility] Spec Grav, UA 1.020 1 - 1.03 [facility] Urobilinogen, UA 0.2 0.2 - 12 mg/dL [facility] Cervical or vaginal smear or scraping studyon 11-29-2023 [facility] CHLAMYDIA/GONOCOCCUS ALEX W/C ONF. (SWAB/Uon 04-26-2018 Chlamydia Trach ALEX Negative Normal Negative [facility] Comment on above: Performed By: #### A ABIDA ####[facility] [address] [place], [place] [id number] N. Gonorrhoeae ALEX Negative Normal Negative [facility] Comment on above: Performed By: #### A ABIDA ####[facility] Ogosojbmkx[address] [place], [place] [address] CBC AUTO DIFFon 04-08-2018 Basophils Auto #/vol (Bld) 0.1 103/ul Normal 0.0-0.1 [facility] Comment on above: Performed By: #### A ABIDA ####[facility] [address] [place] [phone] Basophils/100 WBC Auto (Bld) 0.3 % Normal 0.2-2.0 [facility] Comment on above: Performed By: #### A ABIDA ####[facility] Tcotzcr[address] [place], [place] [address] Eosinophils 0.2 103/ul Normal 0.0-0.7 [facility] Comment on above: Performed By: #### A ABIDA ####[facility] Sdqshxcedj2970 [address] [place] Eosinophils/100 leukocytes 1.2 % Normal 0.9-7.0 [facility] Comment on above: Performed By: #### A ABIDA ####[facility] Ttfhqpoasp6455 [address] [place] Erythrocyte distribution width Auto Ratio (RBC) 14.3 % Normal 11.0-15.0 [facility] Comment on above: Performed By: #### A ABIDA ####[facility] Xsltlvyize7042 [address] [place] Erythrocytes (RBC) 3.91 106/ul Critically low 4.20-5.[address] [facility] Comment on above: Performed By: #### A ABIDA ####[facility] Wtoksxpovv[address] [place] [address] [place] Hematocrit (HCT) 34.7 % Critically low 36.0-48.0 [facility] Comment on above: Performed By: #### A ABIDA ####[facility] Vlnxfdsy[address] [place] [address] [place] Hemoglobin mass conc (Bld) 11.8 g/dL Critically low 12.0-16.0 [facility] Comment on above: Performed By: #### A ABIDA ####[facility] Tjvrehzfm[address] [place] [address] [place] IG # 0.18 10e3/ul Critically high 0.00-0.03 [facility] Comment on above: Performed By: #### A ABIDA ####[facility] Eqtkqkqxls[address] [place] [address] [place] IG % 1.0 % Critically high 0.0-0.5 [facility] Comment on above: Performed By: #### A ABIDA ####[facility] Ltlcbjdzua[address] [place] [address] [place] Lymphocytes 2.1 103/ul Normal 1.2-3.8 [facility] Comment on above: Performed By: #### A ABIDA ####[facility] Haxvwuyhab[address] [place] [phone] Lymphocytes/100 leukocytes 11.9 % Critically low 20.5-60.0 [facility] Comment on above: Performed By: #### A ABIDA ####[facility] Ekwnzvnuwm[address] [place] [id number] MANUAL DIFF REQ NO Normal [facility] Comment on above: Performed By: #### A ABIDA ####[facility] Mhkxoudntl2883 [place] [phone] MCH 30.2 pg Normal 26.7-34.0 [facility] Comment on above: Performed By: #### A ABIDA ####[facility] Wmpqdgifiu[address] [place], [place] [address] MCHC mass conc (RBC) 34.0 g/dL Normal 29.9-35.2 [facility] Comment on above: Performed By: #### A ABIDA ####[facility] Nbemanvuan[address] [place], [place] [address] MCV 88.7 fL Normal 81.0-99.0 [facility] Comment on above: Performed By: #### A ABIDA ####[facility] Kaarffjsjs[address] [place], [place] [address] Monocytes 1.1 103/ul Critically high 0.3-0.8 [facility] Comment on above: Performed By: #### A ABIDA ####[facility] Zlkwvkokqp[address] [place], [place] [address] Monocytes/100 leukocytes 6.2 % Normal 1.7-12.0 [facility] Comment on above: Performed By: #### A ABIDA ####[facility] Ftlhdvjfmq[address] [place], [place] [address] Neutrophils 14.1 103/ul Critically high 1.4-6.5 [facility] Comment on above: Performed By: #### A ABIDA ####[facility] Mctqjmnlxj[address] [place], [place] [address] Neutrophils/100 WBC Auto (Bld) 79.4 % Critically high 43.0-75.0 [facility] Comment on above: Performed By: #### A ABIDA ####[facility] Jitddnhtnt[address] [place], [place] [address] Platelet mean volume (PMV) 12.2 fL Normal 9.5-13.5 [facility] Comment on above: Performed By: #### A ABIDA ####[facility] Gjsfuragga[address] [place] [address] [place] Platelets 118 103/ul Critically low 150-450 [facility] Comment on above: Performed By: #### A ABIDA ####[facility] Fuuaimivwv[address] [place] [address] [place] WBC (Leukocytes) 17.7 103/ul Critically high 4.0-11.0 [facility] Comment on above: Performed By: #### A ABIDA ####[facility] Qixxnytobw[address] [place] [address] [place] SCREENon 04-08-2018 SCREEN Negative Normal [facility] Comment on above: Performed By: #### A ABIDA ####[facility] Ttsdrqkizb[address] [place] [address] [place] RHOGAMon 04-08-2018 RHOGAM Status Information Issued Quantity 1 Product ID Rh Immune Globulin Lot Number [id number] Issue Date/Time [id number] Normal [facility] Comment on above: Performed By: #### A ABIDA ####[facility] [address]vjhkdjsa[address] [place] [address] [place] CBC AUTO DIFFon 04-07-2018 Basophils Auto #/vol (Bld) 0.1 103/ul Normal 0.0-0.1 [facility] Comment on above: Performed By: #### A ABIDA ####[facility] Jnvtklpimo[address] [place] [address] [place] Basophils/100 WBC Auto (Bld) 0.3 % Normal 0.2-2.0 [facility] Comment on above: Performed By: #### A ABIDA ####[facility] Eqsxwsmabd5883 [place] [phone] Eosinophils 0.2 103/ul Normal 0.0-0.7 [facility] Comment on above: Performed By: #### A ABIDA ####[facility] Befnmuswai17[address] [place] [phone] Eosinophils/100 leukocytes 1.0 % Normal 0.9-7.0 [facility] Comment on above: Performed By: #### A ABIDA ####[facility] Axbsmsszzl2647 [place] [phone] Erythrocyte distribution width Auto Ratio (RBC) 14.0 % Normal 11.0-15.0 [facility] Comment on above: Performed By: #### A ABIDA ####[facility] Roraqveofx[address] [place] [address] [place] Erythrocytes (RBC) 4.39 106/ul Normal 4.20-5.40 The [facility] Comment on above: Performed By: #### A ABIDA ####[facility] Dhdzwxkwdh4[address] [place], [place] [address] Hematocrit (HCT) 38.7 % Normal 36.0-48.0 The [facility] Comment on above: Performed By: #### A ABIDA ####[facility] Wuwlxrubld[address] [place], [place] [address] Hemoglobin mass conc (Bld) 13.4 g/dL Normal 12.0-16.0 [facility] Comment on above: Performed By: #### A ABIDA ####[facility] Mfbuxuoapl7107 [place], [place] [address]Dgxqto [place] IG # 0.30 10e3/ul Critically high 0.00-0.03 [facility] Comment on above: Performed By: #### A ABIDA ####[facility] Unufraosju2439 [place] [phone] IG % 1.4 % Critically high 0.0-0.5 [facility] Comment on above: Performed By: #### A ABIDA ####[facility] Ellbwcotlq3977 [address] [place] Lymphocytes 2.6 103/ul Normal 1.2-3.8 [facility] Comment on above: Performed By: #### A ABIDA ####[facility] Glfqnvqzgm6748 [address] [place] Lymphocytes/100 leukocytes 12.6 % Critically low 20.5-60.0 [facility] Comment on above: Performed By: #### A ABIDA ####[facility] Iqhztdcxhi0167 [address] [place] MANUAL DIFF REQ NO Normal [facility] Comment on above: Performed By: #### A ABIDA ####[facility] Szrulyjusf[address] [place] [address] [place] MCH 30.5 pg Normal 26.7-34.0 [facility] Comment on above: Performed By: #### A ABIDA ####[facility] Cvkvqrwodv6[address] [place] [address] [place] MCHC mass conc (RBC) 34.6 g/dL Normal 29.9-35.2 [facility] Comment on above: Performed By: #### A ABIDA ####[facility] Bozsnagwym[address] [place] [address] [place] MCV 88.2 fL Normal 81.0-99.0 [facility] Comment on above: Performed By: #### A ABIDA ####[facility] Kvppeowojn[address] [place] [address] [place] Monocytes 1.2 103/ul Critically high 0.3-0.8 [facility] Comment on above: Performed By: #### A ABIDA ####[facility] Ytfucaztmv[address] [place] [address] [place] Monocytes/100 leukocytes 5.5 % Normal 1.7-12.0 [facility] Comment on above: Performed By: #### A ABIDA ####[facility] Oltueppcux[address] [place] [address] [place] Neutrophils 16.5 103/ul Critically high 1.4-6.5 [facility] Comment on above: Performed By: #### A ABIDA ####[facility] Arjizutuov2795 [address] [place] Neutrophils/100 WBC Auto (Bld) 79.2 % Critically high 43.0-75.0 [facility] Comment on above: Performed By: #### A ABIDA ####[facility] Afgkdldxxx0117 [address] [place] Platelet mean volume (PMV) 12.2 fL Normal 9.5-13.5 [facility] Comment on above: Performed By: #### A ABIDA ####[facility] Azwufxzbfo9838 [address] [place] Platelets 139 103/ul Critically low 150-450 [facility] Comment on above: Performed By: #### A ABIDA ####[facility] Fcaepvjvpy2457 [address] [place] WBC (Leukocytes) 20.8 103/ul Critically high 4.0-11.0 [facility] Comment on above: Performed By: #### A ABIDA ####[facility] Lgvzxwhmyf9133 [address] [place] DRUG SCREEN RAPID (URINE)on 04-07-2018 AMP Negative Normal NEGATIVE [facility] Comment on above: Performed By: #### A ABIDA ####[facility] Owdikufxma7183 [address] [place] BAR Negative Normal NEGATIVE [facility] Comment on above: Performed By: #### A ABIDA ####[facility] Yograylcoz4295 [address] [place] BUP Negative Normal NEGATIVE [facility] Comment on above: Performed By: #### A ABIDA ####[facility] Smaqjdgxmw0323 [address] [place] BZO Negative Normal NEGATIVE [facility] Comment on above: Performed By: #### A ABIDA ####[facility] Jwcfqqxykd1832 [address] [place] ELENA Negative Normal NEGATIVE [facility] Comment on above: Performed By: #### A ABIDA ####[facility] [address]zc[address] [place] [address] CUT-OFFS SEE BELOW Normal [facility] Comment on above: Result Comment: AMP [...] 300 ng/mL Performed By: #### A ABIDA ####[facility] [address]phqbec[address] [place] [address] DRUG CUT HEADER DRUG CLASS TEST SYSTEM CUT-OFF CONCENTRATIONS ARE FOLLOWS: Normal [facility] Comment on above: Performed By: #### A ABIDA ####[facility] Otaowkzatd[address] [place] [address] mAMP Negative Normal NEGATIVE [facility] Comment on above: Performed By: #### A ABIDA ####[facility] Ebfmrgxzty[address] [place] [address] MTD Negative Normal NEGATIVE [facility] Comment on above: Performed By: #### A ABIDA ####[facility] Vlihwlebrp[address] [place] [address] OPI Negative Normal NEGATIVE [facility] Comment on above: Performed By: #### A ABIDA ####[facility] Tfcvaqfcvz[address] [place] [address] OXY Negative Normal NEGATIVE [facility] Comment on above: Performed By: #### A ABIDA ####[facility] Exdzqijdlk[address] [place], [place] [address] [place] PCP Negative Normal NEGATIVE [facility] Comment on above: Performed By: #### A ABIDA ####[facility] Xlswfqdtad2131 [address] [place] PPX Negative Normal NEGATIVE [facility] Comment on above: Performed By: #### A ABIDA ####[facility] Dqvuyxbtvg6145 [address] [place] TCA Negative Normal NEGATIVE [facility] Comment on above: Performed By: #### A ABIDA ####[facility] Niizfenrew3964 [address] [place] THC Negative Normal NEGATIVE [facility] Comment on above: Performed By: #### A ABIDA ####[facility] Wacnaligty[address] [place] [address] [place] UA (CLEAN/CATCH) FLOOR LAYER APPRENTICE/MICRO I F IND.on 04-07-2018 Bilirubin (total) Negative Normal NEGATIVE [facility] Comment on above: Performed By: #### A ABIDA ####[facility] Uhxobfledv[address] [place] [address] [place] BLOOD Negative Normal NEGATIVE [facility] Comment on above: Performed By: #### A ABIDA ####[facility] Hlqrflhtar[address] [place] [address] [place] Glucose mass conc Negative Normal NEGATIVE [facility] Comment on above: Performed By: #### A ABIDA ####[facility] Teksfuawpl[address] [place] [address] [place] pH of blood 6.0 [pH] Normal 5-9 [facility] Comment on above: Performed By: #### A ABIDA ####[facility] Eylafxswoi8330 [address] [place] Protein Negative Normal [facility] Comment on above: Performed By: #### A ABIDA ####[facility] Yztriyeizt8239 [address] [place] SPEC GRAVITY 1.020 Normal 1.005-<=1.025 [facility] Comment on above: Performed By: #### A ABIDA ####[facility] Wvlqvhesil3639 [address] [place] UR MICRO IND NOT INDICATED Normal [facility] Comment on above: Performed By: #### A ABIDA ####[facility] Qcqltsnhrz4931 [address] [place] Urine, clarity CLEAR Normal The [facility] Comment on above: Performed By: #### A ABIDA ####[facility] Ezwdewzqcl4008 [address] [place] Urine, color LT. YELLOW Normal YELLOW [facility] Comment on above: Performed By: #### A ABIDA ####[facility] Xkbmfnlwpb6122 [address] [place] Urine, ketones presence Negative Normal NEGATIVE [facility] Comment on above: Performed By: #### A ABIDA ####[facility] Yevxjkcqeb[address] [place] [address] [place] Urine, nitrite presence Negative Normal NEGATIVE [facility] Comment on above: Performed By: #### A ABIDA ####[facility] Esiwmvddvr[address] [place] [address] [place] Urine, urobilinogen 0.2 {Jer'U}/dL Normal [facility] Comment on above: Performed By: #### A ABIDA ####[facility] Zyknwqacwe[address] [place] [address] [place] WBC (Leukocytes) Negative Normal NEGATIVE The [facility] Comment on above: Performed By: #### A ABIDA ####[facility] Itufruagqn[address] [place] [address] [place] GROUP B STREPTon 03-21-2018 GBS Performed by [facility] , final report to follow Normal NEG FOR GBS [facility] Comment on above: Performed By: #### A ABIDA ####[facility] Dmgheeicyj[address] [place] [address] [place] RHOGAMon 02-04-2018 RHOGAM Status Information Issued Quantity 1 Product ID Rh Immune Globulin Lot Number [id number] Issue Date/Time [id number] Normal [facility] Comment on above: Performed By: #### A ABIDA ####[facility] Ajajjluxqs1565 [address] [place] CBC AUTO DIFFon 02-03-2018 Basophils Auto #/vol (Bld) 0.0 103/ul Normal 0.0-0.1 [facility] Comment on above: Performed By: #### P REGQNT ####[facility] Jklbrrbmmf[address] [place] [address] [place] Basophils/100 WBC Auto (Bld) 0.3 % Normal 0.2-2.0 [facility] Comment on above: Performed By: #### P REGQNT ####[facility] Lxaqizmoao[address] [place] [address] [place] Eosinophils 0.2 103/ul Normal 0.0-0.7 [facility] Comment on above: Performed By: #### P REGQNT ####[facility] Szqqpscgdk4[address] [place] [address] [place] Eosinophils/100 leukocytes 1.1 % Normal 0.9-7.0 [facility] Comment on above: Performed By: #### P REGQNT ####[facility] G[address]axfzlug[address] [place] [address] [place] Erythrocyte distribution width Auto Ratio (RBC) 13.2 % Normal 11.0-15.0 [facility] Comment on above: Performed By: #### P REGQNT ####[facility] Khmfpihmxp[address] [place] [address] [place] Erythrocytes (RBC) 3.91 106/ul Critically low 4.20-5.[address] [facility] Comment on above: Performed By: #### P REGQNT ####[facility] K[address]zecwzn[address] [place] [address] [place] Hematocrit (HCT) 35.5 % Critically low 36.0-48.0 [facility] Comment on above: Performed By: #### P REGQNT ####[facility] Gojmpljylt0[address] [place] [address] [place] Hemoglobin mass conc (Bld) 12.0 g/dL Normal 12.0-16.0 [facility] Comment on above: Performed By: #### P REGQNT ####[facility] Mhlkiubiht7763 [address] [place] IG # 0.27 10e3/ul Critically high 0.00-0.03 [facility] Comment on above: Performed By: #### P REGQNT ####[facility] Azvyrtmxyq4166 [address] [place] IG % 1.8 % Critically high 0.0-0.5 [facility] Comment on above: Performed By: #### P REGQNT ####[facility] Kskeibxsta[address] [place] [address] [place] Lymphocytes 1.8 103/ul Normal 1.2-3.8 [facility] Comment on above: Performed By: #### P REGQNT ####[facility] Ibtwrjyeym[address] [place] [address] [place] Lymphocytes/100 leukocytes 11.9 % Critically low 20.5-60.0 [facility] Comment on above: Performed By: #### P REGQNT ####[facility] [address]uzvliznbj[address] [place] [address] [place] MANUAL DIFF REQ NO Normal [facility] Comment on above: Performed By: #### P REGQNT ####[facility] [address]euzxtqdjo[address] [place] [address] [place] MCH 30.7 pg Normal 26.7-34.0 [facility] Comment on above: Performed By: #### P REGQNT ####[facility] [address]jvhyjwswx[address] [place] [address] [place] MCHC mass conc (RBC) 33.8 g/dL Normal 29.9-35.2 [facility] Comment on above: Performed By: #### P REGQNT ####[facility] Xzqhkuvtiu[address] [place] [address] [place] MCV 90.8 fL Normal 81.0-99.0 [facility] Comment on above: Performed By: #### P REGQNT ####[facility] [address] [place] [address] Monocytes 0.6 103/ul Normal 0.3-0.8 [facility] Comment on above: Performed By: #### P REGQNT ####[facility] [address]pcrkr[address] [place] [id number] Monocytes/100 leukocytes 3.9 % Normal 1.7-12.0 [facility] Comment on above: Performed By: #### P REGQNT ####[facility] Wqfdrzlhqt9624 [place] [id number] Neutrophils 12.1 103/ul Critically high 1.4-6.5 [facility] Comment on above: Performed By: #### P REGQNT ####[facility] Ekkosnvyyk0329 [address] [place] Neutrophils/100 WBC Auto (Bld) 81.0 % Critically high 43.0-75.0 [facility] Comment on above: Performed By: #### P REGQNT ####[facility] Cponzbimyh[address] [place], [place] [address] Platelet mean volume (PMV) 11.6 fL Normal 9.5-13.5 [facility] Comment on above: Performed By: #### P REGQNT ####[facility] [address]zlevhrjbb5[address] [place] [id number] [place] Platelets 133 103/ul Critically low 150-450 [facility] Comment on above: Performed By: #### P REGQNT ####[facility] Agylaicaxp4364 [place] [id number] [place] WBC (Leukocytes) 14.9 103/ul Critically high 4.0-11.0 [facility] Comment on above: Performed By: #### P REGQNT ####[facility] Gedwzgcwhv9244 [place], [place] [address]qct[place]ym[place] GLUCOSE - 1HRon 02-03-2018 Glucose mass conc 120 mg/dL Critically high 74-106 Th [facility] Comment on above: Performed By: #### P REGQNT ####[facility] Qdgbiijzmk3464 [place], [place] [address] TYPE AND SCREENon 02-03-2018 TYPE AND SCREEN Negative Normal [facility] Comment on above: Performed By: #### P REGQNT ####[facility] Virpnhdjtf1678 [place], [place] [address] US PREG ANATOMY SINGLEon US PREG ANATOMY SINGLE [address] [place] [address] Patient: ESTUARDO JEREZ Exam Date: 11/25/2017DOB: 1990 Gender:F : FELISHA WeaverReggie TATE . Admission #: [id number] : Order #: [id number] HERE TO VIEW EXAM RADIOLOGY REPORT PROCEDURE: [...] Ayala M.D. on 11/25/2017 at 20:18 Normal [facility] PAP ACOG PANEL 4: 21 to 29on 10-11-2017 LCPAP SEE SCANNED REPORT Normal [facility] Comment on above: Performed By: #### P REGQNT ####[facility] Ezotecfldl[address] [place] [address] [place] HEMOGLOBIN ELECTOPHORESISon 09-27-2017 HBSREV Reviewed by Adithya Morton MD ([id number]) [facility] Comment on above: Result Comment: Test Performed By: [facility] [address] [place] [address] Zoo Keeper: Dalila Roman MD, PhD Performed By: #### P REGQNT ####[facility] [address]fwxggutxi[address] [place] [address] [place] Hemoglobin mass conc (Bld) None detected. Normal 0.0-1.8 [facility] Comment on above: Performed By: #### P REGQNT ####[facility] Autcqphpbg[address] [place] [address] [place] Hemoglobin mass conc (Bld) No abnormal hemoglobin identified. Normal [facility] Comment on above: Performed By: #### P REGQNT ####[facility] X[address]ftdhpctm[address] [place] [address] [place] Hemoglobin mass conc (Bld) 97.4 % Normal [facility] Comment on above: Performed By: #### P REGQNT ####[facility] Qhyciwpuqd[address] [place] [place] [address] [place] Hemoglobin mass conc (Bld) 2.6 % Normal 1.5-3.5 [facility] Comment on above: Performed By: #### P REGQNT ####[facility] [address] [place] [address] [place] Interpertation Hemoglobins were analyzed by capillary electrophoresis. Normal [facility] Comment on above: Result Comment: Norm al pattern Performed By: #### P REGQNT ####[facility] [address] [place] [address] [place] VARICELLA IGGon 09-26-2017 Varicella Zoster IgG 1134.0 Index Value Normal [facility] Comment on above: Result Comment: Inde x Values are Interpreted as Follows:Negative specimens <135.0Equivocal specimens 135.0 to 164.9Positive specimens >164.9The magnitude of the measured result is not indicative of theamount of antibody present. Test Performed By: [facility] [employer] [address] [place] [address] Zoo Keeper: Dalila Roman MD, PhD Performed By: #### P REGQNT ####[facility] [address] [place] [address] [place] VZVGQL Positive Abnormal NEGAT [facility] Comment on above: Result Comment: Pres ence of detectable VZV IgG antibodies. A positive resultgenerally indicatesexposure to the pathogen or administration of specificimmunoglobulins, but is no indication of active infection or stage of disease. Performed By: #### P REGQNT ####[facility] [address] [place] [address] [place] RPR/SERUMon 09-24-2017 Reagin antibody presence Non Reactive Normal NR [facility] Comment on above: Result Comment: Test Performed By: [facility] [employer] [address] [place] [address] Zoo Keeper: Dalila Roman MD, PhD Performed By: #### P REGQNT ####[facility] [address] [place] [address] [place] CBC AUTO DIFFon 09-23-2017 Basophils Auto #/vol (Bld) 0.0 103/ul Normal 0.0-0.1 [facility] Comment on above: Performed By: #### C BC ####[facility] Rsybhrjijg6224 [place], [place] [address]Rfieuz [place] Basophils/100 WBC Auto (Bld) 0.3 % Normal 0.2-2.0 [facility] Comment on above: Performed By: #### C BC ####[facility] Rptcnuqbll6975 [place], [place] [address]Dumwkc [place] Eosinophils 0.2 103/ul Normal 0.0-0.7 [facility] Comment on above: Performed By: #### C BC ####[facility] X[address] [place] [id number] [place] Eosinophils/100 leukocytes 1.1 % Normal 0.9-7.0 [facility] Comment on above: Performed By: #### C BC ####[facility] [address] [place], [place] [address]Gerken [place] Erythrocyte distribution width Auto Ratio (RBC) 12.5 % Normal 11.0-15.0 [facility] Comment on above: Performed By: #### C BC ####[facility] [address] [place], [place] [address]Gerken [place] Erythrocytes (RBC) 4.61 106/ul Normal 4.20-5.40 [facility] Comment on above: Performed By: #### C BC ####[facility] [address] [place] [id number] [place] Hematocrit (HCT) 41.5 % Normal 36.0-48.0 [facility] Comment on above: Performed By: #### C BC ####[facility] Wttpzsbxht3774 [place], [place] [address]Qjacoo [place] Hemoglobin mass conc (Bld) 14.5 g/dL Normal 12.0-16.0 [facility] Comment on above: Performed By: #### C BC ####[facility] Zuovlfcecm4522 [place], [place] [address]Qdttkz [place] IG # 0.07 10e3/ul Critically high 0.00-0.03 [facility] Comment on above: Performed By: #### C BC ####[facility] Idemwhxfyb4106 [address] [place] IG % 0.5 % Normal 0.0-0.5 [facility] Comment on above: Performed By: #### C BC ####[facility] Qzvhrtqjbm8634 [address] [place] Lymphocytes 2.2 103/ul Normal 1.2-3.8 [facility] Comment on above: Performed By: #### C BC ####[facility] Loggayseeo[address]69 [address] [place] Lymphocytes/100 leukocytes 15.4 % Critically low 20.5-60.0 [facility] Comment on above: Performed By: #### C BC ####[facility] Ly[address] [place] [address] [place] MANUAL DIFF REQ NO Normal [facility] Comment on above: Performed By: #### C BC ####[facility] [address] [place] [address] [place] MCH 31.5 pg Normal 26.7-34.0 [facility] Comment on above: Performed By: #### C BC ####[facility] [address] [place], [place] [address]Gerken [place] MCHC mass conc (RBC) 34.9 g/dL Normal 29.9-35.2 [facility] Comment on above: Performed By: #### C BC ####[facility] [address] [place] [address] [place] MCV 90.0 fL Normal 81.0-99.0 [facility] Comment on above: Performed By: #### C BC ####[facility] [address] [place] [address] [place] Monocytes 0.5 103/ul Normal 0.3-0.8 [facility] Comment on above: Performed By: #### C BC ####[facility] [address] [place] [address] [place] Monocytes/100 leukocytes 3.6 % Normal 1.7-12.0 [facility] Comment on above: Performed By: #### C BC ####[facility] [address] [place] [id number] [place] Neutrophils 11.2 103/ul Critically high 1.4-6.5 [facility] Comment on above: Performed By: #### C BC ####[facility] K[address]fhei4585 [place] [id number] [place] Neutrophils/100 WBC Auto (Bld) 79.1 % Critically high 43.0-75.0 [facility] Comment on above: Performed By: #### C BC ####[facility] Lvcyquxjyf[address] [place] Platelet mean volume (PMV) 11.6 fL Normal 9.5-13.5 [facility] Comment on above: Performed By: #### C BC ####[facility] Ncjtuc[address]ue[address] [place] Platelets 170 103/ul Normal 150-450 [facility] Comment on above: Performed By: #### C BC ####[facility] O[address] [place] [id number] [place] WBC (Leukocytes) 14.2 103/ul Critically high 4.0-11.0 [facility] Comment on above: Performed By: #### C BC ####[facility] Qrmosisfeo5806 [address] [place] HEP B SURFACE AGon 7 HEP B Surface Ag Negative Normal NEGATIVE [facility] Comment on above: Performed By: #### P REGQNT ####[facility] Quimojoijb[address] [place] HEP C ANTIBODYon 09-23-2017 Anti HCV Negative Normal NEGATIVE [facility] Comment on above: Performed By: #### P REGQNT ####[facility] Prdgbqfrte9757 [address] [place] HIV 1 AND 2 ABon 09-23-2017 HIV 1 AND 2 AB Negative Normal NEGATIVE [facility] Comment on above: Performed By: #### H IV12 ####[facility] Wngwlqqjyf6708 [address] [place] PREG QUANT HCGon 09-23-2017 HCG Qn SEE BELOW Normal [facility] Comment on above: Result Comment: 5-50 0-1 WEEK 40-300 1-2 WEEKS 100-1,000 2-3 WEEKS 500-6,000 3-4 WEEKS 5,000-200,000 1-2 MONTHS 10,000-100,000 2-3 MONTHS 3,000-50,000 2ND TRIMESTER 1,000-50,000 3RD TRIMESTER Performed By: #### P REGQNT ####[facility] [address] [place] [address] [place] HCG QUANT 16001.00 mIU/mL Normal [facility] Comment on above: Performed By: #### P REGQNT ####[facility] [address] [place], [place] [address] RUBELLA AB IGGon 09-23-2017 RUB HEADER SEE BELOW Normal [facility] Comment on above: Result Comment: or=1 5.0 IU/mL POSITIVE WHO considers levels >or= 10.0 IU/mL to be positive immune status Performed By: #### R UBG ####[facility] [address] [place] [address] [place] RUB IGG 33.1 IU/mL Normal [facility] Comment on above: Performed By: #### R UBG ####[facility] [address]azryvar[address] [place] [address] [place] TYPE AND SCREENon 09-23-2017 TYPE AND SCREEN Negative Normal [facility] Comment on above: Performed By: #### T NS ####[facility] [address] [place] [address] [place] CULTURE URINEon 09-13-2017 CULTURE URINE Culture Observations : Final; See scanned report to follow in HPF Normal [facility] Comment on above: Performed By: #### C XUR ####[facility] [address] [place] [address] [place] UA RANDOM W/MICROSCOPICon Bilirubin (total) Negative Normal NEGATIVE [facility] Comment on above: Performed By: #### U AMIC ####[facility] Cc[address]swreej25[address] [place] BLOOD Negative Normal NEGATIVE [facility] Comment on above: Performed By: #### U AMIC ####[facility] Jgsdiymucd4513 [address] [place] CAST NONE SEEN Normal NONE SEEN [facility] Comment on above: Performed By: #### U AMIC ####[facility] Agddbeiqso4957 [address] [place] Erythrocytes (RBC) NONE SEEN Normal 0-2 [facility] Comment on above: Performed By: #### U AMIC ####[facility] [address] [place] [address] [place] Glucose mass conc Negative Normal NEGATIVE [facility] Comment on above: Performed By: #### U AMIC ####[facility] [address] [place] [address] [place] MUCOUS NONE SEEN Normal NONE SEEN [facility] Comment on above: Performed By: #### U AMIC ####[facility] [address] [place] [address] [place] pH of blood 6.5 [pH] Normal 5-9 [facility] Comment on above: Performed By: #### U AMIC ####[facility] [address] [place] [address] [place] Protein Negative Normal [facility] Comment on above: Performed By: #### U AMIC ####[facility] Nvmhmpxmrr6494 [address] [place] SPEC GRAVITY 1.015 Normal 1.005-<=1.025 [facility] Comment on above: Performed By: #### U AMIC ####[facility] Fjgfdygbfm[address]103 [address] [place] Urine, bacteria in sediment TRACE Normal NONE SEEN [facility] Comment on above: Performed By: #### U AMIC ####[facility] [address]39 [place], [place] [address]Tbhmhl [place] Urine, clarity CLEAR Normal [facility] Comment on above: Performed By: #### U AMIC ####[facility] Edfjifmwhx5738 [place], [place] [address]Ehbmii [place] Urine, color LT. YELLOW Normal YELLOW [facility] Comment on above: Performed By: #### U AMIC ####[facility] Exzzfem[address]ck9867 [place], [place] [address]Bfdcvv [place] Urine, crystals in sediment NONE SEEN Normal NONE SEEN [facility] Comment on above: Performed By: #### U AMIC ####[facility] [address] [place], [place] [address]Zbhpqx [place] Urine, epithelial cells in sediment RARE Normal [facility] Comment on above: Performed By: #### U AMIC ####[facility] Qmfjtmxhln6934 [place], [place] [address]Kybjxq [place] Urine, ketones presence Negative Normal NEGATIVE [facility] Comment on above: Performed By: #### U AMIC ####[facility] Vmcsbevqke4568 [place], [place] [address]Sqrjan [place] Urine, nitrite presence Negative Normal NEGATIVE [facility] Comment on above: Performed By: #### U AMIC ####[facility] Gfa[address]ox[address]ooq24[address] [place], [place] [address]Tyewtt [place] Urine, urobilinogen 0.2 {Jer'U}/dL Normal [facility] Comment on above: Performed By: #### U AMIC ####[facility] [address] [place], [place] [address]Fyxkyb [place] WBC (Leukocytes) NONE SEEN Normal NONE SEEN [facility] Comment on above: Performed By: #### U AMIC ####[facility] Xbecsnldya2876 [place], [place] [address]Efqfmk [place] WBC (Leukocytes) Negative Normal NEGATIVE [facility] Comment on above: Performed By: #### U AMIC ####[facility] Gxzzzpvzuz1577 [place], [place] [address]Jsrzan [place] ABO AND RH TYPEon 09-12-2017 ABO AND RH TYPE Negative Normal [facility] Comment on above: Performed By: #### A BORH ####[facility] Fcos[address]sjot5766 [place], [place] [address]Paalnn Karen PREG QUANT HCGon 09-12-2017 HCG Qn SEE BELOW Normal [facility] Comment on above: Result Comment: 5-50 0-1 WEEK 40-300 1-2 WEEKS 100-1,000 2-3 WEEKS 500-6,000 3-4 WEEKS 5,000-200,000 1-2 MONTHS 10,000-100,000 2-3 MONTHS 3,000-50,000 2ND TRIMESTER 1,000-50,000 3RD TRIMESTER Performed By: #### P REGQNT ####[facility] Qtwpdp[address]drh[address] [place] HCG QUANT 75824.00 mIU/mL Normal [facility] Comment on above: Performed By: #### P REGQNT ####[facility] [address] [place] [id number] [place] US PREG <14 WKSon 08-29-2017 US PREG <14 WKS [address] [place] [address] Patient: ESTUARDO JEREZ Exam Date: 08/29/2017DOB: 1990 Gender:F : FELISHA TATE . Admission #: [id number] : Order #: [id number] HERE TO VIEW EXAM RADIOLOGY REPORT PROCEDURE: [...] Ayala M.D. on 08/29/2017 at 16:03 Normal [facility] Vital Signs Date Time Vital Sign Value Performing Clinician Faci lity 12-27-2023 15:05-0500 Body weight 108.86 kg Sabrina Irma DO Work Phone: [facility] 12-27-2023 15:05-0500 Diastolic blood pressure 74 mm[Hg] Sabrina Irma DO Work Phone: [facility] 12-27-2023 15:05-0500 Systolic blood pressure 128 mm[Hg] Sabrina Irma DO Work Phone: [facility] Encounters Encounter Date Encounter Type Care Provider Facility Start: 04-24-2024 End: 04-24-2024 ambulatory SABRINA IRMA Not Available Start: 04-17-2024 End: 04-17-2024 ambulatory SABRINA IRMA [...] flow sheet Sabrina Irma DO Work Phone: [facility] BCP OB Comment on above: Second trimester pre gnancy; Diabetes mellitus screening; Nausea and vomiting, unspecified vomiting type; Upper respiratory tract infection, unspecified type Start: 11-29-2023 End: 11-29-2023 ambulatory ASPEN JJ Not Available Start: 11-01-2023 End: 11-01-2023 ambulatory SABRINA SOLIS Not Available Start: 04-11-2018 End: 04-11-2018 Ambulatory FELISHA TATE Facility:[facility]1 Start: 04-06-2018 End: 04-09-2018 Evaluation and management of inpatient DONY BUTT Facility:[facility] Start: 03-21-2018 End: 03-21-2018 Ambulatory FELISHA TATE Facility:[facility] Start: 03-07-2018 End: 03-07-2018 Ambulatory FELISHA TATE Facility:[facility] Start: 02-03-2018 End: 02-04-2018 Ambulatory FELISHA TTAE Facility:[facility] Start: 01-03-2018 End: 01-04-2018 Ambulatory FELISHA [...] PM EST Routine [facility] [address] [place] [id number] [place] [address] [place] [address] [facility] Start: 12-27-2023 End: 12-27-2024 CBC panel - Blood by Automated count CBC Lab Routine Diabetes mellitus screening Expected: 12/27/2023 (Approximate), Expires: 12/27/2024 [facility] Work Phone: Comment on above: Expected: 12/27/2023 (Approximate), Expires: 12/27/2024 Start: 12-27-2023 End: 12-27-2024 Measurement of glucose 1 hour after glucose challenge for glucose tolerance test Glucose tolerance, 1 hour Lab Routine Diabetes mellitus screening Expected: 12/27/2023 (Approximate), Expires: 12/27/2024 [facility] Comment on above: Expected: 12/27/2023 (Approximate), Expires: 12/27/2024 Payers Date Payer Category Payer Unknown [employer] [id number] 2022-Present [phone] [address] [address] [place] [address] [id number] 2022 Unknown [id number] 1990 Unknown [id number] 1990 Unknown [id number] [id number] 1990 Unknown [id number] [id number] 59 1990 Unknown [id number] 2.16.840.1.548147.3.579.2.12 1990 Unknown [id number] [id number] 1990 Unknown [id number] [id number] 1990 Unknown [id number] [id number] 59 1990 Unknown [id number] [id number] 59 1990 Unknown [id number] [id number] 59 1990 Unknown [id number] [id number] 59 1990 Unknown [id number] [id number] 59 1958 Unknown [id number] Social History Date Type Detail Facility Tobacco smoking stat [facility] Tobacco smoking consumption unknown [facility] [...] nursing note reviewed. Exam conducted with a compact assembler present. Vitals: There is no height or [...] Yuni rocha DATE CREATED AUTHOR AUTHOR'S ORGANIZ ATDANIELLA 04/24/2024 [facility] FOR RECORDS PERTAINING TO PATIENTS WHO [...] BE BASED ON THE PRIMARY CLINICAL RECORDS. [facility] [facility]. provides no warranty or guarantee of the accuracy or completeness of information in this document.
[2024-04-28] MEDS: 0.9 % SODIUM CHLORIDE 1,000 ML 1000 ML IV ×2 (06:55→07:42)
[2024-04-28 07:39] LABS: Bilirubin Urine NEGATIVE (NEGATIVE); Blood Urine TRACE-I (NEGATIVE); Clarity Urine SL CLOUDY (CLEAR); Color Urine YELLOW (YELLOW); Glucose Urine UA NEGATIVE (NEGATIVE); Ketones Urine NEGATIVE (NEGATIVE); Leukocyte Esterase Urine LARGE (NEGATIVE); Nitrite Urine NEGATIVE (NEGATIVE); Protein Urine TRACE mg/dL (NEG/TRACE); Specific Gravity Urine 1.025 (1.005-1.025); Urobilinogen Urine 0.2 EU/dL (0.2-1.0)
[2024-04-28 07:40] LABS: Basophils Percent Auto 0.3 % (0.2-2.0); Eosinophils Absolute Auto 0.3 10^3/uL (0.0-0.7); Eosinophils Percent Auto 2.5 % (0.9-7.0); Hematocrit 34.5 % (36.0-48.0); Hemoglobin 11.1 g/dL (12.0-16.0); Immature Granulocytes Abs Auto 0.09 10^3/uL (0.00-0.03); Immature Granulocytes Pct Auto 0.9 % (0.0-0.5); Lymphocytes Absolute Auto 1.8 10^3/uL (1.2-3.8); Lymphocytes Percent Auto 16.6 % (20.5-60.0); Mean Corpuscular HGB Conc 32.2 g/dL (29.9-35.2); Mean Corpuscular Hemoglobin 28.3 pg (26.7-34.0); Mean Platelet Volume 12.2 fL (9.5-13.5); Monocytes Absolute Auto 0.7 10^3/uL (0.3-0.8); Monocytes Percent Auto 6.2 % (1.7-12.0); Neutrophils Absolute Auto 7.7 10^3/uL (1.4-6.5); Neutrophils Percent Auto 73.5 % (43.0-75.0); Platelet Count 130 10^3/uL (150-450); Red Blood Count 3.92 10^6/uL (4.20-5.40); Red Cell Distribution Width 15.5 % (11.0-15.0); White Blood Count 10.5 10^3/uL (4.0-11.0)
[2024-04-28] MEDS: CITRIC ACID/SODIUM CITRATE 30 ML SOLUTION ORACIT SHOHL'S SOLN PO (07:43)
[2024-04-28] MEDS: FAMOTIDINE/PF 20 MG/2 ML VIAL IV (07:43)
[2024-04-28] MEDS: METOCLOPRAMIDE HCL 10 MG/2 ML VIAL IVP (07:43)
[2024-04-28 07:48] LABS: Amphetamine Screen Urine NEGATIVE (NEGATIVE); Barbiturates Screen Urine NEGATIVE (NEGATIVE); Benzodiazepines Screen Urine NEGATIVE (NEGATIVE); Buprenorphine Screen Urine NEGATIVE (NEGATIVE); Cannabinoid Screen Urine NEGATIVE (NEGATIVE); Cocaine Screen Urine NEGATIVE (NEGATIVE); Methadone Screen Urine NEGATIVE (NEGATIVE); Methamphetamines Screen Urine NEGATIVE (NEGATIVE); Opiate Screen Urine NEGATIVE (NEGATIVE); Oxycodone Screen Urine NEGATIVE (NEGATIVE); Phencyclidine Screen Urine NEGATIVE (NEGATIVE); Tricyclic Antidepressant Urine NEGATIVE (NEGATIVE)
[2024-04-28 07:51] LABS: Bacteria Urine MODERATE #/HPF (NONE SEEN); Cast Seen? NONE SEEN #/LPF (NONE SEEN); Crystals Seen? None Seen #/HPF (None Seen); Mucus Urine TRACE (NONE SEEN); Squamous Epithelial Cell Urine FEW #/LPF (NONE/RARE); Urine Culture Indicated YES
[2024-04-28] MEDS: CEFAZOLIN SODIUM/DEXTROSE,ISO 2 GM/50 ML PIGGYBACK IV ×2 (08:37→14:19)
--- NOTE | 2024-04-28 09:37 | P.ON_ITS ---
Brief Operative Note Date of procedure: 04/28/24 Pre-op diagnosis general: iup at 39wks, primary c/s dt macrosomia Post-op diagnosis: same as pre-op Procedure: NAME OF PROCEDURE: [ section ] PROCEDURE: Patient was taken back to the Operating Room where she was given a spinal anesthesia with Duramorph without difficulty. She was prepped and draped in the normal sterile fashion. A Pfannenstiel skin incision was then made 2 cm above the symphysis pubis and carried down to underlying rectus fascia using a Bovie. The fascia was incised in the midline and extended laterally using Brito scissors. Two Karen clamps were placed on the superior aspect of the fascia and dissected off the underlying rectus muscles. The same was performed on the inferior aspect as well. The muscles were then in the midline. Perit oneum was identified and entered bluntly. The peritoneum was then extended superiorly and inferiorly with good visualization of the bladder. The bladder blade was inserted. A low transverse incision was made on the patient's uterus and extended laterally digitally. The was then delivered atraumatically after the bladder blade was removed in the cephalic position. The cord was clamped and cut. Cord blood was obtained. The infant was handed off to awaiting team. The patient's placenta was spontaneously delivered. The uterus was then exteriorized. The uterus was cleared of all clots and debris. The bladder blade was reinserted. The patient's uterine incision was closed using #0 Vicryl in a running lock fashion. Excellent hemostasis was assured. The uterus was then returned to the patient's abdomen. The patient's abdomen was copiously irrigated using warm saline. Peritoneal gutters were cleared of all clots and debris. Again excellent hemostasis was assured. The patient's peritoneum was closed using 3-0 Vicryl in a running fashion. The patient's fascia was closed using #0 Vicryl in a running fashion. The patient's skin was closed using 4-0 Vicryl subcuticularly. The patient tolerated the procedure well. Sponge, lap, and needle counts were correct x2. The patient was taken to the Recovery Room in stable condition. Anesthesia: spinal Surgeon: Damien Solis Coffee Break Attendant: Tram Sinclair Estimated blood loss (mL): 575 Pathology: other (placenta) Condition: stable Disposition: floor
--- NOTE | 2024-04-28 09:38 | PM.OBPRCCS ---
Procedure Helpdesk Manager: Marion Pittman Estimated blood loss (mL): 575 Disposition: floor Anesthesia type: Spinal
[2024-04-28] MEDS: KETOROLAC TROMETHAMINE 30 MG/ML VIAL IVP ×2 (14:19→20:56)
[2024-04-28] MEDS: ONDANSETRON PF 4 MG/2 ML VIAL IV (16:42)
[2024-04-28] MEDS: ENOXAPARIN SODIUM 40 MG/0.4 ML SYRINGE SUBQ (20:56)
--- NOTE | 2024-04-28 21:56 | RESP.RT ---
Patient was busy in the bathroom cleaning up and then
[2024-04-29] VITALS (9 sets, daily range): BP systolic 92–136; BP diastolic 55–72; PULSE 80–86; TEMP 35.6–36.8; O2SAT 96–100
[2024-04-29] MEDS: KETOROLAC TROMETHAMINE 30 MG/ML VIAL IVP (05:43)
[2024-04-29] MEDS: DOCUSATE SODIUM 100 MG CAPSULE PO ×2 (09:36→21:26)
[2024-04-29] MEDS: RHO(D) IMMUNE GLOBULIN 1,500 UNIT SYRINGE 1500 UNIT IV (09:36)
--- NOTE | 2024-04-29 09:53 | PM.OBPN ---
Exam Constitutional Vital Signs, click to edit/add: Last Vital Signs Temp 97.9 F 04/29/24 04:08 Pulse 80 04/29/24 04:08 Resp 18 04/29/24 04:08 BP 103/55 04/29/24 04:08 Pulse Ox 98 04/29/24 04:08 O2 Del Method Room Air 04/29/24 09:46 Urinary Catheter Management Urinary Catheter Management Urethral: Cath placed during this visit: yes Urethral indwelling: No Insertion date: 04/28/24 Insertion time: 09:02 OB - PN: A/P Time Spent with Patient Time: Total time spent is greater than 50% in coordination of care (as documented) at patient's floor/unit and/or counseling patient: Total time spent with greater than 50% in coordination of care (as documented) at patient's floor/unit and/or counseling patient: less than 15 minutes
--- NOTE | 2024-04-29 09:58 | PM.OBPN ---
OB - PN: Subj Subjective Patient comments: no complaints [place] status: doing well [place] feeding status: exclusively Exam Constitutional Vital Signs, click to edit/add: Last Vital Signs Temp 97.9 F 04/29/24 04:08 Pulse 80 04/29/24 04:08 Resp 18 04/29/24 04:08 BP 103/55 04/29/24 04:08 Pulse Ox 98 04/29/24 04:08 O2 Del Method Room Air 04/29/24 09:46 Common normals: no apparent distress, average body habitus, oriented x3, no limitations, healthy appearing, alert and well nourished General appearance: cooperative and comfortable Orientation/consciousness: Yes awake, Yes oriented to person, Yes oriented to place and Yes oriented to time HENMT Common normals: normocephalic Eye Common normals: EOMs intact bilaterally Neck & C-Spine Common normals: full ROM and no lymphadenopathy Lymph Lymphatic: no lymphadenopathy noted Chest Common normals: inspection of chest normal Respiratory Common normals: normal respiratory effort, no retractions, no use of accessory muscles, clear to auscultation bilaterally and percussion normal Effort & inspection: able to speak in complete sentences Auscultation: clear to auscultation bilaterally Cardio Common normals: regular rate and regular rhythm Rate: regular rate Rhythm: regular rhythm GI Common normals: Normal to inspection, nondistended, normoactive bowel sounds present Inspection: normal to inspection Palpation: soft Common normals: no CVA tenderness Back & Pelvis Common normals: no CVA tenderness Extremity Common normals: normal to inspection, full ROM, normal capillary refill, no joint enlargement, no clubbing, cyanosis or edema, no calf tenderness and no pedal edema Neuro Common normals: oriented x3 and moves all extremities Sensorium/orientation: awake, alert, oriented to person, oriented to place and oriented to time Psych Common normals: mental status grossly normal Urinary Catheter Management Urinary Catheter Management Urethral: Cath placed during this visit: yes Urethral indwelling: Yes Reason for continuing: not indwelling catheter Insertion date: 04/28/24 Insertion time: 09:02 OB - PN: A/P Plan - day: 1 Plan: routine postop care Time Spent with Patient Time: Total time spent is greater than 50% in coordination of care (as documented) at patient's floor/unit and/or counseling patient: Total time spent with greater than 50% in coordination of care (as documented) at patient's floor/unit and/or counseling patient: less than 15 minutes
[2024-04-29 10:33] LABS: Basophils Percent Auto 0.2 % (0.2-2.0); Eosinophils Absolute Auto 0.1 10^3/uL (0.0-0.7); Hematocrit 31.2 % (36.0-48.0); Hemoglobin 9.9 g/dL (12.0-16.0); Immature Granulocytes Abs Auto 0.11 10^3/uL (0.00-0.03); Immature Granulocytes Pct Auto 0.9 % (0.0-0.5); Lymphocytes Absolute Auto 1.7 10^3/uL (1.2-3.8); Mean Corpuscular HGB Conc 31.7 g/dL (29.9-35.2); Mean Corpuscular Hemoglobin 28.3 pg (26.7-34.0); Mean Corpuscular Volume 89.1 fL (81.0-99.0); Mean Platelet Volume 12.2 fL (9.5-13.5); Monocytes Absolute Auto 0.8 10^3/uL (0.3-0.8); Monocytes Percent Auto 6.2 % (1.7-12.0); Neutrophils Absolute Auto 9.6 10^3/uL (1.4-6.5); Neutrophils Percent Auto 77.7 % (43.0-75.0); Platelet Count 126 10^3/uL (150-450); Red Cell Distribution Width 15.8 % (11.0-15.0); White Blood Count 12.3 10^3/uL (4.0-11.0)
[2024-04-29] MEDS: IBUPROFEN 400 MG TABLET 800 MG PO ×2 (12:31→20:02)
[2024-04-29] MEDS: ACETAMINOPHEN 500 MG TABLET 1000 MG PO ×2 (16:43→22:55)
[2024-04-29] MEDS: ENOXAPARIN SODIUM 40 MG/0.4 ML SYRINGE SUBQ (21:26)
[2024-04-29] MEDS: SERTRALINE HCL 50 MG TABLET PO (21:26)
[2024-04-30] MEDS: IBUPROFEN 400 MG TABLET 800 MG PO (04:19)
[2024-04-30] MEDS: ACETAMINOPHEN 500 MG TABLET 1000 MG PO (06:24)
--- NOTE | 2024-04-30 07:43 | P.OBPN_ITS ---
OB - PN: Subj Subjective Patient comments: no complaints and pain well controlled [place] status: doing well Exam Constitutional Vital Signs, click to edit/add: Last Vital Signs Temp 98.2 F 04/29/24 22:47 Pulse 86 04/29/24 22:47 Resp 16 04/29/24 22:47 BP 136/67 04/29/24 22:47 Pulse Ox 100 04/29/24 16:55 O2 Del Method Room Air 04/29/24 22:47 Documenting provider has reviewed patient's vital signs: yes Common normals: no apparent distress Respiratory Common normals: normal respiratory effort and clear to auscultation bilaterally Cardio Common normals: regular rate and regular rhythm GI Common normals: Normal to inspection, nondistended, normoactive bowel sounds present Extremity Common normals: no clubbing, cyanosis or edema and no calf tenderness Results Labs Labs: Short CBC 04/29/24 Range/Units 10:27 WBC 12.3 H (4.0-11.0) 10^3/uL Hgb 9.9 L (12.0-16.0) g/dL Hct 31.2 L (36.0-48.0) % Plt Count 126 L (150-450) 10^3/uL Urinary Catheter Management Urinary Catheter Management Urethral: Cath placed during this visit: yes Urethral indwelling: No Insertion date: 04/28/24 Insertion time: 09:02 OB - PN: A/P Plan - day: 2 Time Spent with Patient Time: Total time spent is greater than 50% in coordination of care (as documented) at patient's floor/unit and/or counseling patient: Total time spent with greater than 50% in coordination of care (as documented) at patient's floor/unit and/or counseling patient: less than 15 minutes
[2024-04-30] MEDS: DOCUSATE SODIUM 100 MG CAPSULE PO (08:48)
[2024-04-30 08:49] VITALS: BP 133/68; TEMP 36.2
--- NOTE | 2024-04-30 11:05 | DS_ITS ---
DISCHARGE DATE: ??04/30/2024 PRIMARY DIAGNOSES: 1.? Intrauterine at 39 weeks. 2.? Primary due to macrosomia. PROCEDURE:? section. HOSPITAL COURSE:? As expected.? Please see chart for full details.? LABORATORY DATA:? Please see chart. COMPLICATIONS:? None. DISCHARGE CONDITION:? Stable. CONSULTATION:? Anesthesia. DISCHARGE INSTRUCTIONS: 1.? Diet:? Regular. 2.? Medications: a.? Percocet 5/325 one to two p.o. every 4-6 hours p.r.n. pain. b.? Motrin 800 one p.o. every 8 hours p.r.n. pain. 3.? Followup in one week. Restrictions:? Pelvic rest for 6 weeks.? No heavy lifting.? May drive when pain free and no longer on narcotics. COLIND
== END 2024-04-30 11:05 | disposition home or self-care (01) | DRG 788 ==
PROVIDERS: Midwife; Admitting Provider Obstetrics & Gynecology; Visit Provider Obstetrics & Gynecology
DX: O36.63X0 Maternal care for excessive fetal growth, third trimester, not applicable or unspecified (principal); Z3A.39 39 weeks gestation of pregnancy; Z37.0 Single live birth; O99.824 Streptococcus B carrier state complicating childbirth; O26.893 Other specified pregnancy related conditions, third trimester; Z67.11 Type A blood, Rh negative
CPT/HCPCS: 36415; 51702; 80307; 81001; 85025; 85461; 86850; 86900; 86901; 87086; 88307; 94667; 94668; 96372; 96374; 96375; 96376; J0131; J0690; J1110; J1650; J1885; J2274; J2371; J2405; J2590; J2765; J2790